=== PATIENT | male | born 1945 | race Caucasian/White ===

== ENCOUNTER 2019-05-28 08:04 | Emergency (ER) | payer MEDICARE, OTHER, SELFPAY ==
[2019-05-28 08:04] VITALS: BP 183/75; PULSE 53; RESP 17; TEMP 36.7; O2SAT 99; BMI 29.9
--- NOTE | 2019-05-28 08:22 | CT_ITS ---
STUDY: CT ABDOMEN AND PELVIS WITHOUT CONTRAST REASON FOR EXAM: Male, 73 years old. Left flank pain. History of lymphoma. RADIATION DOSAGE (If Supplied By Facility): CTDIvol = ( 17.94 ) mGy, DLP = ( 954.91 ) mGycm TECHNIQUE: Transaxial images were obtained from the dome of the diaphragm to the symphysis pubis without oral contrast, and without intravenous contrast. Sagittal and coronal images were reconstructed. Individualized dose optimization techniques were used for this CT. COMPARISON: Comparison is made with prior examination of July 07, 2015. FINDINGS: Calcified granuloma in the posterior medial segment of the right lower lobe. Coronary artery stenting. Normal liver. Normal gallbladder and extrahepatic biliary system. There is a benign calcified granuloma of the spleen. Normal pancreas. Normal bilateral adrenal glands. 3 mm nonobstructive calculus in the upper pole of the right kidney. 2 mm focus in the lower pole of the right kidney. There is a 2.4 cm cyst in the inferior pole of the right kidney. There is a 4.8 cm by 4.9 cm cyst in the anterior upper pole of the left kidney. Left perinephric stranding. Mild degree of left hydronephrosis and proximal hydroureter due to a 2 mm calculus in the midportion of the left ureter. There is a small hiatal hernia. Normal small intestine. There are multiple colonic diverticula consistent with diverticulosis. There is non-visualization of the appendix. There is diffuse atherosclerotic calcification of the abdominal aorta and its major visceral branches, without a demonstrated aneurysm. Normal inferior vena cava. Normal retroperitoneum. Small residual mesenteric lymph nodes. Normal urinary bladder. There are prostatic calcifications. Normal abdominal wall. There are mild degenerative changes of the visualized lumbar spine. CT/Abdomen/Pelvis without Cont IMPRESSION: 2 mm calculus in the midportion of the left ureter causing mild degree of the left hydronephrosis and perinephric stranding. Stable nonobstructive right intrarenal calculi. Stable bilateral renal cysts. Electronically Signed: Spencer Clark, at 10:14 EDT , Service support ,
--- NOTE | 2019-05-28 08:23 | ED.DCSUM_ITS ---
History of Present Illness Chief Complaint: Flank Pain Informant: Patient Onset: Today Current Severity: Mild Narrative: Complains of left flank pain began 5 AM this morning, history of stents diabetes lymphoma stable no current therapy for lymphoma, went to bed feeling fine, no nausea vomiting or fever the pain radiates in the left flank into the left side of the abdomen, no nausea or vomiting history of kidney stones in the past last 10 years ago usually passes on his own no other complaints review of systems otherwise negative Past Medical History - Allergies and Home Meds Allergies/Adverse Reactions: Allergies meperidine HCl [From Demerol] Allergy (Verified 05/28/19 08:04) Chest tightness prednisone Allergy (Verified 05/28/19 08:04) Chest tightness propoxyphene HCl [From Darvon] Allergy (Verified 05/28/19 08:04) Chest tightness morphine Adverse Reaction (Verified 05/28/19 08:04) Vomiting Primary Care Physician: Aguila Gee MD [Primary Care Provider] - Past Medical History: - - See above Smoking Status: Never smoker Review of Systems General: Denies: Chills, Fever, Sweats Eyes: Denies: Visual changes - bilaterally, Diplopia ENT: Denies: Rhinorrhea, Sore throat Cardiovascular: Denies: Chest pain, Palpitations Respiratory: Denies: Dyspnea, Cough, Dyspnea on exertion Gastrointestinal: Denies: Abdominal pain, Nausea, Vomiting, Diarrhea, Melena, Hematochezia Genitourinary: Reports: - - Left flank pain only. Denies: Dysuria, Hematuria, Frequency Musculoskeletal: Denies: Back pain, Extremity Pain Skin: Denies: Rash, Wounds Neurological: Denies: Headache, Weakness, Numbness Physical Exam Vital Signs/Narrative: Vital Signs Temp Pulse Resp BP Pulse Ox 05/28/19 08:04 98.1 F 53 L 17 183/75 H 99 General: Well nourished, Well developed, No Acute Distress Head: Normocephalic, Atraumatic Eyes: Perrl, EOMI ENT: Moist mucous membranes, No rhinorrhea Neck: Supple, Nontender Cardiovascular: Regular rate, Regular rhythm, No murmurs Respiratory: No distress, CTA bilaterally, Chest nontender Abdomen: Soft, Nontender, Nondistended, Normal bowel sounds, - - Very mild pain to the left flank the abdominal exam is otherwise unremarkable Back: Nontender, Normal Inspection Extremities: Nontender, No edema Skin: Normal color, No rash Neurological: Alert, Oriented x3, Cranial nerves II-XII grossly intact, Normal Strength, Normal Sensation Psychological: Normal affect, Normal Mood Diagnostic/Tx/Re-eval - Medical Decision Making Given all of the above screening labs IV fluid pain management CT flank The screening labs show general unremarkable results microscopic hematuria see those values creatinine 1.6 baseline about 1.2, no recent creatinines, CT shows 2 mm left mid position ureteral kidney stone causing obstruction reevaluation patient is resting comfortable discussed all the above with him he is comfortable discharge home he understands to follow-up with urology, he is given the number for [facility] he wants no narcotic pain medicines just Naprosyn and Flomax and he will return for change in symptoms he understands any to follow-up with urology Home stable Final impression Left flank pain related to 2 mm obstructing right ureteral kidney stone creatinine 1.6 ED Disposition - Plan for ED Patient: Diagnosis: Kidney stone on left side Instructions: KIDNEY STONE w/ Colic Prescriptions: Tamsulosin HCl [Flomax] 0.4 mg PO DAILY #7 cap Prescription Printed Naproxen [Naprosyn] 500 mg PO BID PRN #20 tab Prescription Printed Referrals: Aguila Gee MD [Primary Care Provider] - Gordy Pete MD [STAFF PHYSICIAN] -
[2019-05-28 08:51] LABS: Bacteria 0 SEEN /hpf (None Seen); Mucous, Urine 0 SEEN /hpf (<or=2+); Squamous Epithelial Cells - UA 0 SEEN /hpf (0-5); White Blood Cells 0 SEEN /hpf (0-5)
[2019-05-28 09:02] LABS: Color, Urine Yellow (Yellow); Glucose, Dipstick 1000 mg/dl (Normal); Ketone-Dipstick 5 mg/dl (Negative); Leukocyte Esterase-Dipstick Negative /ul (Negative); Nitrite-Dipstick Negative (Negative); Occult Blood-Urine 250 /ul (Negative); Protein-Dipstick 30 mg/dl (Negative); Urine Bilirubin Dipstick Negative (Negative); Urine Clarity Clear (Clear); Urine Urobilinogen Normal (Normal)
[2019-05-28] MEDS: Ondansetron 4 MG/2 ML Vial IV (09:07)
[2019-05-28] MEDS: Ketorolac 30 MG/ML Syringe IV (09:07)
[2019-05-28] MEDS: HYDROmorphone 0.5 MG/0.5 ML SYRINGE IV ×2 (09:07→10:20)
[2019-05-28 09:09] LABS: Absolute Lymphocyte Count 0.75 X10^3/uL (0.83-4.51); Absolute Neutrophil Count 6.3 X10^3/uL (2.0-7.7); Basophil# 0.02 X10^3/uL; Basophil% 0.3 % (0-1); Eosinophil# 0.04 X10^3/uL; Eosinophils% 0.5 % (0-5); Hematocrit 45.9 % (40-54); Hemoglobin 15.8 g/dL (13.0-16.5); Lymphocyte # 0.75 X10^3/ul (4.0); Lymphocyte % 10.1 % (19-41); Mean Corp Hgb Conc 34.4 g/dL (32-36); Mean Corpuscular Hgb 30.4 pg (27.0-32.0); Mean Corpuscular Volume 88.3 fL (80-94); Mean Platelet Vol. 10.3 fl (6.2-12.0); Monocyte# 0.28 X10^3/uL; Monocyte% 3.8 % (0-10); NRBC Flagged by Analyzer 0 % (0-5); Neutrophil # 6.32 X10^3/uL (2.7-7.7); Neutrophil % 84.9 % (47-70); Platelet Count 167 K/mm3 (150-450); RBC Distribution Width CV 12.3 % (11.6-14.6); RBC Distribution Width SD 40.3 fl (35.1-43.9); White Blood Count 7.4 K/mm3 (4.4-11.0)
[2019-05-28 09:09] LABS: Red Blood Cells-Urine 25-50 SEEN /hpf (0-5)
[2019-05-28 09:13] VITALS: BP 169/54; PULSE 53; RESP 14; O2SAT 98
[2019-05-28 09:21] LABS: Anion Gap 10 (5-15); BUN 15 mg/dL (7-18); BUN/Creat Ratio 9.3 RATIO (10-20); Calcium,Total 9.8 mg/dL (8.5-10.1); Chloride 102 mmol/L (98-107); Creatinine, Serum 1.61 mg/dL (0.70-1.30); EST Glomerular Filtration Rate 45 mL/min (>60); Est Glom Filt Rate - Afr Amer 54 mL/min (>60); Estimated Creatinine Clearance 39.64 ml/min; Glucose 248 mg/dL (74-106); Potassium 4.1 mmol/L (3.5-5.1); Sodium Level 140 mmol/L (136-145)
[2019-05-28 11:13] VITALS: BP 165/73; PULSE 59; RESP 14; O2SAT 97
== END 2019-05-28 11:14 | disposition home or self-care (01) ==
PROVIDERS: Emergency Provider Emergency Medicine; Family Provider Family Medicine; PCP Family Medicine
DX: N13.2 Hydronephrosis with renal and ureteral calculous obstruction (principal); Z85.72 Personal history of non-Hodgkin lymphomas
CPT/HCPCS: 74176; 80048; 81001; 85025; 96374; 96375; 96376; 99283; J7030; A4216; J2405

== ENCOUNTER → 2019-06-24 11:36 | Outpatient (CLI) | payer MEDICARE, OTHER, SELFPAY ==
[2019-05-28 08:04] VITALS: BMI 29.9
--- NOTE | 2019-06-24 11:37 | RAD_ITS ---
STUDY: X-RAY - RIGHT KNEE REASON FOR EXAM: Male, 73 years old. Pain TECHNIQUE: 4 view(s) of the knee. COMPARISON: None. FINDINGS: Normal visualized distal femur. Normal visualized proximal tibia and fibula. Normal proximal tibiofibular articulation. Narrowed medial femorotibial compartment with spurring of the medial tibial and femoral condyles and mild valgus deformity.. Normal lateral femorotibial compartment. Normal patellofemoral articulation. Mild chondrocalcinosis RAD/Knee 4 or More Views IMPRESSION: Osteoarthritic changes. No evidence for acute fracture Electronically Signed: Pato Peralta MD at 20:58 EDT , Service support ,
== END ==
PROVIDERS: Family Provider Family Medicine; PCP Family Medicine; Referring Provider Orthopaedic Surgery; Visit Provider Orthopaedic Surgery
DX: M25.561 Pain in right knee (principal)
CPT/HCPCS: 73564

== ENCOUNTER 2019-11-09 10:02 | Emergency (ER) | payer MEDICARE, OTHER, SELFPAY ==
[2019-06-24 11:42] VITALS: BMI 29.9
[2019-11-09 10:03] VITALS: BP 155/100; PULSE 59; RESP 20; TEMP 36.3; O2SAT 99; BMI 29.5
--- NOTE | 2019-11-09 10:32 | CT_ITS ---
STUDY: CT ABDOMEN AND PELVIS WITHOUT CONTRAST REASON FOR EXAM: Male, 74 years old. LL ABD PAIN, HX DIVERTICULITIS RADIATION DOSAGE (If Supplied By Facility): CTDIvol = ( 12.96 ) mGy, DLP = ( 673.65 ) mGycm TECHNIQUE: Transaxial images were obtained from the dome of the diaphragm to the symphysis pubis without oral contrast, and without intravenous contrast. Sagittal and coronal images were reconstructed. Individualized dose optimization techniques were used for this CT. COMPARISON: Comparison is made with prior study dated May 28, 2019. FINDINGS: The visualized lung bases are unremarkable. Coronary artery calcification. Normal liver. Normal gallbladder and extrahepatic biliary system. There is a benign calcified granuloma of the spleen. Normal pancreas. Normal bilateral adrenal glands. Small cyst in the lower pole of the right kidney. Nonobstructive punctate calculus in the lower pole of the right kidney. Left perinephric stranding. Mild degree of left hydronephrosis and hydroureter due to a 3.3 mm calculus in the distal portion of the left ureter. There is evidence of a 4.9 cm x 5.1 cm cyst in the upper pole of the left kidney. A punctate calcification is seen in the lower pole calyx of the left kidney. There is a small hiatal hernia. Normal small intestine. There are multiple colonic diverticula consistent with diverticulosis. The appendix is visualized and appears normal. There is diffuse atherosclerotic calcification of the abdominal aorta and the major visceral branches, without a demonstrated aneurysm. Normal inferior vena cava. There is borderline retroperitoneal lymphadenopathy with enlarged nodes no greater than 10mm in the short axis diameter. Normal urinary bladder. There are prostatic calcifications. Normal abdominal wall. There are degenerative changes of the visualized lumbar spine. CT/Abdomen/Pelvis without Cont IMPRESSION: 3.3 mm obstructive calculus in the distal portion of the left ureter causing left hydronephrosis and left perinephric stranding. Stable bilateral renal cysts. Nonobstructive bilateral intrarenal calculi. Electronically Signed: Spencer Clark, at 11:19 EST , Service support ,
--- NOTE | 2019-11-09 10:36 | ED.DCSUM_ITS ---
- ER Visit Summary Date of Service: 11/09/19 Chief Complaint: Abdominal pain History of Present Illness: The patient is a 74 M who presents with left lower quadrant abdominal pain that began today. Patient describes the pain as sharp. Patient states his pain began suddenly. Patient states he has a history of kidney stones and diverticulitis. Patient states this feels more like his kidney stone pain. Patient states nothing makes it better or worse. Patient admits to 2 episodes of nausea and vomiting. Patient denies any hematemesis or coffee-ground emesis. Patient denies any diarrhea, melena, or hematochezia. Patient denies any dysuria or hematuria. Physical Examination: Vital signs are stable. Patient is afebrile. Patient is in no acute distress. Oral mucosa is pink and moist. Neck is supple. Trachea is midline. There is no JVD noted. Heart was regular rate and rhythm. Lungs are clear and equal bilaterally. Abdomen is soft. Bowel sounds are normal. There is mild left lower quadrant tenderness. There is no rebound or guarding noted. There is also some mild left CVA tenderness. Skin is warm dry. Cranial nerves II through XII are intact. There are no focal motor or sensory deficits noted. Extremities are intact. There is no calf tenderness or edema. Test Results: CBC was within normal limits. Basic metabolic profile showed a creatinine of 1.53. This was improved compared to previous result. Urinalysis shows occult blood of 250 with 10-[address] scan of the abdomen pelvis was obtained. There is a 3.3 mm left distal ureteral calculus with hydronephrosis and perinephric stranding. This was interpreted by the radiologist. Emergency Department Course and Treatment: Patient was given IV fluids. Due to his allergy to opiate medications, the patient was given a dose of Toradol. Patient was given a prescription for a short course of Toradol. Patient was instructed to follow-up with his primary care physician and urologist in 3 to 5 days. Patient understood and was agreeable with the plan. All questions were answered. Disposition: Discharge home Impression: Left ureteral calculus This note was generated with [employer] software. It may contain incorrect words, spelling, and punctuation that were not noted in review of the chart prior to signing ED Disposition - Plan for ED Patient: Disposition: Home or Assisted Living Diagnosis: Left ureteral calculus Instructions: KIDNEY STONE w/ Colic Prescriptions: Ketorolac [Toradol] 10 mg PO Q6H #12 tab Prescription Printed Referrals: Aguila Gee MD [Primary Care Provider] - 3-5 Days
[2019-11-09 10:44] LABS: Absolute Lymphocyte Count 0.98 X10^3/uL (0.83-4.51); Absolute Neutrophil Count 6.4 X10^3/uL (2.0-7.7); Basophil# 0.05 X10^3/uL; Basophil% 0.6 % (0-1); Eosinophil# 0.05 X10^3/uL; Eosinophils% 0.6 % (0-5); Hematocrit 46.5 % (40-54); Hemoglobin 15.7 g/dL (13.0-16.5); Lymphocyte # 0.98 X10^3/ul (4.0); Lymphocyte % 12.2 % (19-41); Mean Corp Hgb Conc 33.8 g/dL (32-36); Mean Corpuscular Hgb 29.8 pg (27.0-32.0); Mean Corpuscular Volume 88.4 fL (80-94); Mean Platelet Vol. 10.8 fl (6.2-12.0); Monocyte# 0.48 X10^3/uL; NRBC Flagged by Analyzer 0 % (0-5); Neutrophil # 6.42 X10^3/uL (2.7-7.7); Neutrophil % 80.2 % (47-70); Platelet Count 165 K/mm3 (150-450); RBC Distribution Width CV 12.3 % (11.6-14.6); RBC Distribution Width SD 40.3 fl (35.1-43.9); Red Blood Count 5.26 M/mm3 (4.6-6.2)
[2019-11-09] MEDS: 0.9% Normal Saline 1,000 ML 1000 ML IV (10:49)
[2019-11-09] MEDS: Ketorolac 30 MG/ML Syringe 15 MG IV (10:50)
[2019-11-09 10:57] LABS: BUN 21 mg/dL (7-18); Creatinine, Serum 1.53 mg/dL (0.70-1.30); Estimated Creatinine Clearance 41.07 ml/min; Glucose 256 mg/dL (74-106)
[2019-11-09 10:57] LABS: Bacteria 0 SEEN /hpf (None Seen); Mucous, Urine 0 SEEN /hpf (<or=2+); White Blood Cells 0 SEEN /hpf (0-5)
[2019-11-09 10:58] LABS: ALB/GLOB Ratio 1.1 RATIO (0.9-2.4); AST(SGOT) 31 U/L (15-37); Alanine Aminotransfer ALT/SGPT 40 U/L (16-61); Albumin, Serum 4.4 g/dL (3.2-5.0); Alkaline Phosphatase 66 U/L (45-117); Anion Gap 8 (5-15); BUN/Creat Ratio 13.7 RATIO (10-20); Calcium,Total 9.6 mg/dL (8.5-10.1); Chloride 103 mmol/L (98-107); EST Glomerular Filtration Rate 47 mL/min (>60); Est Glom Filt Rate - Afr Amer 57 mL/min (>60); Globulin 4.1 g/dL (2.2-4.2); Protein, Total 8.5 g/dL (6.4-8.2); Sodium Level 138 mmol/L (136-145)
[2019-11-09 11:00] LABS: Color, Urine Yellow (Yellow); Glucose, Dipstick 1000 mg/dl (Normal); Ketone-Dipstick 50 mg/dl (Negative); Leukocyte Esterase-Dipstick Negative /ul (Negative); Nitrite-Dipstick Negative (Negative); Occult Blood-Urine 250 /ul (Negative); Protein-Dipstick 30 mg/dl (Negative); Urine Bilirubin Dipstick Negative (Negative); Urine Clarity Clear (Clear); Urine Urobilinogen Normal (Normal)
[2019-11-09 11:10] LABS: Red Blood Cells-Urine 10-25 SEEN /hpf (0-5); Squamous Epithelial Cells - UA 0 SEEN /hpf (0-5)
[2019-11-09 12:44] VITALS: BP 148/66; PULSE 60; RESP 17; O2SAT 97
--- NOTE | 2019-11-09 14:24 | CHAPLAIN ---
Type of Pastoral Visit _x__ Initial Visit ___ Follow-up Visit ___ On-call Visit ___ General Patient Visit ___ Spiritual Assessment ___ Family Conference ___ Bereavement ___ Rapid Response ___ Code Blue ___ Other (describe below) Pastoral Care Referral From _x__ Patient _x__ Family ___ Nurse ___ Physician ___ Fundraising Sale Representative ___ Knocker Out ___ Other (describe below) Sacrament/Intervention _x__ Active listening ___ Anointing ___ Confucianism ___ Bereavement ___ Communion ___ Laura exploration ___ _x__ Life review _x__ Prayer ___ Reconciliation ___ Sacrament of Sick _x__ Supportive presence ___ Wedding ___ Other (describe below) Pastoral Comments
== END 2019-11-09 12:44 | disposition home or self-care (01) ==
PROVIDERS: Emergency Provider Emergency Medicine; PCP Family Medicine
DX: N13.2 Hydronephrosis with renal and ureteral calculous obstruction (principal); I25.10 Atherosclerotic heart disease of native coronary artery without angina pectoris; Z87.442 Personal history of urinary calculi; Z95.5 Presence of coronary angioplasty implant and graft; Z79.82 Long term (current) use of aspirin; Z79.899 Other long term (current) drug therapy
CPT/HCPCS: 74176; 80053; 81001; 85025; 96361; 96374; 99285; J7030; A4216

== ENCOUNTER 2020-03-16 09:48 | Emergency (ER) | payer MEDICARE, OTHER, SELFPAY ==
[2020-03-16 09:50] VITALS: BP 150/75; PULSE 57; RESP 17; TEMP 36.6; O2SAT 98; BMI 29.5
--- NOTE | 2020-03-16 10:03 | VDLE_ITS ---
Reason For Study: Pain RIGHT LEFT GSV is normal. CFV is compressible, spontaneous, phasic, CFV is compressible, spontaneous, phasic, competent, and demonstrates normal competent and demonstrates normal augmentation. augmentation. FV is compressible, spontaneous, phasic, competent and demonstrates normal augmentation. POP V is compressible, spontaneous, phasic, competent and demonstrates normal augmentation. T/P Trunk is compressible. PTV is compressible. RT PerV is compressible. Nonvascularized structure noted in the distal anterior calf measuring approximently 0.49 x 1.63 x 3.20 cm. Procedure Exam performed portable in ED. A preliminary report was called and/or faxed to [facility]. Interpretation Summary There is no evidence of right lower extremity deep vein thrombosis. Right distal anterior calf subcutaneous 0.49 x 1.63 x 3.2 cm stucture with no vascular flow. Clinical correlation would be appropriate Patent, compressible left common femoral vein Ordering Physician: Leonor Damon Referring Physician: MD Marlen Aguila Performed By: Mercedes Walton RVT
--- NOTE | 2020-03-16 10:04 | ED.VIS.GEN ---
History of Present Illness Chief Complaint: Lower Extremity Injury Informant: Patient Onset: Days - 10 days Current Severity: Moderate Maximum Severity: Moderate Narrative: Patient presents with continued pain and swelling to his right lower leg after hitting his leg on a trailer hitch 10 days ago. He had no laceration or bleeding. He continues to have a focal area of swelling over the anterior medial lower murphy. He has had prior right ankle surgery with screws in place. - Past Medical History (1) Benign essential hypertension Status: Chronic (2) CAD (coronary artery disease) Status: Chronic (3) HLD (hyperlipidemia) Status: Chronic (4) Intracranial meningioma Status: Chronic (5) Type II diabetes mellitus Status: Chronic Past Medical History - Allergies and Home Meds Allergies/Adverse Reactions: Allergies cephalexin [From Keflex] Allergy (Verified 03/16/20 09:49) rash meperidine HCl [From Demerol] Allergy (Verified 03/16/20 09:49) Chest tightness prednisone Allergy (Verified 03/16/20 09:49) Chest tightness propoxyphene HCl [From Darvon] Allergy (Verified 03/16/20 09:49) Chest tightness morphine Adverse Reaction (Verified 03/16/20 09:49) Vomiting Primary Care Physician: Aguila Gee MD [Primary Care Provider] - Prior records reviewed: Yes Smoking Status: Never smoker Review of Systems General: Denies: Chills, Fever Eyes: Denies: Visual changes - bilaterally ENT: Denies: Bilateral ear pain Cardiovascular: Denies: Chest pain Respiratory: Denies: Dyspnea, Cough Gastrointestinal: Denies: Abdominal pain, Nausea, Vomiting, Diarrhea Genitourinary: Denies: Dysuria Musculoskeletal: Reports: Swelling, Extremity Pain Neurological: Denies: Headache Hematologic: Denies: Easy bruising, Easy bleeding Allergy: Denies: Uticaria Physical Exam Vital Signs/Narrative: Vital Signs Temp Pulse Resp BP Pulse Ox 03/16/20 09:50 97.8 F 57 L 17 150/75 H 98 Inital Vital Signs reviewed: Yes General: Well nourished, Well developed Head: Normocephalic ENT: Moist mucous membranes Neck: Supple Cardiovascular: Regular rate, Regular rhythm Respiratory: No distress, CTA bilaterally Abdomen: Soft, Nontender Extremities: - - Focal hematoma over the anterior medial right lower murphy. Strong distal pulses. Good range of motion. Neurological: Alert, Oriented x3 Psychological: Normal affect Diagnostic/Tx/Re-eval Impressions Tibia/Fibula X-Ray 03/16/20 10:13 IMPRESSION: Vascular calcification. Prior ORIF of the bimalleolar fracture. No acute abnormality is seen. Electronically Signed: Spencer Clark, at 10:26 EDT , Service support , 03/16/20 10:13 Tibia & Fibula 2 Views [RAD] Stat - Medical Decision Making Venous ultrasound of the right lower extremity reveals no DVT. There is a pocket of fluid collection over the area of interest. Thang wrap is applied. Patient will continue to ice and elevate. ED Disposition - Plan for ED Patient: Disposition: Home or Assisted Living Diagnosis: Contusion of leg, Hematoma Instructions: ED EXTREMITY CONTUSION Lower Referrals: Aguila Gee MD [Primary Care Provider] - 10-14 Days if not better
--- NOTE | 2020-03-16 10:13 | RAD_ITS ---
STUDY: X-RAY - RIGHT TIBIA AND FIBULA REASON FOR EXAM: Male, 74 years old. RIGHT LOWER LEG PAIN AND EDEMA SINCE RUNNING INTO A TRAILER HITCH 10 DAYS AGO TECHNIQUE: 2 view(s) of the tibia and fibula were obtained. COMPARISON: None. FINDINGS: Normal visualized tibia. Normal visualized fibula. Prior screw fixation of a medial malleolar and lateral malleolar fracture. Vascular calcification. RAD/Tibia & Fibula 2 Views IMPRESSION: Vascular calcification. Prior ORIF of the bimalleolar fracture. No acute abnormality is seen. Electronically Signed: Spencer Clark, at 10:26 EDT , Service support ,
--- NOTE | 2020-03-16 11:29 | CHAPLAIN ---
Type of Pastoral Visit ___ Initial Visit ___ Follow-up Visit ___ On-call Visit ___ General Patient Visit ___ Spiritual Assessment ___ Family Conference ___ Bereavement ___ Rapid Response ___ Code Blue _x__ Other (describe below) Pastoral Care Referral From _x__ Patient ___ Family ___ Nurse ___ Physician ___ Office Auditor ___ Juke Box Mechanic ___ Other (describe below) Sacrament/Intervention _x__ Active listening ___ Anointing ___ Jainism ___ Bereavement ___ Communion ___ Laura exploration ___ ___ Life review ___ Prayer ___ Reconciliation ___ Sacrament of Sick _x__ Supportive presence ___ Wedding ___ Other (describe below) Pastoral Comments while this receivable executive was on rounds in ED this patient came from room as he was leaving hospital; this receivable executive is known to patient and pt stops to talk; offer of support given to pt; presence and attention given by receivable executive for support
== END 2020-03-16 10:55 | disposition home or self-care (01) ==
LOC: ED 10:51
PROVIDERS: Emergency Provider Emergency Medicine; PCP Family Medicine
DX: S80.11XA Contusion of right lower leg, initial encounter (principal); W22.09XA Striking against other stationary object, initial encounter; I10 Essential (primary) hypertension; E78.5 Hyperlipidemia, unspecified; I25.10 Atherosclerotic heart disease of native coronary artery without angina pectoris; E11.9 Type 2 diabetes mellitus without complications; Z79.84 Long term (current) use of oral hypoglycemic drugs; Z79.899 Other long term (current) drug therapy; Z79.82 Long term (current) use of aspirin; D32.0 Benign neoplasm of cerebral meninges
CPT/HCPCS: 73590; 93971; 99282

== ENCOUNTER 2020-07-28 04:32 | Emergency (ER) | payer MEDICARE, OTHER, SELFPAY ==
[2020-07-28 04:33] VITALS: BP 178/80; PULSE 66; RESP 18; TEMP 36.4; O2SAT 97; BMI 29.5
--- NOTE | 2020-07-28 04:47 | CT_ITS ---
STUDY: CT ABDOMEN AND PELVIS WITHOUT CONTRAST REASON FOR EXAM: Male, 75 years old. Right flank pain. History of kidney stones. RADIATION DOSAGE (If Supplied By Facility): CTDIvol = ( 12.82 ) mGy, DLP = ( 672.74 ) mGycm TECHNIQUE: Transaxial images were obtained from the dome of the diaphragm to the symphysis pubis without oral contrast, and without intravenous contrast. Sagittal and coronal images were reconstructed. Individualized dose optimization techniques were used for this CT. COMPARISON: November 09, 2019. FINDINGS: The visualized lung bases are unremarkable. The heart is not enlarged. Coronary artery calcifications. Calcified right infrahilar lymph nodes. Normal liver. Normal gallbladder and extrahepatic biliary system. There are multiple benign calcified granulomata of the spleen. Normal pancreas. Normal bilateral adrenal glands. Mild right hydronephrosis secondary to a 4 mm x 3 mm mid ureteral stone located at the L3-4 level. Stable inferior pole right renal cyst. Scattered 1 mm nonobstructing right renal calculi. Stable 5.1 cm simple left renal cyst. Normal visualized stomach. Normal small intestine. Colonic diverticulosis. There is non-visualization of the appendix compatible with history of appendectomy. There is scattered atherosclerotic calcification of the abdominal aorta, without a demonstrated aneurysm. Normal inferior vena cava. Normal retroperitoneum. No intra-abdominal free air. Normal urinary bladder. Prostate gland is mildly enlarged. Normal abdominal wall. Normal osseous structures. CT/Abdomen/Pelvis without Cont IMPRESSION: Mild right hydronephrosis secondary to a 4 mm x 3 mm mid ureteral stone. Very small nonobstructing right renal calculi. Stable bilateral renal cysts. Mild prostate gland enlargement. Old granulomatous disease. Colonic diverticulosis. Additional nonemergent findings as above. Electronically Signed: Silvestre Negrete MD at 5:43 EDT , Service support ,
--- NOTE | 2020-07-28 04:48 | ED.VIS.GEN ---
History of Present Illness Chief Complaint: Flank Pain Informant: Patient Onset: Today Current Severity: Moderate Maximum Severity: Moderate Narrative: Patient presents with abdominal pain that started at 1230 this morning. It somewhat wraps to the right flank area. He states he feels like his abdomen is distended. He did have nausea with 3 episodes of vomiting. He has a history of kidney stones and states this does feel similar, however is also concerned about his bowels. He has had prior abdominal surgeries including appendectomy and partial cholecystectomy. - Past Medical History (1) Benign essential hypertension Status: Chronic (2) CAD (coronary artery disease) Status: Chronic (3) HLD (hyperlipidemia) Status: Chronic (4) History of nephrolithiasis Status: Chronic (5) Sleep apnea Status: Chronic (6) Type II diabetes mellitus Status: Chronic Past Medical History - Allergies and Home Meds Allergies/Adverse Reactions: Allergies cephalexin [From Keflex] Allergy (Verified 07/28/20 04:38) rash meperidine HCl [From Demerol] Allergy (Verified 07/28/20 04:38) Chest tightness prednisone Allergy (Verified 07/28/20 04:38) Chest tightness propoxyphene HCl [From Darvon] Allergy (Verified 07/28/20 04:38) Chest tightness morphine Adverse Reaction (Verified 07/28/20 04:38) Vomiting Primary Care Physician: Aguila Gee MD [Primary Care Provider] - Prior records reviewed: Yes Lives: Spouse/ Significant Other Smoking Status: Never smoker Review of Systems General: Denies: Chills, Fever Eyes: Denies: Visual changes - bilaterally ENT: Denies: Bilateral ear pain Cardiovascular: Denies: Chest pain Respiratory: Denies: Dyspnea, Cough Gastrointestinal: Reports: Abdominal pain, Nausea, Vomiting. Denies: Diarrhea Genitourinary: Denies: Dysuria Musculoskeletal: Denies: Swelling, Extremity Pain Skin: Denies: Rash Hematologic: Denies: Easy bruising, Easy bleeding Allergy: Denies: Uticaria Physical Exam Vital Signs/Narrative: Vital Signs Temp Pulse Resp BP Pulse Ox 07/28/20 04:33 97.6 F L 66 18 178/80 H 97 Inital Vital Signs reviewed: Yes General: Well nourished, Well developed Head: Normocephalic ENT: Moist mucous membranes Neck: Supple Cardiovascular: Regular rate, Regular rhythm Respiratory: No distress, CTA bilaterally Abdomen: Soft, Nontender, Hypoactive bowel sounds Extremities: Nontender Skin: Normal color Neurological: Alert, Oriented x3 Psychological: Normal affect Diagnostic/Tx/Re-eval Impressions Abdomen/Pelvis CT 07/28/20 04:47 IMPRESSION: Mild right hydronephrosis secondary to a 4 mm x 3 mm mid ureteral stone. Very small nonobstructing right renal calculi. Stable bilateral renal cysts. Mild prostate gland enlargement. Old granulomatous disease. Colonic diverticulosis. Additional nonemergent findings as above. Electronically Signed: Silvestre Negrete MD at 5:43 EDT , Service support , 07/28/20 04:47 Abdomen/Pelvis without Cont [CT] Stat Laboratory Results 07/28/20 07/28/20 07/28/20 04:42 04:42 05:45 WBC 8.1 RBC 4.95 Hgb 14.7 Hct 44.2 MCV 89.3 MCH 29.7 MCHC 33.3 RDW Std Deviation 39.8 RDW Coeff of Radha 12.2 Plt Count 167 MPV 10.7 Immature Gran % (Auto) 0.200 Neut % (Auto) 83.6 H Lymph % (Auto) 10.5 L [place] % (Auto) 5.0 Eos % (Auto) 0.5 Baso % (Auto) 0.2 Absolute Neuts (auto) 6.8 Absolute Lymphs (auto) 0.85 Nucleated RBC % 0 Sodium 137 Potassium 4.0 Chloride 103 Carbon Dioxide 26.0 Anion Gap 8 BUN 26 H Creatinine 1.48 H Estim Creat Clear Calc 41.80 Est GFR (MDRD) Af Amer 59 L Est GFR (MDRD) Non-Af 49 L BUN/Creatinine Ratio 17.6 Glucose 203 H Calcium 9.0 Total Bilirubin 0.80 Direct Bilirubin 0.23 AST 24 ALT 36 Alkaline Phosphatase 56 Total Protein 8.0 Albumin 4.1 Globulin 3.9 Urine Color Yellow Urine Clarity Clear Urine pH 5.0 Ur Specific [place] 1.020 Urine Protein 30 H Urine Glucose (UA) 250 H Urine Ketones 50 H Urine Occult Blood 250 H Urine Nitrite Negative Urine Bilirubin Negative Urine Urobilinogen Normal Ur Leukocyte Esterase Negative Urine RBC 25-50 SEEN Urine WBC 0 SEEN Ur Squamous Epith Cells 0 SEEN Amorphous Sediment RARE Urine Bacteria RARE Hyaline Casts 0-5 SEEN Urine Mucus 0 SEEN - Medical Decision Making Patient was given Toradol, Dilaudid, Zofran, and IV fluids. On repeat evaluation his pain is much improved. Prior to leaving the emergency department patient started to have hematuria. Test results are discussed with patient and . He will be referred to Dr. Pete for follow-up as needed. He will be written for pain and nausea medication at home. ED Disposition - Plan for ED Patient: Disposition: Home or Assisted Living Diagnosis: Kidney stone Instructions: ED Renal Stone w Colic Prescriptions: Ketorolac [Toradol] 10 mg PO Q6H PRN #14 tab PRN Reason: Pain Score 4-10/10 Transmission Status: Pending to [id number] traMADol [Ultram] 50 mg PO Q4H PRN PRN 3 Days #20 tablet PRN Reason: Pain Transmission Status: Received by [id number] Ondansetron [Zofran Odt] 4 mg PO Q8H PRN PRN #10 tab PRN Reason: Nausea Transmission Status: Pending to [id number] Referrals: Gordy Pete MD [STAFF PHYSICIAN] - 3-5 Days if not improving
[2020-07-28 04:53] LABS: Absolute Lymphocyte Count 0.85 X10^3/uL (0.83-4.51); Absolute Neutrophil Count 6.8 X10^3/uL (2.0-7.7); Basophil# 0.02 X10^3/uL; Basophil% 0.2 % (0-1); Eosinophil# 0.04 X10^3/uL; Eosinophils% 0.5 % (0-5); Hematocrit 44.2 % (40-54); Hemoglobin 14.7 g/dL (13.0-16.5); Lymphocyte # 0.85 X10^3/ul (4.0); Lymphocyte % 10.5 % (19-41); Mean Corp Hgb Conc 33.3 g/dL (32-36); Mean Corpuscular Hgb 29.7 pg (27.0-32.0); Mean Corpuscular Volume 89.3 fL (80-94); Mean Platelet Vol. 10.7 fl (6.2-12.0); Monocyte# 0.41 X10^3/uL; NRBC Flagged by Analyzer 0 % (0-5); Neutrophil # 6.78 X10^3/uL (2.7-7.7); Neutrophil % 83.6 % (47-70); Platelet Count 167 K/mm3 (150-450); RBC Distribution Width CV 12.2 % (11.6-14.6); RBC Distribution Width SD 39.8 fl (35.1-43.9); Red Blood Count 4.95 M/mm3 (4.6-6.2); White Blood Count 8.1 K/mm3 (4.4-11.0)
[2020-07-28] MEDS: 0.9% Normal Saline 1,000 ML 150 ML IV (05:01)
[2020-07-28] MEDS: Ketorolac 15 MG/ML Vial IV (05:01)
[2020-07-28] MEDS: Ondansetron 4 MG/2 ML Vial IV (05:02)
[2020-07-28] MEDS: HYDROmorphone 1 MG/ML Syringe 0.5 MG IV (05:02)
[2020-07-28 05:11] LABS: AST(SGOT) 24 U/L (15-37); Alanine Aminotransfer ALT/SGPT 36 U/L (16-61); Albumin, Serum 4.1 g/dL (3.2-5.0); Alkaline Phosphatase 56 U/L (45-117); Anion Gap 8 (5-15); BUN 26 mg/dL (7-18); BUN/Creat Ratio 17.6 RATIO (10-20); Bilirubin, Direct 0.23 mg/dL (0.00-0.30); Chloride 103 mmol/L (98-107); Creatinine, Serum 1.48 mg/dL (0.70-1.30); EST Glomerular Filtration Rate 49 mL/min (>60); Est Glom Filt Rate - Afr Amer 59 mL/min (>60); Globulin 3.9 g/dL (2.2-4.2); Glucose 203 mg/dL (74-106); Sodium Level 137 mmol/L (136-145)
[2020-07-28 06:13] LABS: Color, Urine Yellow (Yellow); Glucose, Dipstick 250 mg/dl (Normal); Ketone-Dipstick 50 mg/dl (Negative); Leukocyte Esterase-Dipstick Negative /ul (Negative); Mucous, Urine 0 SEEN /hpf (<or=2+); Nitrite-Dipstick Negative (Negative); Occult Blood-Urine 250 /ul (Negative); Protein-Dipstick 30 mg/dl (Negative); Squamous Epithelial Cells - UA 0 SEEN /hpf (0-5); Urine Bilirubin Dipstick Negative (Negative); Urine Clarity Clear (Clear); Urine Urobilinogen Normal (Normal); White Blood Cells 0 SEEN /hpf (0-5)
[2020-07-28 06:21] LABS: Red Blood Cells-Urine 25-50 SEEN /hpf (0-5)
[2020-07-28 06:22] LABS: Amorphous Sediment RARE; Bacteria RARE /hpf (None Seen)
[2020-07-28 06:25] LABS: Hyaline Cast 0-5 SEEN /lpf (0-5)
[2020-07-28 07:08] VITALS: BP 148/72; PULSE 57; RESP 14; O2SAT 98
== END 2020-07-28 07:10 | disposition home or self-care (01) ==
PROVIDERS: Emergency Provider Emergency Medicine; PCP Family Medicine
DX: N20.0 Calculus of kidney (principal); I25.10 Atherosclerotic heart disease of native coronary artery without angina pectoris; E78.5 Hyperlipidemia, unspecified; I10 Essential (primary) hypertension; E11.9 Type 2 diabetes mellitus without complications; Z87.442 Personal history of urinary calculi; Z79.82 Long term (current) use of aspirin; Z79.84 Long term (current) use of oral hypoglycemic drugs
CPT/HCPCS: 74176; 80048; 80076; 81001; 85025; 96361; 96374; 96375; 99285; J7030; A4216; J2405

== ENCOUNTER 2021-05-26 05:17 | Emergency (ER) | payer OTHER, MEDICARE, SELFPAY ==
[2021-05-26 05:18] VITALS: BP 188/81; PULSE 58; RESP 17; O2SAT 99
[2021-05-26 05:19] VITALS: PULSE 59; RESP 16; TEMP 36.6; O2SAT 99; BMI 32.1
--- NOTE | 2021-05-26 05:25 | CT_ITS ---
STUDY: CT ABDOMEN AND PELVIS WITHOUT CONTRAST REASON FOR EXAM: Male, 75 years old. Pain. Evaluate for kidney stone. RADIATION DOSAGE (If Supplied By Facility): CTDIvol = ( 10.64 ) mGy, DLP = ( 584.97 ) mGycm TECHNIQUE: Transaxial images were obtained from the dome of the diaphragm to the symphysis pubis without oral contrast, and without intravenous contrast. Sagittal and coronal images were reconstructed. Individualized dose optimization techniques were used for this CT. COMPARISON: None. FINDINGS: Evaluation of the abdominal viscera is limited in the absence of intravenous contrast. There is atelectasis at the lung bases. The visualized portions of the heart and pericardium are within normal limits. There are no calcified gallstones present. The liver demonstrates an unremarkable unenhanced appearance. The spleen is normal in size. The pancreas demonstrates an unremarkable unenhanced appearance. The adrenal glands are within normal limits. There is a 5.2 x 4.3 cm exophytic simple cyst arising from the upper pole of the left kidney. There is a 3 mm stone in the left proximal ureter with mild left hydronephrosis. There are no right renal or ureteral stones. There is no right hydronephrosis. Normal visualized stomach. There is no bowel obstruction or inflammation. The appendix is not visualized, but there are no findings to suggest acute appendicitis. The aorta is normal in caliber. There are atherosclerotic calcifications noted in the aorta and its branches. There is no abdominal or pelvic free air, free fluid, fluid collection or lymphadenopathy. There are no destructive osseous lesions. CT/Abdomen/Pelvis without Cont IMPRESSION: 3 mm stone in the left proximal ureter with mild left hydronephrosis. No right-sided stones. No right-sided hydronephrosis. No bowel obstruction or inflammation. Atherosclerosis and coronary artery disease. Electronically Signed: Campos Bui MD at 8:17 EDT Tel , Service support ,
[2021-05-26 05:30] LABS: Absolute Lymphocyte Count 1.33 X10^3/uL (0.83-4.51); Absolute Neutrophil Count 4.4 X10^3/uL (2.0-7.7); Basophil# 0.03 X10^3/uL; Basophil% 0.5 % (0-1); Eosinophil# 0.09 X10^3/uL; Eosinophils% 1.4 % (0-5); Hematocrit 43.5 % (40-54); Hemoglobin 14.6 g/dL (13.0-16.5); Lymphocyte # 1.33 X10^3/ul (0.83-4.51); Lymphocyte % 20.9 % (19-41); Mean Corp Hgb Conc 33.6 g/dL (32-36); Mean Corpuscular Hgb 29.9 pg (27.0-32.0); Mean Corpuscular Volume 89.1 fL (80-94); Mean Platelet Vol. 10.5 fl (6.2-12.0); Monocyte# 0.52 X10^3/uL; Monocyte% 8.2 % (0-10); NRBC Flagged by Analyzer 0 % (0-5); Neutrophil # 4.37 X10^3/uL (2.7-7.7); Neutrophil % 68.8 % (47-70); Platelet Count 170 K/mm3 (150-450); RBC Distribution Width CV 12.2 % (11.6-14.6); RBC Distribution Width SD 39.7 fl (35.1-43.9); Red Blood Count 4.88 M/mm3 (4.6-6.2); White Blood Count 6.4 K/mm3 (4.4-11.0)
--- NOTE | 2021-05-26 05:32 | EDS_ITS ---
HPI History of Present Illness Chief Complaint: Abd Pain Informant: patient and spouse/S.O. Narrative Narrative: 75-year-old male was woken from sleep tonight with pain in the left lower quadrant of his abdomen. He notes associated nausea and vomiting. No testicular pain or pain in the kidneys. He describes it as sharp and similar to prior kidney stones. He is never had to have surgery for kidney stones. He does note a history of diverticulitis years ago. No change in bowel habits. [facility] Medical History (Updated 05/26/21 @ 06:[address] Cristian Jensen, ) Cancer Diabetes Diverticulitis Follicular lymphoma Hypertension Kidney stones Right ankle injury Umbilical hernia Home Medications aspirin 81 mg tablet,delayed release 81 mg PO DAILY 06/24/19 [History Last Taken Unknown] atenolol 50 mg tablet 50 mg PO DAILY 06/24/19 [History Last Taken Unknown] atorvastatin 40 mg tablet 20 mg PO DAILY 06/24/19 [History Last Taken Unknown] metformin 1,000 mg tablet 1,000 mg PO DAILY 06/24/19 [History Last Taken Unknown] nitroglycerin 0.4 mg sublingual tablet 0.4 mg SUBLINGUAL .COMPLEX #25 tab 06/24/19 [History Last Taken Unknown] pantoprazole 20 mg tablet,delayed release 20 mg PO DAILY #3 tab 06/24/19 [History Last Taken Unknown] allopurinol 100 mg PO DAILY 11/09/19 [History Last Taken Unknown] ascorbic acid (vitamin C) 500 mg PO DAILY 11/09/19 [History Last Taken Unknown] cinnamon bark 500 mg PO DAILY 11/09/19 [History Last Taken Unknown] fish oil-dha-epa 1 ea PO DAILY 11/09/19 [History Last Taken Unknown] glimepiride 8 mg PO DAILY 11/09/19 [History Last Taken Unknown] metformin 500 mg PO QHS 11/09/19 [History Last Taken Unknown] ketorolac 10 mg PO Q6H PRN #14 tab 07/28/20 [Rx Last Taken Unknown] ondansetron 4 mg PO Q8H PRN PRN #10 tab 07/28/20 [Rx Last Taken Unknown] ketorolac 10 mg PO Q8H PRN 5 Days #15 tab 05/26/21 [Rx Last Taken Unknown] ondansetron 4 mg PO Q6H PRN PRN #10 tab 05/26/21 [Rx Last Taken Unknown] oxycodone-acetaminophen 1 tab PO Q6H PRN PRN 5 Days #20 tablet 05/26/21 [Rx Last Taken Unknown] Allergy/AdvReac Type Severity Reaction Status Date / Time cephalexin [From Keflex] Allergy rash Verified 07/28/20 04:38 meperidine HCl [From Demerol] Allergy Chest Verified 07/28/20 04:38 tightness prednisone Allergy Chest Verified 07/28/20 04:38 tightness propoxyphene HCl Allergy Chest Verified 07/28/20 04:38 [From Darvon] tightness morphine AdvReac Vomiting Verified 07/28/20 04:38 Surgical History History of cholecystectomy History of coronary artery stent placement History of replacement of both shoulder joints History of total left knee replacement S/p bilateral shoulder joint replacement Social History (Updated 05/26/21 @ 05:[address] Cristian Jensen DO) Smoking Status: Never smoker substance use type: does not use ROS ROS ED Constitutional Constitutional ED: Denies chills or weight loss Eyes Eyes: Denies change in vision or diplopia ENT ENT ED: Denies ear pain, rhinorrhea or sore throat Cardiovascular Cardiovascular: Denies chest pain, orthopnea, palpitations or racing heartbeat Respiratory/Chest Respiratory/Chest: Denies cough, dyspnea or orthopnea Gastrointestinal Gastrointestinal: Reports abdominal pain, nausea and vomiting; Denies diarrhea Genitourinary Genitourinary ED: Denies dysuria, hematuria or urinary frequency Musculoskeletal Musculoskeletal: Denies arthralgias or myalgias Integumentary Denies abscess or rash Neurologic Neurologic: Denies headache(s) or weakness Psychiatric Psychiatric: Denies anxiety, depression, suicidal ideation or suicidal thoughts Endocrine Endocrinology: Denies polydipsia, polyphagia or polyuria Allergic/Immunologic Allergic/Immunologic ED: Denies mouth swelling, tongue swelling or urticaria EXAM Physical Exam Narrative Exam Narrative: Appears in pain Const Vital Signs: 05/26/21 05:18 05/26/21 05:19 Temperature 97.9 F Temperature Source Oral Pulse Rate 58 L 59 L Respiratory Rate 17 16 Blood Pressure 188/81 H Blood Pressure Mean 116 Pulse Ox 99 99 Oxygen Delivery Method Room Air Room Air Positive well nourished and well developed General Appearance ED: well developed HEENT Reports normocephalic, head/scalp atraumatic and moist mucous membranes Eyes PERRL and EOMs intact bilaterally Neck no lymphadenopathy, supple and no JVD Resp normal respiratory effort and clear to auscultation bilaterally Cardio regular rate, regular rhythm and no murmurs GI normal to inspection, nondistended, normoactive bowel sounds and non-tender Palpation: soft Back/Spine no CVA tenderness and normal ROM Extremity normal to inspection General Extremety ED: Negative for edema General Extremity: Negative for edema Neuro oriented x3 and CN's II-XII intact bilaterally Sensorium / Orientation: alert Motor Exam: strength 5/5 throughout Psych mental status grossly normal Mood & Affect: Negative for depressed or tearful Skin no rashes or lesions noted and no wounds MDM MDM MDM Narrative Medical decision making narrative: Patient received Toradol Zofran and Dilaudid. He is feeling significantly better. Patient's white count is normal. The creatinine is 1.49. CT of the abdomen pelvis demonstrates left mid ureteral stone of about 4 to 5 mm. While awaiting the patient's urine specimen he began to complain of some chest discomfort. He points to his epigastrium lower xiphoid area as the area that hurts. He states it feels like a pressure. He states he has been experiencing this intermittently sometimes lasting for minutes sometimes for hours. He made an appointment with cardiology but was gone on vacation so they rescheduled for May but now the epic [place] specialist would be on vacation and so they rescheduled it for June. He denies any dyspnea with it no nausea with it. EKG was obtained that showed sinus rhythm at a rate of 57. No concerning features of ACS or ectopy noted Lab Data Attestation: I reviewed the patient's lab results. Labs: Laboratory Results - last 24 hr 05/26/21 05/26/21 05:20 05:20 WBC 6.4 RBC 4.88 Hgb 14.6 Hct 43.5 MCV 89.1 MCH 29.9 MCHC 33.6 RDW Std Deviation 39.7 RDW Coeff of Radha 12.2 Plt Count 170 MPV 10.5 Immature Gran % (Auto) 0.200 Neut % (Auto) 68.8 Lymph % (Auto) 20.9 [place] % (Auto) 8.2 Eos % (Auto) 1.4 Baso % (Auto) 0.5 Absolute Neuts (auto) 4.4 Absolute Lymphs (auto) 1.33 Nucleated RBC % 0 Sodium 139 Potassium 3.9 Chloride 104 Carbon Dioxide 27.0 Anion Gap 8 BUN 23 H Creatinine 1.49 H Estim Creat Clear Calc 41.52 Est GFR (MDRD) Af Amer 59 L Est GFR (MDRD) Non-Af 49 L BUN/Creatinine Ratio 15.4 Glucose 221 H Calcium 9.4 EKG Initial EKG: Attestation: I personally reviewed and interpreted this EKG as follows: Comments: Sinus rhythm ventricular rate of 57 bpm Discharge Plan Triage Chief Complaint: Abd Pain ED Provider: Cristian Jensen Dx/Rx/DC Orders Clinical Impression: Ureterolithiasis, Abdominal pain, acute Instructions: ED Kidney Stone w/ Colic Prescriptions: New oxycodone-acetaminophen [oxycodone-acetaminophen] 1 TABLET tablet 1 tab PO Q6H PRN PRN (Reason: pain) 5 Days Qty: 20 RF: 0 ondansetron [ondansetron] 4 MG tablet 4 mg PO Q6H PRN PRN (Reason: Nausea) Qty: 10 RF: 0 ketorolac 10 mg tablet 10 mg PO Q8H PRN (Reason: pain) 5 Days Qty: 15 RF: 0 No Action pantoprazole 20 mg tablet,delayed release (DR/EC) 20 mg PO DAILY Qty: 3 RF: 0 nitroglycerin 0.4 mg tablet, sublingual 0.4 mg SUBLINGUAL .COMPLEX Qty: 25 RF: 0 atorvastatin [Lipitor] 40 mg tablet 20 mg PO DAILY RF: 0 atenolol 50 mg tablet 50 mg PO DAILY RF: 0 aspirin 81 mg tablet,delayed release (DR/EC) 81 mg PO DAILY RF: 0 metformin 1,000 mg tablet 1,000 mg PO DAILY RF: 0 metformin 500 MG tablet 500 mg PO QHS RF: 0 allopurinol 100 mg tablet 100 mg PO DAILY RF: 0 glimepiride 4 MG tablet 8 mg PO DAILY RF: 0 cinnamon bark 500 MG capsule 500 mg PO DAILY RF: 0 fish oil-dha-epa 1 EACH capsule 1 ea PO DAILY RF: 0 ascorbic acid (vitamin C) 500 MG capsule 500 mg PO DAILY RF: 0 ketorolac 10 MG tablet 10 mg PO Q6H PRN (Reason: Pain Score 4-10/10) Qty: 14 RF: 0 ondansetron 4 MG tablet 4 mg PO Q8H PRN PRN (Reason: Nausea) Qty: 10 RF: 0 Primary Care Provider: Aguila Gee Referrals: Gordy Pete MD [STAFF PHYSICIAN] - As soon as possible (For urology) Aguila Gee MD [Primary Care Provider] - As Needed Disposition Disposition: Home, Self Care
[2021-05-26 05:39] LABS: Anion Gap 8 (5-15); BUN 23 mg/dL (7-18); BUN/Creat Ratio 15.4 RATIO (10-20); Calcium,Total 9.4 mg/dL (8.5-10.1); Chloride 104 mmol/L (98-107); Creatinine, Serum 1.49 mg/dL (0.70-1.30); EST Glomerular Filtration Rate 49 mL/min (>60); Est Glom Filt Rate - Afr Amer 59 mL/min (>60); Estimated Creatinine Clearance 41.52 ml/min; Glucose 221 mg/dL (74-106); Potassium 3.9 mmol/L (3.5-5.1); Sodium Level 139 mmol/L (136-145)
[2021-05-26] MEDS: HYDROmorphone 1 MG/ML Syringe IV (05:42)
[2021-05-26] MEDS: Ondansetron 4 MG/2 ML Vial IV (05:43)
[2021-05-26] MEDS: Ketorolac 30 MG/ML Syringe IV (05:43)
[2021-05-26] MEDS: 0.9% Normal Saline 1,000 ML 250 ML IV (06:14)
--- NOTE | 2021-05-26 06:45 | EKG12_ITS ---
Test Reason : Blood Pressure : / mmHG Vent. Rate : 057 BPM Atrial Rate : 058 BPM P-R Int : 000 ms QRS Dur : 088 ms QT Int : 430 ms P-R-T Axes : 000 -09 011 degrees QTc Int : 418 ms Sinus bradycardia Abnormal ECG Confirmed by SEBASTIAN MORALES, KRYSTLE ([id number]), customer support professional QUIN HANDY ([id number]) on 05/29/2021 9:09:50 AM Referred By: PINO Confirmed By:KRYSTLE CORTES MD
[2021-05-26 06:51] LABS: Bacteria 0 SEEN /hpf (None Seen); Mucous, Urine 0 SEEN /hpf (<or=2+); Squamous Epithelial Cells - UA 0 SEEN /hpf (0-5); White Blood Cells 0 SEEN /hpf (0-5)
[2021-05-26 06:57] LABS: Color, Urine Yellow (Yellow); Glucose, Dipstick 250 mg/dl (Normal); Ketone-Dipstick 15 mg/dl (Negative); Leukocyte Esterase-Dipstick Negative /ul (Negative); Nitrite-Dipstick Negative (Negative); Occult Blood-Urine 250 /ul (Negative); Protein-Dipstick 30 mg/dl (Negative); Urine Bilirubin Dipstick Negative (Negative); Urine Clarity Clear (Clear); Urine Urobilinogen Normal (Normal)
[2021-05-26 07:15] LABS: Red Blood Cells-Urine 25-50 SEEN /hpf (0-5)
[2021-05-26] MEDS: Mag Hydrox/Al Hydrox/Simeth 30 ML UDC PO (07:54)
[2021-05-26 08:50] VITALS: BP 114/55; PULSE 54; RESP 15; O2SAT 93
[2021-05-26 09:00] VITALS: BP 114/55; PULSE 54; RESP 15; O2SAT 93
== END 2021-05-26 09:02 | disposition home or self-care (01) ==
PROVIDERS: Emergency Medicine; Emergency Provider Emergency Medicine; PCP Family Medicine
DX: N20.1 Calculus of ureter (principal); R10.32 Left lower quadrant pain; I25.10 Atherosclerotic heart disease of native coronary artery without angina pectoris; E11.9 Type 2 diabetes mellitus without complications; I10 Essential (primary) hypertension; Z79.82 Long term (current) use of aspirin; Z79.84 Long term (current) use of oral hypoglycemic drugs; Z87.442 Personal history of urinary calculi; Z79.899 Other long term (current) drug therapy
CPT/HCPCS: 74176; 80048; 81001; 85025; 93005; 96374; 96375; 99284; J7030; A4216; J2405

== ENCOUNTER → 2021-08-17 06:51 | Outpatient (CLI) | payer MEDICARE, OTHER, SELFPAY ==
--- NOTE | 2021-08-17 06:54 | ECHOCS_ITS ---
Reason For Study: CAD Procedure This was a 2D Doppler, Color Flow transthoracic echocardiogram. The study was technically difficult. Contrast injection was performed. Exam performed in department. Left Ventricle Normal LV size. Left ventricular systolic function is normal. The estimated ejection fraction is 65 %. No evidence for diastolic dysfunction. No regional wall motion abnormalities noted. Right Ventricle Normal RV size. Normal systolic function. Atria The left atrium is mildly enlarged. Normal right atrium. No doppler evidence for ASD. Mitral Valve There is mild mitral annular calcification. Anterior leaflet diffuse mitral valve thickening. Trivial mitral valve insufficiency. Tricuspid Valve Normal tricuspid valve. Trivial tricuspid valve insufficiency. Right ventricular systolic pressure estimated to be 30 mmHg. Aortic Valve Trisinus/trileaflet aortic valve. Mild focal aortic valve calcification. Trivial aortic valve insufficiency. Pulmonic Valve The pulmonic valve is not well visualized. Trivial eccentric pulmonic valve insufficiency. Great Vessels Normal sized aortic root. Pericardium/Pleural No pericardial effusion. Medication Diluted definity 2.0ml given slow IV push to enhance endocardial definition. MMode/2D Measurements & Calculations LVIDd: 4.5 cm IVSd: 0.98 cm Ao root diam: 3.8 cm LVIDs: 3.1 cm LVPWd: 0.90 cm RVDd: 2.8 cm FS: 32.0 % LAV(MOD-bp): 53.4 ml EDV(MOD-sp4): 121.2 ml EDV(MOD-sp2): 115.2 ml LAV(MOD-bp) Indexed: 25.6 ml/m2 ESV(MOD-sp4): 45.4 ml ESV(MOD-sp2): 39.0 ml LAV(MOD-sp2): 52.2 ml EF(MOD-sp4): 62.5 % EF(MOD-sp2): 66.1 % LAV(MOD-sp4): 50.7 ml SV(MOD-sp4): 75.7 ml SV(MOD-sp2): 76.2 ml LA A4 area: 19.2 cm2 LA dimension(2D): 4.2 cm RA A4 area: 11.6 cm2 Doppler Measurements & Calculations MV E max kaleb: 66.6 cm/sec Lat Peak E' Kaleb: 7.5 cm/sec Med Peak E' Kaleb: 6.8 cm/sec MV A max kaleb: 56.2 cm/sec E/E' lat: 8.9 E/E' med: 9.8 MV E/A: 1.2 Ao V2 max: 111.7 cm/sec AI max kaleb: 253.5 cm/sec LV V1 max: 99.1 cm/sec Ao max P.0 mmHg AI max P.7 mmHg LV V1 max P.9 mmHg AI dec slope: 189.0 cm/sec2 AI P1/2t: 392.8 msec PA V2 max: 154.9 cm/sec TR max kaleb: 260.8 cm/sec TR max P.2 mmHg ECHO/Echo Complete W/ Contrast Interpretation Summary The study was technically difficult. Contrast injection was performed. Left ventricular systolic function is normal. The estimated ejection fraction is 65 %. The left atrium is mildly enlarged. There is mild mitral annular calcification. Anterior leaflet diffuse mitral valve thickening. Trivial mitral valve insufficiency. Trivial tricuspid valve insufficiency. Mild focal aortic valve calcification. Trivial aortic valve insufficiency. Trivial eccentric pulmonic valve insufficiency. Right ventricular systolic pressure estimated to be 30 mmHg. No evidence for diastolic dysfunction. Ordering Physician: Yves Mosher Referring Physician: ALISHA DAVID Performed By: Francia Gonzalez, RDCS, RVT
--- NOTE | 2021-08-17 08:37 | STRESSREP ---
Stress Test Report Date: 08-17-2021 Procedure: Pharmacologic stress nuclear imaging study Indications: Chest pain; CAD; PCI Consent: Per the patient Procedure: The patient underwent pharmacologic (Regadenoson 0.4mg ) evaluation with a peak heart rate of 88 beats per minute (61%predicted maximal heart rate) and a peak blood pressure of 138/82 mmHg. The baseline ECG demonstrated sinus bradycardia. The peak pharmacologic ECG demonstrated somatic/motion artifact with no obvious ECG changes. There were no cardiac dysrhythmias pretest, during pharmacologic infusion, or recovery. There was no complaint of chest discomfort during pharmacologic infusion or recovery. The examination was discontinued secondary to completion of protocol. Impression: 1. Pharmacologic (Regadenoson) evaluation 2. Peak pharmacologic ECG with somatic/motion artifact with no obvious ECG changes. 3. There were no cardiac dysrhythmias pretest, during pharmacologic infusion, or recovery. 4. Nuclear images pending Myocardial perfusion imaging study: Technique: The patient was injected with 14.3 millicuries of technetium 99m Cardiolite and subsequently rest SPECT Cardiolite nuclear imaging was obtained in the horizontal long, vertical long, and short axis views. The patient underwent pharmacologic (Regadenoson) evaluation with a peak heart rate of 88 beats per minute (61% percent predicted maximal heart rate) and a peak blood pressure of 138/82 mmHg. The patient was injected with 44.8 millicuries of technetium 99m Cardiolite and subsequently stress SPECT Cardiolite nuclear imaging was obtained in the horizontal long, vertical long, and short axis views. A gated Cardiolite study at peak stress was obtained. Interpretation: Rest and stress SPECT Cardiolite nuclear imaging status post realignment, normalization, and attenuation correction demonstrate relative uniform tracer uptake and myocardial perfusion appearing within normal limits. There is end systolic thickening and brightening. The gated Cardiolite study demonstrates myocardial thickening and inward wall motion. The reported LVEF is 70%. Impression: 1. Rest and stress SPECT Cardiolite nuclear imaging demonstrate relative uniform tracer uptake and myocardial perfusion appearing within normal limits. 2. The gated Cardiolite study reports an LVEF of 70%. This note was generated with [employer] software. It may contain incorrect words, spelling, and punctuation that were not noted in checking the note before signing.
== END ==
PROVIDERS: PCP Family Medicine; Referring Provider Internal Medicine Cardiovascular Disease; Visit Provider Internal Medicine Cardiovascular Disease
DX: I25.10 Atherosclerotic heart disease of native coronary artery without angina pectoris (principal); E78.00 Pure hypercholesterolemia, unspecified; I10 Essential (primary) hypertension; Z95.5 Presence of coronary angioplasty implant and graft
CPT/HCPCS: 78452; 93017; 93306; A9500; Q9957; A4216; C8929; J2785; J3490

== ENCOUNTER 2022-01-23 16:44 | Emergency (ER) | payer MEDICARE, OTHER, SELFPAY ==
[2022-01-23 16:45] VITALS: BP 144/71; PULSE 63; RESP 14; TEMP 36.3; O2SAT 97; BMI 29.5
--- NOTE | 2022-01-23 17:01 | EDS_ITS ---
HPI History of Present Illness Chief Complaint: Complaint Informant: patient Pain Onset: Days Context: Gradual Onset Timing: Intermittent Current Severity: Mild Maximum Severity: Mild Appearance Lesion(s): No Genital Edema: No Related History Sexually: Inactive Unprotected Sex: No STD: No Epididymitis: No Bladder/Kidney Infection: No Prostate Infection: No Prostate Cancer: No Narrative Narrative: 76-year-old male denies any bladder or prostate history. He does have a history of kidney stones. Also history of CAD, lymphoma, diabetes and hypertension. Patient states last several days has been harder to urinate. He has noticed blood. He denies any fever or chills. Denies any abdominal pain. Prior similar symptoms: No Recent Illness/Hospitalization: No PFSH PFSH Medical History Atherosclerotic heart disease of [place] coronary artery without angina pectoris Brain tumor CAD (coronary artery disease) Cancer Diabetes Diverticulitis Essential hypertension Follicular lymphoma GERD (gastroesophageal reflux disease) Gout HLD (hyperlipidemia) Hypertension Kidney stones Non-Hodgkin lymphoma Pure hypercholesterolemia Right ankle injury Umbilical hernia Home Medications aspirin 81 mg tablet,delayed release 81 mg PO DAILY 06/24/19 [History Last Taken Unknown] ascorbic acid (vitamin C) 500 mg PO DAILY 11/09/19 [History Last Taken Unknown] cinnamon bark 500 mg PO DAILY 11/09/19 [History Last Taken Unknown] fish oil-dha-epa 1 ea PO DAILY 11/09/19 [History Last Taken Unknown] atorvastatin 10 mg tablet 10 mg PO QHS 07/06/21 [History Last Taken Unknown] glimepiride 2 mg tablet 2 mg PO QAM 07/06/21 [History Last Taken Unknown] nitroglycerin 0.4 mg sublingual tablet 0.4 mg SUBLINGUAL Q5-15M PRN 07/06/21 [History Last Taken Unknown] allopurinol 100 mg tablet 50 mg PO DAILY tab 07/07/21 [History Last Taken Unk nown] atenolol 25 mg tablet 25 mg PO DAILY 07/07/21 [History Last Taken Unknown] pantoprazole 20 mg tablet,delayed release 20 mg PO DAILY PRN #3 tab 07/07/21 [History Last Taken Unknown] metformin 1,000 mg tablet 1,500 mg PO DAILY tab 10/10/21 [History Last Taken Unknown] Allergy/AdvReac Type Severity Reaction Status Date / Time cephalexin [From Keflex] Allergy rash Verified 01/23/22 16:45 meperidine HCl [From Demerol] Allergy Chest Verified 01/23/22 16:45 tightness prednisone Allergy Chest Verified 01/23/22 16:45 tightness propoxyphene HCl Allergy Chest Verified 01/23/22 16:45 [From Darvon] tightness clopidogrel AdvReac Severe Excessive Verified 01/23/22 16:45 Bleeding Iodinated Contrast Media AdvReac Unknown Nausea Verified 01/23/22 16:45 morphine AdvReac Vomiting Verified 01/23/22 16:45 Family History Father Heart disease Mother Diabetes Grandmother Heart disease Grandfather CVA (cerebral vascular accident) Sister Hypertension Diabetes Surgical History History of ankle surgery History of appendectomy History of cholecystectomy History of coronary artery stent placement History of nasal surgery History of replacement of both shoulder joints History of total left knee replacement History of umbilical hernia repair Presence of coronary angioplasty implant and graft (~09/23/06) Presence of stent in coronary artery (~09/23/06) S/p bilateral shoulder joint replacement Social History Smoking Status: Never smoker alcohol intake: never substance use type: does not use caffeine: Yes (Rare) ROS ROS ED ROS Narrative Dysuria and hematuria. Review of Systems ROS Unobtainable: Denies due to encephalopathy Constitutional Constitutional ED: Denies fever(s) Eyes Eyes: Denies change in vision ENT ENT ED: Denies ear pain Cardiovascular Cardiovascular: Denies chest pain Respiratory/Chest Respiratory/Chest: Denies cough or dyspnea Gastrointestinal Gastrointestinal: Denies abdominal pain, nausea or vomiting Genitourinary Genitourinary ED: Reports dysuria, hematuria and urinary frequency Musculoskeletal Musculoskeletal: Denies myalgias Integumentary Denies rash Neurologic Neurologic: Denies headache(s) Psychiatric Psychiatric: Denies depression Endocrine Endocrinology: Denies polyuria Hematologic/Lymphatic Hematologic/Lymphatic: Denies easy bruising Allergic/Immunologic Allergic/Immunologic ED: Denies urticaria EXAM Physical Exam Narrative Exam Narrative: 76-year-old male no acute distress. Vital signs stable afebrile. H EENT exam unremarkable. Lungs are clear. Heart regular rhythm rate about 60 no murmur. Abdomen soft nondistended normal bowel sounds no peritoneal signs. External exam there is some blood in his underwear but he is a circumcised male is unremarkable. No edema. Moving all 4 extremities. No edema. Neurologically is awake and alert. No focal motor deficits. Const Vital Signs: 01/23/22 16:45 Temperature 97.4 F L Temperature Source Temporal Pulse Rate 63 Respiratory Rate 14 Blood Pressure 144/71 H Blood Pressure Mean 95 Pulse Ox 97 Oxygen Delivery Method Room Air Positive well nourished and well developed; Negative for contractures or unkempt General Appearance ED: well developed and NAD; Negative for unkempt, contractures or pallor HEENT Reports moist mucous membranes normocephalic and atraumatic; Negative for trauma or tenderness Eyes PERRL and EOMs intact bilaterally General Eye ED: Negative for pale conjunctiva or scleral icterus Neck no lymphadenopathy, supple and no JVD General: Negative for tenderness Resp normal respiratory effort and clear to auscultation bilaterally Auscultation: Negative for rales, rhonchi or wheezes Cardio regular rate, regular rhythm, S1 normal heart sound, S2 normal heart sound and no murmurs GI non-tender, non-distended and no masses Auscultation: normoactive bowel sounds; Negative for hyperactive bowel sounds or hypoactive bowel sounds Palpation: soft Rectal Exam: Negative for tenderness no CVA tenderness Bladder / Kidney Exam: No CVA tenderness Groin / Perineum Exam: Negative for lesions Penis: normal penis and circumcised; Negative for uncircumcised, condyloma, corporal disruption, ecchymosis, edematous, erythema, mass, nodule, papules, pustules or vesicles Back/Spine no CVA tenderness General Back: Negative for CVA tenderness Cervical Spine: Negative for cervical spine tenderness Extremity normal to inspection General Extremety ED: Negative for edema or tenderness General Extremity: Negative for edema Neuro oriented x3 Sensorium / Orientation: alert, oriented to person, oriented to place and oriented to time Motor Exam: strength 5/5 throughout Psych mental status grossly normal Appearance: Negative for unkempt Mood & Affect: depressed Skin General Skin Exam: Negative for jaundice or pallor Lesions: no lesions Rashes: no rashes MDM MDM MDM Narrative Medical decision making narrative: 68-year-old male with hematuria, difficulty and painful urination and urinary frequency. I suspect this may be from UTI, enlarged prostate or bleeding into his bladder. Bladder scan labs are being obtained. If he is having urinary retention he may need a Wilder catheter. Repeat exam patient is doing well at 6:20 PM. Bladder scan only showed 36 cc of urine post void residual. Patient we discussed that I will place a Wilder catheter and irrigate his bladder and leaving that in the follow-up with urologist. He preferred not having a Wilder catheter said if he is unable to urinate or has heavier bleeding he will return. He will call and follow-up with Dr. Manolo Pete. Lab Data Attestation: I reviewed the patient's lab results. Lab results narrative: CBC normal. White count of 4 H&H of 14 and 41. Platelets 182. Electrolytes show a gap of 5 BUN 21 creatinine 1.31. Glucose 140. UA shows 250 occult blood negative nitrites. Greater than 100 red cells 0-5 white cells 1+ bacteria. Labs: Laboratory Results - last 24 hr 01/23/22 01/23/22 01/23/22 17:10 17:10 17:10 WBC 4.8 RBC 4.81 Hgb 14.6 Hct 41.5 MCV 86.3 MCH 30.4 MCHC 35.2 RDW Std Deviation 38.3 RDW Coeff of Radha 12.2 Plt Count 182 MPV 10.4 Immature Gran % (Auto) 0.200 Neut % (Auto) 66.4 Lymph % (Auto) 21.1 [place] % (Auto) 9.0 Eos % (Auto) 2.7 Baso % (Auto) 0.6 Absolute Neuts (auto) 3.2 Absolute Lymphs (auto) 1.01 Nucleated RBC % 0 Sodium 138 Potassium 4.2 Chloride 106 Carbon Dioxide 27.0 Anion Gap 5 BUN 21 H Creatinine 1.31 H Estim Creat Clear Calc 46.47 Est GFR (MDRD) Af Amer 68 Est GFR (MDRD) Non-Af 56 L BUN/Creatinine Ratio 16.0 Glucose 140 H Calcium 9.4 Urine Color Red Urine Clarity Cloudy Urine pH 5.0 Ur Specific [employer] 1.020 Urine Protein 100 H Urine Glucose (UA) Normal Urine Ketones 15 H Urine Occult Blood 250 H Urine Nitrite Negative Urine Bilirubin Negative Urine Urobilinogen Normal Ur Leukocyte Esterase 100 H Urine RBC > 100 SEEN Urine WBC 0-5 SEEN Ur Squamous Epith Cells 0 SEEN Ur Transition Epith Cell 0-5 SEEN Urine Bacteria 1+ Urine Mucus 0 SEEN Discharge Plan Triage Chief Complaint: Complaint ED Provider: Stephen Cerna Dx/Rx/DC Orders Clinical Impression: Hematuria, Type II diabetes mellitus, Essential hypertension Instructions: ED Hematuria Prescriptions: No Action aspirin 81 mg tablet,delayed release (DR/EC) 81 mg PO DAILY RF: 0 pantoprazole 20 mg tablet,delayed release (DR/EC) 20 mg PO DAILY PRN (Reason: REFLUX) Qty: 3 RF: 0 metformin 1,000 mg tablet 1,500 mg PO DAILY RF: 0 atenolol 25 mg tablet 25 mg PO DAILY RF: 0 atorvastatin 10 mg tablet 10 mg PO QHS RF: 0 glimepiride 2 mg tablet 2 mg PO QAM RF: 0 nitroglycerin 0.4 mg tablet, sublingual 0.4 mg sublingual Q5-15M PRN (Reason: Chest Pain) RF: 0 cinnamon bark 500 MG capsule 500 mg PO DAILY RF: 0 fish oil-dha-epa 1 EACH capsule 1 ea PO DAILY RF: 0 ascorbic acid (vitamin C) 500 MG capsule 500 mg PO DAILY RF: 0 allopurinol 100 mg tablet 50 mg PO DAILY RF: 0 Primary Care Provider: Aguila Gee Referrals: Gordy Pete MD [STAFF PHYSICIAN] - As soon as possible Aguila Gee MD [Primary Care Provider] - Activity Restrictions/Additional Instructions: We do not know what is causing the blood in your urine. Make sure you are drinking plenty of water to flush it out. If the bleeding gets a lot worse or you are unable to urinate you need to return to get a Wilder catheter placed to irrigate that out and make it syncope. Call and follow-up with the urologist Dr. Pete for further evaluation. Call his office tomorrow. Disposition Disposition: Home, Self Care
[2022-01-23 17:17] LABS: Mucous, Urine 0 SEEN /hpf (<or=2+)
[2022-01-23 17:22] LABS: Absolute Lymphocyte Count 1.01 X10^3/uL (0.83-4.51); Absolute Neutrophil Count 3.2 X10^3/uL (2.0-7.7); Basophil# 0.03 X10^3/uL; Basophil% 0.6 % (0-1); Eosinophil# 0.13 X10^3/uL; Eosinophils% 2.7 % (0-5); Hematocrit 41.5 % (40-54); Hemoglobin 14.6 g/dL (13.0-16.5); Lymphocyte # 1.01 X10^3/ul (0.83-4.51); Lymphocyte % 21.1 % (19-41); Mean Corp Hgb Conc 35.2 g/dL (32-36); Mean Corpuscular Hgb 30.4 pg (27.0-32.0); Mean Corpuscular Volume 86.3 fL (80-94); Mean Platelet Vol. 10.4 fl (6.2-12.0); Monocyte# 0.43 X10^3/uL; NRBC Flagged by Analyzer 0 % (0-5); Neutrophil # 3.17 X10^3/uL (2.7-7.7); Neutrophil % 66.4 % (47-70); Platelet Count 182 K/mm3 (150-450); RBC Distribution Width CV 12.2 % (11.6-14.6); RBC Distribution Width SD 38.3 fl (35.1-43.9); Red Blood Count 4.81 M/mm3 (4.6-6.2); White Blood Count 4.8 K/mm3 (4.4-11.0)
[2022-01-23 17:24] LABS: Color, Urine Red (Yellow); Glucose, Dipstick Normal (Normal); Ketone-Dipstick 15 mg/dl (Negative); Leukocyte Esterase-Dipstick 100 /ul (Negative); Nitrite-Dipstick Negative (Negative); Occult Blood-Urine 250 /ul (Negative); Protein-Dipstick 100 mg/dl (Negative); Urine Bilirubin Dipstick Negative (Negative); Urine Clarity Cloudy (Clear); Urine Urobilinogen Normal (Normal)
[2022-01-23 17:32] LABS: Red Blood Cells-Urine > 100 SEEN /hpf (0-5); Transitional Epithelial - Ur 0-5 SEEN /hpf (0-5)
[2022-01-23 17:34] LABS: Squamous Epithelial Cells - UA 0 SEEN /hpf (0-5); White Blood Cells 0-5 SEEN /hpf (0-5)
[2022-01-23 17:35] LABS: Anion Gap 5 (5-15); BUN 21 mg/dL (7-18); Bacteria 1+ /hpf (None Seen); Calcium,Total 9.4 mg/dL (8.5-10.1); Chloride 106 mmol/L (98-107); Creatinine, Serum 1.31 mg/dL (0.70-1.30); EST Glomerular Filtration Rate 56 mL/min (>60); Est Glom Filt Rate - Afr Amer 68 mL/min (>60); Estimated Creatinine Clearance 46.47 ml/min; Glucose 140 mg/dL (74-106); Potassium 4.2 mmol/L (3.5-5.1); Sodium Level 138 mmol/L (136-145)
== END 2022-01-23 18:32 | disposition home or self-care (01) ==
PROVIDERS: Emergency Provider Emergency Medicine; PCP Family Medicine; Visit Provider Emergency Medicine
DX: R31.9 Hematuria, unspecified (principal); E11.9 Type 2 diabetes mellitus without complications; I10 Essential (primary) hypertension; I25.10 Atherosclerotic heart disease of native coronary artery without angina pectoris; E78.00 Pure hypercholesterolemia, unspecified; K21.9 Gastro-esophageal reflux disease without esophagitis; Z79.82 Long term (current) use of aspirin; Z79.899 Other long term (current) drug therapy; Z95.5 Presence of coronary angioplasty implant and graft
CPT/HCPCS: 80048; 81001; 85025; 99283; A4216

== ENCOUNTER 2022-01-25 16:19 | Outpatient (CLI) | payer MEDICARE, OTHER, SELFPAY | END 2022-01-25 23:59 | disposition home or self-care (01) | LOC: LABSPEC 16:20 | PROVIDERS: PCP Family Medicine; Visit Provider Urology | DX: N20.1 Calculus of ureter (principal) | CPT/HCPCS: 82360 ==

== ENCOUNTER → 2022-04-11 | Outpatient (CLI) | payer MEDICARE, OTHER, SELFPAY ==
--- NOTE | 2022-04-11 14:31 | CT_ITS ---
STUDY: CT ABDOMEN AND PELVIS WITH CONTRAST REASON FOR EXAM: Male, 76 years old. Follicular lymphoma. RADIATION DOSAGE (If Supplied By Facility): CTDIvol = ( 21.18 ) mGy, DLP = ( 1183.30 ) mGycm TECHNIQUE: Transaxial images were obtained from the dome of the diaphragm to the symphysis pubis with oral contrast. IV 100mL Isovue-370 was administered. Sagittal and coronal images were reconstructed. Individualized dose optimization techniques were used for this CT. COMPARISON: 05/26/2021. FINDINGS: The visualized lung bases are unremarkable. The visualized portions of the heart are within normal limits. Stable coronary artery calcifications. Normal liver. There is intrahepatic gallbladder versus cyst adjacent to the gallbladder fossa. No intra or extrahepatic biliary ductal dilatation. Normal spleen. Normal pancreas. Normal bilateral adrenal glands. Stable bilateral renal cysts. There is no enhancing mass or renal calculi. No hydronephrosis. All bilateral ureters. Normal visualized stomach. Normal small intestine. Sigmoid diverticulosis without acute inflammatory change. The proximal colon is unremarkable. There is non-visualization of the appendix. There is diffuse atherosclerotic calcification of the abdominal aorta, without a demonstrated aneurysm. Normal inferior vena cava. Normal retroperitoneum. Normal urinary bladder. The prostate is mildly enlarged. No pelvic lymphadenopathy. No free air or free fluid is seen within the peritoneal cavity. Normal abdominal wall. There are diffuse degenerative changes of the visualized lumbar spine. There are degenerative changes of bilateral hips. CT/Abdomen/Pelvis WITH Contrast IMPRESSION: 1. No findings suggestive of lymphoma. 2. Interval resolution of the left ureteral calculus and mild obstructive uropathy seen on the prior study. 3. No acute intra-abdominal process or major interval change. Electronically Signed: Kwesi Monzon DO at 16:03 EDT Reading Location ID and State: [address] [place] [address] Tel [phone], Service support ,
[2022-04-12 07:27] LABS: CREATININE FINGERSTICK < 0.90 mg/dL (0.70-1.30); EGFR FINGERSTICK > 60 mL/min (>60)
== END | disposition home or self-care (01) ==
LOC: CT 14:27
PROVIDERS: PCP Family Medicine
DX: C82.08 Follicular lymphoma grade I, lymph nodes of multiple sites (principal)
CPT/HCPCS: 74177; Q9967

== ENCOUNTER → 2024-09-28 | Outpatient (CLI) | payer MEDICARE, OTHER, SELFPAY | END | disposition home or self-care (01) | LOC: PSN 11:56 | PROVIDERS: PCP Family Medicine; Referring Provider Nurse Practitioner Gerontology; Visit Provider Nurse Practitioner Gerontology | DX: R00.1 Bradycardia, unspecified (principal) | CPT/HCPCS: 93225; 93226 ==

== ENCOUNTER 2025-04-18 17:00 | Emergency (ER) | payer MEDICARE, OTHER, SELFPAY ==
[2025-04-18 17:00] VITALS: BP 181/68; PULSE 66; RESP 16; TEMP 37.1; O2SAT 99; BMI 31.7
--- NOTE | 2025-04-18 17:17 | RAD_ITS ---
PROCEDURE: FINGER(S) MIN 2 VIEWS 04/18/2025 REASON FOR EXAM: INJURY/PAIN TECHNIQUE: FINGER(S) MIN 2 VIEWS COMPARISON: None FINDINGS: See below. RAD/Finger(s) Min 2 Views IMPRESSION: There is dislocation of the 4th finger at the proximal interphalangeal joint, w ith lateral displacement of the distal finger relative to the proximal phalanx. No displaced fracture is identified at this time. Punctate density in the soft tissues adjacent to the distal phalanx of the 4th finger could represent a tiny radiopa que foreign body, correlate with history and exam. Yellow Alert: Finger dislocation The critical information above was relayed directly by me by telephone to Ramu Anand on 04/18/2025 at 7:31 pm with readback verification. Reading Location: [id number]
--- NOTE | 2025-04-18 17:19 | EX.ED.UPPERE ---
HPI History of Present Illness HPI Narrative: Patient presents with an injury to his left ring finger that occurred today. Patient fell and put his hand out to catch himself. Patient noted a deformity to his PIP joint of his left ring finger. Patient also complains of pain in his right shoulder. Patient describes pain as stabbing. Patient states it is worse with movement. Patient denies any paresthesias or weakness. Patient denies any head injury or loss of consciousness. Patient is unsure of his last tetanus but thinks it may be approximately 10 years. Chief Complaint: Dislocation Informant: patient Occured/Mechanism Mechanism/Context: Yes fall Onset/Context/Timing Onset: Today Context: Sudden Onset Timing: Continuous Quality of Pain: Stabbing Location: Left ring finger Worsened by: Movement Relieved by: Nothing Associated Symptoms Associated Symptoms: Negative for Parasthesia, Weakness or Loss of Funtion [facility] Medical History Brain tumor Gout Essential hypertension GERD (gastroesophageal reflux disease) Non-Hodgkin lymphoma Pure hypercholesterolemia Atherosclerotic heart disease of [place] coronary artery without angina pectoris Umbilical hernia Diverticulitis Right ankle injury Follicular lymphoma Cancer Diabetes Kidney stones Hypertension HLD (hyperlipidemia) CAD (coronary artery disease) Home Medications ?Medication ?Instructions ?Recorded ?Last Taken ?Type aspirin 81 mg tablet,delayed 81 mg PO DAILY 06/24/19 Unknown History release ascorbic acid (vitamin C) 500 mg 500 mg PO DAILY 11/09/19 Unknown History capsule fish oil-dha-epa 1,200 mg-144 1 ea PO DAILY 11/09/19 Unknown History mg-216 mg capsule atorvastatin 10 mg tablet 10 mg PO QHS 07/06/21 Unknown History glimepiride 2 mg tablet 2 mg PO QAM 07/06/21 Unknown History allopurinol 100 mg tablet 50 mg PO DAILY 07/07/21 Unknown History pantoprazole 20 mg tablet,delayed 20 mg PO DAILY PRN REFLUX #3 tabs 07/07/21 Unknown History release metformin 500 mg tablet 1,500 mg PO DAILY 11/09/22 Unknown History nitroglycerin 0.4 mg sublingual 0.4 mg sublingual Q5-15M PRN Chest 11/09/22 Unknown Rx tablet Pain #90 tabs atenolol 25 mg tablet 12.5 mg PO DAILY 08/24/24 Unknown History calcium carbonate (Calcium 500) 500 mg PO QDAY PRN 08/24/24 Unknown History cinnamon bark 500 mg capsule 1,000 mg PO DAILY 08/24/24 Unknown History clindamycin HCl 300 mg capsule 300 mg PO Q6H #40 CAPSULES 04/18/25 Unknown Rx (Cleocin HCl) Allergy/AdvReac Type Severity Reaction Status Date / Time cephalexin (From Keflex) Allergy rash Verified 04/18/25 17:00 meperidine HCl (From Demerol) Allergy Chest Verified 04/18/25 17:00 tightness prednisone Allergy Chest Verified 04/18/25 17:00 tightness propoxyphene HCl (From Allergy Chest Verified 04/18/25 17:00 Darvon) tightness clopidogrel AdvReac Severe Excessive Verified 04/18/25 17:00 Bleeding Iodinated Contrast Media AdvReac Unknown Nausea Verified 04/18/25 17:00 morphine AdvReac Vomiting Verified 04/18/25 17:00 Family History (Reviewed 08/24/24 @ 10:18 by Jacqueline Cheema [employer]HALT MIXING MACHINE OPERATOR, [employer]HALT MIXING MACHINE OPERATOR-C) Father Heart disease Mother Diabetes Grandmother Heart disease Grandfather CVA (cerebral vascular accident) Sister Hypertension Diabetes Surgical History History of nasal surgery Presence of coronary angioplasty implant and graft (~09/23/06) Presence of stent in coronary artery (~09/23/06) History of umbilical hernia repair History of ankle surgery History of appendectomy History of total left knee replacement History of replacement of both shoulder joints S/p bilateral shoulder joint replacement History of cholecystectomy History of coronary artery stent placement Social History Smoking Status: Never smoker alcohol intake: never substance use type: does not use caffeine: Yes (Rare) ROS ROS ED Constitutional Constitutional ED: Denies chills or fever(s) Eyes Eyes: Denies blurry vision or change in vision ENT ENT ED: Denies rhinorrhea or sore throat Cardiovascular Cardiovascular: Denies chest pain or palpitations Respiratory/Chest Respiratory/Chest: Denies cough or dyspnea Gastrointestinal Gastrointestinal: Denies nausea or vomiting Genitourinary Genitourinary ED: Denies dysuria or hematuria Musculoskeletal Musculoskeletal: Denies back pain or neck pain Integumentary Denies abscess or rash Neurologic Neurologic: Denies headache(s) or weakness Allergic/Immunologic Allergic/Immunologic ED: Denies mouth swelling or urticaria EXAM Physical Exam Const Vital Signs: 04/18/25 17:00 Temperature 98.7 F Temperature Source Oral Pulse Rate 66 Respiratory Rate 16 Blood Pressure 181/68 H Blood Pressure Mean 105 Pulse Ox 99 Oxygen Delivery Method Room Air Positive well nourished and well developed General Appearance ED: well developed and NAD HEENT Reports moist mucous membranes normocephalic and atraumatic Neck full ROM and supple Extremity Extremity Narrative: There is tenderness palpation over the anterior aspect of the right shoulder. There is no deformity noted. Range of motion is slightly limited in all motions of the right shoulder secondary to pain. There is also a deformity over the PIP joint of the left ring finger. There is ulnar deviation of the middle and distal phalanges. Range of motion is limited in all motions of the PIP joint secondary to pain. There is also a 2 mm laceration over the radial and dorsal aspect of the base of the middle phalanx near the PIP joint. There is no active bleeding noted. There is no gapping of the wound margins. Sensation was intact to light touch in all digits. Capillary refill was less than 2 seconds in all digits. Neuro oriented x3, CN's II-XII intact bilaterally, moves all extremities, no focal motor deficits and no sensory deficits noted Sensorium / Orientation: alert Motor Exam: strength 5/5 throughout MDM MDM MDM Narrative Medical decision making narrative: Differential diagnosis includes dislocation, fracture, and contusion of the left ring finger, fracture, or sprain of the right shoulder. X-rays of the right shoulder will be obtained to assess for fracture. X-rays of the left ring finger will be obtained to assess for fracture or dislocation. Radiography Diagnostic Testing: X-rays of the left ring finger were obtained. There are 3 views. On my independent interpretation, there is a dislocation of the PIP joint. There is no acute fracture noted. Radiologist also interpreted the x-rays and agrees. X-rays of the right shoulder were obtained. There are 4 views. On my independent interpretation, there is no acute fracture or dislocation noted. There are some degenerative changes noted. Radiologist also interpreted the x-rays and agrees. Postreduction x-rays of the left ring finger were obtained. There are 3 views. On my independent interpretation, there is no dislocation noted. There is no acute fracture noted. Radiologist also interpreted the x-rays and agrees. Management Discussion w/another healthcare provider: Radiologist Treatment and Re-Evaluation Narrative: Patient was given a tetanus booster. Patient was given a dose of clindamycin here. The left ring finger was anesthetized 1% plain lidocaine via digital block. The dislocation was reduced using traction countertraction. Patient tolerated the procedure well. Repeat x-rays will be obtained to assess for occult fracture. Patient was given aluminum foam splint. The ring finger and small finger were taty taped together. Patient was instructed to ice and elevate the left hand. Patient was given a referral for follow-up care with Dr. Minor. Patient was also instructed to follow-up with his shoulder surgeon as scheduled. Patient was instructed to return if worse in any way. Patient understood and was agreeable with the plan. All questions were answered. Discharge Plan Triage Chief Complaint: Dislocation ED Provider: Ramu Parish Dx/Rx/DC Orders Clinical Impression: Dislocation of proximal interphalangeal joint of left ring finger, initial encounter, Essential hypertension, Fall Instructions: ED Finger Dislocation Prescriptions: New clindamycin HCl [Cleocin HCl] 300 mg capsule 300 mg PO Q6H Qty: 40 0RF No Action aspirin 81 mg tablet,delayed release (DR/EC) 81 mg PO DAILY pantoprazole 20 mg tablet,delayed release (DR/EC) 20 mg PO DAILY PRN (Reason: REFLUX) Qty: 3 Patient Comments: TAKE 1 TABLET BY MOUTH EVERY DAY atenolol 25 mg tablet 12.5 mg PO DAILY atorvastatin 10 mg tablet 10 mg PO QHS glimepiride 2 mg tablet 2 mg PO QAM Rx Instructions: administer with breakfast metformin 500 mg tablet 1,500 mg PO DAILY nitroglycerin 0.4 mg tablet, sublingual 0.4 mg sublingual Q5-15M PRN (Reason: Chest Pain) Qty: 90 3RF Rx Instructions: do not exceed 3 doses per episode calcium carbonate [Calcium 500] 500 mg calcium (1,250 mg) tablet,chewable 500 mg PO QDAY PRN fish oil-dha-epa 1 EACH capsule 1 ea PO DAILY ascorbic acid (vitamin C) 500 MG capsule 500 mg PO DAILY allopurinol 100 mg tablet 50 mg PO DAILY Patient Comments: once a day cinnamon bark 500 mg capsule 1,000 mg PO DAILY Primary Care Provider: Aguila Gee Referrals: Aguila Gee MD [Primary Care Provider] - 1-2 Weeks Larry Minor MD [Med Staff - Active Staff] - 3-5 Days Print Language: Kinyarwanda Disposition Disposition: Home, Self Care
--- OUTSIDE RECORDS SUMMARY | 2025-04-18 17:20 | XMS RPT_ITS | CCD ---
Author Organization [facility] Care Team Providers Care Insurance Plan Specialist Name Role Phone Cindy Miller Unavailable Unavailable Hinduism, Suzanna A Unavailable Alisha Gee Unavailable Dr. Alisha Gee Primary Care Provider Dr. Alisha Gee Referring Provider [facility] POWERSAW SUPERVISOR, POWERSAW SUPERVISOR-Samuel Domingo Attending Provider Alisha Gee MD Primary Care Provider Cindy Miller RN Unavailable Unavailab landon Broussard MD, Suzanna A Unavailable Alisha Gee MD Primary Care Provider Alisha Gee MD Primary Care Provider Alisha Gee MD Primary Care Provider Cindy Miller RN Unavailable Unavailab landon Broussard MD, Suzanna A Unavailable Alisha Gee MD Primary Care Provider Cindy Miller RN Unavailable Unavailab landon Broussard MD, Suzanna A Unavailable Alisha Gee MD Primary Care Provider Alisha Gee MD Primary Care Provider Mana Avelar RN Unavailable Unavailable Kim Lyman CNP Unavailable Jacqueline Cheema Attending Unavailable Alisha Gee Primary Care Unavailable Alisha Gee Referring Unavailable Jacqueline Cheema Referring Unavailable Sagar Bess Attending Unavailable Alisha Gee Primary Care Unavailable Jacqueline Cheema Referring Unavailable Alisha Gee Primary Care Unavailable Jacqueline Cheema Attending Unavailable Tann[place]ia EVENTS SOLUTIONS CONSULTANT.FAIZAGenie Unavailable Porfirio EVENTS SOLUTIONS CONSULTANT.FAIZACollin Unavailable Alisha Gee MD Primary Care Provider ALISHA GEE Primary Care Unavailable SUZANNA BROUSSARD Attending Unavailable SELF, SELF Referring Unavailable KIM LYMAN Attending Unavailable ALISHA GEE Primary Care Unavailable KIM LYMAN Referring Unavailable KIM LYMAN Attending Unavailable ALISHA GEE Primary Care Unavailable KIM LYMAN Referring Unavailable ALISHA GEE Referring Unavailable ALISHA GEE Primary Care Unavailable SUZANNA BROUSSARD Attending Unavailable Teresa EVENTS SOLUTIONS CONSULTANT.FAIZA Genie Unavailable TESTRAKE, SHWETA Referring Unavailable TESTSHWETA YOUNG Attending Unavailable ALISHA GEE Primary Care Unavailable GENIE MOORE Attending Unavailable ALISHA GEE Primary Care Unavailable GENIE MOORE Referring Unavailable ALISHA GEE Primary Care Unavailable ALISHA GEE Primary Care Unavailable GENIE MOORE Attending Unavailable PHYSICIAN, NO PCP Primary Care Unavailable RUTH PATEL Referring Unavailable PHYSICIAN, NO PCP Primary Care Unavailable RUTH PATEL Attending Unavailable Allergies Allergy Classification Reported Allergen(s) Allergy Type Date of Onset Reaction(s) Facility Cephalosporins (antibiotic) (1 source) Cephalexin Drug Allergy 01-14-20 19 GI Upset [facility] Work Phone: Contrast [employer] (1 source) Contrast media Substance Allergy 07-14-20 15 GI Upset [facility] Corticosteroids (1 source) predniSONE Drug Allergy 09-30-20 06 Other: See Comments [facility] Opioid Agonists (3 sources) Meperidine Drug Allergy 01-25-20 04 GI Upset, Intolerance [facility] Platelet Inhibitors (P2Y12, not including aspirin) (1 source) clopidogrel Drug Allergy 03-30-20 10 [facility] Quinolones (antibiotic) (1 source) Ciprofloxacin Drug Allergy 02-08-20 23 Myalgia [facility] (19 sources) clopidogrel Drug Allergy 09-08-20 15 Bleeding [facility] Work Phone: (18 sources) diatrizoate Drug Allergy 09-08-20 15 Nausea Only [facility] Work Phone: (20 sources) meperidine; Translations: [MEPERIDINE] Drug Allergy 09-08-20 15 Nausea and Vomiting, GI Upset [facility] Work Phone: (20 sources) predniSONE; Translations: [PREDNISONE] Drug Allergy 09-30-20 06 Anxiety, Other: See Comments [facility] Work Phone: (20 sources) propoxyphene; Translations: [PROPOXYPHENE] Drug Allergy 01-25-20 04 Intolerance [facility] Work Phone: (18 sources) CODEINE AND RELATED Propensity to adverse reactions to drug 09-08-20 15 Nausea and Vomiting [facility] Work Phone: (20 sources) Cephalexin; Translations: [CEPHALEXIN] Drug Allergy 01-14-20 19 GI Upset [facility] Work Phone: (2 sources) Meperidine; Translations: [meperidine HCl] Drug Allergy 01-24-20 22 Chest tightness [facility] Rep[facility] (20 sources) Morphine; Translations: [MORPHINE] Drug Allergy 04-07-20 09 GI Upset [facility] (2 sources) Propoxyphene; Translations: [propoxyphene HCl] Drug Allergy 01-24-20 22 Chest tightness [facility] Repository (2 sources) Iodinated [employer]; Translations: [Iodinated [employer]] Propensity to adverse reactions 01-24-20 22 Nausea [facility] (20 sources) clopidogrel; Translations: [CLOPIDOGREL BISULFATE] Drug Allergy 03-30-20 10 [facility] (20 sources) Contrast media; Translations: [CONTRAST DYE] Drug Intolerance 07-14-20 15 GI Upset [facility] (20 sources) Pethidine analog; Translations: [OPIOIDS-MEPERIDI NE AND RELATED] Drug Intolerance 01-25-20 04 Intolerance [facility] Work Phone: (20 sources) Ciprofloxacin; Translations: [CIPROFLOXACIN] Drug Allergy 02-08-20 23 Myalgia [facility] (8 sources) Prednisone Propensity to adverse reactions to drug 09-08-20 15 Anxiety [facility] (1 source) Cephalexin Drug Allergy 08-24-20 24 [facility] (1 source) clopidogrel Drug Allergy 08-24-20 [facility] (1 source) Morphine Drug Allergy 08-24-20 [facility] (1 source) predniSONE Drug Allergy 08-24-20 [facility] Rep[facility] Medications Current Medications Medication Drug Class(es) Dates Sig (Normalized) Sig (Original) acetaminophen (20 sources) take 2 tablets by mo uth every four hours for pain acetaminophen 325 MG tablet take 650 mg by mouth every 4 hours. For arthritis pain Active ACETAMINOPHEN (T YLENOL ARTHRITIS ORAL) Take by mouth once daily. Active ACETAMINOPHEN (T YLENOL ARTHRITIS ORAL) Take by mouth once daily. 0 Active Comment on above: Take by mouth once d aily. allopurinol 100 mg oral tablet (20 sources) Xanthine Oxidase Inhibitor Start: 12-26-2023 take 1 tablet by mouth twice daily allopurinol (ZYLOPRIM) 100 mg tablet Indications: Gout, unspecified cause, unspecified chronicity, unspecified site Take 1 tablet by mouth two times a day. 12/26/2023 Active Start: 07-07-2021 take 50 mg by mouth once daily Allopurinol Active 50 MG PO DAILY July 07, 2021 1:06pm Start: 11-09-2019 End: 12-26-2023 take 1 tablet by mouth once daily allopurinol (ZYLOPRIM) 100 mg tablet Take 1 tablet by mouth once daily. 90 tablet 3 12/18/2019 09/28/2020 Discontinued allopurinol 100 MG Tab take 50 mg by mouth daily. Active Comment on above: Take 1 tablet by girish th once daily. Take 1 tablet by girish th two times a day. ascorbic acid 500 mg oral capsule (20 sources) Vitamin C Start: 11-09-2019 take 500 mg by mouth once daily Ascorbic Acid (Vitamin C) Active 500 MG PO DAILY November 09, 2019 12:10pm take 1 tablet by mouth once kendall y Ascorbic Acid 1,000 mg tablet Take 1,000 mg by mouth once daily. Active take 1 tablet by mouth once kendall y ascorbic acid 500 MG Tab take 500 mg by mouth daily. Active take 1 tablet by mouth once kendall y ascorbic acid 500 MG Tab take 500 mg by mouth daily. 0 Active Comment on above: Take 1,000 mg by girish th once daily. aspirin 81 mg delayed release oral tablet (20 sources) Platelet Aggregation Inhibitor, Nonsteroidal Anti-inflammatory Drug Start: 09-23-2007 aspirin(ECOTRIN LOW STRENGTH 81 MG TAB) Take one(1) tablet daily. 0 09/23/2007 Active take 1 tablet by mouth once kendall y aspirin 81 MG Chew Tab take 81 mg by mouth daily. Active Comment on above: Take one(1) tablet d aily. 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 90 tablet 3 01/31/2022 Active Comment on above: Take 1 tablet by girish th once daily. atorvastatin 20 mg oral tablet (20 sources) HMG-CoA Reductase Inhibitor Start: take 10 mg by mouth at bedtime Atorvastatin Active 10 MG PO AT BEDTIME July 06, 2021 6:14pm Start: 12-18-2019 End: 01-31-2022 take 1 tablet by mouth once daily at bedtime for hyperlipidemia atorvastatin (LIPITOR) 20 mg tablet Indications: Hyperlipidemia, unspecified hyperlipidemia type Take 1 tablet by mouth daily at bedtime. For cholesterol. 90 tablet 3 01/31/2022 Active Start: 06-24-2019 End: 07-06-2021 Atorvastatin (Lipitor) 40 mg tablet Discontinued 20 MG PO DAILY June 24, 2019 11:20am July 06, 2021 6:14pm Comment on above: Take 1 tablet by girish th daily at bedtime. For cholesterol. calcium carbonate 500 mg chewable tablet (20 sources) Start: 09-30-2006 TUMS 500 MG CHEWABLE TAB as necessary 0 09/30/2006 Active Comment on above: as necessary cinnamon bark 500 mg oral capsule (19 sources) Start: 11-09-2019 take 500 mg by mouth once daily Cinnamon Bark Active 500 MG PO DAILY November 09, 2019 12:10pm take 2 capsules by mouth once da jimena Cinnamon 500 MG Cap take 1,000 mg by mouth daily. Active Fish Oil-Dha-Epa (1 source) Start: 11-09-2019 Fish Oil-Dha-E pa Active 1 EACH PO DAILY November 09, 2019 12:10pm glimepiride 4 mg oral tablet (20 sources) Sulfonylurea Start: 07-06-2021 take 2 mg by mouth once daily at breakfast Glimepiride Active 2 MG PO EVERY MORNING July 06, 2021 6:15pm administer with breakfast Start: 06-28-2020 End: 12-26-2023 take 2 tablets by mouth once daily at breakfast glimepiride (AMARYL) 4 mg tablet Indications: Type 2 diabetes mellitus without complication, without long-term current use of insulin (HCC) Take 2 tablets by mouth daily with breakfast. 180 tablet 3 12/26/2023 Active Start: 11-09-2019 End: 07-06-2021 take 8 mg by mouth once daily Glimepiride Discontinued 8 MG PO DAILY November 09, 2019 12:10pm July 06, 2021 6:15pm Comment on above: Take 2 tablets by mo uth daily with breakfast. hydroCHLOROthiazide 25 mg oral tablet (6 sources) Thiazide Diuretic take 12.5 mg by mouth once daily hydrochlorothiazide 25 MG Tab take 12.5 mg by mouth daily. Active isopropyl alcohol 0.7 ml/ml medicated pad (20 sources) Start: 2009 alcohol antiseptic pads(ALCOHOL PADS) Indications: Type II or unspecified type diabetes mellitus without mention of complication, not stated as uncontrolled Use as directed 100 11 04/18/2010 Active Comment on above: Use as directed ketoconazole 20 mg/ml medicated shampoo (20 sources) Azole Antifungal ketoconazole (N IZORAL) 2 % shampoo Apply to affected area once daily as needed. Active Comment on above: Apply to affected ar ea once daily as needed. 24 hr metFORMIN hydrochloride 500 mg extended release oral tablet (20 sources) Biguanide Start: 2023 End: 2024 take 2 tablets by mouth once daily metFORMIN ER (GLUCOPHAGE XR) 500 mg 24 hr tablet Indications: Type 2 diabetes mellitus with diabetic neuropathy, without long-term current use of insulin (HCC) Take 2 tablets by mouth once daily. 180 tablet 3 09/24/2024 09/24/2025 Active Start: 01-31-2022 End: 12-26-2023 take 2 tablets by mouth twice daily at mealtime metFORMIN ER (GLUCOPHAGE XR) 500 mg 24 hr tablet Indications: Type 2 diabetes mellitus with diabetic neuropathy, without long-term current use of insulin (HCC) Take 2 tablets by mouth twice daily with meals. 360 tablet 3 01/31/2022 03/26/2023 Discontinued Start: 10-10-2021 take 1500 mg by mouth once yudelka ly Metformin Active 1500 MG PO DAILY October 10, 2021 2:11pm Start: 12-18-2019 End: 03-02-2022 take 1 tablet by mouth every twenty-four hours metFORMIN-XR 500 MG Tab SR 24 HR Take 1,000 mg by mouth. 0 01/31/2022 03/02/2022 Discontinued Start: 11-09-2019 End: 07-06-2021 take 500 mg by mouth at bedtime Metformin Discontinued 500 MG PO AT BEDTIME November 09, 2019 12:10pm July 06, 2021 6:15pm Start: 06-24-2019 End: 10-10-2021 take 1000 mg by mouth once daily Metformin Discontinue d 1000 MG PO DAILY June 24, 2019 11:41am October 10, 2021 2:12pm Comment on above: Take two pills in AM , one pill in PM Take 2 tablets by mo [facility] twice daily with meals. Take 2 tablets by mo [facility] once daily. molnupiravir 200 mg capsule (1 source) Start: 11-21-19 End: 11-26-19 take 4 capsules by mouth twice daily molnupiravir 200 mg capsule Take 4 capsules by mouth two times a day for 5 days. 40 capsule 0 11/21/2023 11/26/2023 Active Comment on above: Take 4 capsules by m [facility] two times a day for 5 days. nitroglycerin 0.4 mg sublingual tablet (20 sources) Nitrate Vasodilator Start: 06-24-20 End: 07-06-20 nitroGLYCERIN 0.[address] 1 tablet under tongue every 5 minutes as needed for Chest pain. max = 3 doses. If CP persists after 1st dose, call 911 25 tablet 03/10/2021 Active Start: 08-27-2018 nitroglycerin sublingual (NITROQUICK) 0.4 mg SL tablet Indications: Coronary artery disease involving elem coronary artery of elem heart without angina pectoris Take 1 tablet by mouth as needed for Chest Pain. FOR CHEST PAIN. IF NO PAIN RELIEF, CALL 911 1 Bottle of 25 3 08/27/2018 Active Comment on above: Take 1 tablet by girish th as needed for Chest Pain. FOR CHEST PAIN. IF NO PAIN RELIEF, CALL 911 omega-3 acid ethyl esters (prison) 1200 mg oral capsule (6 sources) take 1 capsule by mouth once daily [place]-3 Fatty Acids (FISH OIL) 1200 MG Cap take 1,200 mg by mouth daily. Active [place]-3 Fatty Acids (FISH OIL) 1200 MG Cap (12 sources) take 1 capsule by mouth once daily [place]-3 Fatty Acids (FISH OIL) 1200 MG Cap take 1,200 mg by mouth daily. Active take 1 capsule by mouth once yudelka ly [place]-3 Fatty Acids (FISH OIL) 1200 MG Cap take 1,200 mg by mouth daily. 0 Active [place]-3 Fatty Acids-Vitamin E 1,000 mg cap (20 sources) take 2 capsules by m outh once daily [place]-3 Fatty Acids-Vitamin E 1,000 mg cap Take 2 capsules by mouth once daily. Active take 2 capsules by mouth once da jimena [place]-3 Fatty Acids-Vitamin E 1,000 mg cap Take 2 capsules by mouth once daily. 0 Active Comment on above: Take 2 capsules by m outh once daily. pantoprazole 20 mg delayed release oral tablet (20 sources) Proton Pump Inhibitor Start: 019 End: 022 take 1 tablet by mouth once daily as needed for gastroesophageal reflux disease pantoprazole DR (PROTONIX) 20 mg tablet Indications: Esophageal dysphagia Take 1 tablet by mouth once daily. Take as needed for heartburn/GI upset 90 tablet 3 01/31/2022 Active End: 02-05-2025 Pantoprazole Sodium (PROTONI X PO) Take by mouth. 02/05/2025 Discontinued Pantoprazole Sod ium (PROTONIX PO) Take by mouth. Active Pantoprazole Sod ium (PROTONIX PO) Take by mouth. 0 Active Comment on above: Take 1 tablet by girish th once daily. Take 1 tablet by girish th once daily. Take as needed for heartburn/GI upset Probiotic Product (PROBIOTIC PO) (3 sources) Probiotic Produc t (PROBIOTIC PO) Take by mouth. Active SITagliptin 100 mg oral tablet (3 sources) Dipeptidyl Peptidase 4 Inhibitor SITagliptin 100 MG t ablet Take by mouth. Active triamcinolone acetonide 1 mg/ml topical cream (20 sources) Corticosteroid triamcinolone ac etonide (KENALOG) 0.1 % cream Apply to affected area twice daily. Active Comment on above: Apply to affected ar ea twice daily. white petrolatum - mineral oil (EUCERIN CREAM) cream (20 sources) white petrolatum - mineral oil (EUCERIN CREAM) cream Apply to affected area as needed. Active white petrolatum - mineral oil (EUCERIN CREAM) cream Apply to affected area as needed. 0 Active Comment on above: Apply to affected ar ea as needed. Completed/Discontinued Medications Medication Drug Class(es) Dates Sig (Normalized) Sig (Original) barium sulfate (READI-CAT) 2 % oral susp 900 mL (1 source) Start: 03-02-2022 End: 03-02-2022 barium sulfate (READI-CAT) 2 % oral susp 900 mL benzonatate 100 mg oral capsule (3 sources) Non-narcotic Antitussive Start: 06-01-2021 End: 01-31-2022 benzonatate (TESSALON PERLE) 100 mg capsule Take 1-2 capsules tid prn, no more than 6 in 24 hours. 30 capsule 0 06/01/2021 01/31/2022 Discontinued Comment on above: Take 1-2 capsules ti d prn, no more than 6 in 24 hours. bifidobacterium bifidum [id number] unt / bifidobacterium longum [id number] unt oral capsule (4 sources) Start: 12-25-2019 End: 01-31-2022 take 1 capsule by mouth once daily bifidobacteri bifid.and longum (FLORAJEN BIFIDOBLEND) 460 mg (9-1 bill.cell) cap Indications: Abnormal chest x-ray Take 1 capsule by mouth once daily. 30 capsule 1 12/25/2019 01/31/2022 Discontinued Comment on above: Take 1 capsule by mo [facility] once daily. empagliflozin 10 mg oral tablet (12 sources) Sodium-Glucose Cotransporter 2 Inhibitor Start: 12-26-2023 End: 02-05-2025 take 1 tablet by mouth once daily at breakfast Empagliflozin 10 MG tablet Take 1 tablet by mouth daily with breakfast. 12/26/2023 02/05/2025 Discontinued Comment on above: Take 1 tablet by [facility] daily with breakfast. flash glucose sensor (FREESTYLE KAMALJIT 14 DAY SENSOR) kit (4 sources) Start: 08-06-2019 End: 01-31-2022 flash glucose sensor (FREESTYLE KAMALJIT 14 DAY SENSOR) kit Indications: Diabetes mellitus type 2, uncontrolled, without complications Use as directed for 14 days to check blood sugar levels 3 Kit 3 08/06/2019 01/31/2022 Discontinued Start: 08-06-2019 flash glucose sensor (FREESTYLE KAMALJIT 14 DAY SENSOR) kit Indications: Diabetes mellitus type 2, uncontrolled, without complications Use as directed for 14 days to check blood sugar levels 3 Kit 3 08/06/2019 Active Comment on above: Use as directed for 14 days to check blood sugar levels Iohexol (OMNIPAQUE) 300 MG/ML 50 mL in Water liquid (free water) 950 mL (1 source) Start: 01-08-20 End: 01-08-20 take 1 dose by mouth once 15,000 mg, Oral, ONCE, 1 dose, On Sat01/08/24 at 1415, For administration to inpatients, to be given by RN on inpatient nursing unit., CT Procedure ketorolac tromethamine 10 mg oral tablet (3 sources) Nonsteroidal Anti-inflammatory Drug, Cyclooxygenase Inhibitor Start: 05-26-20 End: 07-07-20 take 10 mg by mouth every eight hours Ketorolac Discontinued 10 MG PO Q8H 15 May 26, 2021 6:17am July 07, 2021 1:07pm Start: 07-28-2020 End: 07-07-2021 take 10 mg by mouth every six hours Ketorolac Discontinued 10 MG PO EVERY 6 HOURS July 28, 2020 6:42am July 07, 2021 1:07pm Start: 11-09-2019 End: 03-16-2020 take 10 mg by mouth every six hours Ketorolac Discontinued 10 MG PO EVERY 6 HOURS November 09, 2019 1:26pm March 16, 2020 10:08am [place]-3 Fatty Acids-Vitamin E (FISH OIL) 1,000 mg cap (8 sources) take 2 capsules by mouth once daily [place]-3 Fatty Acids-Vitamin E (FISH OIL) 1,000 mg cap Take 2 capsules by mouth once daily. 0 Active Comment on above: Take 2 capsules by m outh once daily. ondansetron 4 mg disintegrating oral tablet (1 source) Serotonin-3 Receptor Antagonist Start: 05-26-20 End: 07-07-20 take 4 mg by mouth every six hours as needed Ondansetron Discontinued 4 MG PO EVERY 6 HOURS NEEDED May 26, 2021 6:15am July 07, 2021 1:08pm traMADol hydrochloride 50 mg oral tablet (1 source) Opioid Agonist Start: 07-28-20 End: 07-31-20 take 50 mg by mouth every four hours as needed Tramadol Discontinued 50 MG PO EVERY 4 HOURS NEEDED 07 01July 28, 2020 6:42am July 31, 2020 12:03am white petrolatum - mineral oil (EUCERIN) cream (8 sources) white petrolatum - mineral oil (EUCERIN) cream Apply to affected area as needed. 0 Active Comment on above: Apply to affected ar ea as needed. Problems Active Problems Problem Classification Problem Date Documented Da te Episodic/Chronic Abdominal pain (3 sources) Acute abdominal pain; Translations: [Unspecified abdominal pain] Episodic Acquired foot deformities (2 sources) Hallux valgus; Translations: [Hallux valgus (acquired), left foot] 06-12-2023 Chronic Acquired foot deformities (2 sources) Hallux valgus; Translations: [Hallux valgus (acquired), right foot] 06-12-2023 Chronic Cardiac dysrhythmias (1 source) Bradycardia, unspecified; Translations: [Bradycardia, unspecified] Onset: Episodic Chronic kidney disease (1 source) Chronic kidney disease stage 3; Translations: [Stage 3 chronic kidney disease, unspecified whether stage 3a or 3b CKD] 08-07-2024 Chronic Chronic kidney disease (2 sources) Chronic kidney disease; Translations: [Chronic kidney disease, stage 3 unspecified] Onset: 4 Coronary atherosclerosis and other heart disease (20 sources) Coronary atherosclerosis; Translations: [Atherosclerotic heart disease of elem coronary artery without angina pectoris] Onset: 6 Resolved: 8 Chronic Diabetes mellitus with complications (20 sources) Type 2 diabetes mellitus with peripheral angiopathy; Translations: [Type 2 diabetes mellitus with diabetic peripheral angiopathy without gangrene] Onset: 0 09-26-2020 Chronic Diabetes mellitus without complication (20 sources) Type 2 diabetes mellitus; Translations: [Type 2 diabetes mellitus without complications] Onset: 4 Resolved: 0 Chronic Disorders of lipid metabolism (20 sources) Pure hypercholesterolemia; Translations: [Pure hypercholesterolemia, unspecified] Onset: 6 Chronic Disorders of teeth and jaw (1 source) Jaw pain; Translations: [Jaw pain] 08-18-2020 Episodic E Codes: Fall (1 source) Unspecified fall, initial encounter; Translations: [Unspecified fall, initial encounter] Onset: 5 Episodic Esophageal disorders (20 sources) Gastroesophageal reflux disease; Translations: [Gastro-esophageal reflux disease without esophagitis] Onset: 6 08-14-2006 Chronic Essential hypertension (20 sources) Benign essential hypertension; Translations: [Essential (primary) hypertension] Onset: 6 Resolved: 6 Chronic Genitourinary symptoms and ill-defined conditions (2 sources) Blood in urine; Translations: [Hematuria, unspecified] Episodic Gout and other crystal arthropathies (20 sources) Gout; Translations: [Gout, unspecified] Onset: 6 08-14-2006 Chronic Hyperplasia of prostate (4 sources) Benign prostatic hyperplasia; Translations: [Benign prostatic hyperplasia without lower urinary tract symptoms] Chronic Immunizations and screening for infectious disease (1 source) Suspected disease caused by 2019-nCoV; Translations: [Suspected COVID-19 virus infection] Episodic Malaise and fatigue (2 sources) Fatigue; Translations: [Other fatigue] Episodic Mycoses (1 source) Onychomycosis; Translations: [Tinea unguium] Episodic Non-Hodgkin's lymphoma (20 sources) Follicular non-Hodgkin's lymphoma; Translations: [Follicular lymphoma, unspecified, unspecified site] Onset: 6 12-01-2015 Chronic Nutritional deficiencies (6 sources) Vitamin D deficiency; Translations: [Vitamin D deficiency, unspecified] Onset: 5 Chronic Osteoarthritis (20 sources) Osteoarthritis of knee; Translations: [Unilateral primary osteoarthritis, unspecified knee] Onset: 1 Resolved: 8 01-31-2011 Chronic Other and unspecified benign neoplasm (6 sources) Benign neoplasm of meninges; Translations: [Meningioma] Onset: 6 03-30-2016 Chronic Other and unspecified benign neoplasm (1 source) Intracranial meningioma; Translations: [Benign neoplasm of cerebral meninges] Chronic Other and unspecified benign neoplasm (12 sources) Neoplasm of meninges; Translations: [Benign neoplasm of meninges, unspecified] Onset: 6 03-30-2016 Chronic Other circulatory disease (1 source) Abnormal peripheral pulse; Translations: [Other specified symptoms and signs involving the circulatory and respiratory systems] 06-18-2024 Episodic Other connective tissue disease (1 source) Pain of toe of left foot; Translations: [Pain in left toe(s)] Episodic Other connective tissue disease (1 source) Pain of toe of right foot; Translations: [Pain in right toe(s)] Episodic Other diseases of kidney and ureters (1 source) Abnormal renal function; Translations: [Disorder of kidney and ureter, unspecified] 08-12-2024 Episodic Other gastrointestinal disorders (1 source) Esophageal dysphagia; Translations: [Other dysphagia] Episodic Other gastrointestinal disorders (1 source) Diarrhea; Translations: [Diarrhea, unspecified] 12-26-2023 Episodic Other injuries and conditions due to external causes (1 source) Hematoma; Translations: [Other injury of unspecified body region, initial encounter] Episodic Other injuries and conditions due to external causes (1 source) Contusion; Translations: [Other injury of unspecified body region, initial encounter] 12-26-2023 Episodic Other injuries and conditions due to external causes (1 source) Unspecified injury of right shoulder and upper arm, initial encounter; Translations: [Unspecified injury of right shoulder and upper arm, initial encounter] Onset: 5 Episodic Other lower respiratory disease (2 sources) Cough; Translations: [Acute cough] 11-21-2023 Episodic Other screening for suspected conditions (not mental disorders or infectious disease) (1 source) Patient encounter status; Translations: [Encounter for screening for malignant neoplasm of prostate] 12-26-2023 Episodic Other upper respiratory infections (2 sources) Sore throat symptom; Translations: [Acute pharyngitis, unspecified] Episodic Peripheral and visceral atherosclerosis (20 sources) Peripheral vascular disease, unspecified; Translations: [Peripheral vascular disease, unspecified] Onset: 09-26-2020 Chronic Residual codes; unclassified (1 source) Sleep apnea; Translations: [Sleep apnea, unspecified] Chronic Residual codes; unclassified (1 source) History of chest pain; Translations: [Personal history of other specified conditions] Episodic Superficial injury; contusion (1 source) Contusion of lower limb; Translations: [Contusion of unspecified lower leg, initial encounter] Episodic Past or Other Problems Problem Classification Problem Date Documented Da te Episodic/Chronic Abdominal hernia (20 sources) Diaphragmatic hernia; Translations: [Diaphragmatic hernia without obstruction or gangrene] Onset: 08-14-2006 08-14-2006 Episodic Allergic reactions (20 sources) Radiation-induced dermatosis; Translations: [Other skin changes due to chronic exposure to nonionizing radiation] Onset: 07-18-2006 Resolved: 05-23-2018 03-02-2010 Episodic Calculus of urinary tract (11 sources) Kidney stone; Translations: [Calculus of kidney] Onset: 11-18-2024 Episodic Cancer of brain and nervous system (20 sources) Malignant neoplasm of cerebral meninges; Translations: [Malignant neoplasm of cerebral meninges] Onset: 08-14-2006 Resolved: 12-26-2023 09-26-2020 Chronic Coronary atherosclerosis and other heart disease (20 sources) Stented coronary artery; Translations: [Presence of coronary angioplasty implant and graft] Onset: 09-20-2006 Episodic Lymphadenitis (20 sources) Lymphadenopathy; Translations: [Mesenteric lymphadenopathy] Onset: 10-28-2015 10-28-2015 Episodic Mood disorders (3 sources) Mood disorders Onset: 02-05-2025 02-05-2025 Neoplasms of unspecified nature or uncertain behavior (20 sources) Neoplasm of uncertain behavior of skin; Translations: [Neoplasm of uncertain behavior of skin] Onset: 07-18-2006 Resolved: 03-02-2010 12-24-2021 Episodic Nonspecific chest pain (12 sources) Chest pain; Translations: [Chest pain, unspecified] Onset: 09-09-2006 Resolved: 03-02-2010 03-02-2010 Episodic Other circulatory disease (12 sources) Non-neoplastic nevus; Translations: [Nevus, non-neoplastic] Onset: 04-29-2009 Resolved: 03-02-2010 03-02-2010 Episodic Other connective tissue disease (12 sources) Enthesopathy; Translations: [Enthesopathy, unspecified] Onset: 09-23-2007 Resolved: 01-31-2011 01-31-2011 Episodic Other diseases of kidney and ureters (1 source) Disorder of kidney and ureter, unspecified; Translations: [Function kidney decreased] Onset: 08-12-2024 Episodic Other inflammatory condition of skin (20 sources) Psoriasis; Translations: [Other psoriasis] Onset: 12-17-2006 Resolved: 05-23-2018 01-31-2011 Chronic Other inflammatory condition of skin (20 sources) Seborrheic dermatitis; Translations: [Seborrheic dermatitis, unspecified] Onset: 05-03-2008 Resolved: 04-29-2012 03-02-2010 Episodic Other inflammatory condition of skin (20 sources) Pruritus of skin; Translations: [Pruritus, unspecified] Onset: 05-03-2008 Resolved: 04-29-2012 03-02-2010 Episodic Other inflammatory condition of skin (12 sources) Inflammatory dermatosis; Translations: [Lichen simplex chronicus] Onset: 03-29-2010 Resolved: 01-31-2011 01-31-2011 Episodic Other injuries and conditions due to external causes (12 sources) Open wound; Translations: [Other injury of unspecified body region, initial encounter] Onset: 08-29-2006 Resolved: 03-02-2010 03-02-2010 Episodic Other non-epithelial cancer of skin (12 sources) History of malignant neoplasm of skin; Translations: [Personal history of other malignant neoplasm of skin] Onset: 07-18-2006 Resolved: 03-02-2010 03-02-2010 Episodic Other non-traumatic joint disorders (12 sources) Disorder of ankle; Translations: [Joint disorder, unspecified] Resolved: 05-23-2018 10-16-2021 Episodic Other skin disorders (12 sources) Scar conditions and fibrosis of skin; Translations: [Scar conditions and fibrosis of skin] Onset: 07-18-2006 Resolved: 03-02-2010 03-02-2010 Episodic Other skin disorders (20 sources) Seborrheic keratosis; Translations: [Other seborrheic keratosis] Onset: 07-18-2006 Resolved: 05-23-2018 03-02-2010 Episodic Other skin disorders (20 sources) Disorder of skin pigmentation; Translations: [Disorder of pigmentation, unspecified] Onset: 07-18-2006 Resolved: 05-23-2018 05-16-2011 Episodic Other skin disorders (20 sources) Actinic keratosis; Translations: [Actinic keratosis] Onset: 07-18-2006 Resolved: 05-23-2018 07-17-2012 Episodic Other skin disorders (12 sources) Inflamed seborrheic keratosis; Translations: [Inflamed seborrheic keratosis] Onset: 03-29-2010 Resolved: 01-31-2011 01-31-2011 Episodic Other skin disorders (20 sources) Asteatosis cutis; Translations: [Xerosis cutis] Onset: 03-29-2010 Resolved: 05-23-2018 01-31-2011 Episodic Other skin disorders (12 sources) Scar; Translations: [Scar conditions and fibrosis of skin] Onset: 08-31-2012 Resolved: 05-23-2018 05-23-2018 Episodic Residual codes; unclassified (20 sources) Family history of diabetes mellitus; Translations: [Family history of diabetes mellitus] Onset: 08-14-2006 08-14-2006 Episodic Viral infection (12 sources) Verruca vulgaris; Translations: [Viral wart, unspecified] Onset: 03-29-2010 Resolved: 01-31-2011 01-31-2011 Episodic Results Test Name Value Interpretation Reference Range Facility XR SHOULDER 2+ VIEWS RIGHTon 03-12-2025 XR SHOULDER 2+ VIEWS RIGHT DATE OF EXAM : 03/12/2025 10:55 PM EXAMINATION TYPE: 4 views RIGHT shoulder HISTORY: Right shoulder pain following fall COMPARISON: None FINDINGS: Bones are somewhat demineralized. Surgical anchors are noted within the humeral head. There are no acute fractures or dislocations. There is mild acromioclavicular and glenohumeral osteoarthritis.. No soft tissue gas or radiopaque foreign bodies. If high clinical concern persists, consider follow-up CT or MRI or consider repeat x-rays in 7-10 days. IMPRESSION: No acute bony abnormalities. -------- FINAL REPORT -------- Dictated By: Hugo Birch Dictated Date: 03/12/2025 23:42 Assigned Physician: Hugo Birch Reviewed and Electronically Signed By: Hugo Birch Signed Date: 03/12/2025 23:43 Workstation ID: [id number] Transcribed By: Self Edit Transcribed Date: 03/12/2025 23:42 Normal [facility] 02-23-2025 CNPN Telephone (4CQ) TRISTIN FLYNN ([id number]) 1945 M Date Time Provider Department 02/23/25 ALISHA GEE 4CQ During your visit today, we recorded the following information about you: Vianey James 02/23/2025 1:00 PM Signed Pt requesting lab work prior to April appt. Please advise, Thank you Alisha Gee MD 02/23/2025 2:27 PM Signed Labs ordered MD Gaby Kellogg Amanda, RN 02/23/2025 2:42 PM Signed Pt called and is notified of providers message and instructions. Pt voices understanding. Leila Griffin RN Allergies As of Date: 02/23/2025 Noted Allergy Reaction CIPROFLOXACIN 02/07/2023 17 - Myalgia KEFLEX (CEPHALEXIN) 01/13/2019 8 - GI Upset MEPERIDINE 02/07/2023 8 - GI Upset MORPHINE 04/07/2009 8 - GI Upset Comments: Vomiting and nausea within minutes CONTRAST DYE 07/14/2015 8 - GI Upset OPIOIDS-MEPERIDINE AND RELATED 01/25/2004 5 - Intolerance Comments: arrythmia after surgery with Darvon/Darvocet PLAVIX (CLOPIDOGREL BISULFATE) 03/30/2010 Comments: Hemorrhage PREDNISONE 09/30/2006 14 - Other: See Comments Comments: anxiety PROPOXYPHENE 01/25/2004 5 - Intolerance Comments: arrythmia after surgery Date Reviewed: 11/18/2024 Reviewed by: Charleen Sterling LPN - Fully Assessed Reason for Visit: Lab Orders [1688] Primary Visit Diagnosis: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 [I25.119] Other Visit Diagnoses:Hyperlipidemia, unspecified hyperlipidemia type [E78.5] Hypertension, unspecified type [I10] Mixed hyperlipidemia [E78.2] Type 2 diabetes mellitus with diabetic peripheral angiopathy without gangrene, without long-term current use of insulin (HCC) [E11.51] Gout, unspecified cause, unspecified chronicity, unspecified site [M10.9] Vitamin D deficiency [E55.9] Order(s):LIPID PANEL, FASTING [SQLIPB] Order #: [id number] FUTURE COMPREHENSIVE METABOLIC PANEL [SQCMP] Order #: [id number] FUTURE COMPLETE BLOOD COUNT AND DIFFERENTIAL [SQCBCDIF] Order #: [id number] FUTURE URIC ACID [SQURIC] Order #: [id number] FUTURE HEMOGLOBIN A1C [ZBSJB2Y] Order #: [id number] FUTURE VITAMIN D 25 HYDROXY [SQVITD] Order #: [id number] FUTURE ALBUMIN/CREATININE RATIO, URINE [SQUACR] Order #: [id number] FUTURE Prescriptions as of 02/23/2025 - metFORMIN ER (GLUCOPHAGE XR) 500 mg 24 hr tablet Take 2 tablets by mouth once daily. - blood sugar diagnostic ([employer] ULTRA TEST) test strip Use to test blood sugars twice daily. Dx: 250.00 - glimepiride (AMARYL) 4 mg tablet Take 2 tablets by mouth daily with breakfast. - allopurinol (ZYLOPRIM) 100 mg tablet Take 1 tablet by mouth two times a day. - pantoprazole DR (PROTONIX) 20 mg tablet Take 1 tablet by mouth once daily. Take as needed for heartburn/GI upset - atorvastatin (LIPITOR) 20 mg tablet Take 1 tablet by mouth daily at bedtime. For cholesterol. - atenolol (TENORMIN) 50 mg tablet Take 1 tablet by mouth once daily. - ketoconazole (NIZORAL) 2 % shampoo Apply to affected area once daily as needed. - triamcinolone acetonide (KENALOG) 0.1 % cream Apply to affected area twice daily. - white petrolatum - mineral oil (EUCERIN CREAM) cream Apply to affected area as needed. - Lancets (ONETOUCH ULTRASOFT LANCETS) lancets Use as directed to check blood sugars 1-2 times daily - nitroglycerin sublingual (NITROQUICK) 0.4 mg SL tablet Take 1 tablet by mouth as needed for Chest Pain. FOR CHEST PAIN. IF NO PAIN RELIEF, CALL 911 - [place]-3 Fatty Acids-Vitamin E 1,000 mg cap Take 2 capsules by mouth once daily. - Ascorbic Acid 1,000 mg tablet Take 1,000 mg by mouth once daily. - ACETAMINOPHEN (TYLENOL ARTHRITIS ORAL) Take by mouth once daily. - alcohol antiseptic pads(ALCOHOL PADS) Use as directed - aspirin(ECOTRIN LOW STRENGTH 81 MG TAB) Take one(1) tablet daily. 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 Problem List As Of Date 02/23/2025 Noted Resolved Other Chronic Dermatitis due to Solar Radiation*07/18/2006 03/02/2010 Neoplasm of Uncertain Behavior of Skin [D48.5] 07/18/2006 03/02/2010 Scar Condition and Fibrosis of Skin [L90.5] 07/18/2006 03/02/2010 Personal History of Other Malignant Neoplasm of*07/18/2006 03/02/2010 Other Seborrheic Keratosis [L82.1] 07/18/2006 03/02/2010 SOLAR LENTGINES [L81.9] 07/18/2006 03/02/2010 Actinic Keratoses: Premalignant AK's [L57.0] 07/18/2006 03/02/2010 Essential hypertension, benign [I10] 08/14/2006 11/21/2015 ESOPHAGEAL REFLUX [K21.9] 08/14/2006 DIAPHRAGMATIC HERNIA [K44.9] 08/14/2006 Malignant neoplasm of cerebral meninges (HCC) [*08/14/2006 12/26/2023 GOUT NOS [M10.9] 08/14/2006 FAMILY HX DIABETES MELLITUS [Z83.3] 08/14/2006 Open Wnd Site [T14.8XXA] 08/29/2006 03/02/2010 Unspecified Chest Pain [R07.9] 09/09/2006 03/02/2010 (more content not included)... 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 PROTOCOL: Standard. FINDINGS: The absence of intravenous contrast compromises evaluation of the solid organs and vessels. Lung Bases: Please see dedicated chest CT scan of the same date for full description of the intra-thoracic contents. Liver: Normal. Unchanged cyst along the gallbladder fossa. No suspicious focal parenchymal lesion within the limitation of noncontrast CT. Gallbladder: Cholecystectomy. Bile Ducts: Normal in caliber. Spleen: Normal. Pancreas: Normal. Adrenals: Normal. Right Kidney: Normal aside from benign cysts. No solid mass. No stones. No hydronephrosis. Left Kidney: Normal aside from benign cysts. No solid mass. 2 mm stone in the lower pole, unchanged. No hydronephrosis. Gastrointestinal: Normal bowel caliber and wall thickness. . Extensive sigmoid colonic diverticulosis without evidence of acute diverticulitis. Peritoneum/retroperitoneum: No ascites. Lymph nodes: No enlarged or morphologically abnormal lymph nodes. Vasculature: The abdominal aorta is normal in course and caliber. Moderate calcific atherosclerosis. Bladder: Normal. Pelvic Organs: Normal. Body Wall: Normal. Bones: Normal for patient age. No aggressive lesion. IMPRESSION: 1. No abdominopelvic lymphadenopathy or other evidence of malignancy within the limitations of noncontrast CT. 2. Other findings as detailed in the body of the report. Normal [facility] CT CHEST WITHOUT CONTRASTon 02-07-2025 CT CHEST WITHOUT CONTRAST EXAM: CT CHEST WITHOUT CONTRAST COMPARISON: 01/08/24 CLINICAL INDICATIONS: Hx: follicular lymphoma TECHNIQUE: Non contrast axial CT images of the chest 5 mm with 1 mm contiguous high-resolution, coronal MIP and sagittal MPR series. FINDINGS: Calcific nodule within the right lower lobe is unchanged. There are no new or suspicious pulmonary nodules, groundglass opacities or pleural effusions. Minimal atelectasis within the right lower lobe has improved. Borderline size heart without pericardial effusion. Extensive coronary artery calcification and associated stents. Unenhanced pulmonary arteries and thoracic aorta are unremarkable. There are no pathologically or suspect growing mediastinal, axillary, supraclavicular or definite hilar lymph nodes. Small calcific right infrahilar lymph nodes are unchanged. No suspect osseous lesions. Visualized upper abdomen is unchanged and unremarkable for the patient's age. IMPRESSION: No imaging evidence for intrathoracic metastatic disease/adenopathy. Amilcar Owens M.D. This report has been electronically signed and verified by the Radiologist whose name is printed above. This report contains privileged and confidential information and is intended solely for the use of the individual or entity to which it is addressed. If you are not the intended recipient of this report, you are hereby notified that any copying, distribution, dissemination or action taken in relation to the contents of this report is strictly prohibited and may be unlawful. If you have received this report in error, please notify the sender immediately at [phone] and permanently delete the original report and destroy any copies or printouts. Normal [facility] CNOV[facility]18[facility]20[facility] TRISTIN FLYNN ([id number]) 1945 M Date Time Provider Department 11/18/24 4:00 PM [facility] During your visit today, we recorded the following information about you: Pulse Respiration Blood pressure Weight 66/minute 16/minute 116/64 87.3 kg Genie Moore APRN.CNP 11/18/2024 5:14 PM Signed This is a 79 year old male who presents today with: Patient presents with: Follow Up: 3 month follow up HISTORY OF PRESENT ILLNESS: Tristin Flynn is a 79 year old male. Patient presents with: Follow Up: 3 month follow up 3 month follow up , getting all lab work completed through the OR. DM: Reports overall feeling well. Medication side effects: No. Home sugar checks: 120- Hypoglycemic spells: No. Watching diet: No. Unexpected weight loss: No. Polyuria, polydipsia: Yes. Vision Changes: No. Foot lesions or numbness or pain: No. Stopped Jardiance since last OV. Taking Metformin XR 500 mg BID. Glimerpiride 4 mg 2 tablets daily, Not watching diet. Following with building code inspector at [facility], to follow-up next fall. Since stopping Jardiance GFR is now 61. Reports A1C completed on Saturday and is 9.0. Reports he follows with a clinical pharmacist at OR for his diabetes. Reports she is going to put a continuous glucose monitor on for 2 weeks. Struggles with eating sweets. HTN/CAD: Taking aspirin 81 mg daily, atenolol 50 mg daily. Not currently checking blood pressure at home. Denies chest pain, palpitations, dizziness, or edema. Lipids: Taking Lipitor 20 mg daily. Trying to watch diet. Gout: Taking allopurinol 100 mg twice daily. History of kidney stones. Follicular lymphoma: Grade 1, following with hematology at [facility]. Vitamin D deficiency: Taking vitamin D3 1000 to 2000 IUs daily. History of squamous cell, following with dermatology at the OR. 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 blood sugar diagnostic ([employer] ULTRA TEST) test strip Use to test blood sugars twice daily. Dx: 250.00 glimepiride (AMARYL) 4 mg tablet Take 2 tablets by mouth daily with breakfast. allopurinol (ZYLOPRIM) 100 mg tablet Take 1 tablet by mouth two times a day. empagliflozin (JARDIANCE) 10 mg tablet Take 1 tablet by mouth daily with breakfast. pantoprazole DR (PROTONIX) 20 mg tablet Take 1 tablet by mouth once daily. Take as needed for heartburn/GI upset atorvastatin (LIPITOR) 20 mg tablet Take 1 tablet by mouth daily at bedtime. For cholesterol. atenolol (TENORMIN) 50 mg tablet Take 1 tablet by mouth once daily. ketoconazole (NIZORAL) 2 % shampoo Apply to affected area once daily as needed. triamcinolone acetonide (KENALOG) 0.1 % cream Apply to affected area twice daily. white petrolatum - mineral oil (EUCERIN CREAM) cream Apply to affected area as needed. Lancets ([employer] ULTRASOFT LANCETS) lancets Use as directed to check blood sugars 1-2 times daily nitroglycerin sublingual (NITROQUICK) 0.4 mg SL tablet Take 1 tablet by mouth as neede (more content not included)... Normal [facility] [place] 08-27-2024 CNPN Telephone ([facility]) TRISTIN FLYNN ([id number]) 1945 M Date Time Provider Department 08/27/24 GENIE MOORE During your visit today, we recorded the following information about you: Genie Moore APRN.CNP 08/27/2024 3:38 PM Signed Can you please call the patient and let him know that I reviewed his repeat lab results. A1c is unchanged at 9.0. As discussed during office visit I would recommend adding on a new medication such as a GLP injectable or long acting insulin to help with his glucose. [facility]. Regarding his kidney function, GFR was 62, kidney function was normal. Please let me know if they have any questions. Thank you. WILLIS Dunn Barbara, LPN 08/27/2024 3:48 PM Signed TC to ptAmy LM to call office, ask for triage nurse to get results. DAGOBERTO Greenberg Sherrie, RN 08/27/2024 4:39 PM Signed Patient returned call and given provider's message below. Patient reports [facility] and will discuss diabetic medications. Genie Amador RN, APRN.CNP 08/28/2024 2:25 PM Signed Noted, thank you Genie Moore APRN.CNP Allergies As of Date: 08/27/2024 Noted Allergy Reaction CIPROFLOXACIN 02/07/2023 17 - Myalgia KEFLEX (CEPHALEXIN) 01/13/2019 8 - GI Upset MEPERIDINE 02/07/2023 8 - GI Upset MORPHINE 04/07/2009 8 - GI Upset Comments: Vomiting and nausea within minutes CONTRAST DYE 07/14/2015 8 - GI Upset OPIOIDS-MEPERIDINE AND RELATED 01/25/2004 5 - Intolerance Comments: arrythmia after surgery with Darvon/Darvocet PLAVIX (CLOPIDOGREL BISULFATE) 03/30/2010 Comments: Hemorrhage PREDNISONE 09/30/2006 14 - Other: See Comments Comments: anxiety PROPOXYPHENE 01/25/2004 5 - Intolerance Comments: arrythmia after surgery Date Reviewed: 08/12/2024 Reviewed by: Charleen Sterling LPN - Fully Assessed Reason for Visit: Results [95] Cmt: Labs Prescriptions as of 08/28/2024 - metFORMIN ER (GLUCOPHAGE XR) 500 mg 24 hr tablet Take 2 tablets by mouth once daily. - blood sugar diagnostic ([employer] ULTRA TEST) test strip Use to test blood sugars twice daily. Dx: 250.00 - glimepiride (AMARYL) 4 mg tablet Take 2 tablets by mouth daily with breakfast. - allopurinol (ZYLOPRIM) 100 mg tablet Take 1 tablet by mouth two times a day. - empagliflozin (JARDIANCE) 10 mg tablet Take 1 tablet by mouth daily with breakfast. - pantoprazole DR (PROTONIX) 20 mg tablet Take 1 tablet by mouth once daily. Take as needed for heartburn/GI upset - atorvastatin (LIPITOR) 20 mg tablet Take 1 tablet by mouth daily at bedtime. For cholesterol. - atenolol (TENORMIN) 50 mg tablet Take 1 tablet by mouth once daily. - ketoconazole (NIZORAL) 2 % shampoo Apply to affected area once daily as needed. - triamcinolone acetonide (KENALOG) 0.1 % cream Apply to affected area twice daily. - white petrolatum - mineral oil (EUCERIN CREAM) cream Apply to affected area as needed. - Lancets ([employer] ULTRASOFT LANCETS) lancets Use as directed to check blood sugars 1-2 times daily - nitroglycerin sublingual (NITROQUICK) 0.4 mg SL tablet Take 1 tablet by mouth as needed for Chest Pain. FOR CHEST PAIN. IF NO PAIN RELIEF, CALL 911 - [place]-3 Fatty Acids-Vitamin E 1,000 mg cap Take 2 capsules by mouth once daily. - Ascorbic Acid 1,000 mg tablet Take 1,000 mg by mouth once daily. - ACETAMINOPHEN (TYLENOL ARTHRITIS ORAL) Take by mouth once daily. - alcohol antiseptic pads(ALCOHOL PADS) Use as directed - aspirin(ECOTRIN LOW STRENGTH 81 MG TAB) Take one(1) tablet daily. 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 Problem List As Of Date 08/27/2024 Noted Resolved Other Chronic Dermatitis due to Solar Radiation*07/18/2006 03/02/2010 Neoplasm of Uncertain Behavior of Skin [D48.5] 07/18/2006 03/02/2010 Scar Condition and Fibrosis of Skin [L90.5] 07/18/2006 03/02/2010 Personal History of Other Malignant Neoplasm of*07/18/2006 03/02/2010 Other Seborrheic Keratosis [L82.1] 07/18/2006 03/02/2010 SOLAR LENTGINES [L81.9] 07/18/2006 03/02/2010 Actinic Keratoses: Premalignant AK's [L57.0] 07/18/2006 03/02/2010 Essential hypertension, benign [I10] 08/14/2006 11/21/2015 ESOPHAGEAL REFLUX [K21.9] 08/14/2006 DIAPHRAGMATIC HERNIA [K44.9] 08/14/2006 Malignant neoplasm of cerebral meninges (HCC) [*08/14/2006 12/26/2023 GOUT NOS [M10.9] 08/14/2006 FAMILY HX DIABETES MELLITUS [Z83.3] 08/14/2006 Open Wnd Site [T14.8XXA] 08/29/2006 03/02/2010 Unspecified Chest Pain [R07.9] 09/09/2006 03/02/2010 Unspecified cardiovascular disease [I25.10] 09/30/2006 05/23/2018 MIXED HYPERLIPIDEMIA [E78.2] 10/01/2006 Other psoriasis [L40.8] 12/17/2006 01/31/2011 Contact Dermatitis and Other Eczema, due to Uns*12/17/2006 03/02/2010 Enthesop (more content not included)... Normal [facility] Cardiology Visit Reporton Cardiology Visit Report [facility] [address] [place] [address] OFFICE VISIT Date of Service: 08/24/24 MR#: [id number] Acct: [id number] Name: GITRISTIN Deondre Rep #: [id number] : 1945 Provider: KANA mcdonald Age/Sex: 79/M Location: [facility] Status: Signed HPI HPI History of Present Illness Details: This is a 79-year-old white male who presents today for outpatient cardiovascular consultation based upon concerns of a history of underlying CAD status post previous PCI (2005 at [facility]), hyperlipidemia and hypertension as well as a history of diabetes mellitus and non-Hodgkin's lymphoma. He has previously been cared for through the [facility] system. From a cardiac standpoint, the patient is doing well. He denies any palpitations, chest pain, pressure or heaviness. He denies SOB, Orthopnea, and PND. He does not have bleeding issues; no blood in urine, stool or nosebleeds. He does acknowledge a decrease in energy level. He denies myalgias, or claudication. He does not have edema, or sudden weight gain. He does acknowledge occasional dizziness. He denies lightheadedness, syncopal or near syncopal episodes, and headaches. He states he is going to have lab work after his office visit today with his PCP at [facility]. Intake Vital Signs 07/18/23 15:32 08/24/24 09:52 Height 5 ft 9 in 5 ft 9 in Weight: 190 lb BMI 28.0 BP 160/73 H Blood Pressure Location Lt brachial Position Sitting Respiration 16 Pulse 52 L Pulse Source Monitor Intake Visit Reasons: 1 Y FU/PREV PFM Defensive Line Coach Required: No Accompanied by: Significant Other Is patient in pain?: No Allergies cephalexin (From Keflex) Allergy (Verified 08/24/24 10:24) rash meperidine HCl (From Demerol) Allergy (Verified 08/24/24 10:24) Chest tightness prednisone Allergy (Verified 08/24/24 10:24) Chest tightness propoxyphene HCl (From Darvon) Allergy (Verified 08/24/24 10:24) Chest tightness clopidogrel Adverse Reaction (Severe, Verified 08/24/24 10:24) Excessive Bleeding Iodinated Contrast Media Adverse Reaction (Unknown, Verified 08/24/24 10:24) Nausea morphine Adverse Reaction (Verified 08/24/24 10:24) Vomiting Medications ???Medication ???Instructions ???Recorded ???Confirmed ???Type aspirin 81 mg tablet,delayed 81 mg PO DAILY 06/24/19 08/24/24 History release ascorbic acid (vitamin C) 500 mg 500 mg PO DAILY 11/09/19 08/24/24 History capsule fish oil-dha-epa 1,200 mg-144 1 ea PO DAILY 11/09/19 08/24/24 History mg-216 mg capsule atorvastatin 10 mg tablet 10 mg PO QHS 07/06/21 08/24/24 History glimepiride 2 mg tablet 2 mg PO QAM 07/06/21 08/24/24 History allopurinol 100 mg tablet 50 mg PO DAILY 07/07/21 08/24/24 History pantoprazole 20 mg tablet,delayed 20 mg PO DAILY PRN REFLUX #3 tabs 07/07/21 08/24/24 History release metformin 500 mg tablet 1,500 mg PO DAILY 11/09/22 08/24/24 History nitroglycerin 0.4 mg sublingual 0.4 mg sublingual Q5-15M PRN Chest 11/09/22 08/24/24 Rx tablet Pain #90 tabs atenolol 25 mg tablet 12.5 mg PO DAILY 08/24/24 08/24/24 History calcium carbonate (Calcium 500) 500 mg PO QDAY PRN 08/24/24 08/24/24 History cinnamon bark 500 mg capsule 1,000 mg PO DAILY 08/24/24 08/24/24 History Have you fallen in the past year?: No PFSH Medical History Brain tumor Gout Essential hypertension GERD (gastroesophageal reflux disease) Non-Hodgkin lymphoma Pure hypercholesterolemia Atherosclerotic heart disease of elem coronary artery without angina pectoris Umbilical hernia Diverticulitis Right ankle injury Follicular lymphoma Cancer Diabetes Kidney stones Hypertension HLD (hyperlipidemia) CAD (coronary artery disease) Surgical History History of nasal surgery Presence of coronary angioplasty implant and graft ( 09/23/06) Presence of stent in coronary artery ( 09/23/06) History of umbilical hernia repair History of ankle surgery History of appendectomy History of total left knee replacement History of replacement of both shoulder joints S/p bilateral shoulder joint replacement History of cholecystectomy History of coronary artery stent placement Family History Father Heart disease Mother Diabetes Grandmother Heart disease Grandfather CVA (cerebral vascular accident) Sister Hypertension Diabetes Social History Smoking Status: Never smoker alcohol intake: never substance use type: does not use caffeine: Yes (Rare) ROS Const Const: Positive for fatigue; Negative for weakness, headache(s), daytime sleepiness or difficulty sleeping ENT ENT (more content not included)... Normal [facility] Comprehensive metabolic 2000 panelon 08-24-2024 Albumin [Mass/Vol] 4.3 g/dL Normal 3.9-4.9 [facility] Comment on above: Order Comment: Speci men Type: BLOOD SPECIMENOrdering Facility: [facility] Address: [address] [place] [address] Performed By: #### 2 4323-8 ####[facility] [id number] [place] [address] [place] ALP [Catalytic activity/Vol] 79 U/L Normal 38-113 [facility] Comment on above: Order Comment: Speci men Type: BLOOD SPECIMENOrdering Facility: [facility] Address: [address] [place] [address] Performed By: #### 2 4323-8 ####[facility] [id number] [place] [address] [place] ALT [Catalytic activity/Vol] 21 U/L Normal 10-54 [facility] Comment on above: Order Comment: Speci men Type: BLOOD SPECIMENOrdering Facility: [facility] Address: [address] [place] [address] Performed By: #### 2 4323-8 ####[facility] [id number] [place] [address] [place] Anion gap [Moles/Vol] 14 mmol/L Normal 8-15 [facility] Comment on above: Order Comment: Speci men Type: BLOOD SPECIMENOrdering Facility: [facility] Address: [address] [place] [address] Performed By: #### 2 4323-8 ####[facility] [id number] [place] [address] [place] AST [Catalytic activity/Vol] 26 U/L Normal 14-40 [facility] Comment on above: Order Comment: Speci men Type: BLOOD SPECIMENOrdering Facility: [facility] Address: [address] [place] [address] Performed By: #### 2 4323-8 ####[facility] [id number] [place] [address] [place] Bilirubin [Mass/Vol] 0.9 mg/dL Normal 0.2-1.3 [facility] Comment on above: Order Comment: Speci men Type: BLOOD SPECIMENOrdering Facility: [facility] Address: [address] [place] [address] Performed By: #### 2 4323-8 ####[facility] [id number] [place] [address] [place] Calcium [Mass/Vol] 9.7 mg/dL Normal 8.5-10.2 [facility] Comment on above: Order Comment: Speci men Type: BLOOD SPECIMENOrdering Facility: [facility] Address: [address] [place] [address] Performed By: #### 2 4323-8 ####[facility] [id number] [place] [address] [place] Chloride [Moles/Vol] 100 mmol/L Normal 98-107 [facility] Comment on above: Order Comment: Speci men Type: BLOOD SPECIMENOrdering Facility: [facility] Address: [address] [place] [address] Performed By: #### 2 4323-8 ####[facility] [id number] [place] [address] [place] CO2 [Moles/Vol] 24 mmol/L Normal 22-30 [facility] Comment on above: Order Comment: Speci men Type: BLOOD SPECIMENOrdering Facility: [facility] Address: [address] [place] [address] Performed By: #### 2 4323-8 ####[facility] [id number] [place] [address] [place] Creatinine [Mass/Vol] 1.18 mg/dL Normal 0.73-1.22 [facility] Comment on above: Order Comment: Speci men Type: BLOOD SPECIMENOrdering Facility: [facility] Address: [address] [place] [address] Performed By: #### 2 4323-8 ####[facility] [id number] [facility] [place] [address] [place] Creatinine and Glomerular filtration rate.predicted panel (S/P/Bld) 62 mL/min/1.73m??? Normal >=60 [facility] Comment on above: Order Comment: Speci men Type: BLOOD SPECIMENOrdering Facility: [facility] Address: [address] [place] [address] Result Comment: Aminta mated Glomerular Filtration Rate (eGFR) is calculated using the 2020 CKD-EPI creatinine equation. This equation utilizes serum creatinine, sex, and age as parameters. The creatinine assay has traceable calibration to isotope dilution-mass spectrometry. Refer to KDIGO guidelines for clinical interpretation. In patients with unstable renal function, e.g. those with acute kidney injury, the eGFR may not accurately reflect actual GFR. Performed By: #### 2 4323-8 ####[facility] [id number] [place] [address] [place] Glucose [Mass/Vol] 201 mg/dL High 74-99 [facility] Comment on above: Order Comment: Speci men Type: BLOOD SPECIMENOrdering Facility: [facility] Address: [address] [place] [address] Result Comment: The [place] Diabetes Association (ADA) provides guidance for cutoff values for fasting glucose and random glucose. The ADA defines fasting as no caloric intake for at least 8 hours. Fasting plasma glucose results between 100 to 125 mg/dL indicate increased risk for diabetes (prediabetes). Fasting plasma glucose results greater than or equal to 126 mg/dL meet the criteria for diagnosis of diabetes. In the absence of unequivocal hyperglycemia, results should be confirmed by repeat testing. In a patient with classic symptoms of hyperglycemia or hyperglycemic crisis, random plasma glucose results greater than or equal to 200 mg/dL meet the criteria for diagnosis of diabetes. Reference: Standards of Medical Care in Diabetes 2016, [place] Diabetes Association. Diabetes Care. 2016.39(Suppl 1). Performed By: #### 2 4323-8 ####[facility] [id number] [place] [address] [place] Potassium [Moles/Vol] 4.5 mmol/L Normal 3.7-5.1 [facility] Comment on above: Order Comment: Speci men Type: BLOOD SPECIMENOrdering Facility: [facility] Address: [address] [place] [address] Performed By: #### 2 4323-8 ####[facility] [id number] [place] [address] [place] Protein [Mass/Vol] 7.5 g/dL Normal 6.3-8.0 [facility] Comment on above: Order Comment: Speci men Type: BLOOD SPECIMENOrdering Facility: [facility] Address: [address] [place] [address] Performed By: #### 2 4323-8 ####[facility] [id number] [place] [address] [place] Sodium [Moles/Vol] 138 mmol/L Normal 136-144 [facility] Comment on above: Order Comment: Speci men Type: BLOOD SPECIMENOrdering Facility: [facility] Address: [address] [place] [address] Performed By: #### 2 4323-8 ####[facility] [id number] [place] [address] [place] Urea nitrogen [Mass/Vol] 19 mg/dL Normal 9-24 [facility] Comment on above: Order Comment: Fly goodwin Type: BLOOD SPECIMENOrdering Facility: [facility] Address: [address] [place] [address] Performed By: #### 2 4323-8 ####[facility] [id number] [place] [address] [place] HbA1c (Bld)on 08-24-2024 Average glucose Estimated from glycated hemoglobin (Bld) [Mass/Vol] 212 mg/dL Normal [facility] Comment on above: Order Comment: Fly goodwin Type: BLOOD SPECIMEN Ordering Facility: [facility] Address: [address] [place] [address] Result Comment: eAG: (Estimated average glucose) is a calculated value from HgbA1c and is cordage sales representative of the average blood glucose level in the last 2-3 month period. Performed By: #### 5 5454-3 #### [facility] [id number] [address] [place] [address] [place] HbA1c (Bld) [Mass fraction] 9.0 % High 4.3-5.6 [facility] Comment on above: Order Comment: Fly goodwin Type: BLOOD SPECIMEN Ordering Facility: [facility] Address: [address] [place] [address] Result Comment: [place] Diabetes Association guidelines indicate that patients with HgbA1c in the range 5.7-6.4% are at increased risk for development of diabetes, and intervention by lifestyle modification may be beneficial. HgbA1c greater or equal to 6.5% is considered diagnostic of diabetes. Performed By: #### 5 5454-3 #### [facility] [id number] [address] [place] [address] [place] CNOVon 08-12-2024 CNOV Office Visit (FAMPWS ) TRISTIN FLYNN ([id number]) 1945 M Date Time Provider Department 08/12/24 8:20 AM GENIE MOORE During your visit today, we recorded the following information about you: Pulse Respiration Blood pressure Weight 72/minute 16/minute 130/70 86.2 kg Genie Moore APRN.FIRE SPRINKLER INSTALLER 08/12/2024 10:28 AM Signed This is a 79 year old male who presents today with: Patient presents with: Acute Visit: kidney issues HISTORY OF PRESENT ILLNESS: Tristin Flynn is a 79 year old male. Patient presents with: Acute Visit: kidney issues Here in the office to discuss his kidney concerns. Following with the OR. Recent labs at [facility] showed a GFR of 42. Currently has uncontrolled diabetes. DM: Reports overall feeling well. Medication side effects: No. Home sugar checks: 120-2101 Hypoglycemic spells: No. Watching diet: No. Unexpected weight loss: No. Polyuria, polydipsia: Yes. Vision Changes: No. Foot lesions or numbness or pain: No. Concerns that his Jardiance could be affecting his kidney function. Stopped Jardiance. Taking Metformin XR 500 mg BID. Glimerpiride 4 mg one tablet daily, [facility] Not watching diet. Increased urination, no dysuris. [facility]. Here today with his . GI/Uro - Has seen a Urologist and [facility]usher [facility]. Hx of kidney stones. Using Allopurinol 100 mg BID to help prevent kidney stones. 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 blood sugar diagnostic ([employer] ULTRA TEST) test strip Use to test blood sugars twice daily. Dx: 250.00 glimepiride (AMARYL) 4 mg tablet Take 2 tablets by mouth daily with breakfast. allopurinol (ZYLOPRIM) 100 mg tablet Take 1 tablet by mouth two times a day. empagliflozin (JARDIANCE) 10 mg tablet Take 1 tablet by mouth daily with breakfast. pantoprazole DR (PROTONIX) 20 mg tablet Take 1 tablet by mouth once daily. Take as needed for heartburn/GI upset atorvastatin (LIPITOR) 20 mg tablet Take 1 tablet by mouth daily at bedtime. For cholesterol. atenolol (TENORMIN) 50 mg tablet Take 1 tablet by mouth once daily. ketoconazole (NIZORAL) 2 % shampoo Apply to affected area once daily as needed. triamcinolone acetonide (KENALOG) 0.1 % cream Apply to affected area twice daily. white petrolatum - mineral oil (EUCERIN CREAM) cream Apply to affected area as needed. Lancets (ONETOUCH ULTRASOFT LANCETS) lancets Use as directed to check blood sugars 1-2 times daily nitroglycerin sublingual (NITROQUICK) 0.4 mg SL tablet Take 1 tablet by mouth as needed for Chest Pain. FOR CHEST PAIN. IF NO PAIN RELIEF, CALL 911 [place]-3 Fatty Acids-Vitamin E 1,000 mg cap Take 2 capsules by mouth once daily. Ascorbic Acid 1,000 mg tablet Take 1,000 mg by mouth once daily. ACETAMINOPHEN (TYLENOL ARTHRITIS ORAL) Take by mouth once daily. alcohol antiseptic pads(ALCOHOL PADS) Use as directed aspirin(ECOTRIN LOW STRENGTH 81 MG TAB) Take one(1) (more content not included)... Normal [facility] UA DIP, URINE (POC)on 2023 BILIRUBIN UA (POCT) Negative Negative [facility] CLARITY UA (POCT) Clear [facility] COLOR UA (POCT) Yellow [facility] GLUCOSE UA (POCT) 500 mg/dL Abnormal Negative [facility] Hemoglobin Ql (U) Negative Negative [facility] Interpretation and review of laboratory results Abnormal [facility] KETONE UA (POCT) Negative Negative mg/dL [facility] LEUKOCYTES UA (POCT) Negative Negative [facility] NITRITE UA (POCT) Negative Negative [facility] PH UA (POCT) 5.0 4.5 - 8.0 [facility] Protein Ql (U) Negative Negative mg/dL [facility] SPECIFIC GRAVITY UA (POCT) 1.020 1.005 - 1.030 [facility] UROBILINOGEN UA (POCT) 0.2 Normal E.U./dL [facility] Location:[address], [place], [place], [id number] [place] [address] POINT OF CARE [facility] CBC AND ELECTRONIC DIFFon Basophils (Bld) [#/Vol] K/uL 0.00 - 0.09 K/uL [facility] Basophils/100 WBC (Bld) 0.6 % [facility] Differential cell count method Nom (Bld) Electronic [facility] Eosinophils (Bld) [#/Vol] 0.15 10*3/uL 0.00 - 0.48 K/uL [facility] Eosinophils/100 WBC (Bld) 3.1 % [facility] Erythrocyte distribution width (RBC) [Ratio] 13.1 % 10.9 - 14.3 % [facility] Hematocrit (Bld) [Volume fraction] 47.5 % 39.6 - 48.8 % [facility] Hemoglobin (Bld) [Mass/Vol] 16.0 g/dL 13.4 - 16.8 g/dL [facility] Immature granulocytes (Bld) [#/Vol] K/uL NINF - 0.07 K/uL [facility] Immature granulocytes/100 WBC (Bld) 0.2 % [facility] Lymphocytes (Bld) [#/Vol] 1.31 10*3/uL 0.83 - 3.57 K/uL [facility] Lymphocytes/100 WBC (Bld) 26.8 % [facility] MCH (RBC) [Entitic mass] 30.0 pg 26.1 - 33.3 pg [facility] MCHC (RBC) [Mass/Vol] 33.7 g/dL 31.9 - 36.5 g/dL [facility] MCV (RBC) [Entitic vol] 89.1 fL 79.0 - 94.5 fL [facility] Monocytes (Bld) [#/Vol] 0.41 10*3/uL 0.24 - 0.93 K/uL [facility] Monocytes/100 WBC (Bld) 8.4 % [facility] Neutrophils (Bld) [#/Vol] 2.97 10*3/uL 1.57 - 6.19 K/uL [facility] Nucleated RBC/100 WBC (Bld) [Ratio] 0.0 % [facility] Platelet mean volume (Bld) [Entitic vol] 10.6 fL 8.7 - 12.3 fL [facility] Platelets (Bld) [#/Vol] 182 10*3/uL 146 - 337 K/uL [facility] RBC (Bld) [#/Vol] 5.33 10*6/uL [facility] Segmented neutrophils/100 WBC (Bld) 60.9 % [facility] WBC (Bld) [#/Vol] 4.88 10*3/uL 3.73 - 10.10 K/uL [facility] Abs Baso Auto < Normal 0.00-0.09 [facility] Comment on above: Order Comment: Sergio mcconnell/[employer]PER[employer] Clinic Performed By: #### L [id number] #### [facility] (DEFAULT) [address] [place] [id number] Basophils/100 WBC (Bld) 0.6 % Normal [facility] Comment on above: Order Comment: Sergio mcconnell/[employer] SUPERVISOR Clinic Performed By: #### L [id number] #### [facility] (DEFAULT) [address] [place] [id number] DIFF STATUS Electronic Differential Normal [facility] Comment on above: Order Comment: Sergio mcconnell/[employer] SUPERVIS[employer] Clinic Performed By: #### L [id number] #### [facility] (DEFAULT) [address] [place] [id number] Eosinophils (Bld) [#/Vol] 0.15 10*3/uL Normal 0.00-0.48 [facility] Comment on above: Order Comment: Sergio jayesh/[employer]PER[facility] Clinic Performed By: #### L [id number] #### [facility] (DEFAULT) [address] [place] [id number] Eosinophils/100 WBC (Bld) 3.1 % Normal [facility] Comment on above: Order Comment: Sergio jayesh/[employer]OWER[employer] SUPERVISOR Clinic Performed By: #### L [id number] #### [facility] (DEFAULT) [address] [place] [address] Hematocrit (Bld) [Volume fraction] 47.5 % Normal 39.6-48.8 [facility] Comment on above: Order Comment: Sergio mcconnell/[employer]OWER[employer]W SUPERVISOR Clinic Performed By: #### L [id number] #### [facility] (DEFAULT) [address] [place] [address] Hemoglobin (Bld) [Mass/Vol] 16.0 g/dL Normal 13.4-16.8 [facility] Comment on above: Order Comment: Sergio jayesh/[employer]OWER[employer]W SUPERVISOR Clinic Performed By: #### L [id number] #### [facility] (DEFAULT) [address] [address] Immature Grans % 0.2 % Normal [facility] Comment on above: Order Comment: Sergio jayesh/[employer]OWER[employer] SUPERVISOR Clinic Performed By: #### L [id number] #### [facility] (DEFAULT) [address] [address] Immature Grans Absolute < Normal <=0.07 [facility] Comment on above: Order Comment: Sergio jayesh/[employer] SUPERVISOR Clinic Performed By: #### L [id number] #### [facility] (DEFAULT) [address] [address] Lymphocytes (Bld) [#/Vol] 1.31 10*3/uL Normal 0.83-3.57 [facility] Comment on above: Order Comment: Sergio jayesh/[employer] SUPERVISOR Clinic Performed By: #### L [id number] #### [facility] (DEFAULT) [address] [address] Lymphocytes/100 WBC (Bld) 26.8 % Normal [facility] Comment on above: Order Comment: Sergio jayesh/[employer] SUPERVISOR Clinic Performed By: #### L [id number] #### [facility] (DEFAULT) [address] [address] MCV (RBC) [Entitic vol] 89.1 fL Normal 79.0-94.5 [facility] Comment on above: Order Comment: Sergio jayesh/[employer] SUPERVISOR Clinic Performed By: #### L [id number] #### [facility] (DEFAULT) [address] [address] Mean Cell Hgb 30.0 pg Normal 26.1-33.3 [facility] Comment on above: Order Comment: Sergio jayesh/P[employer] SUPERVISOR Clinic Performed By: #### L [id number] #### [facility] (DEFAULT) [address] [address] Mean Cell Hgb Conc 33.7 g/dL Normal 31.9-36.5 [facility] Comment on above: Order Comment: Sergio jayesh/POWER[employer]W SUPERVISOR Clinic Performed By: #### L [id number] #### [facility] (DEFAULT) [address] [place] [address] Monocytes (Bld) [#/Vol] 0.41 10*3/uL Normal 0.24-0.93 [facility] Comment on above: Order Comment: Sergio jayesh/[employer] SUPERVISOR Clinic Performed By: #### L [id number] #### [facility] (DEFAULT) [address] [place] [address] Monocytes/100 WBC (Bld) 8.4 % Normal [facility] Comment on above: Order Comment: Sergio jayesh/[employer] SUPERVISOR Clinic Performed By: #### L [id number] #### [facility] (DEFAULT) [address] [place] [address] Nucleated RBC 0.0 /100 WBC Normal <=0.2 [facility] Comment on above: Order Comment: Sergio jayesh/[employer] SUPERVISOR Clinic Performed By: #### L [id number] #### [facility] (DEFAULT) [address] [place] [address] Platelet mean volume (Bld) [Entitic vol] 10.6 fL Normal 8.7-12.3 [facility] Comment on above: Order Comment: Sergio jayesh/[employer] SUPERVISOR Clinic Performed By: #### L [id number] #### [facility] (DEFAULT) [address] [place] [address] Platelets (Bld) [#/Vol] 182 10*3/uL Normal 146-337 [facility] Comment on above: Order Comment: Sergio jayesh/[employer]W SUPERVISOR Clinic Performed By: #### L [id number] #### [facility] (DEFAULT) [address] [address] RBC (Bld) [#/Vol] 5.33 10*6/uL Normal 4.38-5.83 [facility] Comment on above: Order Comment: Sergio jayesh/[employer] SUPERVISOR Clinic Performed By: #### L [id number] #### [facility] (DEFAULT) [address] [place] [address] RBC Distribution 13.1 % Normal 10.9-14.3 [facility] Comment on above: Order Comment: Sergio mcconnell/POWER[employer]W SUPERVISOR Clinic Performed By: #### L [id number] #### [facility] (DEFAULT) [address] [place] [address] Segs + Bands Auto 60.9 % Normal [facility] Comment on above: Order Comment: Sergio mcconnell/POWERSAW SUPERVISOR Clinic Performed By: #### L [id number] #### [facility] (DEFAULT) [address] [place] [address] Segs + Bands,Absolute Auto 2.97 K/uL Normal 1.57-6.19 [facility] Comment on above: Order Comment: Sergio mcconnell/POWER[employer]W SUPERVISOR Clinic Performed By: #### L [id number] #### [facility] (DEFAULT) [address] [place] [address] WBC (Bld) [#/Vol] 4.88 10*3/uL Normal 3.73-10.10 [facility] Comment on above: Order Comment: Sergio mcconnell/[employer]OWER[employer]W SUPERVISOR Clinic Performed By: #### L [id number] #### [facility] (DEFAULT) [address] [place] [address] COMPREHENSIVE METABOLIC PANE Jerry 08-07-2024 Albumin [Mass/Vol] 4.4 g/dL 3.5 - 5.0 g/dL [facility] ALP [Catalytic activity/Vol] 69 U/L 32 - 126 U/L [facility] ALT [Catalytic activity/Vol] 18 U/L 10 - 52 U/L [facility] Anion gap [Moles/Vol] 13 mmol/L 7 - 17 mmol/L [facility] AST [Catalytic activity/Vol] 21 U/L 10 - 39 U/L [facility] Bilirubin [Mass/Vol] 1.0 mg/dL NINF - 1.5 mg/dL [facility] Calcium [Mass/Vol] 9.7 mg/dL 8.6 - 10. 5 mg/dL [facility] Chloride [Moles/Vol] 100 mmol/L 98 - 108 mmol/L [facility] CO2 [Moles/Vol] 27 mmol/L 21 - 31 mmol/L [facility] Creatinine [Mass/Vol] 1.64 mg/dL High 0.70 - 1.30 mg/dL [facility] eGFR, CKD-EPI, Male 42 Low - [facility] Comment on above: Reported eGFR is bas ed on the CKD-EPI 2020 equation using creatinine, age, and sex. Glucose [Mass/Vol] 244 mg/dL High 70 - 99 mg/dL [facility] Interpretation and review of laboratory results Abnormal [facility] Osmolality Calc [Osmolality] 297 [facility] Potassium [Moles/Vol] 4.5 mmol/L 3.5 - 5.0 mmol/L [facility] Protein [Mass/Vol] 7.5 g/dL 6.4 - 8.3 g/dL [facility] Sodium [Moles/Vol] 135 mmol/L 135 - 145 mmol/L [facility] Urea nitrogen [Mass/Vol] 22 mg/dL 7 - 25 mg/dL [facility] Urea nitrogen/Creatinine [Mass ratio] 13 mg/mg [facility] Albumin [Mass/Vol] 4.4 g/dL Normal 3.5-5.0 [facility] Comment on above: Order Comment: Sergio mcconnell/POWERSAW SUPERVISOR Clinic Performed By: #### C MPN, LDO #### [facility] (DEFAULT) [address] [address] ALP [Catalytic activity/Vol] 69 U/L Normal 32-126 [facility] Comment on above: Order Comment: Sergio mcconnell/POWERSAW SUPERVISOR Clinic Performed By: #### C MPN, LDO #### [facility] (DEFAULT) [address] [address] ALT [Catalytic activity/Vol] 18 U/L Normal 10-52 [facility] Comment on above: Order Comment: Sergio mcconnell/POWER[employer]W SUPERVISOR Clinic Performed By: #### C MPN, LDO #### [facility] (DEFAULT) [address] [place] [address] Anion gap [Moles/Vol] 13 mmol/L Normal 7-17 [facility] Comment on above: Order Comment: Sergio jayesh/POWER[employer]W SUPERVISOR Clinic Performed By: #### C MPN, LDO #### [facility] (DEFAULT) [address] [place] [address] AST [Catalytic activity/Vol] 21 U/L Normal 10-39 [facility] Comment on above: Order Comment: Sergio jayesh/POWER[employer]W SUPERVISOR Clinic Performed By: #### C MPN, LDO #### [facility] (DEFAULT) [address] [place] [address] Bilirubin [Mass/Vol] 1.0 mg/dL Normal <1.5 [facility] Comment on above: Order Comment: Sergio mcconnell/[employer] SUPERVISOR Clinic Performed By: #### C MPN, LDO #### [facility] (DEFAULT) [address] [place] [address] Calcium [Mass/Vol] 9.7 mg/dL Normal 8.6-10.5 [facility] Comment on above: Order Comment: Sergio mcconnell/[employer] SUPERVISOR Clinic Performed By: #### C MPN, LDO #### [facility] (DEFAULT) [address] [place] [address] Chloride [Moles/Vol] 100 mmol/L Normal 98-108 [facility] Comment on above: Order Comment: Sergio mcconnell/P[employer]W SUPERVISOR Clinic Performed By: #### C MPN, LDO #### [facility] (DEFAULT) [address] [place] [address] CO2 [Moles/Vol] 27 mmol/L Normal 21-31 [facility] Comment on above: Order Comment: Sergio jayesh/POWER[employer]W SUPERVISOR Clinic Performed By: #### C MPN, LDO #### [facility] (DEFAULT) [address] [place] [address] Creatinine [Mass/Vol] 1.64 mg/dL High 0.70-1.30 [facility] Comment on above: Order Comment: Sergio jayesh/POWERSAW SUPERVISOR Clinic Performed By: #### C MPN, LDO #### [facility] (DEFAULT) [address] [place] [address] GFR/1.73 sq M.predicted among non-blacks MDRD (S/P/Bld) [Vol rate/Area] 42 mL/min/{1.73_m2} Low >=60 [facility] Comment on above: Order Comment: Sergio jayesh/POWER[employer]W SUPERVISOR Clinic Result Comment: Repo rted eGFR is based on the CKD-EPI 2020 equation using creatinine, age, and sex. Performed By: #### C MPN, LDO #### [facility] (DEFAULT) [address] [place] [address] Glucose [Mass/Vol] 244 mg/dL High 70-99 [facility] Comment on above: Order Comment: Sergio jayesh/POWERSAW SUPERVISOR Clinic Performed By: #### C MPN, LDO #### [facility] (DEFAULT) [address] [place] [address] Osmolality [Osmolality] 297 mosm/kg Normal 278-305 [facility] Comment on above: Order Comment: Sergio jayesh/POWERSAW SUPERVISOR Clinic Performed By: #### C MPN, LDO #### [facility] (DEFAULT) [address] [place] [address] Potassium [Moles/Vol] 4.5 mmol/L Normal 3.5-5.0 [facility] Comment on above: Order Comment: Sergio jayesh/POWERSAW SUPERVISOR Clinic Performed By: #### C MPN, LDO #### [facility] (DEFAULT) [address] [place] [address] Protein [Mass/Vol] 7.5 g/dL Normal 6.4-8.3 [facility] Comment on above: Order Comment: Sergio jayesh/POWER[employer]W SUPERVISOR Clinic Performed By: #### C MPN, LDO #### [facility] (DEFAULT) [address] [place] [address] Sodium [Moles/Vol] 135 mmol/L Normal 135-145 [facility] Comment on above: Order Comment: Sergio mcconnell/POWERSAW SUPERVISOR Clinic Performed By: #### C MPN, LDO #### [facility] (DEFAULT) [address] [place] [address] Urea nitrogen [Mass/Vol] 22 mg/dL Normal 7-25 [facility] Comment on above: Order Comment: Sergio mcconnell/POWERSAW SUPERVISOR Clinic Performed By: #### C MPN, LDO #### [facility] (DEFAULT) [address] [place] [address] Urea nitrogen/Creatinine [Mass ratio] 13 mg/mg Normal [facility] Comment on above: Order Comment: Sergio mcconnell/POWERSAW SUPERVISOR Clinic Performed By: #### C MPN, LDO #### [facility] (DEFAULT) [address] [place] [address] LACTATE DEHYDROGENASEon 10- Interpretation and review of laboratory results Normal [facility] LDH Lactate to pyruvate reaction [Catalytic activity/Vol] 148 U/L 100 - 190 U/L [facility] LD Total 148 U/L Normal 100-190 [facility] Comment on above: Order Comment: Sergio mcconnell/POWERSAW SUPERVISOR Clinic Performed By: #### C MPN, LDO #### [facility] (DEFAULT) [address] [place] [address] No Panel Informationon 08-07 [facility] CNOVon 06-18-2024 CNOV Office Visit (PODIWS ) TRISTIN FLYNN ([id number]) 1945 M Date Time Provider Department 06/18/24 1:00 PM SHWETA MOREL During your visit today, we recorded the following information about you: Leila Zee, RN 06/18/2024 1:16 PM Signed Patient presents with: Left Foot - Established Patient, Follow Up, Diabetic Foot Check Right Foot - Established Patient, Follow Up, Diabetic Foot Check Patient presents for follow up diabetic foot/nail care and exam. GEORGI 06/12/23 Shweta Morel 06/18/2024 1:16 PM Signed Subjective: This 78 year old mal presents to clinic for diabetic foot check. Patient has the following complaints: none other than burning in foot. Patient admits to being diabetic for multilple years now.. Patient +B/T/N in feet at this time. Patient -pain in legs when walking. No other pedal complaints at this time. No change in medications or medical history since last visit. PAIN EVALUATION No data found in the last 1 encounters. Hemoglobin A1C (%) Date Value 12/23/2023 9.0 06/18/2023 7.8 02/04/2023 8.2 09/24/2022 7.3 06/12/2022 7.9 06/20/2020 8.0 08/04/2019 7.2 12/02/2018 8.3 08/25/2018 8.2 05/16/2018 7.6 HGB A1C (no units) Date Value 09/09/2020 7.0 PCP: Alisha Gee MD PAST MEDICAL HISTORY 1995: Ankle disorder Comment: right fracture, dislocation(screws implanted) No date: Arrhythmia 2003: Brain tumor (benign) ([facility]) No date: CAD (coronary artery disease) No date: Calculus of kidney No date: Cataract Comment: ou 05/01/2010: Cholelithiasis No date: Diaphragmatic hernia without mention of obstruction or gangrene No date: DM w/o Complication Type II No date: Esophageal reflux 10/2015: Follicular lymphoma (HCC) Comment: [facility] No date: Generalized osteoarthrosis, unspecified site Comment: knees No date: htn No date: Hyperlipidemia No date: Meningioma (HCC) No date: PMH - PAST MEDICAL HISTORY OF Comment: bells palsy-resolved No date: Pure hypercholesterolemia 11/24/2012: S/P angioplasty with stent 2001: Shoulder arthritis Comment: right and left shoulder rotator cuff(shoulder screws in place) No date: Snoring Current Outpatient Medications Medication Sig metFORMIN ER (GLUCOPHAGE XR) 500 mg 24 hr tablet Take 2 tablets by mouth once daily. blood sugar diagnostic ([employer] ULTRA TEST) test strip Use to test blood sugars twice daily. Dx: 250.00 glimepiride (AMARYL) 4 mg tablet Take 2 tablets by mouth daily with breakfast. allopurinol (ZYLOPRIM) 100 mg tablet Take 1 tablet by mouth two times a day. empagliflozin (JARDIANCE) 10 mg tablet Take 1 tablet by mouth daily with breakfast. pantoprazole DR (PROTONIX) 20 mg tablet Take 1 tablet by mouth once daily. Take as needed for heartburn/GI upset atorvastatin (LIPITOR) 20 mg tablet Take 1 tablet by mouth daily at bedtime. For cholesterol. atenolol (TENORMIN) 50 mg tablet Take 1 tablet by mouth once daily. ketoconazole (NIZORAL) 2 % shampoo Apply to affected area once daily as needed. triamcinolone acetonide (KENALOG) 0.1 % cream Apply to affected area twice daily. white petrolatum - mineral oil (EUCERIN CREAM) cream Apply to affected area as needed. Lancets ([employer] ULTRASOFT LANCETS) lancets Use as directed to check blood sugars 1-2 times daily nitroglycerin sublingual (NITROQUICK) 0.4 mg SL tablet Take 1 tablet by mouth as needed for Chest Pain. FOR CHEST PAIN. IF NO PAIN RELIEF, CALL 911 [place]-3 Fatty Acids-Vitamin E 1,000 mg cap Take 2 capsules by mouth once daily. Ascorbic Acid 1,000 mg tablet Take 1,000 mg by mouth once daily. ACETAMINOPHEN (TYLENOL ARTHRITIS ORAL) Take by mouth once daily. alcohol antiseptic pads(ALCOHOL PADS) Use as directed aspirin(ECOTRIN LOW STRENGTH 81 MG TAB) Take one(1) tablet daily. TUMS 500 MG CHEWABLE TAB as necessary No current facility-administered medications for this visit. ALLERGIES Allergen Reactions Ciprofloxacin Myalgia Keflex [Cephalexin] GI Upset Meperidine GI Upset Morphine GI Upset Vomiting and nausea within minutes Contrast Dye GI Upset Opioids-Meperidine * Intolerance arrythmia after surgery with Darvon/Darvocet Plavix [Clopidogrel* Hemorrhage Prednisone Other: See Comments anxiety Propoxyphene Intolerance arrythmia after surgery PAST SURGICAL HISTORY No date: APPENDECTOMY Comment: and exploratory surgery 02/2013.: ARTHRP KNE CONDYLEANDPLATU MEDIALANDLAT COMPARTMENTS Comment: left knee 10/03/15: COLONOSCOPY FLX DX W/COLLJ SPEC WHEN PFRMD Comment: Colonoscopy 10/03/15: ESOPHAGOGASTRODUODENOSCOPY TRANSORAL DIAGNOSTIC Comment: EGD 02/02/2019: ESOPHAGOGASTRODUODENOSCOPY TRANSORAL DIAGNOSTIC Comment: EGD 05/02/2010: LAPAROSCOPY SURG CHOLECYSTECTOMY No date: OPEN REPAIR OF ROTATOR CUFF ACUTE Comment: bilateral open procedure No date: PAST SURGICAL HISTORY OF Com (more content not included)... Normal [facility] CNPNon 06-18-2024 CNPN Telephone ([facility]) TRISTIN FLYNN ([id number]) 1945 M Date Time Provider Department 06/18/24 ALISHA GEE [facility] During your visit today, we recorded the following information about you: Paula Baeza MA 06/18/2024 1:39 PM Signed Pt was given order from [employer] for diabetic shoes but company is requesting letter from PCP stating he needs these shoes. DX: E11.49, M20.12, M20.11 Fax to [employer] at [phone] GRAZYNA Cheung Mark D, MD 06/19/2024 5:09 PM Signed Letter done MD Murali Kellogg Rilee, MA 06/23/2024 10:15 AM Signed Letter with requested documentation has been faxed to information below. Isabel Carrion MA Allergies As of Date: 06/18/2024 Noted Allergy Reaction CIPROFLOXACIN 02/07/2023 17 - Myalgia KEFLEX (CEPHALEXIN) 01/13/2019 8 - GI Upset MEPERIDINE 02/07/2023 8 - GI Upset MORPHINE 04/07/2009 8 - GI Upset Comments: Vomiting and nausea within minutes CONTRAST DYE 07/14/2015 8 - GI Upset OPIOIDS-MEPERIDINE AND RELATED 01/25/2004 5 - Intolerance Comments: arrythmia after surgery with Darvon/Darvocet PLAVIX (CLOPIDOGREL BISULFATE) 03/30/2010 Comments: Hemorrhage PREDNISONE 09/30/2006 14 - Other: See Comments Comments: anxiety PROPOXYPHENE 01/25/2004 5 - Intolerance Comments: arrythmia after surgery Date Reviewed: 06/18/2024 Reviewed by: Leila Zee RN - Fully Assessed Reason for Visit: Letter [264] Cmt: For diabetic shoes Prescriptions as of 06/23/2024 - metFORMIN ER (GLUCOPHAGE XR) 500 mg 24 hr tablet Take 2 tablets by mouth once daily. - blood sugar diagnostic ([employer] ULTRA TEST) test strip Use to test blood sugars twice daily. Dx: 250.00 - glimepiride (AMARYL) 4 mg tablet Take 2 tablets by mouth daily with breakfast. - allopurinol (ZYLOPRIM) 100 mg tablet Take 1 tablet by mouth two times a day. - empagliflozin (JARDIANCE) 10 mg tablet Take 1 tablet by mouth daily with breakfast. - pantoprazole DR (PROTONIX) 20 mg tablet Take 1 tablet by mouth once daily. Take as needed for heartburn/GI upset - atorvastatin (LIPITOR) 20 mg tablet Take 1 tablet by mouth daily at bedtime. For cholesterol. - atenolol (TENORMIN) 50 mg tablet Take 1 tablet by mouth once daily. - ketoconazole (NIZORAL) 2 % shampoo Apply to affected area once daily as needed. - triamcinolone acetonide (KENALOG) 0.1 % cream Apply to affected area twice daily. - white petrolatum - mineral oil (EUCERIN CREAM) cream Apply to affected area as needed. - Lancets ([employer] ULTRASOFT LANCETS) lancets Use as directed to check blood sugars 1-2 times daily - nitroglycerin sublingual (NITROQUICK) 0.4 mg SL tablet Take 1 tablet by mouth as needed for Chest Pain. FOR CHEST PAIN. IF NO PAIN RELIEF, CALL 911 - [place]-3 Fatty Acids-Vitamin E 1,000 mg cap Take 2 capsules by mouth once daily. - Ascorbic Acid 1,000 mg tablet Take 1,000 mg by mouth once daily. - ACETAMINOPHEN (TYLENOL ARTHRITIS ORAL) Take by mouth once daily. - alcohol antiseptic pads(ALCOHOL PADS) Use as directed - aspirin(ECOTRIN LOW STRENGTH 81 MG TAB) Take one(1) tablet daily. 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 Problem List As Of Date 06/18/2024 Noted Resolved Other Chronic Dermatitis due to Solar Radiation*07/18/2006 03/02/2010 Neoplasm of Uncertain Behavior of Skin [D48.5] 07/18/2006 03/02/2010 Scar Condition and Fibrosis of Skin [L90.5] 07/18/2006 03/02/2010 Personal History of Other Malignant Neoplasm of*07/18/2006 03/02/2010 Other Seborrheic Keratosis [L82.1] 07/18/2006 03/02/2010 SOLAR LENTGINES [L81.9] 07/18/2006 03/02/2010 Actinic Keratoses: Premalignant AK's [L57.0] 07/18/2006 03/02/2010 Essential hypertension, benign [I10] 08/14/2006 11/21/2015 ESOPHAGEAL REFLUX [K21.9] 08/14/2006 DIAPHRAGMATIC HERNIA [K44.9] 08/14/2006 Malignant neoplasm of cerebral meninges (HCC) [*08/14/2006 12/26/2023 GOUT NOS [M10.9] 08/14/2006 FAMILY HX DIABETES MELLITUS [Z83.3] 08/14/2006 Open Wnd Site [T14.8XXA] 08/29/2006 03/02/2010 Unspecified Chest Pain [R07.9] 09/09/2006 03/02/2010 Unspecified cardiovascular disease [I25.10] 09/30/2006 05/23/2018 MIXED HYPERLIPIDEMIA [E78.2] 10/01/2006 Other psoriasis [L40.8] 12/17/2006 01/31/2011 Contact Dermatitis and Other Eczema, due to Uns*12/17/2006 03/02/2010 Enthesopathy of unspecified site [M77.9] 09/23/2007 01/31/2011 Unspecified Seborrheic Dermatitis [L21.9] 05/03/2008 03/02/2010 Unspecified Pruritic Disorder [L29.9] 05/03/2008 03/02/2010 [place] ANGIOMAS//NEVUS, NON-NEOPLASTIC [I78.1] 04/29/2009 03/02/2010 Actinic Keratoses (Premalignant AK's) [L57.0] 03/29/2010 01/31/2011 Viral warts, unspecified [B07.9] 03/29/2010 01/31/2011 Irritated//Inflamed Seborrheic Keratosis [L82.0]03/29/2010 01/31/2011 Neurodermatitis [L2 (more content not included)... Normal [facility] TRI[facility] ([id number]) 1945 M Date Time Provider Department 05/14/24 ALISHA GEE [facility] During your visit today, we recorded the following information about you: Isabel Carrion MA 05/14/2024 2:35 PM Signed Type of form: [employer] for DM shoes and inserts. Requests most recent OV note. This has been attached. Form received via fax When form is completed, Fax form to [phone] Form has been forwarded to Physician Desk: GRAZYNA Burciaga Rilee, MA 05/21/2024 4:56 PM Signed Form completed and OV notes attached. Faxed to number below. Isabel Carrion MA Allergies As of Date: 05/14/2024 Noted Allergy Reaction CIPROFLOXACIN 02/07/2023 17 - Myalgia KEFLEX (CEPHALEXIN) 01/13/2019 8 - GI Upset MEPERIDINE 02/07/2023 8 - GI Upset MORPHINE 04/07/2009 8 - GI Upset Comments: Vomiting and nausea within minutes CONTRAST DYE 07/14/2015 8 - GI Upset OPIOIDS-MEPERIDINE AND RELATED 01/25/2004 5 - Intolerance Comments: arrythmia after surgery with Darvon/Darvocet PLAVIX (CLOPIDOGREL BISULFATE) 03/30/2010 Comments: Hemorrhage PREDNISONE 09/30/2006 14 - Other: See Comments Comments: anxiety PROPOXYPHENE 01/25/2004 5 - Intolerance Comments: arrythmia after surgery Date Reviewed: 12/26/2023 Reviewed by: Isabel Carrion MA - Fully Assessed Reason for Visit: Forms [913] Prescriptions as of 05/21/2024 - metFORMIN ER (GLUCOPHAGE XR) 500 mg 24 hr tablet Take 2 tablets by mouth once daily. - blood sugar diagnostic ([employer] ULTRA TEST) test strip Use to test blood sugars twice daily. Dx: 250.00 - glimepiride (AMARYL) 4 mg tablet Take 2 tablets by mouth daily with breakfast. - allopurinol (ZYLOPRIM) 100 mg tablet Take 1 tablet by mouth two times a day. - empagliflozin (JARDIANCE) 10 mg tablet Take 1 tablet by mouth daily with breakfast. - pantoprazole DR (PROTONIX) 20 mg tablet Take 1 tablet by mouth once daily. Take as needed for heartburn/GI upset - atorvastatin (LIPITOR) 20 mg tablet Take 1 tablet by mouth daily at bedtime. For cholesterol. - atenolol (TENORMIN) 50 mg tablet Take 1 tablet by mouth once daily. - ketoconazole (NIZORAL) 2 % shampoo Apply to affected area once daily as needed. - triamcinolone acetonide (KENALOG) 0.1 % cream Apply to affected area twice daily. - white petrolatum - mineral oil (EUCERIN CREAM) cream Apply to affected area as needed. - Lancets ([employer] ULTRASOFT LANCETS) lancets Use as directed to check blood sugars 1-2 times daily - nitroglycerin sublingual (NITROQUICK) 0.4 mg SL tablet Take 1 tablet by mouth as needed for Chest Pain. FOR CHEST PAIN. IF NO PAIN RELIEF, CALL 911 - [place]-3 Fatty Acids-Vitamin E 1,000 mg cap Take 2 capsules by mouth once daily. - Ascorbic Acid 1,000 mg tablet Take 1,000 mg by mouth once daily. - ACETAMINOPHEN (TYLENOL ARTHRITIS ORAL) Take by mouth once daily. - alcohol antiseptic pads(ALCOHOL PADS) Use as directed - aspirin(ECOTRIN LOW STRENGTH 81 MG TAB) Take one(1) tablet daily. 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 Problem List As Of Date 05/14/2024 Noted Resolved Other Chronic Dermatitis due to Solar Radiation*07/18/2006 03/02/2010 Neoplasm of Uncertain Behavior of Skin [D48.5] 07/18/2006 03/02/2010 Scar Condition and Fibrosis of Skin [L90.5] 07/18/2006 03/02/2010 Personal History of Other Malignant Neoplasm of*07/18/2006 03/02/2010 Other Seborrheic Keratosis [L82.1] 07/18/2006 03/02/2010 SOLAR LENTGINES [L81.9] 07/18/2006 03/02/2010 Actinic Keratoses: Premalignant AK's [L57.0] 07/18/2006 03/02/2010 Essential hypertension, benign [I10] 08/14/2006 11/21/2015 ESOPHAGEAL REFLUX [K21.9] 08/14/2006 DIAPHRAGMATIC HERNIA [K44.9] 08/14/2006 Malignant neoplasm of cerebral meninges (HCC) [*08/14/2006 12/26/2023 GOUT NOS [M10.9] 08/14/2006 FAMILY HX DIABETES MELLITUS [Z83.3] 08/14/2006 Open Wnd Site [T14.8XXA] 08/29/2006 03/02/2010 Unspecified Chest Pain [R07.9] 09/09/2006 03/02/2010 Unspecified cardiovascular disease [I25.10] 09/30/2006 05/23/2018 MIXED HYPERLIPIDEMIA [E78.2] 10/01/2006 Other psoriasis [L40.8] 12/17/2006 01/31/2011 Contact Dermatitis and Other Eczema, due to Uns*12/17/2006 03/02/2010 Enthesopathy of unspecified site [M77.9] 09/23/2007 01/31/2011 Unspecified Seborrheic Dermatitis [L21.9] 05/03/2008 03/02/2010 Unspecified Pruritic Disorder [L29.9] 05/03/2008 03/02/2010 [place] ANGIOMAS//NEVUS, NON-NEOPLASTIC [I78.1] 04/29/2009 03/02/2010 Actinic Keratoses (Premalignant AK's) [L57.0] 03/29/2010 01/31/2011 Viral warts, unspecified [B07.9] 03/29/2010 01/31/2011 Irritated//Inflamed Seborrheic Keratosis [L82.0]03/29/2010 01/31/2011 Neurodermatitis [L28.0] 03/29/2010 01/31/2011 Eczematous dermatitis [L30.9] 03/29/2010 01/31/2011 Xe (more content not included)... Normal [facility] CBC AND ELECTRONIC DIFFon Basophils (Bld) [#/Vol] 0.05 10*3/uL 0.00 - 0.09 K/uL [facility] Basophils/100 WBC (Bld) 0.9 % [facility] Differential cell count method Nom (Bld) Electronic Differential [facility] Eosinophils (Bld) [#/Vol] 0.15 10*3/uL 0.00 - 0.48 K/uL [facility] Eosinophils/100 WBC (Bld) 2.7 % [facility] Erythrocyte distribution width (RBC) [Ratio] 12.5 % 10.9 - 14.3 % [facility] Hematocrit (Bld) [Volume fraction] 41.1 % 39.6 - 48.8 % [facility] Hemoglobin (Bld) [Mass/Vol] 13.9 g/dL 13.4 - 16.8 g/dL [facility] Immature granulocytes (Bld) [#/Vol] K/uL NINF - 0.07 K/uL [facility] Immature granulocytes/100 WBC (Bld) 0.4 % [facility] Interpretation and review of laboratory results Abnormal [facility] Lymphocytes (Bld) [#/Vol] 1.73 10*3/uL 0.83 - 3.57 K/uL [facility] Lymphocytes/100 WBC (Bld) 31.1 % [facility] MCH (RBC) [Entitic mass] 29.6 pg 26.1 - 33.3 pg [facility] MCHC (RBC) [Mass/Vol] 33.8 g/dL 31.9 - 36.5 g/dL [facility] MCV (RBC) [Entitic vol] 87.4 fL 79.0 - 94.5 fL [facility] Monocytes (Bld) [#/Vol] 0.46 10*3/uL 0.24 - 0.93 K/uL [facility] Monocytes/100 WBC (Bld) 8.3 % [facility] Neutrophils (Bld) [#/Vol] 3.16 10*3/uL 1.57 - 6.19 K/uL [facility] Nucleated RBC/100 WBC (Bld) [Ratio] 0.4 % High [facility] Platelet mean volume (Bld) [Entitic vol] 10.9 fL 8.7 - 12.3 fL [facility] Platelets (Bld) [#/Vol] 173 10*3/uL 146 - 337 K/uL [facility] RBC (Bld) [#/Vol] 4.70 10*6/uL [facility] Segmented neutrophils/100 WBC (Bld) 56.6 % [facility] WBC (Bld) [#/Vol] 5.57 10*3/uL 3.73 - 10.10 K/uL [facility] COMPREHENSIVE METABOLIC PANE Jerry 01-08-2024 Albumin [Mass/Vol] 4.5 g/dL 3.5 - 5.0 g/dL [facility] ALP [Catalytic activity/Vol] 50 U/L 32 - 126 U/L [facility] ALT [Catalytic activity/Vol] 20 U/L 10 - 52 U/L [facility] Anion gap [Moles/Vol] 10 mmol/L 7 - 17 mmol/L [facility] AST [Catalytic activity/Vol] 18 U/L 10 - 39 U/L [facility] Bilirubin [Mass/Vol] 0.7 mg/dL NINF - 1.5 mg/dL [facility] Calcium [Mass/Vol] 9.8 mg/dL 8.6 - 10. 5 mg/dL [facility] Chloride [Moles/Vol] 101 mmol/L 98 - 108 mmol/L [facility] CO2 [Moles/Vol] 26 mmol/L 21 - 31 mmol/L [facility] Creatinine [Mass/Vol] 1.14 mg/dL 0.70 - 1.30 mg/dL [facility] eGFR, CKD-EPI, Male 63 - PINF [facility] Comment on above: Reported eGFR is bas ed on the CKD-EPI 2020 equation using creatinine, age, and sex. Glucose [Mass/Vol] 161 mg/dL High 70 - 99 mg/dL [facility] Interpretation and review of laboratory results Abnormal [facility] Osmolality Calc [Osmolality] 285 [facility] Potassium [Moles/Vol] 4.1 mmol/L 3.5 - 5.0 mmol/L [facility] Protein [Mass/Vol] 7.8 g/dL 6.4 - 8.3 g/dL [facility] Sodium [Moles/Vol] 133 mmol/L Low 135 - 145 mmol/L [facility] Urea nitrogen [Mass/Vol] 16 mg/dL 7 - 25 mg/dL [facility] Urea nitrogen/Creatinine [Mass ratio] 14 mg/mg [facility] LACTATE DEHYDROGENASEon 12-20 Interpretation and review of laboratory results Normal [facility] LDH Lactate to pyruvate reaction [Catalytic activity/Vol] 136 U/L 100 - 190 U/L [facility] No Panel Informationon 01-07 [facility] COVID & INFLUENZA A/B & RSV NAAT, ROUTINEon 11-21-2023 FLUAV RNA JOCELYN+probe Ql (Unsp spec) Not detected Not Detected [facility] FLUBV RNA JOCELYN+probe Ql (Unsp spec) Not detected Not Detected [facility] RSV A RNA JOCELYN+probe Ql (Unsp spec) Not detected Not Detected [facility] SARS-CoV-2 (COVID-19) RNA JOECLYN+probe Ql (Resp) Detected Abnormal See comment [facility] XR CHEST 2V FRONTAL/LATon [facility] XR Chest PA and Lateralon IMPRESSION: No acute radiographic abnormality. [employer] Head: SARA Transcribe Date/Time: Nov 21 2023 10:44A Dictated by : VIANEY SABILLON MD This examination was interpreted and the report reviewed and electronically signed by: VIANEY SABILLON MD on Nov 21 2023 10:46AM [facility] DIVISION OF RADIOLOGY * * *Final Report* * * DATE OF EXAM: Nov 21 2023 10:27AM WOX 5291 - XR CHEST 2V FRONTAL/LAT / PROCEDURE REASON: Acute cough * * * * Physician Interpretation * * * * EXAMINATION: CHEST RADIOGRAPH (2 VIEW FRONTAL & LATERAL) CLINICAL HISTORY: Acute cough MQ: XC2_6 EXAM DATE/TIME: 11/21/2023 10:27 AM COMPARISON: Chest x-ray 05/11/2022 RESULT: Lines, tubes, and devices: None. Lungs and pleura: No consolidation. No lung mass. No pleural effusion. No pneumothorax. Cardiomediastinal silhouette: Normal cardiomediastinal silhouette. Bones and soft tissues: Unremarkable. DIVISION OF RADIOLOGY Provider, [facility] - 11/21/2023 * * *Final Report* * * DATE OF EXAM: Nov 21 2023 10:27AM WOX 5291 - XR CHEST 2V FRONTAL/LAT / PROCEDURE REASON: Acute cough * * * * Physician Interpretation * * * * EXAMINATION: CHEST RADIOGRAPH (2 VIEW FRONTAL & LATERAL) CLINICAL HISTORY: Acute cough MQ: XC2_6 EXAM DATE/TIME: 11/21/2023 10:27 AM COMPARISON: Chest x-ray 05/11/2022 RESULT: Lines, tubes, and devices: None. Lungs and pleura: No consolidation. No lung mass. No pleural effusion. No pneumothorax. Cardiomediastinal silhouette: Normal cardiomediastinal silhouette. Bones and soft tissues: Unremarkable. IMPRESSION IMPRESSION: No acute radiographic abnormality. [employer]: SARA Transcribe Date/Time: Nov 21 2023 10:44A Dictated by : VIANEY SABILLON MD This examination was interpreted and the report reviewed and electronically signed by: VIANEY SABILLON MD on Nov 21 2023 10:46AM [facility] Radiology Study observation (narrative) [facility] XR Chest PA and LateralOrder ed By: [facility] Provider on 11-21-2023 [facility] PSA/PROSTSPECAG DIAGon 02-04 Prostate specific Ag [Mass/Vol] 1.27 ng/mL <2.60 ng/mL [facility] CBC AND ELECTRONIC DIFFon Basophils (Bld) [#/Vol] K/uL 0.00 - 0.09 K/uL [facility] Basophils/100 WBC (Bld) 0.7 % [facility] Differential cell count method Nom (Bld) Electronic Differential [facility] Eosinophils (Bld) [#/Vol] 0.11 10*3/uL 0.00 - 0.48 K/uL [facility] Eosinophils/100 WBC (Bld) 2.7 % [facility] Erythrocyte distribution width (RBC) [Ratio] 12.7 % 10.9 - 14.3 % [facility] Hematocrit (Bld) [Volume fraction] 40.2 % 39.6 - 48.8 % [facility] Hemoglobin (Bld) [Mass/Vol] 13.7 g/dL 13.4 - 16.8 g/dL [facility] Immature granulocytes (Bld) [#/Vol] K/uL NINF - 0.07 K/uL [facility] Immature granulocytes/100 WBC (Bld) 0.2 % [facility] Lymphocytes (Bld) [#/Vol] 1.32 10*3/uL 0.83 - 3.57 K/uL [facility] Lymphocytes/100 WBC (Bld) 32.1 % [facility] MCH (RBC) [Entitic mass] 29.7 pg 26.1 - 33.3 pg [facility] MCHC (RBC) [Mass/Vol] 34.1 g/dL 31.9 - 36.5 g/dL [facility] MCV (RBC) [Entitic vol] 87.2 fL 79.0 - 94.5 fL [facility] Monocytes (Bld) [#/Vol] 0.38 10*3/uL 0.24 - 0.93 K/uL [facility] Monocytes/100 WBC (Bld) 9.2 % [facility] Neutrophils (Bld) [#/Vol] 2.26 10*3/uL 1.57 - 6.19 K/uL [facility] Nucleated RBC/100 WBC (Bld) [Ratio] 0.0 % [facility] Platelet mean volume (Bld) [Entitic vol] 10.8 fL 8.7 - 12.3 fL [facility] Platelets (Bld) [#/Vol] 174 10*3/uL 146 - 337 K/uL [facility] RBC (Bld) [#/Vol] 4.61 10*6/uL [facility] Segmented neutrophils/100 WBC (Bld) 55.1 % [facility] WBC (Bld) [#/Vol] 4.11 10*3/uL 3.73 - 10.10 K/uL [facility] COMPREHENSIVE METABOLIC PANE Jerry 01-25-2023 Albumin [Mass/Vol] 4.3 g/dL 3.5 - 5.0 g/dL [facility] ALP [Catalytic activity/Vol] 59 U/L 32 - 126 U/L [facility] ALT [Catalytic activity/Vol] 17 U/L 10 - 52 U/L [facility] Anion gap [Moles/Vol] 11 mmol/L 7 - 17 mmol/L [facility] AST [Catalytic activity/Vol] 17 U/L 10 - 39 U/L [facility] Bilirubin [Mass/Vol] 0.7 mg/dL NINF - 1.5 mg/dL [facility] Calcium [Mass/Vol] 9.2 mg/dL 8.6 - 10. 5 mg/dL [facility] Chloride [Moles/Vol] 104 mmol/L 98 - 108 mmol/L [facility] CO2 [Moles/Vol] 26 mmol/L 21 - 31 mmol/L [facility] Creatinine [Mass/Vol] 1.26 mg/dL 0.70 - 1.30 mg/dL [facility] GFR/1.73 sq M.predicted CKD-EPI (S/P/Bld) [Vol rate/Area] 58 Low - PINF [facility] Comment on above: Reported eGFR is bas ed on the CKD-EPI 2020 equation using creatinine, age, and sex. Glucose [Mass/Vol] 216 mg/dL High 70 - 99 mg/dL [facility] Interpretation and review of laboratory results Abnormal [facility] Osmolality Calc [Osmolality] 298 [facility] Potassium [Moles/Vol] 4.4 mmol/L 3.5 - 5.0 mmol/L [facility] Protein [Mass/Vol] 7.2 g/dL 6.4 - 8.3 g/dL [facility] Sodium [Moles/Vol] 137 mmol/L 135 - 145 mmol/L [facility] Urea nitrogen [Mass/Vol] 19 mg/dL 7 - 25 mg/dL [facility] Urea nitrogen/Creatinine [Mass ratio] 15 mg/mg [facility] LACTATE DEHYDROGENASEon Interpretation and review of laboratory results Normal [facility] LDH Lactate to pyruvate reaction [Catalytic activity/Vol] 135 U/L 100 - 190 U/L [facility] No Panel Informationon 01-25 [facility] Comprehensive metabolic 2000 panelon 10-25-2022 Albumin [Mass/Vol] 4.5 g/dL 3.9 - 4.9 g/dL [facility] ALP [Catalytic activity/Vol] 73 U/L 38 - 113 U/L [facility] ALT [Catalytic activity/Vol] 22 U/L 10 - 54 U/L [facility] Anion gap [Moles/Vol] 14 mmol/L 9 - 18 mmol/L [facility] AST [Catalytic activity/Vol] 23 U/L 14 - 40 U/L [facility] Bilirubin [Mass/Vol] 0.8 mg/dL 0.2 - 1.3 mg/dL [facility] Calcium [Mass/Vol] 9.5 mg/dL 8.5 - 10. 2 mg/dL [facility] Chloride [Moles/Vol] 98 mmol/L 97 - 105 mmol/L [facility] CO2 [Moles/Vol] 23 mmol/L 22 - 30 mmol/L [facility] Creatinine [Mass/Vol] 1.34 mg/dL High 0.73 - 1.22 mg/dL [facility] Estimated Glomerular Filtration Rate 54 mL/min/1.73m Low >=60 mL/min/1.73 m [facility] Glucose [Mass/Vol] 320 mg/dL High 74 - 99 mg/dL [facility] Potassium [Moles/Vol] 4.6 mmol/L 3.7 - 5.1 mmol/L [facility] Protein [Mass/Vol] 7.3 g/dL 6.3 - 8.0 g/dL [facility] Sodium [Moles/Vol] 135 mmol/L Low 136 - 144 mmol/L [facility] Urea nitrogen [Mass/Vol] 25 mg/dL High 9 - 24 mg/dL [facility] URINE CULTUREon 10-25-2022 Bacteria identified Cx Nom (U) No growth (<1,000 CFU/ml) [facility] CBC W Auto Differential pane l (Bld)on 10-24-2022 Basophils (Bld) [#/Vol] 0.03 10*3/uL <0.11 k/uL [facility] Basophils/100 WBC (Bld) 0.6 % [facility] Differential cell count method Nom (Bld) Auto [facility] Eosinophils (Bld) [#/Vol] 0.15 10*3/uL <0.46 k/uL [facility] Eosinophils/100 WBC (Bld) 3.1 % [facility] Erythrocyte distribution width (RBC) [Ratio] 12.3 % 11.5 - 15.0 % [facility] Hematocrit (Bld) [Volume fraction] 44.8 % 39.0 - 51.0 % [facility] Hemoglobin (Bld) [Mass/Vol] 15.0 g/dL 13.0 - 17.0 g/dL [facility] Immature granulocytes (Bld) [#/Vol] <0.10 k/uL [facility] Immature granulocytes/100 WBC (Bld) 0.2 % [facility] Lymphocytes (Bld) [#/Vol] 1.24 10*3/uL 1.00 - 4.00 k/uL [facility] Lymphocytes/100 WBC (Bld) 25.8 % [facility] MCH (RBC) [Entitic mass] 30.2 pg 26.0 - 34.0 pg [facility] MCHC (RBC) [Mass/Vol] 33.5 g/dL 30.5 - 36.0 g/dL [facility] MCV (RBC) [Entitic vol] 90.1 fL 80.0 - 100.0 fL [facility] Monocytes (Bld) [#/Vol] 0.37 10*3/uL <0.87 k/uL [facility] Monocytes/100 WBC (Bld) 7.7 % [facility] Neutrophils (Bld) [#/Vol] 3.00 10*3/uL 1.45 - 7.50 k/uL [facility] Neutrophils/100 WBC (Bld) 62.6 % [facility] Nucleated RBC (Bld) [#/Vol] <0.01 k/uL [facility] Nucleated RBC/100 WBC (Bld) [Ratio] 0.0 /100 WBC [facility] Platelet mean volume (Bld) [Entitic vol] 11.4 fL 9.0 - 12.7 fL [facility] Platelets (Bld) [#/Vol] 185 10*3/uL 150 - 400 k/uL [facility] RBC (Bld) [#/Vol] 4.97 10*6/uL 4.20 - 6.0 0 m/uL [facility] WBC (Bld) [#/Vol] 4.80 10*3/uL 3.70 - 11.00 k/uL [facility] No Panel Informationon 10-24 [facility] Urinalysis complete panel (U )on 10-24-2022 Bilirubin Ql (U) Negative Negative [facility] Clarity (Unsp spec) Clear Clear [facility] [place] Color (U) Light Yellow Yellow [facility] Glucose Test strip (U) [Mass/Vol] 4+ Abnormal Trace, Negative [facility] Hemoglobin Ql (U) Negative Negative, Trace [facility] Ketones Ql (U) Negative Trace, Negative [facility] Leukocyte esterase Test strip Ql (U) Negative Negative, 25 Jayjay/mL [facility] Nitrite Ql (U) Negative Negative [facility] pH (U) 5.5 [pH] 5.0 - 8.0 [facility] Protein (U) [Mass/Vol] Trace Trace, Negative [facility] RBC LM.HPF (Urine sed) [#/Area] 0-3 /HPF 0-3 /HPF [facility] Specific gravity (U) [Rel density] 1.023 1.005 - 1.030 [facility] Urobilinogen Ql (U) Negative Negative [facility] [place] WBC LM.HPF (Urine sed) [#/Area] 0-5 /HPF 0-5 /HPF [facility] STREP A MOLECULAR (POC)on Procedural Control Valid [facility] Strep A (POCT) Negative Negative [facility] XR CHEST 2V FRONTAL/LATon [facility] XR Chest PA and Lateralon IMPRESSION: No acute radiographic abnormality. [employer]: PSCB Transcribe Date/Time: May 11 2022 10:44A Dictated by : ROBERT ALONZO MD This examination was interpreted and the report reviewed and electronically signed by: ROBERT ALONZO MD on May 11 2022 10:45AM EST [email or web address] SE_DIVISION OF RADIOLOGY * * *Final Report* * * DATE OF EXAM: May 11 2022 10:34AM WOX 5291 - XR CHEST 2V FRONTAL/LAT / PROCEDURE REASON: Fatigue, unspecified type * * * * Physician Interpretation * * * * EXAMINATION: CHEST RADIOGRAPH (2 VIEW FRONTAL & LATERAL) CLINICAL HISTORY: Fatigue, unspecified type MQ: XC2_6 EXAM DATE/TIME: 05/11/2022 10:34 AM COMPARISON: Chest x-ray on 12/25/2019 RESULT: Lines, tubes, and devices: None. Lungs and pleura: No consolidation. No lung mass. No pleural effusion. No pneumothorax. Cardiomediastinal silhouette: Normal cardiac silhouette. There appear to be coronary stents and/or coronary artery calcifications. Bones and soft tissues: There are suture anchors in the right humeral head. The spine shows degenerative changes. [id number] _DIVISION OF RADIOLOGY Provider, [facility] - 05/11/2022 * * *Final Report* * * DATE OF EXAM: May 11 2022 10:34AM WOX 5291 - XR CHEST 2V FRONTAL/LAT / PROCEDURE REASON: Fatigue, unspecified type * * * * Physician Interpretation * * * * EXAMINATION: CHEST RADIOGRAPH (2 VIEW FRONTAL & LATERAL) CLINICAL HISTORY: Fatigue, unspecified type MQ: XC2_6 EXAM DATE/TIME: 05/11/2022 10:34 AM COMPARISON: Chest x-ray on 12/25/2019 RESULT: Lines, tubes, and devices: None. Lungs and pleura: No consolidation. No lung mass. No pleural effusion. No pneumothorax. Cardiomediastinal silhouette: Normal cardiac silhouette. There appear to be coronary stents and/or coronary artery calcifications. Bones and soft tissues: There are suture anchors in the right humeral head. The spine shows degenerative changes. IMPRESSION IMPRESSION: No acute radiographic abnormality. [employer]: PSCB Transcribe Date/Time: May 11 2022 10:44A Dictated by : ROBERT ALONZO MD This examination was interpreted and the report reviewed and electronically signed by: ROBERT ALONZO MD on May 11 2022 10:45AM EST [facility] Radiology Study observation (narrative) [facility] XR Chest PA and LateralOrder ed By: [facility] Provider on 05-11-2022 [facility] CBC AND ELECTRONIC DIFFon Basophils (Bld) [#/Vol] 10*3/uL 0.00 - 0.09 K/uL [facility] Basophils/100 WBC (Bld) 0.7 % [facility] Differential cell count method Nom (Bld) Electronic Differential [facility] Eosinophils (Bld) [#/Vol] 0.18 10*3/uL 0.00 - 0.48 K/uL [facility] Eosinophils/100 WBC (Bld) 4.0 % [facility] Erythrocyte distribution width (RBC) [Ratio] 12.7 % 10.9 - 14.3 % [facility] Hematocrit (Bld) [Volume fraction] 41.8 % 39.6 - 48.8 % [facility] Hemoglobin (Bld) [Mass/Vol] 14.2 g/dL 13.4 - 16.8 g/dL [facility] Immature granulocytes (Bld) [#/Vol] 10*3/uL <=0.08 K/uL [facility] Immature granulocytes/100 WBC (Bld) 0.2 % [facility] Lymphocytes (Bld) [#/Vol] 1.22 10*3/uL 0.83 - 3.57 K/uL [facility] Lymphocytes/100 WBC (Bld) 27.4 % [facility] MCH (RBC) [Entitic mass] 29.8 pg 26.1 - 33.3 pg [facility] MCHC (RBC) [Mass/Vol] 34.0 g/dL 31.9 - 36.5 g/dL [facility] MCV (RBC) [Entitic vol] 87.8 fL 79.0 - 94.5 fL [facility] Monocytes (Bld) [#/Vol] 0.45 10*3/uL 0.24 - 0.93 K/uL [facility] Monocytes/100 WBC (Bld) 10.1 % [facility] Neutrophils (Bld) [#/Vol] 2.56 10*3/uL 1.57 - 6.19 K/uL [facility] Nucleated RBC/100 WBC (Bld) [Ratio] 0.0 % <=0.2 /100 WBC [facility] Platelet mean volume (Bld) [Entitic vol] 10.5 fL 8.7 - 12.3 fL [facility] Platelets (Bld) [#/Vol] 183 10*3/uL 146 - 337 K/uL [facility] RBC (Bld) [#/Vol] 4.76 10*6/uL [facility] Segmented neutrophils/100 WBC (Bld) 57.6 % [facility] WBC (Bld) [#/Vol] 4.45 10*3/uL 3.73 - 10.10 K/uL [facility] COMPREHENSIVE METABOLIC PANE Jerry 03-02-2022 Albumin [Mass/Vol] 4.6 g/dL 3.5 - 5.0 g/dL [facility] ALP [Catalytic activity/Vol] 55 U/L 32 - 126 U/L [facility] ALT [Catalytic activity/Vol] 21 U/L 10 - 52 U/L [facility] Anion gap [Moles/Vol] 13 mmol/L 7 - 17 mmol/L [facility] AST [Catalytic activity/Vol] 23 U/L 10 - 39 U/L [facility] Bilirubin [Mass/Vol] 0.9 mg/dL <1.5 [facility] Calcium [Mass/Vol] 9.3 mg/dL 8.6 - 10. 5 mg/dL [facility] Chloride [Moles/Vol] 105 mmol/L 98 - 108 mmol/L [facility] CO2 [Moles/Vol] 24 mmol/L 21 - 31 mmol/L [facility] Creatinine [Mass/Vol] 1.29 mg/dL 0.70 - 1.30 mg/dL [facility] GFR/1.73 sq M.predicted CKD-EPI (S/P/Bld) [Vol rate/Area] 57 Low >=60 mL/min/1.73 m2 [facility] Comment on above: Reported eGFR is bas ed on the CKD-EPI 2020 equation using creatinine, age, and sex. Glucose [Mass/Vol] 135 mg/dL High 70 - 99 mg/dL [facility] Interpretation and review of laboratory results Abnormal [facility] Osmolality Calc [Osmolality] 295 [facility] Potassium [Moles/Vol] 4.3 mmol/L 3.5 - 5.0 mmol/L [facility] Protein [Mass/Vol] 7.5 g/dL 6.4 - 8.3 g/dL [facility] Sodium [Moles/Vol] 138 mmol/L 135 - 145 mmol/L [facility] Urea nitrogen [Mass/Vol] 21 mg/dL 7 - 25 mg/dL [facility] Urea nitrogen/Creatinine [Mass ratio] 16 mg/mg [facility] CT Chest WO contraston 03-02 IMPRESSION: 1. No evidence for active lymphoma in the chest. 2. Multivessel coronary artery disease. I personally viewed and interpreted these images and I have reviewed and approved this report. OLOGY EXAM: CT CHEST WITHO UT CONTRAST, 03/02/2022 14:06 PM COMPARISON: CT chest 03/10/2021 and 09/11/2019. 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 FINDINGS: Lungs and Pleura: The lungs are clear. No consolidation. Scattered calcified granulomas bilaterally. No suspicious pulmonary nodule. No pleural fluid. Tracheobronchial tree: No abnormality. Mediastinum/Angela: A few small mediastinal lymph nodes are stable in size and do not meet size criteria for pathologic lymphadenopathy.. Right hilar granulomatous calcifications are noted. Axilla and Supraclavicular Regions: No axillary or supraclavicular adenopathy. Cardiovascular: The cardiac chambers appear normal in size. The pericardium is normal. Atherosclerosis involving the aorta and its arch branch vessels including dense coronary artery calcifications. Pulmonary arteries without gross abnormality. Upper Abdomen: Please refer to same-day dedicated CT abdomen/pelvis for complete details of the upper abdominal findings. Bones and Soft Tissue: No suspicious osseous lesion. Metallic density in the right humeral head. RADIOLOGY Terrence Maher MD - 03/02/2022 EXAM: CT CHEST WITHOUT CONTRAST, 03/02/2022 14:06 PM COMPARISON: CT chest 03/10/2021 and 09/11/2019. 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 FINDINGS: Lungs and Pleura: The lungs are clear. No consolidation. Scattered calcified granulomas bilaterally. No suspicious pulmonary nodule. No pleural fluid. Tracheobronchial tree: No abnormality. Mediastinum/Angela: A few small mediastinal lymph nodes are stable in size and do not meet size criteria for pathologic lymphadenopathy.. Right hilar granulomatous calcifications are noted. Axilla and Supraclavicular Regions: No axillary or supraclavicular adenopathy. Cardiovascular: The cardiac chambers appear normal in size. The pericardium is normal. Atherosclerosis involving the aorta and its arch branch vessels including dense coronary artery calcifications. Pulmonary arteries without gross abnormality. Upper Abdomen: Please refer to same-day dedicated CT abdomen/pelvis for complete details of the upper abdominal findings. Bones and Soft Tissue: No suspicious osseous lesion. Metallic density in the right humeral head. IMPRESSION IMPRESSION: 1. No evidence for active lymphoma in the chest. 2. Multivessel coronary artery disease. I personally viewed and interpreted these images and I have reviewed and approved this report. [facility] Radiology Study observation (narrative) [facility] CT Chest WO contrastOrdered By: Terrence Maher on 03-02-2022 [facility] Work Phone: LACTATE DEHYDROGENASEon 02-18 Interpretation and review of laboratory results Normal [facility] LDH Lactate to pyruvate reaction [Catalytic activity/Vol] 135 U/L 100 - 190 U/L [facility] No Panel Informationon 03-02 [facility] Absolute lymphocyte counton 01-23-2022 Lymphocytes Auto (Unsp spec) [#/Vol] 1.01 10*3/uL 0.83-4.51 [facility] Work Phone: Basophil percentageon 2021 Basophil percentage 0-5 SEEN /hpf [facility] Work Phone: Basophils/100 WBC (Bld) 0.6 % 0-1 [facility] Work Phone: Chloride [Moles/Vol] 106 mmol/L 98-107 [facility] Work Phone: Eosinophils/100 WBC (Bld) 2.7 % 0-5 [facility] Work Phone: Glucose [Mass/Vol] 140 mg/dL 74-[address] [facility] Work Phone: Comment on above: Fasting Glucose resu lt greater than or equal to 126 mg/dL suggests DIABETES MELLITUS per A.D.A. criteria. Neutrophils (Bld) [#/Vol] 3.2 10*3/uL 2.0-7.7 [facility] Work Phone: Neutrophils/100 WBC (Bld) 66.4 % 47-70 [facility] Work Phone: Potassium [Moles/Vol] 4.2 mmol/L 3.5-5.1 [facility] Work Phone: Sodium [Moles/Vol] 138 mmol/L 136-[address] [facility] Work Phone: WBC (Bld) [#/Vol] 4.8 10*3/uL 4.4-11.[address] [facility] Work Phone: Bilirubin Test strip Ql (U)o n 01-23-2022 Bilirubin Ql (U) Negative Negative [facility] Work Phone: Blood erythrocytes count (nu mber/volume)on 01-23-2022 RBC (Bld) [#/Vol] 4.81 10*6/uL 4.6-6.2 [facility] Work Phone: Blood hemoglobin measurement (mass/volume)on 01-23-2022 Hemoglobin (Bld) [Mass/Vol] 14.6 g/dL 13.0-16.5 [facility] Work Phone: Blood lymphocytes/100 leukoc yteson 01-23-2022 Lymphocytes/100 WBC (Bld) 21.1 % 19-41 [facility] Work Phone: Blood monocytes/100 leukocyt eson 01-23-2022 Monocytes/100 WBC (Bld) 9.0 % 0-10 [facility] Work Phone: [phone] Blood platelet mean volumeon 01-23-2022 Platelet mean volume (Bld) [Entitic vol] 10.4 fL 6.2-12.0 [facility] Work Phone: Determination of erythrocyte mean corpuscular volume (MCV)on 01-23-2022 MCV (RBC) [Entitic vol] 86.3 fL 80-94 [facility] Work Phone: Hematocrit Auto (Bld) [Volum e fraction]on 01-23-2022 Hematocrit (Bld) [Volume fraction] 41.5 % 40-54 [facility] Work Phone: [phone] Ketones Test strip Ql (U)on 01-23-2022 Ketones Ql (U) 15 mg/dl Negative [facility] Work Phone: [phone] Laboratory - Chemistry and C hemistry - challengeon 01-23-2022 CO2 [Moles/Vol] 27.0 mmol/L 21.0-32.0 [facility] Work Phone: [phone] Urea nitrogen/Creatinine [Mass ratio] 16.0 mg/mg 10-20 [facility] Work Phone: [phone] Laboratory - Hematology and Cell countson 01-23-2022 Erythrocyte distribution width (RBC) [Entitic vol] 38.3 fL 35.1-43.9 [facility] Work Phone: [phone] Erythrocyte distribution width (RBC) [Ratio] 12.2 % 11.6-14.6 [facility] Work Phone: [phone] Immature granulocytes/100 WBC (Bld) 0.200 % 0.0-0.9 [facility] Work Phone: [phone] Comment on above: IG% - Immature Granu locytes (promyelocytes, myelocytes and metamyelocytes) > 1% indicates that a LEFT SHIFT is Present. MCH (RBC) [Entitic mass] 30.4 pg 27.0-32.0 [facility] Work Phone: Nucleated RBC/100 WBC (Bld) [Ratio] 0 % 0-5 [facility] Work Phone: [phone] MCHC Auto (RBC) [Mass/Vol]on 01-23-2022 MCHC (RBC) [Mass/Vol] 35.2 g/dL 32-36 [facility] Work Phone: [phone] Mucus LM Ql (Urine sed)on Mucus Ql (Urine sed) 0 SEEN /hpf [facility] Work Phone: [phone] Nitrite Test strip Ql (U)on 01-23-2022 Nitrite Ql (U) Negative Negative [facility] Work Phone: [phone] Panel Informationon 01-23 Estimated Creatinine Clearance Calc 46.47 ml/min [facility] Work Phone: Estimated GFR (MDRD) Amer 68 mL/min >60 [facility] Work Phone: Comment on above: GFR Calc Estimated GFR (MDRD) Non-Af Amer 56 mL/min >60 [facility] Work Phone: Comment on above: Non- GFR Calc Urine Transitional Epithelial Cells 0-5 SEEN /hpf [facility] Work Phone: [phone] Platelets bldon 01-23-2022 Platelets (Bld) [#/Vol] 182 10*3/uL 150-450 [facility] Work Phone: Protein Test strip Ql (U)on 01-23-2022 Protein Ql (U) 100 mg/dl Negative [facility] Work Phone: [phone] Serum or plasma calcium shaun urement (mass/volume)on 01-23-2022 Calcium [Mass/Vol] 9.4 mg/dL 8.5-10.[address] [facility] Work Phone: Serum or plasma creatinine m easurement (mass/volume)on 01-23-2022 Creatinine [Mass/Vol] 1.31 mg/dL 0.70-1.30 [facility] Work Phone: Comment on above: The validity of the calculated GFR & GFRAA in patients over 70 years has not been determined. Clinical correlation is essential. Serum or plasma urea nitroge n measurement (mass/volume)on 01-23-2022 Urea nitrogen [Mass/Vol] 21 mg/dL 7-18 [facility] Work Phone: [phone] Squamous epithelial cells de tection in urine sediment by light microscopyon 01-23-2022 Epithelial cells.squamous LM Ql (Urine sed) 0 SEEN /hpf [facility] Work Phone: [phone] Thin prep Papanicolaou smear with manual screeningon 01-23-2022 Thin prep Papanicolaou smear with manual screening 5 5-15 [facility] Work Phone: [phone] Urine blood detectionon RBC Ql (U) 250 /ul Negative [facility] Work Phone: RBC Ql (U) > 100 SEEN /hpf [facility] Work Phone: Urine clarityon 01-23-2022 Clarity (U) Cloudy Clear [facility] Work Phone: Urine color determinationon 01-23-2022 Color (U) Red Yellow [facility] Work Phone: Urine glucose detectionon Glucose Ql (U) Normal mg/dl Normal [facility] Work Phone: Urine leukocyte esterase det ection by dipstickon 01-23-2022 Leukocyte esterase Test strip Ql (U) 100 /ul Negative [facility] Work Phone: Urine pHon 01-23-2022 pH (U) 5.0 [pH] [facility] Work Phone: Urine sediment bacteria coun t by microscopy (number/high power field)on 01-23-2022 Bacteria LM.HPF (Urine sed) [#/Area] 1 /[HPF] None Seen [facility] Work Phone: Urine specific gravity measu rementon 01-23-2022 Specific gravity (U) [Rel density] 1.020 [facility] Work Phone: [phone] Urobilinogen Auto test strip Ql (U)on 01-23-2022 Urobilinogen Ql (U) Normal mg/dl Normal [facility] Work Phone: [phone] XR Temporomandibular joint - bilateral Open and Closed mouthon 08-18-2020 IMPRESSION: Unremarkable radiograph IMPRESSION: No acute bony finding. [employer]: PSCB Transcribe Date/Time: Aug 18 2020 2:28P Dictated by : ALISHA ZEPEDA MD This examination was interpreted and the report reviewed and electronically signed by: ALISHA ZEPEDA MD on Aug 18 2020 2:35PM [facility] DIVISION OF RADIOLOGY * * *Final Report* * * DATE OF EXAM: Aug 18 2020 2:21PM WOX 5267 - XR TMJ 4V OPEN/CLOSE DARIO / PROCEDURE REASON: Jaw pain * * * * Physician Interpretation * * * * Bilateral temporal mandibular joints HISTORY: 75 years old Clinical information: Jaw pain opened his mouth to eat food 10 days ago. Jaw locked with popping and headaches TECHNIQUE: Images: XR TMJ 4V OPEN/CLOSE DARIO Comparison: None. RESULT: Findings: No joint space narrowing is evident. There is normal anterior translocation of the condyles with mouth opening. No bony deformity or fracture is noted. DIVISION OF RADIOLOGY Provider, [facility] - 08/18/2020 * * *Final Report* * * DATE OF EXAM: Aug 18 2020 2:21PM WOX 5267 - XR TMJ 4V OPEN/CLOSE DARIO / PROCEDURE REASON: Jaw pain * * * * Physician Interpretation * * * * Bilateral temporal mandibular joints HISTORY: 75 years old Clinical information: Jaw pain opened his mouth to eat food 10 days ago. Jaw locked with popping and headaches TECHNIQUE: Images: XR TMJ 4V OPEN/CLOSE DARIO Comparison: None. RESULT: Findings: No joint space narrowing is evident. There is normal anterior translocation of the condyles with mouth opening. No bony deformity or fracture is noted. IMPRESSION IMPRESSION: Unremarkable radiograph IMPRESSION: No acute bony finding. [employer]: PSCB Transcribe Date/Time: Aug 18 2020 2:28P Dictated by : ALISHA ZEPEDA MD This examination was interpreted and the report reviewed and electronically signed by: ALISHA ZEPEDA MD on Aug 18 2020 2:35PM EST [facility] Radiology Study observation (narrative) [facility] XR Temporomandibular joint - bilateral Open and Closed mouthOrdered By: [facility]cf Provider on 08-18-2020 [facility] .Auto Diffon 10-09-2019 Ammonia (P) [Mass/Vol] 0.50 10 3/mcL Normal 0.09-1.40 [facility] ([place]) Comment on above: Performed By: #### C BC, ADIFF, ANEU, LIP, CMP, GFR #### [address] [address] Basophils (Bld) [#/Vol] 0.00 10 3/mcL Normal 0.00-0.27 [facility] ([place]) Comment on above: Performed By: #### C BC, ADIFF, ANEU, LIP, CMP, GFR #### [address] [address] Basophils/100 WBC (Bld) 0.4 % Normal 0.0-2.5 [facility] ([place]) Comment on above: Performed By: #### C BC, ADIFF, ANEU, LIP, CMP, GFR #### [address] [address] Eosinophils (Bld) [#/Vol] 0.10 10 3/mcL Normal 0.00-0.65 [facility] ([place]) Comment on above: Performed By: #### C BC, ADIFF, ANEU, LIP, CMP, GFR #### [address] [address] Eosinophils/100 WBC (Bld) 1.5 % Normal 0.0-6.0 [facility] ([place]) Comment on above: Performed By: #### C BC, ADIFF, ANEU, LIP, CMP, GFR #### [address] [address] Lymphocytes (Bld) [#/Vol] 1.00 10 3/mcL Normal 0.90-4.32 [facility] ([place]) Comment on above: Performed By: #### C BC, ADIFF, ANEU, LIP, CMP, GFR #### [address] [address] Lymphocytes/100 WBC (Bld) 18.0 % Low 20.0-40.0 [facility] ([place]) Comment on above: Performed By: #### C BC, ADIFF, ANEU, LIP, CMP, GFR #### [address] [address] Monocytes/100 WBC (Bld) 9.1 % Normal 2.0-13.0 [facility] ([place]) Comment on above: Performed By: #### C BC, ADIFF, ANEU, LIP, CMP, GFR #### [address] [address] Neutrophils/100 WBC (Bld) 71.0 % Normal 50.0-75.0 [facility] ([place]) Comment on above: Performed By: #### C BC, ADIFF, ANEU, LIP, CMP, GFR #### [address] [address] .GFRon 10-09-2019 GFR >60 Normal [facility] ([place]) Comment on above: Result Comment: GFR Population mean for , Non- Americans Ages 20-29 = 116 mL/min/1.73 sq.m. Ages 30-39 = 107 mL/min/1.73 sq.m. Ages 40-49 = 99 mL/min/1.73 sq.m. Ages 50-59 = 93 mL/min/1.73 sq.m. Ages 60-69 = 85 mL/min/1.73 sq.m. Ages 70+ = 75 mL/min/1.73 sq.m. Chronic Kidney Disease: Less than 60 mL/min/1.73 square meters End Stage Renal Disease: Less than 15 mL/min/1.73 square meters Performed By: #### C BC, ADIFF, ANEU, LIP, CMP, GFR #### [place] [address] GFR Non- >60 Normal [facility] ([place]) Comment on above: Result Comment: GFR Population mean for , Non- Americans Ages 20-29 = 116 mL/min/1.73 sq.m. Ages 30-39 = 107 mL/min/1.73 sq.m. Ages 40-49 = 99 mL/min/1.73 sq.m. Ages 50-59 = 93 mL/min/1.73 sq.m. Ages 60-69 = 85 mL/min/1.73 sq.m. Ages 70+ = 75 mL/min/1.73 sq.m. Chronic Kidney Disease: Less than 60 mL/min/1.73 square meters End Stage Renal Disease: Less than 15 mL/min/1.73 square meters Performed By: #### C BC, ADIFF, ANEU, LIP, CMP, GFR #### [place] [address] .NEUABSon 10-09-2019 Neutrophils (Bld) [#/Vol] 4.10 10 3/mcL Normal 2.25-8.10 [facility] ([place]) Comment on above: Performed By: #### C BC, ADIFF, ANEU, LIP, CMP, GFR #### [address] [address] CBCon 10-09-2019 Erythrocyte distribution width (RBC) [Ratio] 13.0 % Normal 11.5-15.5 [facility] ([place]) Comment on above: Performed By: #### C BC, ADIFF, ANEU, LIP, CMP, GFR #### [place] [id number] Hematocrit (Bld) [Volume fraction] 43.2 % Normal 40.0-52.0 [facility] ([place]) Comment on above: Performed By: #### C BC, ADIFF, ANEU, LIP, CMP, GFR #### [place] [address] Hemoglobin (Bld) [Mass/Vol] 14.6 G/dL Normal 13.0-17.5 [facility] ([place]) Comment on above: Performed By: #### C BC, ADIFF, ANEU, LIP, CMP, GFR #### [place] [address] MCH (RBC) [Entitic mass] 30.0 pg Normal 27.0-33.0 [facility] ([place]) Comment on above: Performed By: #### C BC, ADIFF, ANEU, LIP, CMP, GFR #### [place] [id number] MCHC (RBC) [Mass/Vol] 33.9 G/dL Normal 32.0-36.0 [facility] ([place]) Comment on above: Performed By: #### C BC, ADIFF, ANEU, LIP, CMP, GFR #### [place] [id number] MCV (RBC) [Entitic vol] 88.7 fL Normal 81.0-100.0 [facility] ([place]) Comment on above: Performed By: #### C BC, ADIFF, ANEU, LIP, CMP, GFR #### [place] [address] Platelet mean volume (Bld) [Entitic vol] 8.5 fL Normal 6.4-10.5 [facility] ([place]) Comment on above: Performed By: #### C BC, ADIFF, ANEU, LIP, CMP, GFR #### [place] [id number] Platelets (Bld) [#/Vol] 156 10 3/mcL Normal 150-450 [facility] ([place]) Comment on above: Performed By: #### C BC, ADIFF, ANEU, LIP, CMP, GFR #### [place] [address] RBC (Bld) [#/Vol] 4.87 10 6/mcL Normal 4.50-6.00 [facility] ([place]) Comment on above: Performed By: #### C BC, ADIFF, ANEU, LIP, CMP, GFR #### [place] [address] WBC (Bld) [#/Vol] 5.70 10 3/mcL Normal 4.50-10.80 [facility] ([place]) Comment on above: Performed By: #### C BC, ADIFF, ANEU, LIP, CMP, GFR #### [place] [address] CMPon 10-09-2019 Albumin/Globulin [Mass ratio] 0.9 {ratio} Normal 0.9-1.6 [facility] ([place]) Comment on above: Performed By: #### C BC, ADIFF, ANEU, LIP, CMP, GFR #### [place] [address] ALP [Catalytic activity/Vol] 75 U/L Normal 38-126 [facility] ([place]) Comment on above: Performed By: #### C BC, ADIFF, ANEU, LIP, CMP, GFR #### [place] [address] Bili Total 1.1 mg/dL Normal 0.2-1.2 [facility] ([place]) Comment on above: Performed By: #### C BC, ADIFF, ANEU, LIP, CMP, GFR #### [place] [address] Creatinine [Mass/Vol] 0.98 mg/dL Normal 0.60-1.40 [facility] ([place]) Comment on above: Performed By: #### C BC, ADIFF, ANEU, LIP, CMP, GFR #### [address] [address] Globulin (S) [Mass/Vol] 4.2 G/dL High 1.5-3.8 [facility] ([place]) Comment on above: Performed By: #### C BC, ADIFF, ANEU, LIP, CMP, GFR #### [address] [address] Protein [Mass/Vol] 7.9 G/dL Normal 6.0-8.5 [facility] ([place]) Comment on above: Performed By: #### C BC, ADIFF, ANEU, LIP, CMP, GFR #### [address] [address] Urea nitrogen/Creatinine [Mass ratio] 15.3 ratio Normal 10.0-22.0 [facility] ([place]) Comment on above: Performed By: #### C BC, ADIFF, ANEU, LIP, CMP, GFR #### [address] [address] Albumin [Mass/Vol] 3.7 G/dL Normal 3.2-4.8 [facility] ([place]) Comment on above: Performed By: #### C BC, ADIFF, ANEU, LIP, CMP, GFR #### [address] [address] ALT [Catalytic activity/Vol] 29 U/L Normal 12-55 [facility] ([place]) Comment on above: Performed By: #### C BC, ADIFF, ANEU, LIP, CMP, GFR #### [address] [address] AST [Catalytic activity/Vol] 15 U/L Normal 8-34 [facility] ([place]) Comment on above: Performed By: #### C BC, ADIFF, ANEU, LIP, CMP, GFR #### [address] [address] Calcium [Mass/Vol] 9.3 mg/dL Normal 8.4-10.1 [facility] ([place]) Comment on above: Performed By: #### C BC, ADIFF, ANEU, LIP, CMP, GFR #### [address] [address] Chloride [Moles/Vol] 103 mmol/L Normal 98-110 [facility] ([place]) Comment on above: Performed By: #### C BC, ADIFF, ANEU, LIP, CMP, GFR #### [address] [address] CO2 [Moles/Vol] 26 mmol/L Normal 22-32 [facility] ([place]) Comment on above: Performed By: #### C BC, ADIFF, ANEU, LIP, CMP, GFR #### [address] [address] Electrolyte Balance 7.0 mEq/L Normal 4.0-15.0 [facility] ([place]) Comment on above: Performed By: #### C BC, ADIFF, ANEU, LIP, CMP, GFR #### [address] [address] Glucose [Mass/Vol] 347 mg/dL High 82-115 [facility] ([place]) Comment on above: Performed By: #### C BC, ADIFF, ANEU, LIP, CMP, GFR #### [address] [address] Potassium [Moles/Vol] 4.0 mmol/L Normal 3.5-5.0 [facility] ([place]) Comment on above: Performed By: #### C BC, ADIFF, ANEU, LIP, CMP, GFR #### [address] [address] Sodium [Moles/Vol] 136 mmol/L Normal 136-145 [facility] ([place]) Comment on above: Performed By: #### C BC, ADIFF, ANEU, LIP, CMP, GFR #### [address] [address] Urea nitrogen [Mass/Vol] 15.0 mg/dL Normal 8.0-22.0 [facility] ([place]) Comment on above: Performed By: #### C BC, ADIFF, ANEU, LIP, CMP, GFR #### [place] [id number] [address] [place] [address] CT ABD/PELVIS W/ IV CONTRAST ONLYon 10-09-2019 CT ABD/PELVIS W/ IV CONTRAST ONLY ORIGINAL CT ABDOMEN/PELVIS with intravenous and without oral contrast Clinical Statement: abdominal pain, Comparison: CT 01/12/2004 TECHNIQUE:This exam was performed according to our departmental dose optimization program, and includes the following measures where applicable: automated exposure control, adjustment of the mAs and/or kVp according to patient size and/or exam, and an iterative reconstruction algorithm. FINDINGS: The gallbladder is surgically absent by history. There is a 3.8 cm benign-appearing cyst in the liver at the gallbladder fossa. No other liver lesions. Portal veins and bile ducts are unremarkable. The spleen, pancreas, adrenal glands are also normal. Kidneys show mild diffuse cortical thinning but no obstruction or solid mass. There is a punctate 2 to 3 mm calculus in the lower right kidney. Bilateral simple appearing renal cysts largest on the right is 2 cm and on the left is 5.8 cm. No ureteral dilatation or stone. Calcified nonaneurysmal aorta. There are no pathologically enlarged retroperitoneal lymph nodes, ascites or retroperitoneal hemorrhage. Haziness of the jejunal mesentery with subcentimeter soft tissue nodules and hypodense halo around the nodules and vessels is similar to the earlier study and consistent with mesenteric lipodystrophy. There is a small hiatal hernia. Stomach is otherwise grossly normal. No sign of bowel obstruction or perforation. No pericecal inflammation in the appendix is surgically absent by history. There is moderate diverticulosis of the sigmoid colon with some pericolonic stranding suggesting uncomplicated acute diverticulitis. No extraluminal fluid collection or other complication. The prostate is mildly enlarged. The bladder is unremarkable. No inguinal hernia or mass. No acute skeletal abnormality. Degenerative changes in the hips and lumbar spine. Included lung bases show no acute process. Right infrahilar calcifications and right lower lobe calcified lung nodule suggest previous healed granulomatous disease. IMPRESSION: There is mild uncomplicated sigmoid diverticulitis. No other acute findings. Other incidental findings including bilateral renal and liver cysts. Mesenteric lipodystrophy. Interpreted By: Tripp Ramirez MD Preliminary Report By: Tripp Ramirez MD Electronically Signed By: Tripp Ramirez MD Dictated Date: 10/09/2019 1:41:28 PM Prelim Date: 10/09/2019 1:41:28 PM Sign Date: 10/09/2019 1:45:40 PM Ordering Provider:Vandana Martinez [facility] [place] Jenny 10-09-2019 Lipase Level 191 U/L Normal [id number] [facility] ([place] Comment on above: Performed By: #### C BC, ADIFF, ANEU, LIP, CMP, GFR #### [place] [address] Vital Signs Date Time Vital Sign Value Performing Clinician Facility 02-05-2025 13:34-0400 Body height 175.3 cm Suzanna Broussard MD Work Phone: [facility] 02-05-2025 13:34-0400 Body mass index (BMI) [Ratio] 28.77 kg/m2 Suzanna Broussard MD Work Phone: [facility] 02-05-2025 13:34-0400 Body temperature 97.81 [degF] Suzanna Broussard MD Work Phone: [facility] 02-05-2025 13:34-0400 Body weight 88.36 kg Suzanna Broussard MD Work Phone: [facility] 02-05-2025 13:34-0400 Diastolic blood pressure 62 mm[Hg] Suzanna Broussard MD Work Phone: [facility] 02-05-2025 13:34-0400 Heart rate 55 /min Suzanna Broussard MD Work Phone: [facility] 02-05-2025 13:34-0400 Respiratory rate 20 /min Suzanna Broussard MD Work Phone: [facility] 02-05-2025 13:34-0400 SaO2% (BldA) [Mass fraction] 100 % Suzanna Broussard MD Work Phone: [facility] 02-05-2025 13:34-0400 Systolic blood pressure 136 mm[Hg] Suzanna Brousasrd MD Work Phone: [facility] 11-18-2024 15:57-0500 Body mass index (BMI) [Ratio] 28.42 kg/m2 Genie Tannhof EVENTS SOLUTIONS CONSULTANT.FI[employer] SPRINKLER INSTALLER Work Phone: [facility] 11-18-2024 15:57-0500 Body weight 87.3 kg Genie Tannhof EVENTS SOLUTIONS CONSULTANT.FIRE SPRINKLER INSTALLER Work Phone: [facility] 11-18-2024 15:57-0500 Diastolic blood pressure 64 mm[Hg] Genie Tannhof EVENTS SOLUTIONS CONSULTANT.FI[employer] SPRINKLER INSTALLER Work Phone: [facility] 11-18-2024 15:57-0500 Heart rate 66 /min Genie Tannhof EVENTS SOLUTIONS CONSULTANT.FIRE SPRINKLER INSTALLER Work Phone: [facility] 11-18-2024 15:57-0500 Respiratory rate 16 /min Genie Tannhof EVENTS SOLUTIONS CONSULTANT.FI[employer] SPRINKLER INSTALLER Work Phone: [facility] 11-18-2024 15:57-0500 SaO2% (BldA) [Mass fraction] 95 % Genie Tannhof EVENTS SOLUTIONS CONSULTANT.FIRE SPRINKLER INSTALLER Work Phone: [facility] 11-18-2024 15:57-0500 Systolic blood pressure 116 mm[Hg] Genie Tannhof EVENTS SOLUTIONS CONSULTANT.FI[employer] SPRINKLER INSTALLER Work Phone: [facility] 08-12-2024 08:27-0400 Body mass index (BMI) [Ratio] 28.06 kg/m2 Genie Tannhof EVENTS SOLUTIONS CONSULTANT.FI[employer] SPRINKLER INSTALLER Work Phone: [facility] 08-12-2024 08:27-0400 Body weight 86.18 kg Genie Tannhof EVENTS SOLUTIONS CONSULTANT.FI[employer] SPRINKLER INSTALLER Work Phone: [facility] 08-12-2024 08:27-0400 Diastolic blood pressure 70 mm[Hg] Genie Tannhof EVENTS SOLUTIONS CONSULTANT.FI[employer] SPRINKLER INSTALLER Work Phone: [facility] 08-12-2024 08:27-0400 Heart rate 72 /min Genie Tannhof EVENTS SOLUTIONS CONSULTANT.FIRE SPRINKLER INSTALLER Work Phone: [facility] 08-12-2024 08:27-0400 Respiratory rate 16 /min Genie Guevarapaul EVENTS SOLUTIONS CONSULTANT.FI[employer] SPRINKLER INSTALLER Work Phone: [facility] 08-12-2024 08:27-0400 SaO2% (BldA) [Mass fraction] 99 % Genie Moore EVENTS SOLUTIONS CONSULTANT.FIRE SPRINKLER INSTALLER Work Phone: [facility] 08-12-2024 08:27-0400 Systolic blood pressure 130 mm[Hg] Genie Teresa EVENTS SOLUTIONS CONSULTANT.FI[employer] SPRINKLER INSTALLER Work Phone: [facility] 08-07-2024 14:03-0400 Body height 175.3 cm Suzanna Broussard MD Work Phone: [facility] 08-07-2024 14:03-0400 Body mass index (BMI) [Ratio] 28.06 kg/m2 Suzanna Broussard MD Work Phone: [facility] 08-07-2024 14:03-0400 Body temperature 97.59 [degF] Suzanna Broussard MD Work Phone: [facility] 08-07-2024 14:03-0400 Body weight 86.18 kg Suzanna Broussard MD Work Phone: [facility] 08-07-2024 14:03-0400 Diastolic blood pressure 70 mm[Hg] Suzanna Broussard MD Work Phone: [facility] 08-07-2024 14:03-0400 Heart rate 57 /min Suzanna Broussard MD Work Phone: [facility] 08-07-2024 14:03-0400 Respiratory rate 16 /min Suzanna Broussard MD Work Phone: [facility] 08-07-2024 14:03-0400 SaO2% (BldA) [Mass fraction] 98 % Suzanna Broussard MD Work Phone: [facility] 08-07-2024 14:03-0400 Systolic blood pressure 150 mm[Hg] Suzanna Broussard MD Work Phone: [facility] 01-08-2024 15:27-0400 Body mass index (BMI) [Ratio] 28.94 kg/m2 Suzanna Broussard MD Work Phone: [facility] 01-08-2024 15:27-0400 Body temperature 97.2 [degF] Suzanna Broussard MD Work Phone: [facility] 01-08-2024 15:27-0400 Body weight 88.91 kg Suzanna Broussard MD Work Phone: [facility] 01-08-2024 15:27-0400 Diastolic blood pressure 70 mm[Hg] Suzanna Broussard MD Work Phone: [facility] 01-08-2024 15:27-0400 Heart rate 55 /min Suzanna Broussard MD Work Phone: [facility] 01-08-2024 15:27-0400 Respiratory rate 18 /min Suzanna Broussard MD Work Phone: [facility] 01-08-2024 15:27-0400 SaO2% (BldA) [Mass fraction] 98 % Suzanna Broussard MD Work Phone: [facility] 01-08-2024 15:27-0400 Systolic blood pressure 164 mm[Hg] Suzanna Broussard MD Work Phone: [facility] 12-26-2023 15:50-0500 Body weight 87.27 kg Alisha Gee MD Work Phone: [facility] 12-26-2023 15:50-0500 Diastolic blood pressure 80 mm[Hg] Alisha Gee MD Work Phone: [facility] 12-26-2023 15:50-0500 Heart rate 72 /min Alisha Gee MD Work Phone: [facility] 12-26-2023 15:50-0500 Respiratory rate 18 /min Alisha Gee MD Work Phone: [facility] 12-26-2023 15:50-0500 Systolic blood pressure 132 mm[Hg] Alisha Gee MD Work Phone: [facility] 11-21-2023 10:02-0500 Body temperature 99.81 [degF] Lucia Pierce APRN.FIRE SPRINKLER INSTALLER Work Phone: [facility] 11-21-2023 10:02-0500 Body weight 88 kg Lucia Pierce APRN.FIRE SPRINKLER INSTALLER Work Phone: [facility] 11-21-2023 10:02-0500 Diastolic blood pressure 80 mm[Hg] Lucia Pierce APRN.FIRE SPRINKLER INSTALLER Work Phone: [facility] 11-21-2023 10:02-0500 Heart rate 96 /min Lucia Pierce APRN.FIRE SPRINKLER INSTALLER Work Phone: [facility] 11-21-2023 10:02-0500 Respiratory rate 20 /min Lucia Pierce APRN.FIRE SPRINKLER INSTALLER Work Phone: [facility] 11-21-2023 10:02-0500 SaO2% (BldA) [Mass fraction] 97 % Lucia Pierce APRN.FI[employer] SPRINKLER INSTALLER Work Phone: [facility] 11-21-2023 10:02-0500 Systolic blood pressure 133 mm[Hg] Lucia Pierce APRN.FI[employer] SPRINKLER INSTALLER Work Phone: [facility] 06-20-2023 16:16-0400 Body weight 88.27 kg Alisha Gee MD Work Phone: [facility] 06-20-2023 16:16-0400 Diastolic blood pressure 64 mm[Hg] Alisha Gee MD Work Phone: [facility] 06-20-2023 16:16-0400 Heart rate 60 /min Alisha Gee MD Work Phone: [facility] 06-20-2023 16:16-0400 Respiratory rate 16 /min Alisha Gee MD Work Phone: [facility] 06-20-2023 16:16-0400 Systolic blood pressure 118 mm[Hg] Alisha Gee MD Work Phone: [facility] 02-07-2023 15:28-0400 Body weight 89.54 kg Alisha Gee MD Work Phone: [facility] 02-07-2023 15:28-0400 Diastolic blood pressure 64 mm[Hg] Alisha Gee MD Work Phone: [facility] 02-07-2023 15:28-0400 Heart rate 72 /min Alisha Gee MD Work Phone: [facility] 02-07-2023 15:28-0400 Respiratory rate 16 /min Alisha Gee MD Work Phone: [facility] 02-07-2023 15:28-0400 Systolic blood pressure 122 mm[Hg] Alisha Gee MD Work Phone: [facility] 01-25-2023 12:44-0400 Diastolic blood pressure 68 mm[Hg] Kim Lyman EVENTS SOLUTIONS CONSULTANT-FI[employer] SPRINKLER INSTALLER Work Phone: [facility] 01-25-2023 12:44-0400 Heart rate 53 /min Kim Lyman EVENTS SOLUTIONS CONSULTANT-FIRE SPRINKLER INSTALLER Work Phone: [facility] 01-25-2023 12:44-0400 Systolic blood pressure 149 mm[Hg] Kim Lyman EVENTS SOLUTIONS CONSULTANT-FI[employer] SPRINKLER INSTALLER Work Phone: [facility] 01-25-2023 12:31-0400 Body height 175.3 cm Kim Foster EVENTS SOLUTIONS CONSULTANT-FI[employer] SPRINKLER INSTALLER Work Phone: [facility] 01-25-2023 12:31-0400 Body mass index (BMI) [Ratio] 29.53 kg/m2 Kim Judd EVENTS SOLUTIONS CONSULTANT-FI[employer] SPRINKLER INSTALLER Work Phone: [facility] 01-25-2023 12:31-0400 Body temperature 98.2 [degF] Kim Judd EVENTS SOLUTIONS CONSULTANT-FIRE SPRINKLER INSTALLER Work Phone: [facility] 01-25-2023 12:31-0400 Body weight 90.72 kg Kim Lyman EVENTS SOLUTIONS CONSULTANT-FIRE SPRINKLER INSTALLER Work Phone: [facility] 01-25-2023 12:31-0400 SaO2% (BldA) [Mass fraction] 98 % Kim Lyman EVENTS SOLUTIONS CONSULTANT-FIRE SPRINKLER INSTALLER Work Phone: [facility] 10-24-2022 11:39-0500 Body weight 88 kg Geniecheryl Guevarahof EVENTS SOLUTIONS CONSULTANT.FIRE SPRINKLER INSTALLER Work Phone: [facility] 10-24-2022 11:39-0500 Diastolic blood pressure 66 mm[Hg] Genie Tannhof EVENTS SOLUTIONS CONSULTANT.FIRE SPRINKLER INSTALLER Work Phone: [facility] 10-24-2022 11:39-0500 Heart rate 62 /min Genie Tannhof EVENTS SOLUTIONS CONSULTANT.FIRE SPRINKLER INSTALLER Work Phone: [facility] 10-24-2022 11:39-0500 Respiratory rate 16 /min Genie Tannhof EVENTS SOLUTIONS CONSULTANT.FIRE SPRINKLER INSTALLER Work Phone: [facility] 10-24-2022 11:39-0500 SaO2% (BldA) [Mass fraction] 99 % Genie Paolahof EVENTS SOLUTIONS CONSULTANT.FIRE SPRINKLER INSTALLER Work Phone: [facility] 10-24-2022 11:39-0500 Systolic blood pressure 116 mm[Hg] Genie Tannhof EVENTS SOLUTIONS CONSULTANT.FIRE SPRINKLER INSTALLER Work Phone: [facility] 09-27-2022 15:47-0500 Body weight 87.82 kg Alisha Gee MD Work Phone: [facility] 09-27-2022 15:47-0500 Diastolic blood pressure 68 mm[Hg] Alisha Gee MD Work Phone: [facility] 09-27-2022 15:47-0500 Heart rate 62 /min Alisha Gee MD Work Phone: [facility] 09-27-2022 15:47-0500 Respiratory rate 16 /min Alisha Gee MD Work Phone: [facility] 09-27-2022 15:47-0500 Systolic blood pressure 120 mm[Hg] Alisha Gee MD Work Phone: [facility] 05-11-2022 10:04-0400 Body temperature 97.3 [degF] Gloria Praisler-Wood EVENTS SOLUTIONS CONSULTANT.FIRE SPRINKLER INSTALLER Work Phone: [facility] 05-11-2022 10:04-0400 Body weight 85.82 kg Gloria Praisler-Wood EVENTS SOLUTIONS CONSULTANT.FIRE SPRINKLER INSTALLER Work Phone: [facility] 05-11-2022 10:04-0400 Diastolic blood pressure 70 mm[Hg] Gloria Praisler-Wood EVENTS SOLUTIONS CONSULTANT.FI[employer] SPRINKLER INSTALLER Work Phone: [facility] 05-11-2022 10:04-0400 Heart rate 69 /min Gloria Praisler-Wood EVENTS SOLUTIONS CONSULTANT.FIRE SPRINKLER INSTALLER Work Phone: [facility] 05-11-2022 10:04-0400 Respiratory rate 20 /min Gloria Praisler-Wood EVENTS SOLUTIONS CONSULTANT.FI[employer] SPRINKLER INSTALLER Work Phone: [facility] 05-11-2022 10:04-0400 SaO2% (BldA) [Mass fraction] 96 % Gloria Praisler-Wood EVENTS SOLUTIONS CONSULTANT.FIRE SPRINKLER INSTALLER Work Phone: [facility] 05-11-2022 10:04-0400 Systolic blood pressure 138 mm[Hg] Gloria Praisler-Wood EVENTS SOLUTIONS CONSULTANT.FIRE SPRINKLER INSTALLER Work Phone: [facility] 03-02-2022 14:00-0400 Body height 177.8 cm Suzanna Broussard MD Work Phone: [facility] 03-02-2022 14:00-0400 Body mass index (BMI) [Ratio] 28.74 kg/m2 Suzanna Broussard MD Work Phone: [facility] 03-02-2022 14:00-0400 Body temperature 98.6 [degF] Suzanna Broussard MD Work Phone: [facility] 03-02-2022 14:00-0400 Body weight 90.86 kg Suzanna Broussard MD Work Phone: [facility] 03-02-2022 14:00-0400 Diastolic blood pressure 64 mm[Hg] Suzanna Broussard MD Work Phone: [facility] 03-02-2022 14:00-0400 Heart rate 54 /min Suzanna Broussard MD Work Phone: [facility] 03-02-2022 14:00-0400 Respiratory rate 16 /min Suzanna Broussard MD Work Phone: [facility] 03-02-2022 14:00-0400 SaO2% (BldA) [Mass fraction] 96 % Suzanna Broussard MD Work Phone: [facility] 03-02-2022 14:00-0400 Systolic blood pressure 121 mm[Hg] Suzanna Broussard MD Work Phone: [facility] 01-31-2022 14:06-0400 Body weight 91.67 kg Alisha Gee MD Work Phone: [facility] 01-31-2022 14:06-0400 Diastolic blood pressure 64 mm[Hg] Alisha Gee MD Work Phone: [facility] 01-31-2022 14:06-0400 Heart rate 60 /min Alisha Gee MD Work Phone: [facility] 01-31-2022 14:06-0400 Respiratory rate 16 /min Alisha Gee MD Work Phone: [facility] 01-31-2022 14:06-0400 Systolic blood pressure 110 mm[Hg] Alisha Gee MD Work Phone: [facility] 01-23-2022 16:45-0400 Body height 175.[address] Alisha Gee Work Phone: [facility] Work Phone: 01-23-2022 16:45-0400 Body mass index (BMI) [Ratio] 29.5 kg/m2 Dr. Alisha Gee Work Phone: [facility] Work Phone: 01-23-2022 16:45-0400 Body temperature 97.4 [degF] Dr. Alisha Gee Work Phone: [facility] Work Phone: 01-23-2022 16:45-0400 Body weight 90.[address] Alisha Gee Work Phone: [facility] Work Phone: 01-23-2022 16:45-0400 Diastolic blood pressure 71 mm[Hg] Dr. Alisha Gee Work Phone: [facility] Work Phone: 01-23-2022 16:45-0400 Heart rate 63 /min Dr. Alisha Gee Work Phone: [facility] Work Phone: 01-23-2022 16:45-0400 Respiratory rate 14 /min Dr. Alisha Gee Work Phone: [facility] Work Phone: 01-23-2022 16:45-0400 SaO2% (BldA) [Mass fraction] 97 % Dr. Alisha Gee Work Phone: [facility] Work Phone: 01-23-2022 16:45-0400 Systolic blood pressure 144 mm[Hg] Dr. Alisha Gee Work Phone: [facility] Work Phone: 10-10-2021 12:08-0500 Body mass index (BMI) [Ratio] 28.5 kg/m2 Dr. Alisha Gee Work Phone: [facility] Work Phone: 10-10-2021 12:08-0500 Body weight 90.[address] Alisha Gee Work Phone: [facility] Work Phone: 10-10-2021 12:08-0500 Diastolic blood pressure 68 mm[Hg] Dr. Alisha Gee Work Phone: [facility] Work Phone: 10-10-2021 12:08-0500 Heart rate 64 /min Dr. Alisha Gee Work Phone: [facility] Work Phone: 10-10-2021 12:08-0500 Respiratory rate 16 /min Dr. Alisha Gee Work Phone: [facility] Work Phone: 10-10-2021 12:08-0500 Systolic blood pressure 136 mm[Hg] Dr. 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) Start: 02-05-2025 ambulatory ALISHA Addison ity:SEBAS Start: 02-05-2025 End: 02-05-2025 Subsequent hospital visit by physician Kim Lyman APRN-FIRE SPRINKLER INSTALLER Work Phone: Imaging at [facility] Comment on above: Arrived Start: 11-18-2024 End: 11-18-2024 Office outpatient visit 25 minutes Genie Moore APRN.FIRE SPRINKLER INSTALLER Work Phone: [facility] [place] Comment on above: Type 2 diabetes renuka itus with diabetic neuropathy, without long-term current use of insulin (HCC) (Primary Dx); Hypertension, unspecified type; Hyperlipidemia, unspecified hyperlipidemia type; Coronary artery disease involving elem coronary artery of elem heart without angina pectoris; Gastroesophageal reflux disease, unspecified whether esophagitis present; Gout, unspecified cause, unspecified chronicity, unspecified site; Vitamin D deficiency; Kidney stones; Follicular lymphoma, unspecified follicular lymphoma type, unspecified body region (HCC) Start: 11-18-2024 End: 11-18-2024 ambulatory ALISHA GEE Facility:[facility] Start: 09-28-2024 ambulatory Jacqueline Cheema [facility] [facility] Start: 09-28-2024 End: 09-28-2024 ambulatory [facility] Facility:[facility] Start: 09-24-2024 End: 09-24-2024 Refill Alisha Gee MD Work Phone: [facility] [place] Comment on above: Refill Request Start: 08-27-2024 End: 08-28-2024 Telephone encounter Genie Moore APRN.CNP Work Phone: [facility] [place] Comment on above: Results (Labs ) Start: 08-24-2024 End: 08-24-2024 ambulatory [facility] Facility[facility] Start: 08-12-2024 End: 08-12-2024 Patient encounter procedure Genie Moore APRN.CNP Work Phone: [facility] Comment on above: Type 2 diabetes renuka itus without complication, without long- term current use of insulin (HCC) (Primary Dx); Function kidney decreased Start: 08-12-2024 End: 08-12-2024 ambulatory GENIE MOORE Facility:[facility] Start: 08-07-2024 End: 08-07-2024 Office outpatient visit 25 minutes Suzanna Broussard MD Work Phone: Division of Hematology & Oncology at [facility] Comment on above: Stage 3 chronic kidn ey disease, unspecified whether stage 3a or 3b CKD (Primary Dx); 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 Start: 08-07-2024 ambulatory ALISHA Addison ity:SEBAS Start: 06-18-2024 End: 06-23-2024 Telephone encounter Alisha Gee MD Work Phone: [facility] Comment on above: Letter (For diabetic shoes) Start: 06-18-2024 End: 06-18-2024 ambulatory SHWETA MOREL Facility:[facility] Start: 06-18-2024 End: 06-18-2024 Patient encounter procedure Shweta Morel Work Phone: Podiatry Comment on above: Well controlled type 2 diabetes mellitus with neurological manifestations (HCC) (Primary Dx); Diminished pulses in lower extremity; Hallux valgus of left foot; Hallux valgus of right foot Start: 05-14-2024 Telephone encounter Alisha simon MD Work Phone: [facility] [place] Comment on above: Forms Start: 03-24-2024 Refill Alisha fuentes MD Work Phone: [facility] Comment on above: Refill Request Start: 01-08-2024 End: 01-08-2024 Office outpatient visit 25 minutes Suzanna Broussard MD Work Phone: Division of Hematology & Oncology at [facility] Comment on above: Grade 1 follicular l ymphoma of lymph nodes of multiple regions (Primary Dx) Start: 01-08-2024 Telephone encounter Alisha simon MD Work Phone: [facility] Comment on above: Fax copy lab results to OR Start: 01-08-2024 End: 01-08-2024 Subsequent hospital visit by physician Kim LEMUS Work Phone: [facility] Comment on above: Arrived Start: 12-26-2023 End: 12-26-2023 Patient encounter procedure lAisha Gee MD Work Phone: [facility] [place] Comment on above: Type 2 diabetes renuka itus without complication, without long- term current use of insulin (HCC) (Primary Dx); Hypertension, unspecified type; Hyperlipidemia, unspecified hyperlipidemia type; Coronary artery disease involving elem coronary artery of elem heart without angina pectoris; Gastroesophageal reflux disease, unspecified whether esophagitis present; Gout, unspecified cause, unspecified chronicity, unspecified site; Kidney stones; Follicular lymphoma, unspecified follicular lymphoma type, unspecified body region ([facility]); Vitamin D deficiency; Diarrhea, unspecified type; Bruising; Screening for prostate cancer; Benign prostatic hyperplasia, unspecified whether lower urinary tract symptoms present; Type 2 diabetes mellitus with diabetic neuropathy, without long-term current use of insulin ([facility]); PAD (peripheral artery disease) ([facility]); 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 ([facility]) Start: 12-19-2023 Telephone encounter Alisha simon MD Work Phone: [facility] [place] Comment on above: Lab Orders Start: 11-29-2023 Telephone encounter Alisha simon MD Work Phone: [facility] [place] Comment on above: Forms ([facility] Pharmacy r e: DM supplies) Start: 11-21-2023 Telephone encounter Lucia Pierce APRN.FI[employer] SPRINKLER INSTALLER Work Phone: [facility] Comment on above: Orders; Results Start: 11-21-2023 End: 11-21-2023 Subsequent hospital visit by physician Francis [facility] [place] Work Phone: Radiology Comment on above: Acute cough [R05.1] Start: 11-21-2023 End: 11-21-2023 Patient encounter procedure Lucia Pierce APRN.FI[employer] SPRINKLER INSTALLER Work Phone: [facility] Comment on above: Acute cough (Primary Dx); URI, acute Start: 08-02-2023 End: 08-02-2023 Subsequent hospital visit by physician Kim Lyman APRN-FI[employer] SPRINKLER INSTALLER Work Phone: Department of Radiology Comment on above: Canceled (Personal A ppointment Conflict) Start: 08-01-2023 Telephone encounter Alisha simon MD Work Phone: [facility] [place] Comment on above: Forms Start: 06-20-2023 End: 06-20-2023 Patient encounter procedure Alisha Gee MD Work Phone: [facility] [place] Comment on above: Type 2 diabetes renuka itus with diabetic neuropathy, without long-term current use of insulin (HCC) (Primary Dx); Hypertension, unspecified type; Hyperlipidemia, unspecified hyperlipidemia type; Coronary artery disease involving elem coronary artery of elem heart without angina pectoris; Gastroesophageal reflux disease, unspecified whether esophagitis present; Gout, unspecified cause, unspecified chronicity, unspecified site; Follicular lymphoma, unspecified follicular lymphoma type, unspecified body region (HCC); Kidney stones; Benign prostatic hyperplasia, unspecified whether lower urinary tract symptoms present; Vitamin D deficiency; PAD (peripheral artery disease) (HCC); 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) Start: 06-12-2023 End: 06-12-2023 Patient encounter procedure Shweta Wolfealexsandra Work Phone: Podiatry Comment on above: Well controlled type 2 diabetes mellitus with neurological manifestations (HCC) (Primary Dx); Hallux valgus of left foot; Hallux valgus of right foot Start: 03-26-2023 Refill Alisha fuentes MD Work Phone: [facility] [place] Comment on above: Refill Request Start: 02-07-2023 End: 02-07-2023 Patient encounter procedure Alisha Gee MD Work Phone: [facility] Comment on above: Type 2 diabetes renuka itus with hyperglycemia, without long-term current use of insulin (HCC) (Primary Dx); Hypertension, unspecified type; Hyperlipidemia, unspecified hyperlipidemia type; Coronary artery disease involving elem coronary artery of elem heart without angina pectoris; Gastroesophageal reflux disease, unspecified whether esophagitis present; Kidney stones; Vitamin D deficiency; Follicular lymphoma, unspecified follicular lymphoma type, unspecified body region (HCC) Start: 02-04-2023 Telephone encounter Alisha simon MD Work Phone: [facility] [place] Comment on above: Orders Start: 01-25-2023 End: 01-25-2023 Office outpatient visit 15 minutes Suzanna Broussard MD Work Phone: Division of Hematology & Oncology Comment on above: Grade 1 follicular l ymphoma of lymph nodes of multiple regions Start: 10-24-2022 End: 10-24-2022 Subsequent hospital visit by physician [facility] Work Phone: Radiology Comment on above: Right flank pain [R1 0.9] Start: 10-24-2022 End: 10-24-2022 Patient encounter procedure Genie Moore APRN.FIRE SPRINKLER INSTALLER Work Phone: [facility] [place] Comment on above: Right flank pain (Pr imary Dx) Start: 09-27-2022 End: 09-27-2022 Patient encounter procedure Alisha Gee MD Work Phone: [facility] [place] Comment on above: Type 2 diabetes renuka itus with hyperglycemia, without long-term current use of insulin (HCC) (Primary Dx); Coronary artery disease involving elem coronary artery of elem heart without angina pectoris; Hyperlipidemia, unspecified hyperlipidemia type; Hypertension, unspecified type; Gastroesophageal reflux disease, unspecified whether esophagitis present; Gout, unspecified cause, unspecified chronicity, unspecified site; Osteoarthritis of both knees, unspecified osteoarthritis type Start: 05-29-2022 Telephone encounter Alisha simon MD Work Phone: [facility] [place] Comment on above: Forms ([facility] Supp[facility]) Start: 05-14-2022 Telephone encounter Alisha simon MD Work Phone: [facility] [place] Comment on above: Forms Start: 05-11-2022 End: 05-11-2022 Subsequent hospital visit by physician [facility] [place] Work Phone: Radiology Comment on above: Fatigue, unspecified type [R53.83] Start: 05-11-2022 End: 05-11-2022 Patient encounter procedure Gloria Dennis APRN.FIRE SPRINKLER INSTALLER Work Phone: [place] [facility] Comment on above: Sore throat (Primary Dx); Fatigue, unspecified type; Suspected COVID-19 virus infection Start: 05-04-2022 End: 05-04-2022 Patient encounter procedure Shweta Morel Work Phone: Podiatry Comment on above: Well controlled type 2 diabetes mellitus with neurological manifestations (HCC) (Primary Dx); Onychomycosis; Pain in toe of left foot; Pain in toe of right foot; PAD (peripheral artery disease) (HCC) Start: 03-02-2022 End: 03-02-2022 Office outpatient visit 25 minutes Suzanna Broussard MD Work Phone: Division of Hematology & Oncology Comment on above: Grade 1 follicular l ymphoma of lymph nodes of multiple regions Start: 03-02-2022 End: 03-02-2022 Subsequent hospital visit by physician Kim Lyman EVENTS SOLUTIONS CONSULTANT-FIRE SPRINKLER INSTALLER Work Phone: [facility] Comment on above: Arrived Start: 01-31-2022 End: 01-31-2022 Patient encounter procedure Alisha Gee MD Work Phone: 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 Comment on above: Results Start: 01-25-2022 Orders Only Alisha fuentes MD Work Phone: [facility] Comment on above: Hypertension, unspec ified type (Primary Dx) Start: 01-23-2022 End: 01-23-2022 Emergency department patient visit Dr. Alisha Gee Work Phone: [facility] Start: 10-10-2021 End: 10-10-[address] Alisha Gee Work Phone: [facility] [facility] Start: 08-18-2020 End: 08-18-2020 Subsequent hospital visit by physician [facility] [place] Work Phone: Radiology Comment on above: Jaw pain [R68.84] Start: 09-23-2018 End: 09-23-2018 Patient encounter procedure Other Other NOTES/RESULTS Start: 09-05-2018 End: 09-05-2018 Patient encounter Other Other NOTES/RESULTS Procedures Date Procedure Procedure Detail Performing Clinician Start: 08-12-2024 Urnls dip stick/tabl et rgnt auto w/o microscopy Genie Moore EVENTS SOLUTIONS CONSULTANT.FIRE SPRINKLER INSTALLER Work Phone: Start: 08-07-2024 CBC AND ELECTRONIC DIFF Sophia R Campolo EVENTS SOLUTIONS CONSULTANT-FIRE SPRINKLER INSTALLER Work Phone: Start: 08-07-2024 Complete blood count with white cell differential, automated Sophia R Campolo EVENTS SOLUTIONS CONSULTANT-FIRE SPRINKLER INSTALLER Work Phone: Start: 08-07-2024 Comprehensive metabo lic panel Sophia R Campolo EVENTS SOLUTIONS CONSULTANT-FIRE SPRINKLER INSTALLER Work Phone: Start: 01-08-2024 CBC AND ELECTRONIC DIFF Sophia R Campolo EVENTS SOLUTIONS CONSULTANT-FIRE SPRINKLER INSTALLER Work Phone: Start: 01-08-2024 Complete blood count with white cell differential, automated Sophia R Campolo EVENTS SOLUTIONS CONSULTANT-FIRE SPRINKLER INSTALLER Work Phone: Start: 01-08-2024 Comprehensive metabo lic panel Sophia R Campolo EVENTS SOLUTIONS CONSULTANT-FIRE SPRINKLER INSTALLER Work Phone: Start: 11-21-2023 Radiologic exam ches t 2 views Lucia Pierce APRN.FIRE SPRINKLER INSTALLER Work Phone: Start: 11-21-2023 COVID & INFLUENZA A/ B & RSV NAAT, ROUTINE Lucia Pierce APRN.FIRE SPRINKLER INSTALLER Work Phone: Start: 01-25-2023 CBC AND ELECTRONIC DIFF Sophia R Campolo EVENTS SOLUTIONS CONSULTANT-FIRE SPRINKLER INSTALLER Work Phone: Start: 01-25-2023 Complete blood count with white cell differential, automated Sophia R Campolo EVENTS SOLUTIONS CONSULTANT-FIRE SPRINKLER INSTALLER Work Phone: Start: 01-25-2023 Comprehensive metabo lic panel Sophia R Campolo EVENTS SOLUTIONS CONSULTANT-FIRE SPRINKLER INSTALLER Work Phone: Start: 10-24-2022 Us retroperitoneal r eal time w/image complete Genie Moore EVENTS SOLUTIONS CONSULTANT.FIRE SPRINKLER INSTALLER Work Phone: Start: 05-11-2022 Radiologic exam ches t 2 views Gloria Jeannie EVENTS SOLUTIONS CONSULTANT.FIRE SPRINKLER INSTALLER Work Phone: Start: 05-11-2022 STREP A MOLECULAR (POC) Gloria EcheverriaHelen EVENTS SOLUTIONS CONSULTANT.FIRE SPRINKLER INSTALLER Work Phone: Start: 03-02-2022 CBC AND ELECTRONIC DIFF Sophia Fontanez Reagan EVENTS SOLUTIONS CONSULTANT-FIRE SPRINKLER INSTALLER Work Phone: Start: 03-02-2022 Complete blood count with white cell differential, automated Sophia Huseyin Kirk EVENTS SOLUTIONS CONSULTANT-FIRE SPRINKLER INSTALLER Work Phone: Start: 03-02-2022 Comprehensive metabo lic panel Sophia Huseyin Kirk EVENTS SOLUTIONS CONSULTANT-FIRE SPRINKLER INSTALLER Work Phone: Start: 03-02-2022 Ct thorax w/o contra st material Kim Lyman EVENTS SOLUTIONS CONSULTANT-FIRE SPRINKLER INSTALLER Work Phone: Start: 01-31-2022 Adult depression scr eening assessment Alisha Gee MD Work Phone: Start: 08-18-2020 Radex temporomandble jt opn & clsd mouth bilat Nancy Cheney PA-C Work Phone: Start: 12-03-2018 Adult depression scr eening assessment Alisha Gee MD Work Phone: Start: 09-23-2018 End: 09-23-2018 CT (OUTSIDE) Other Other Plan of Treatment Date Care Activity Detail Author Start: 08-13-2025 End: 08-13-2025 Patient encounter procedure 08/13/2025 2:00 PM EDT Office Visit Division of Hematology & Oncology at [facility] [address] [place] [address] Suzanna Broussard MD [address] [place] [address] Division of Hematology & Oncology at [facility] Start: 06-24-2025 End: 06-24-2025 Patient encounter procedure Podiatry Comment on above: 1 year follow up Start: 06-21-2025 Influenza vaccination INFLUENZ A VACCINE (Season Ended) [facility] Start: 06-18-2025 Diabetic foot examination Diabetic Foot Exam [facility] Start: 05-20-2025 End: 05-20-2025 Patient encounter procedure 05/20/2025 2:40 PM EDT Office Visit [facility] [place] [address] [place] [address] Genie Moore APRN.FIRE SPRINKLER INSTALLER [address] [place] [address] Medicare wellness [facility] [place] Comment on above: Medicare wellness Start: 05-20-2025 End: 05-20-2025 Patient encounter procedure 05/20/2025 1:20 PM EDT Office Visit [facility] [place] [address] [place] [address] Alisha Gee MD [address] [place] [address] Medicare wellness [facility] [place] Comment on above: Medicare wellness Start: 02-23-2025 End: 05-25-2025 25-hydroxyvitamin D3 [Mass/volume] in Serum or Plasma VITAMIN D 25 HYDROXY Lab Routine Vitamin D deficiency Expected: 02/23/2025 (Approximate), Expires: 05/25/2025 [facility] Comment on above: Expected: 02/23/2025 (Approximate), Expires: 05/25/2025 Start: 02-23-2025 End: 05-25-2025 CBC W Auto Differential panel - Blood COMPLETE BLOOD COUNT AND DIFFERENTIAL Lab Routine Hypertension, unspecified type Expected: 02/23/2025 (Approximate), Expires: 05/25/2025 [facility] Comment on above: Expected: 02/23/2025 (Approximate), Expires: 05/25/2025 Start: 02-23-2025 End: 05-25-2025 Comprehensive metabolic 2000 panel - Serum or Plasma COMPREHENSIVE METABOLIC PANEL Lab Routine Hypertension, unspecified type Mixed hyperlipidemia Type 2 diabetes mellitus with diabetic peripheral angiopathy without gangrene, without long-term current use of insulin (HCC) Expected: 02/23/2025 (Approximate), Expires: 05/25/2025 [facility] Comment on above: Expected: 02/23/2025 (Approximate), Expires: 05/25/2025 Start: 02-23-2025 End: 05-25-2025 Hemoglobin A1c in Blood HEMOGLOBIN A1C Lab Routine Type 2 diabetes mellitus with diabetic peripheral angiopathy without gangrene, without long-term current use of insulin (HCC) Expected: 02/23/2025 (Approximate), Expires: 05/25/2025 [facility] Comment on above: Expected: 02/23/2025 (Approximate), Expires: 05/25/2025 Start: 02-23-2025 End: 05-25-2025 Lipid 1996 panel - Serum or Plasma LIPID PANEL, FASTING Lab Routine Hypertension, unspecified type Mixed hyperlipidemia Type 2 diabetes mellitus with diabetic peripheral angiopathy without gangrene, without long-term current use of insulin (HCC) Expected: 02/23/2025 (Approximate), Expires: 05/25/2025 [facility] Work Phone: Comment on above: Expected: 02/23/2025 (Approximate), Expires: 05/25/2025 Start: 02-23-2025 End: 05-25-2025 Microalbumin/Creatinine [Mass Ratio] in Urine ALBUMIN/CREATININE RATIO, URINE Lab Routine Type 2 diabetes mellitus with diabetic peripheral angiopathy without gangrene, without long-term current use of insulin (HCC) Expected: 02/23/2025 (Approximate), Expires: 05/25/2025 [facility] Comment on above: Expected: 02/23/2025 (Approximate), Expires: 05/25/2025 Start: 02-23-2025 End: 05-25-2025 Urate [Mass/volume] in Serum or Plasma URIC ACID Lab Routine Gout, unspecified cause, unspecified chronicity, unspecified site Expected: 02/23/2025 (Approximate), Expires: 05/25/2025 [facility] Comment on above: Expected: 02/23/2025 (Approximate), Expires: 05/25/2025 Start: 02-05-2025 End: 02-05-2025 Patient encounter procedure 02/05/2025 2:40 PM EDT Office Visit Division of Hematology & Oncology at [facility] [address] [place] [address] Suzanna Broussard MD [address] [place] [address] Division of Hematology & Oncology at [facility] Start: 02-05-2025 End: 08-07-2025 CT Abdomen and Pelvis W contrast IV CT ABDOMEN/PELVIS WITH CONTRAST Imaging Routine 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 Expected: 02/05/2025, Expires: 08/07/2025 [facility] Comment on above: Expected: 02/05/2025 , Expires: 08/07/2025 Start: 02-05-2025 End: 08-07-2025 CT Chest W contrast IV CT CHEST WITH CONTRAST Imaging Routine 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 Expected: 02/05/2025, Expires: 08/07/2025 [facility] Comment on above: Expected: 02/05/2025 , Expires: 08/07/2025 Start: 02-05-2025 End: 02-05-2025 Patient encounter procedure Department of Radiology Start: 12-25-2024 Annual PCP Team Edge Cutting Machine Operator radha Disease Visit Annual PCP Team Chronic Disease Visit [facility] Start: 12-22-2024 Hepatitis B surface antibody level LDL Cholesterol [facility] Start: 11-24-2024 Hemoglobin A1c measurement HbA1C [facility] Start: 11-12-2024 End: 11-12-2024 Patient encounter procedure 11/12/2024 2:00 PM EST Office Visit [facility] [place] [address] [place] [address] Genie Moore APRN.FIRE SPRINKLER INSTALLER [address] [place] [address] Extensice issurs/ 3 month follow up [facility] [place] Comment on above: Extensice issurs/ 3 month follow up Start: 10-22-2024 End: 10-22-2024 Patient encounter procedure 10/22/2024 3:40 PM EST Office Visit Kidney Medicine [address] [facility] [place] [address] Rivka Pace I, MD [address] [place] [address] Function kidney decreased [N28.9] Kidney Medicine Comment on above: Function kidney decr eased [N28.9] Start: 10-21-2024 Advance Directive Discussion Advance Directive Discussion [facility] Start: 08-12-2024 End: 11-11-2024 Comprehensive metabolic 2000 panel - Serum or Plasma COMPREHENSIVE METABOLIC PANEL Lab Routine Function kidney decreased Expected: 08/12/2024, Expires: 11/11/2024 [facility] Work Phone: Comment on above: Expected: 08/12/2024 , Expires: 11/11/2024 Start: 08-12-2024 End: 11-11-2024 Hemoglobin A1c in Blood HEMOGLOBIN A1C Lab Routine Type 2 diabetes mellitus without complication, without long-term current use of insulin (HCC) Expected: 08/12/2024, Expires: 11/11/2024 [facility] Comment on above: Expected: 08/12/2024 , Expires: 11/11/2024 Start: 07-22-2024 End: 07-22-2024 Patient encounter procedure 07/22/2024 2:00 PM EDT Office Visit Division of Hematology & Oncology at [facility] [address] [place] [address] Suzanna Broussard MD [address] [place] [address] Division of Hematology & Oncology at [facility] Start: 07-16-2024 End: 07-16-2024 Patient encounter procedure 07/16/2024 1:30 PM EDT Office Visit Vasculary Surgery [address] [place], [place] [address] Well controlled type 2 diabetes mellitus with neurological manifestations (HCC) [E11.49]; Diminished pulses in lower extremity [R09.89]; Hallux valgus of left foot [M20.12]; Hallux valgus of right foot [M20.11] Vasculary [facility] Comment on above: Well controlled type 2 diabetes mellitus with neurological manifestations (HCC) [E11.49]; Diminished pulses in lower extremity [R09.89]; Hallux valgus of left foot [M20.12]; Hallux valgus of right foot [M20.11] Start: 06-21-2024 COVID-19 VACCINE () COVID-19 VACCINE () [facility] Start: 06-21-2024 COVID-19 VACCINE () COVID-19 VACCINE () [facility] Start: 06-21-2024 Covid-19 Vaccine () Covid-19 Vaccine () [facility] Start: 06-21-2024 Covid-19 Vaccine () Covid-19 Vaccine () [facility] Start: 06-21-2024 Influenza vaccination C [facility] Start: 06-20-2024 ANNUAL PCP TEAM COMMERCIAL FINANCE MANAGER RADHA DISEASE VISIT ANNUAL PCP TEAM CHRONIC DISEASE VISIT [facility] Start: 06-20-2024 BP CONTROLLED (<130/80) BP CONTROLLE D (<130/80) [facility] Start: 06-20-2024 Pneumococcal Vaccine : 65+ (2 - PCV) Pneumococcal Vaccine: 65+ (2 - PCV) [facility] Comment on above: Postponed from 08/02 (Declined at this time) Start: 06-20-2024 Pneumococcal Vaccine : 65+ (2 of 2 - PCV) Pneumococcal Vaccine: 65+ (2 of 2 - PCV) [facility] Comment on above: Postponed from 08/02 (Declined at this time) Start: 06-20-2024 PNEUMOCOCCAL: 65+ (2 - PCV) PNEUMOCOCCAL: 65+ (2 - PCV) [facility] Comment on above: Postponed from 08/02 (Declined at this time) Start: 06-18-2024 Hepatitis B surface antibody level LDL CHOLESTEROL [facility] Start: 06-18-2024 End: 06-18-2024 Patient encounter procedure 06/18/2024 1:00 PM EDT Office Visit Podiatry [address] [place], [place] [id number] Shweta Morel [address] [place] [address] diabetic foot care Podiatry Comment on above: diabetic foot care Start: 06-12-2024 3 comp foot exam completed DIABETIC FOOT EXAM [facility] Start: 06-12-2024 Diabetic foot examination Diabetic Foot Exam [facility] Start: 06-02-2024 Tetanus vaccination TETANUS [facility] Start: 06-02-2024 Urine microalbumin profile [facility] Start: 04-19-2024 Influenza vaccination Influenza Vacc ine (#1) [facility] Comment on above: Postponed from 06/21 (Declined at this time) Start: 04-02-2024 End: 04-02-2024 Patient encounter procedure 04/02/2024 3:40 PM EDT Office Visit [facility] [place] [address] [place] [address] Alisha Gee MD [address] [place] [address] 3 mo f/u [facility] [place] Comment on above: 3 mo f/u Start: 03-27-2024 End: 06-26-2024 Comprehensive metabolic 2000 panel - Serum or Plasma COMP METABOLIC PANEL Lab Routine Type 2 diabetes mellitus without complication, without long-term current use of insulin (HCC) Expected: 03/27/2024 (Approximate), Expires: 06/26/2024 [facility] Work Phone: Comment on above: Expected: 03/27/2024 (Approximate), Expires: 06/26/2024 Start: 03-27-2024 End: 06-26-2024 Hemoglobin A1c in Blood HGB A1C Lab Routine Type 2 diabetes mellitus without complication, without long-term current use of insulin (HCC) Expected: 03/27/2024 (Approximate), Expires: 06/26/2024 [facility] Work Phone: Comment on above: Expected: 03/27/2024 (Approximate), Expires: 06/26/2024 Start: 03-27-2024 End: 06-26-2024 Prostate specific Ag [Mass/volume] in Serum or Plasma PSA/PROSTSPECAG DIAG Lab Routine Benign prostatic hyperplasia, unspecified whether lower urinary tract symptoms present Expected: 03/27/2024 (Approximate), Expires: 06/26/2024 [facility] Work Phone: Comment on above: Expected: 03/27/2024 (Approximate), Expires: 06/26/2024 Start: 03-24-2024 Hemoglobin A1c measurement HbA1C [facility] Start: 02-08-2024 ANNUAL PCP TEAM COMMERCIAL FINANCE MANAGER RADHA DISEASE VISIT ANNUAL PCP TEAM CHRONIC DISEASE VISIT [facility] Start: 02-08-2024 BP CONTROLLED (<130/80) BP CONTROLLE D (<130/80) [facility] Start: 02-08-2024 COVID-19 VACCINE (5 - Booster for Pfizer series) COVID-19 VACCINE (5 - Booster for Pfizer series) [facility] Comment on above: Postponed from 11/30 (Declined at this time) Start: 02-08-2024 COVID-19 VACCINE (5 - Pfizer risk series) COVID-19 VACCINE (5 - Pfizer risk series) [facility] Comment on above: Postponed from 11/30 (Declined at this time) Start: 02-08-2024 COVID-19 VACCINE (5 - Pfizer series) COVID-19 VACCINE (5 - Pfizer series) [facility] Comment on above: Postponed from 11/30 (Declined at this time) Start: 02-05-2024 Hepatitis B screening URINE AL BUMIN:CREATININE RATIO [facility] Start: 02-05-2024 Hepatitis B surface antibody level LDL CHOLESTEROL [facility] Start: 01-08-2024 End: 01-08-2024 Patient encounter procedure 01/08/2024 2:40 PM EDT Office Visit Division of Hematology & Oncology at [facility] [address] [place] [address] Suzanna Broussard MD [address] [place] [address] Division of Hematology & Oncology at [facility] Start: 01-08-2024 End: 01-08-2024 Patient encounter procedure [facility] Start: 12-19-2023 End: 02-18-2024 25-hydroxyvitamin D3 [Mass/volume] in Serum or Plasma VITAMIN D 25 HYDROXY Lab Routine Vitamin D deficiency Expected: 12/19/2023 (Approximate), Expires: 02/18/2024 [facility] Work Phone: Comment on above: Expected: 12/19/2023 (Approximate), Expires: 02/18/2024 Start: 12-19-2023 End: 02-18-2024 Comprehensive metabolic 2000 panel - Serum or Plasma COMP METABOLIC PANEL Lab Routine Type 2 diabetes mellitus with diabetic neuropathy, without long-term current use of insulin (HCC) Hypertension, unspecified type Hyperlipidemia, unspecified hyperlipidemia type Expected: 12/19/2023 (Approximate), Expires: 02/18/2024 [facility] Work Phone: Comment on above: Expected: 12/19/2023 (Approximate), Expires: 02/18/2024 Start: 12-19-2023 End: 02-18-2024 Hemoglobin A1c in Blood HGB A1C Lab Routine Type 2 diabetes mellitus with diabetic neuropathy, without long-term current use of insulin (HCC) Expected: 12/19/2023 (Approximate), Expires: 02/18/2024 [facility] Work Phone: Comment on above: Expected: 12/19/2023 (Approximate), Expires: 02/18/2024 Start: 12-19-2023 Hemoglobin A1c measurement HbA1C [facility] Start: 12-19-2023 Hemoglobin A1c/Hemoglobin.total in Blood HBA1C [facility] Start: 12-19-2023 End: 02-18-2024 Lipid 1996 panel - Serum or Plasma LIPID PANEL BASIC Lab Routine Type 2 diabetes mellitus with diabetic neuropathy, without long-term current use of insulin (HCC) Hypertension, unspecified type Hyperlipidemia, unspecified hyperlipidemia type Coronary artery disease involving elem coronary artery of elem heart without angina pectoris Expected: 12/19/2023 (Approximate), Expires: 02/18/2024 [facility] Work Phone: Comment on above: Expected: 12/19/2023 (Approximate), Expires: 02/18/2024 Start: 12-19-2023 End: 03-19-2024 Prostate specific Ag [Mass/volume] in Serum or Plasma PSA/PROSTSPECAG DIAG Lab Routine Benign prostatic hyperplasia, unspecified whether lower urinary tract symptoms present Expected: 12/19/2023, Expires: 03/19/2024 [facility] Work Phone: Comment on above: Expected: 12/19/2023 , Expires: 03/19/2024 Start: 12-19-2023 End: 02-18-2024 Urate [Mass/volume] in Serum or Plasma URIC ACID BLOOD Lab Routine Gout, unspecified cause, unspecified chronicity, unspecified site Kidney stones Expected: 12/19/2023 (Approximate), Expires: 02/18/2024 [facility] Work Phone: Comment on above: Expected: 12/19/2023 (Approximate), Expires: 02/18/2024 Start: 10-24-2023 ANNUAL PCP TEAM COMMERCIAL FINANCE MANAGER RADHA DISEASE VISIT ANNUAL PCP TEAM CHRONIC DISEASE VISIT [facility] Start: 10-24-2023 BP CONTROLLED (<130/80) BP CONTROLLE D (<130/80) [facility] Start: 10-21-2023 Advance Directive Discussion Advance Directive Discussion [facility] Start: 10-21-2023 Behavioral Health Screening Behavioral Health Screening [facility] Start: 10-21-2023 Depression Assessment Depression Ass essment [facility] Start: 09-27-2023 ANNUAL PCP TEAM COMMERCIAL FINANCE MANAGER RADHA DISEASE VISIT ANNUAL PCP TEAM CHRONIC DISEASE VISIT [facility] Start: 09-27-2023 BP CONTROLLED (<130/80) BP CONTROLLE D (<130/80) [facility] Start: 09-24-2023 Hepatitis B surface antibody level LDL CHOLESTEROL [facility] Start: 09-18-2023 Glaucoma screening Dilated Retinal E xam [facility] Start: 09-18-2023 Hepatitis C antibody , confirmatory test DILATED RETINAL EXAM [facility] Start: 08-02-2023 End: 08-02-2023 Patient encounter procedure Department of Radiology Start: 07-27-2023 End: 01-26-2024 CT Abdomen and Pelvis W contrast IV CT ABDOMEN/PELVIS WITH CONTRAST Imaging Routine 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 Expected: 07/27/2023, Expires: 01/26/2024 [facility] Comment on above: Expected: 07/27/2023 , Expires: 01/26/2024 Start: 07-27-2023 End: 01-26-2024 CT Chest W contrast IV CT CHEST WITH CONTRAST Imaging Routine 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 Start: 05-09-2023 End: 07-09-2023 25-hydroxyvitamin D3 [Mass/volume] in Serum or Plasma VITAMIN D 25 HYDROXY Lab Routine Vitamin D deficiency Expected: 05/09/2023 (Approximate), Expires: 07/09/2023 [facility] Work Phone: Comment on above: Expected: 05/09/2023 (Approximate), Expires: 07/09/2023 Start: 05-09-2023 End: 07-09-2023 Comprehensive metabolic 2000 panel - Serum or Plasma COMP METABOLIC PANEL Lab Routine Hypertension, unspecified type Hyperlipidemia, unspecified hyperlipidemia type Type 2 diabetes mellitus with hyperglycemia, without long-term current use of insulin (HCC) Expected: 05/09/2023 (Approximate), Expires: 07/09/2023 [facility] Work Phone: Comment on above: Expected: 05/09/2023 (Approximate), Expires: 07/09/2023 Start: 05-09-2023 End: 07-09-2023 Hemoglobin A1c in Blood HGB A1C Lab Routine Type 2 diabetes mellitus with hyperglycemia, without long-term current use of insulin (HCC) Expected: 05/09/2023 (Approximate), Expires: 07/09/2023 [facility] Work Phone: Comment on above: Expected: 05/09/2023 (Approximate), Expires: 07/09/2023 Start: 05-09-2023 End: 07-09-2023 Lipid 1996 panel - Serum or Plasma LIPID PANEL BASIC Lab Routine Hypertension, unspecified type Hyperlipidemia, unspecified hyperlipidemia type Type 2 diabetes mellitus with hyperglycemia, without long-term current use of insulin (HCC) Expected: 05/09/2023 (Approximate), Expires: 07/09/2023 [facility] Work Phone: Comment on above: Expected: 05/09/2023 (Approximate), Expires: 07/09/2023 Start: 05-09-2023 End: 07-09-2023 Urate [Mass/volume] in Serum or Plasma URIC ACID BLOOD Lab Routine Kidney stones Expected: 05/09/2023 (Approximate), Expires: 07/09/2023 [facility] Work Phone: Comment on above: Expected: 05/09/2023 (Approximate), Expires: 07/09/2023 Start: 05-06-2023 Hemoglobin A1c/Hemoglobin.total in Blood HBA1C [facility] Start: 05-04-2023 3 comp foot exam completed DIABETIC FOOT EXAM [facility] Start: 03-25-2023 Hemoglobin A1c/Hemoglobin.total in Blood HBA1C [facility] Start: 01-31-2023 Adult depression screening assessment DEPRESSION SCREENING [facility] Start: 01-31-2023 ANNUAL PCP TEAM COMMERCIAL FINANCE MANAGER RADHA DISEASE VISIT ANNUAL PCP TEAM CHRONIC DISEASE VISIT [facility] Start: 01-31-2023 BP CONTROLLED (<130/80) BP CONTROLLE D (<130/80) [facility] Start: 01-31-2023 HEPATITIS C SCREENING HEPATITIS C IL NELI [facility] Comment on above: Postponed from 07/11 (Declined at this time) Start: 01-24-2023 Hepatitis B screening URINE AL BUMIN:CREATININE RATIO [facility] Start: 04-06-2023 Hepatitis B surface antibody level LDL CHOLESTEROL [facility] Start: 12-26-2022 End: 02-25-2023 ALBUMIN/CREAT RATIO RND UR ALBUMIN/CREAT RATIO RND UR Lab Routine Type 2 diabetes mellitus with hyperglycemia, without long-term current use of insulin (HCC) Expected: 12/26/2022 (Approximate), Expires: 02/25/2023 [facility] Work Phone: Comment on above: Expected: 12/26/2022 (Approximate), Expires: 02/25/2023 Start: 12-26-2022 End: 02-25-2023 Comprehensive metabolic 2000 panel - Serum or Plasma COMP METABOLIC PANEL Lab Routine Hyperlipidemia, unspecified hyperlipidemia type Type 2 diabetes mellitus with hyperglycemia, without long-term current use of insulin (HCC) Expected: 12/26/2022 (Approximate), Expires: 02/25/2023 [facility] Work Phone: Comment on above: Expected: 12/26/2022 (Approximate), Expires: 02/25/2023 Start: 12-26-2022 End: 02-25-2023 Hemoglobin A1c in Blood HGB A1C Lab Routine Type 2 diabetes mellitus with hyperglycemia, without long-term current use of insulin (HCC) Expected: 12/26/2022 (Approximate), Expires: 02/25/2023 [facility] Work Phone: Comment on above: Expected: 12/26/2022 (Approximate), Expires: 02/25/2023 Start: 12-26-2022 End: 02-25-2023 Lipid 1996 panel - Serum or Plasma LIPID PANEL BASIC Lab Routine Hyperlipidemia, unspecified hyperlipidemia type Type 2 diabetes mellitus with hyperglycemia, without long-term current use of insulin (HCC) Expected: 12/26/2022 (Approximate), Expires: 02/25/2023 [facility] Work Phone: Comment on above: Expected: 12/26/2022 (Approximate), Expires: 02/25/2023 Start: 12-26-2022 End: 02-25-2023 Urate [Mass/volume] in Serum or Plasma URIC ACID BLOOD Lab Routine Gout, unspecified cause, unspecified chronicity, unspecified site Expected: 12/26/2022 (Approximate), Expires: 02/25/2023 [facility] Work Phone: Comment on above: Expected: 12/26/2022 (Approximate), Expires: 02/25/2023 Start: 10-21-2022 ADVANCE DIRECTIVE DISCUSSION ADVANCE DIRECTIVE DISCUSSION [facility] Start: 10-21-2022 DEPRESSION ASSESSMENT DEPRESSION ASS ESSMENT [facility] Start: 09-07-2022 End: 09-07-2022 Patient encounter procedure 09/07/2022 Office Visit Hematology Suzanna Broussard MD [address] [place] [address] Division of Hematology & Oncology Start: 06-21-2022 Influenza vaccination C [facility] Start: 05-11-2022 End: 2022 CBC W Auto Differential panel - Blood CBC + DIFF Lab Routine Fatigue, unspecified type Expected: 05/11/2022, Expires: 2022 [facility] Work Phone: Comment on above: Expected: 05/11/2022 , Expires: 2022 Start: 05-11-2022 End: 2022 Comprehensive metabolic 2000 panel - Serum or Plasma COMP METABOLIC PANEL Lab Routine Fatigue, unspecified type Expected: 05/11/2022, Expires: 2022 [facility] Work Phone: Comment on above: Expected: 05/11/2022 , Expires: 2022 Start: 05-11-2022 End: 05-25-2022 Influenza virus A and B RNA and SARS-CoV-2 (COVID-19) N gene panel - Respiratory specimen by JOCELYN with probe detection COVID WITH FLUA+B, ROUTINE Microbiology Routine Suspected COVID-19 virus infection Expected: 05/11/2022, Expires: 05/25/2022 [facility] Work Phone: Comment on above: Expected: 05/11/2022 , Expires: 05/25/2022 Start: 05-03-2022 End: 07-03-2022 Basic metabolic 2000 panel - Serum or Plasma BASIC METABOLIC PNL Lab Routine Type 2 diabetes mellitus without complication, without long-term current use of insulin (HCC) Type 2 diabetes mellitus with diabetic neuropathy, without long-term current use of insulin (HCC) Expected: 05/03/2022 (Approximate), Expires: 07/03/2022 [facility] Work Phone: Comment on above: Expected: 05/03/2022 (Approximate), Expires: 07/03/2022 Start: 05-03-2022 End: 07-03-2022 Hemoglobin A1c/Hemoglobin.total in Blood HGB A1C Lab Routine Type 2 diabetes mellitus without complication, without long-term current use of insulin (HCC) Type 2 diabetes mellitus with diabetic neuropathy, without long-term current use of insulin (HCC) Expected: 05/03/2022 (Approximate), Expires: 07/03/2022 [facility] Work Phone: Comment on above: Expected: 05/03/2022 (Approximate), Expires: 07/03/2022 Start: 05-03-2022 End: 07-03-2022 Urate [Mass/volume] in Serum or Plasma URIC ACID BLOOD Lab Routine Gout, unspecified cause, unspecified chronicity, unspecified site Expected: 05/03/2022 (Approximate), Expires: 07/03/2022 [facility] Work Phone: Comment on above: Expected: 05/03/2022 (Approximate), Expires: 07/03/2022 Start: 04-25-2022 Hemoglobin A1c/Hemoglobin.total in Blood HBA1C [facility] Start: 03-08-2022 Hemoglobin A1c measurement HBA1C TEST [facility] Start: 01-25-2022 End: 03-27-2022 Comprehensive metabolic 2000 panel - Serum or Plasma COMP METABOLIC PANEL Lab Routine Hypertension, unspecified type Expected: 01/25/2022, Expires: 03/27/2022 [facility] Work Phone: Comment on above: Expected: 01/25/2022 , Expires: 03/27/2022 Start: 01-03-2022 COVID-19 VACCINE (4 - Booster for Pfizer series) COVID-19 VACCINE (4 - Booster for Pfizer series) [facility] Start: 12-19-2021 ANNUAL PCP TEAM COMMERCIAL FINANCE MANAGER RADHA DISEASE VISIT ANNUAL PCP TEAM CHRONIC DISEASE VISIT [facility] Start: 11-30-2021 COVID-19 VACCINE (4 - Booster for Pfizer series) COVID-19 VACCINE (4 - Booster for Pfizer series) [facility] Start: 11-30-2021 COVID-19 VACCINE (4 - Pfizer risk series) COVID-19 VACCINE (4 - Pfizer risk series) [facility] Start: 11-30-2021 COVID-19 VACCINE (5 - Booster for Pfizer series) COVID-19 VACCINE (5 - Booster for Pfizer series) [facility] Start: 10-21-2021 ADVANCE DIRECTIVE DISCUSSION ADVANCE DIRECTIVE DISCUSSION [facility] Start: 09-09-2021 Lipid panel LIPIDS [facility] Start: 09-09-2021 LIPIDS LIPIDS [facility] Start: 09-06-2021 Hepatitis C antibody , confirmatory test DILATED RETINAL EXAM [facility] Start: 06-16-2021 3 comp foot exam completed DIABETIC FOOT EXAM [facility] Start: 12-03-2019 Adult depression screening assessment DEPRESSION SCREENING [facility] Start: 09-05-2019 Finding of potassium level (finding) POTASSIUM [facility] Work Phone: Start: 03-06-2019 End: 03-06-2019 Ambulatory 03/06/2019 Office Visit Hematology Suzanna Broussard MD [address] [place] [address] Division of Hematology & Oncology Start: 2018 RSV Vaccine (1 - 1-d ose 75+ series) RSV Vaccine (1 - 1-dose 75+ series) [facility] Start: 06-21-2018 Influenza vaccination INFLUENZA VACC INE (#1) [facility] Work Phone: Start: 03-30-2017 Finding of potassium level (finding) POTASSIUM [facility] Work Phone: Start: 10-03-2016 Screening for malign ant neoplasm of colon COLORECTAL CANCER SCREENING DISCUSSION [facility] Start: 08-02-2012 Pneumococcal vaccination [facility] Start: 08-02-2012 Pneumococcal Vaccine : 50+ (2 of 2 - PCV) Pneumococcal Vaccine: 50+ (2 of 2 - PCV) [facility] Start: 08-02-2012 Pneumococcal Vaccine : 65+ (2 of 2 - PCV) Pneumococcal Vaccine: 65+ (2 of 2 - PCV) [facility] Start: 08-02-2012 PNEUMOCOCCAL: 65+ (2 - PCV) PNEUMOCOCCAL: 65+ (2 - PCV) [facility] Start: 2008 Pneumococcal vaccination PNEUM OCOCCAL VACCINE SERIES (1 of 2 - PCV13) [facility] Work Phone: Start: 2003 Hepatitis B Vaccine (1 of 3 - Risk 3-dose series) Hepatitis B Vaccine (1 of 3 - Risk 3-dose series) [facility] Start: 2003 RSV Vaccine (1 - 1-d ose 60+ series) RSV Vaccine (1 - 1-dose 60+ series) [facility] Start: 1993 Colonoscopy COLON CANCER S CREENING DISCUSSION [facility] Work Phone: Start: 1993 Prostate specific antigen measurement PROSTATE CANCER SCREENING DISCUSSION [facility] Work Phone: Start: 1993 Protein mass conc COLON CANCER SCREENING DISCUSSION [facility] Work Phone: Start: 1993 SHINGRIX VACCINE (1 of 2) SHINGRIX VACCINE (1 of 2) [facility] Start: 1993 Zoster vaccine hzv l guicho for subcutaneous use ZOSTER (SHINGLES) VACCINE (1 of 2) [facility] Start: 1988 Colonoscopy COLORECTAL CAN CER SCREENING DISCUSSION [facility] Start: 1988 Screening for malign ant neoplasm of colon COLORECTAL CANCER SCREENING DISCUSSION [facility] Start: 1983 Fasting lipid profile LIPID SCREENIN G [facility] Work Phone: Start: 1962 SHINGRIX VACCINE (1 of 2) SHINGRIX VACCINE (1 of 2) [facility] Start: 1962 Zoster vaccine hzv l guicho for subcutaneous use ZOSTER (SHINGLES) VACCINE (1 of 2) [facility] Start: 1962 End: 1962 Third diphtheria, tetanus and acellular pertussis (DTaP) vaccination TDAP (ADULT) [facility] Start: 1961 Anxiety Screening Anxiety Screening [facility] Start: 1961 BP CONTROLLED (<130/80) BP CONTROLLE D (<130/80) [facility] Start: 1961 Depression Screening Depression Scre enajay [facility] Start: 1961 HEPATITIS C SCREENING HEPATITIS C SC NELI [facility] Start: 1961 End: 1961 Tetanus vaccination TETANUS [facility] Start: 1949 Pneumococcal vaccination PNEUM OCOCCAL VACCINE SERIES (1 - PCV) [facility] Start: 1943 Diabetic foot examination DIABETIC FOOT EXAM [facility] Start: 1943 Diabetic retinal eye exam EYE EXAM [facility] Start: 1943 Glaucoma screening EYE EXAM [facility] Start: 1943 Hepatitis C antibody , confirmatory test HEPATITIS C VIRUS SCREENING [facility] Start: 1943 Hepatitis C screening HEPATITI S C VIRUS SCREENING [facility] Start: 1943 Microalbumin measurement, urine, quantitative URINE MICROALBUMIN TEST [facility] Start: 1943 Urine screening for protein URINE MICROALBUMIN TEST [facility] End: 12-26-2024 Complete blood count with white cell differential, automated CBC, EDIF, PLATELET Lab Routine 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 25 Occurrences starting 12/27/2023 until 12/26/2024, 1 completed [facility] Work Phone: Comment on above: 25 Occurrences start ing 12/27/2023 until 12/26/2024, 1 completed End: 12-26-2024 Comprehensive metabolic 2000 panel - Serum or Plasma COMPREHENSIVE METABOLIC PANEL Lab Routine 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 25 Occurrences starting 12/27/2023 until 12/26/2024, 1 completed [facility] Comment on above: 25 Occurrences start ing 12/27/2023 until 12/26/2024, 1 completed End: 03-02-2022 CT Abdomen and Pelvis WO contrast [facility] Comment on above: 1 Occurrences starti ng 03/02/2022 until 03/02/2022 End: 01-08-2024 CT Abdomen and Pelvis WO contrast CT ABDOMEN/PELVIS WITHOUT CONTRAST Imaging Routine 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 1 Occurrences starting 01/08/2024 until 01/08/2024 [facility] Comment on above: 1 Occurrences starti ng 01/08/2024 until 01/08/2024 CT Abdomen and Pelvi s WO contrast CT ABDOMEN/PELVIS WITHOUT CONTRAST Imaging Routine 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 01/08/2024 2:47 PM EDT [facility] End: 02-05-2025 CT Abdomen and Pelvis WO contrast [facility] Comment on above: 1 Occurrences starti ng 02/05/2025 until 02/05/2025 End: 01-08-2024 CT Chest WO contrast CT CHEST WITHOUT CONTRAST Imaging Routine 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 1 Occurrences starting 01/08/2024 until 01/08/2024 [facility] Comment on above: 1 Occurrences starti ng 01/08/2024 until 01/08/2024 CT Chest WO contrast CT CHEST WI THOUT CONTRAST Imaging Routine 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 01/08/2024 2:48 PM EDT [facility] End: 02-05-2025 CT Chest WO contrast [facility] Comment on above: 1 Occurrences starti ng 02/05/2025 until 02/05/2025 End: 12-26-2024 Lactate dehydrogenase [Enzymatic activity/volume] in Serum or Plasma LACTATE DEHYDROGENASE Lab Routine 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 25 Occurrences starting 12/27/2023 until 12/26/2024, 1 completed [facility] Comment on above: 25 Occurrences start ing 12/27/2023 until 12/26/2024, 1 completed Patient Education ED Hematuria [facility] Work Phone: Patient referral [facility] Work Phone: End: 06-18-2025 US.doppler Extremity arteries - bilateral for physiologic artery study PVR ANK PRESS [facility] Vascular Lab Routine Well controlled type 2 diabetes mellitus with neurological manifestations (HCC) Diminished pulses in lower extremity Hallux valgus of left foot Hallux valgus of right foot 1 Occurrences starting 06/18/2024 until 06/18/2025 [facility] Work Phone: Comment on above: 1 Occurrences starti ng 06/18/2024 until 06/18/2025 [facility] Immunizations Immunization Date Immunization Notes Care Provider Fa cili 12-29-2020 COVID-19 vaccine, ag e 12+ yr (PFIZER-BIONTECH - PURPLE TOP) Alisha Gee MD Work Phone: [facility] 12-08-2020 COVID-19 vaccine, ag e 12+ yr (PFIZER-BIONTECH - PURPLE TOP) Alisha Gee MD Work Phone: [facility] 08-27-2018 influenza virus vacc ine, unspecified formulation Alisha Gee MD Work Phone: [facility] 06-02-2014 tetanus toxoid, redu alirio diphtheria toxoid, and acellular pertussis vaccine, adsorbed Alisha Gee MD Work Phone: [facility] Work Phone: 08-02-2011 pneumococcal polysaccharide vaccine, 23 valent Alisha Gee MD Work Phone: [facility] Work Phone: 03-10-2004 tetanus toxoid, redu alirio diphtheria toxoid, and acellular pertussis vaccine, adsorbed Alisha Gee MD Work Phone: [facility] Payers Date Payer Category Payer Unknown [id number] 2024 Self-pay [id number] 2020 Private Health Insurance MMO MED ICARE SUPPLEMENT [id number] 2020 Unknown O MMO MEDICARE SUPPLEMENT [id number] 2020-Present [phone] [address] [place] [address] Indemnity [id number] 2019 Managed Care (unspecified) MEDICARE SUPPLEMENT [id number] 2019 Unknown [id number] 2010 Unknown VA AUTH REQUIR ED SEE NOTE [id number] 2008 Medicare MEDICARE MEDICAR E A AND B [id number] 2008-Present [phone] [address] [address] [place] [address] Medicare [id number] 2008 Medicare [id number] 2008 Unknown [id number] 2008 Medicare [id number] 1943 Unknown [id number] 1943 Unknown [id number] 1943 Unknown [id number] 1943 Unknown [id number] 1943 Unknown [id number] 1943 Unknown [id number] Unknown VA AUTH REQUIR ED SEE NOTE [id number] Unknown [id number] Unknown [id number] Unknown [id number] Social History Date Type Detail Facility Start: 03-30-2016 End: 09-27-2022 Tobacco smoking status NHIS Never smoker [facility] Work Phone: Start: 1945 Sex Assigned At Not on file O [facility] Work Phone: Start: 01-23-2022 Tobacco smoking stat us NCIS Unknown if ever smoked [facility] Work Phone: Start: 03-16-2021 None [facility] Work Phone: Start: 07-28-2020 Spouse/ Signif icant Other [facility] Work Phone: Start: 07-28-2020 Non-smoker [facility] Work Phone: Start: 1945 Sex Assigned At Male W [facility] Work Phone: Start: 06-01-2021 End: 11-18-2024 Alcohol intake Current non-drinker of alcohol (finding) [facility] Start: 11-24-2012 End: 09-27-2022 History SDOH Alcohol Comment never [facility] Start: 07-19-2020 End: 05-11-2022 Exposure to SARS-CoV-2 (event) Not sure [facility] Start: 01-01-2017 End: 09-27-2022 Tobacco use and exposure Smokeless tobacco non-user [facility] Start: 02-07-2023 End: 06-12-2023 History of Social function [facility] Work Phone: Start: 02-07-2023 End: 06-12-2023 Tobacco use panel [facility] Work Phone: Adult Depression Screening Assessment 0 [facility] Work Phone: Gender identity Identifies as ma le gender (finding) [facility] Start: 09-02-2015 Sex Male (finding) [facility] Medical Equipment Procedure Code Equipment Code Equipment Origin al Text Equipment Identifier Dates [id number], [id number], [id number], [id number] Start: 09-03-2018 End: 12-26-2023 Comment on above: Use to test blood woodward gars twice daily. Dx: 250.00 Use as directed to c thongk blood sugars 1-2 times daily Functional Status Date Assessment Result Facility 11-14-2015 Are you deaf, or do you have serious difficulty hearing No 11/14/2015 12:20 PM Cindy Concepcion, CHATO No [facility] 11-14-2015 Are you blind, or do you have serious difficulty seeing, even when wearing glasses No 11/14/2015 12:20 PM Cindy Concepcion, CHATO No [facility] 11-14-2015 Do you have serious difficulty walking or climbing stairs No 11/14/2015 12:20 PM Cindy Concepcion, CHATO No [facility] 11-14-2015 Do you have difficul ty dressing or bathing No 11/14/2015 12:20 PM Cindy Concepcion, CHATO No [facility] 11-14-2015 Because of a physica l, mental, or emotional condition, do you have difficulty doing errands alone such as visiting a physician's office or shopping No 11/14/2015 12:20 PM Cindy Concepcion, CHATO No [facility] 02-10-2015 Are you deaf, or do you have serious difficulty hearing No 02/10/2015 2:49 PM Paula Conklin MA No [facility] 02-10-2015 Are you blind, or do you have serious difficulty seeing, even when wearing glasses No 02/10/2015 2:49 PM Paula Conklin MA No [facility] 02-10-2015 Do you have serious difficulty walking or climbing stairs No 02/10/2015 2:49 PM Paula Conklin MA No [facility] 02-10-2015 Do you have difficul ty dressing or bathing No 02/10/2015 2:49 PM Paula Conklin MA No [facility] 02-10-2015 Because of a physica l, mental, or emotional condition, do you have difficulty doing errands alone such as visiting a physician's office or shopping No 02/10/2015 2:49 PM EDT Paula Baeza MA No [facility] Mental Status Date Assessment Result Facility 11-14-2015 Because of a physica l, mental, or emotional condition, do you have serious difficulty concentrating, remembering, or making decisions No 11/14/2015 12:20 PM EST Cindy Miller, CHATO No [facility] 02-10-2015 Because of a physica l, mental, or emotional condition, do you have serious difficulty concentrating, remembering, or making decisions No 02/10/2015 2:49 PM EDT Paula Baeza MA No [facility] Clinical Notes 09-20-2006 to 02-23-2025 Telephone Encounter - Leila Griffin RN - 02/23/2025 2:42 PM EDTTelephone Encounter - Leila Griffin RN - 02/23/2025 2:42 PM EDTTelephone Encounter - Vianey James - 02/23/2025 12:59 PM EDT Note Date & Type Note Facility 02-23-2025 Telephone encounter Note Pt called and is notified of providers message and instructions. Pt voices understanding. Leila Griffin RN [facility] 02-23-2025 Miscellaneous Notes Pt called and is notified of providers message and instructions. Pt voices understanding. Leila Griffin RN Labs ordered Alisha Gee MD Pt requesting lab work prior to April appt. Please advise, Thank you documented in this encounter [facility] 02-23-2025 Telephone encounter Note Labs ordered Alisha Gee MD [facility] 02-23-2025 Telephone encounter Note Pt requesting lab work prior to April appt. Please advise, Thank you [facility] 02-05-2025 History of Present illness Narrative After visit summary was printed and given to patient. Discharge instructions and follow up appointments reviewed with patient. IHIS Fall prevention education handout included in AVS at time of discharge. All questions answered. Patient verbalized understanding. 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 He initially presented for evaluation of lymphadenopathy. He reports that since June, he has been experiencing intermittent bilateral lower quadrant pain. He had a CT scan in June 2015 which demonstrated lymphadenopathy. Repeat CT in July showed persistent LAD. He had a work up including a urologic evaluation and PSA, a colonoscopy and EGD which did not identify a cause for his pain or lymphadenopathy. He had a PET scan which showed that the lymph nodes were FDG avid and there was also a lesion at the vertex of the skull. He had a surgical biopsy and the pathology demonstrated follicular lymphoma, low grade. He has been followed by watchful observation since that time. Mr. Flynn returns for routine follow up and evaluation. He is accompanied by his . He states that overall he has been feeling well. He did have a GI virus last month which has resolved. He continues with fatigue which is stable and unchanged. His appetite is good. He denies fevers/chills, night sweats, weight loss or new lymphadenopathy. Review of Systems The remainder of his review of systems is negative or as noted above. Current Outpatient Medications Medication Sig Dispense Refill acetaminophen 325 MG tablet take 650 mg by mouth every 4 hours. For arthritis pain allopurinol 100 MG Tab take 50 mg by mouth daily. ascorbic acid 500 MG Tab take 500 mg by mouth daily. aspirin 81 MG Chew Tab take 81 mg by mouth daily. atenolol 25 MG Tab take 25 mg by mouth daily. atorvastatin 10 MG Tab take 10 mg by mouth daily. calcium carbonate 500 MG Chew Tab take 500 mg by mouth as needed. Cinnamon 500 MG Cap take 1,000 mg by mouth daily. gliMEPIride 2 MG Tab take 2 mg by mouth daily every morning. Glucose Blood (BLOOD GLUCOSE TEST STRIPS) Strip by Other route. metformin-XR 500 MG Tab SR 24 HR take 1,000 mg by mouth daily. Currently taking 3 tabs a day (12/01/15); working with team to adjust dose nitroGLYCERIN 0.[address] 1 tablet under tongue every 5 minutes as needed for Chest pain. max = 3 doses. If CP persists after 1st dose, call 911 25 tablet 0 [place]-3 Fatty Acids (FISH OIL) 1200 MG Cap take 1,200 mg by mouth daily. ONE TOUCH LANCETS Misc by Unknown route. Use to check blood sugars Probiotic Product (PROBIOTIC PO) Take by mouth. SITagliptin 100 MG tablet Take by mouth. No current facility-administered medications for this visit. Allergies Allergen Reactions Contrast Dye [Ivp Dye, Iodine Containing] Nausea Only Darvon [Propoxyphene] Meperidine Nausea and Vomiting Demerol, Darvon Morphine And Related [Codeine And Related] Nausea and Vomiting Plavix [Clopidogrel] Bleeding Excessive bleeding Prednisone Anxiety Physical Examination Physical Examination: VITAL SIGNS: Blood pressure 136/62, pulse 55, temperature 97.8 F (36.6 C), temperature source Infrared, resp. rate 20, height 1.753 m (5' 9), weight 88.4 kg (194 lb 12.8 oz), SpO2 100%. Performance status is 1. GENERAL: Ambulatory, well appearing, and in no apparent distress. HEENT: PERRL, EOMI. No scleral icterus. No oral lesions or tonsillar enlargement. JM EXAM: I do not appreciate any anterior cervical, posterior cervical, supraclavicular, infraclavicular, axillary, or inguinal adenopathy. RESPIRATORY: Clear to auscultation bilaterally posteriorly without wheezes, rhonchi or rales. CARDIOVASCULAR: Regular rate and rhythm, without murmur, rub, or gallops. GASTROINTESTINAL: Abdomen soft, nontender, nondistended, without rebound or guarding. Normoactive bowel sounds. No masses or hepatosplenomegaly. EXTREMITIES: No cyanosis, clubbing, or edema. SKIN: Skin color, texture, turgor normal. No rashes or lesions. NEUROLOGICAL: Alert and oriented x3. Cranial nerves intact. Normal gait. Normal strength in upper and lower extremities. Laboratory / Diagnostic Studies WBC Count Date Value Ref Range Status 08/07/2024 4.88 3.73 - 10.10 K/uL Final Hemoglobin Date Value Ref Range Status 08/07/2024 16.0 13.4 - 16.8 g/dL Final Platelet Count Date Value Ref Range Status 08/07/2024 182 146 - 337 K/uL Final GRANS, ABSOLUTE Date Value Ref Range Status 03/30/2016 2.9 1.8 - 7.7 K/uL Final Segs + Bands Auto Date Value Ref Range Status 08/07/2024 60.9 % Final Sodium Date Value Ref Range Status 08/07/2024 135 135 - 145 mmol/L Final Potassium Date Value Ref Range Status 08/07/2024 4.5 3.5 - 5.0 mmol/L Final Chloride Date Value Ref Range Status 08/07/2024 100 98 - 108 mmol/L Final BUN Date Value Ref Range Status 08/07/2024 22 7 - 25 mg/dL Final Creatinine Date Value Ref Range Status 08/07/2024 1.64 (H) 0.70 - 1.30 mg/dL Final Calcium Date Value Ref Range Status 08/07/2024 9.7 8.6 - 10.5 mg/dL Final MAGNESIUM Date Value Ref Range Status 11/15/2015 1.9 1.6 - 2.6 mg/dL Final Bilirubin Total Date Value Ref Range Status 08/07/2024 1.0 <1.5 mg/dL Final ALP Date Value Ref Range Status 08/07/2024 69 32 - 126 U/L Final ALT Date Value Ref Range Status 08/07/2024 18 10 - 52 U/L Final AST Date Value Ref Range Status 08/07/2024 21 10 - 39 U/L Final LD Total Date Value Ref Range Status 08/07/2024 148 100 - 190 U/L Final Assessment and Plan In summary, Mr Flynn is a 79 y.o. gentleman with follicular grade 1-2/3 non-Hodgkin's lymphoma involving lymph nodes in the neck, chest and abdomen. He presented when the lymphadenopathy was found incidentally during a work up for abdominal pain. The lymph nodes had been present on prior imaging, but had progressed. He had not had a bone marrow biopsy to complete his staging. If his bone marrow is negative, then he had stage III disease; if involved, he has stage IV disease. The results of the bone marrow biopsy would not impact our treatment decision at that time and was deferred. On his initial PET, he was noted to have a lesion in the vertex of the skull. He reports a history of a benign process identified by biopsy at the [facility]. A MRI was completed on 03/22/2016 consistent with a meningoma. Upon history, labs and clinical evaluation, he does not show evidence of progression of lymphoma. CT scans completed today and pending. We will contact him with these results. We will continue to monitor him with watchful observation. He will RTC in 6 months. Instructed patient if there are any changes in their condition they should contact the office for follow up. If after hours or on weekend they should contact the doctor curbstone setter. The patient was seen and discussed with Dr. Suzanna Broussard MD. The plan was developed mutually at the time of the visit with the patient. I saw and evaluated the patient with Sophia Kirk CNP. I provided a substantive portion of the care for this patient. I personally performed all aspects of the medical decision making for this encounter. I have reviewed and verified this documentation and it accurately reflects our care Mr Flynn is an 79 y.o. gentleman with follicular grade 1-2/3 lymphoma involving lymph nodes in the neck, chest and abdomen. He presented when the lymphadenopathy was found incidentally during a work up for abdominal pain. The lymph nodes had been present on prior imaging, but had progressed. He had not had a bone marrow biopsy to complete his staging. If his bone marrow is negative, then he had stage III disease; if involved, he has stage IV disease. The results of the bone marrow biopsy would not impact our treatment decision at that time and was deferred. On his initial PET, he was noted to have a lesion in the vertex of the skull. He reports a history of a benign process identified by biopsy at the [facility]. A MRI was completed on 03/22/2016 consistent with a meningoma. On clinical examination and labs today he has no evidence of progression CT scans are pending and we will contact him with the results. We will continue to monitor with watchful observation. He will RTC in 6 months documented in this encounter [facility] 02-05-2025 Instructions Kathy Vora RN - 02/05/2025 2:40 PM EDT Your Lymphoma Care Team MD Diya Heath, FAIZA Lyman, FAIZA Reno, RN Kathy Vora, RN Contact Numbers: Clinic Phone & Appointment Changes: [phone] Clinic INFECTION PREVENTION The best way to prevent the spread of any type of infection is to practice routine hygiene etiquette: Cover your mouth/ nose with your elbow or a tissue when you sneeze or cough. Wash your hands or use alcohol hand rub after coughing or sneezing. Avoid close contact with people who are sick. If you are ill, keep a safe distance from others to reduce the risk of spread If you are seriously ill, seek medical advice from your health care provider Please contact our office if you develop a temperature of 100.4 or greater Call the clinic prior to your appointment if you are not feeling well For Medication Refills: Please plan ahead for all medication refills and request them at your appointment with your physician. Please allow one week for prescription refills over the telephone, as they will be refilled when Dr. Broussard is in clinic on Wednesdays and Fridays. We will call them in to the pharmacy of your request or to the pharmacy listed in your chart if not specified differently. You will not be contacted about the refill except for any questions or concerns. Please call your pharmacy to verify when to mushroom picker. MEDICAL RECORDS The Release of Information ([facility]) area is staffed from 8:00 a.m. to 7:00 p.m. and is available for walk in requests from 8:00 a.m. to 4:30 p.m. [facility] is responsible for answering requests for copies of medical records from various requestors such as insurance companies, attorneys, hospitals and patients. Please note it can take up to 2 weeks to complete your request. [phone]; [phone] (fax). FINANCIAL CONCERNS Any questions regarding billing for services or insurance coverage concerns should be directed to our billing department at [phone]. RESEARCH You may be contacted to participate in research looking at your blood cells.This research will hopefully help doctors find new ways to treat and even prevent some diseases. Please let the nurse know before you leave if you do not want to be called. All Disability/FMLA Paperwork: Please allow up to 2 weeks for all disability, FMLA, etc. to be filled out. Please specify what your request is as to what and where we should send completed paperwork. (This is to inform us if we should send the completed papers to you or directly to your employer). The primary nurse is the one who will normally fill this paperwork out for you, and will only call to inform you the paperwork is completed and sent if requested. [facility] MY Chart: The medical information you will have access to within the My Chart program is only selected portions of your entire chart, such as basic laboratory results, summary medical history, visit history, and selected billing information. Please understand we do not place all results from labs, tests and procedures. To provide you with the best quality care available we need to be able to discuss these results with you personally. If you are unable to obtain the results of a test that you can't find within the My Chart please feel free to call us and we will get back to you with that information. When sending a message to the provider, please know that these messages will be received and answered by the primary nurse practitioner. The nurse practitioner will consult your physician when needed. Please call us with any questions or concerns that you may have. RESOURCES: National Cancer [employer]- www.cancer.gov [facility]- https://cancer.[facility].edu Cancer[employer] Inc- www.cancercare.org Leukemia and Lymphoma Society- LLS.org Peer support groups- www.cancer.[facility].edu/HOPE or email [email or web address] Fall Prevention at Home Here are some tips to use in your home to help prevent falls. Throughout the home Remove throw rugs so you do not trip on them. Replace or remove carpet that is torn or has turned-up edges. Avoid thick carpet. Shoes may catch on these and cause you to stumble or fall. Move furniture or other things that may block pathways. Be sure you have good lighting throughout your home. Use night lights or leave some lights on in the house to help you see at night or when you come home in the evening. Use switches that glow in the dark, so they can be seen more easily. Keep electrical cords and small things out of your path. Use your cane or walker rather than using furniture to give you support when walking. Stairs Mount sturdy handrails to help with going up and down stairs. They should extend beyond the top and bottom stair. Improve the visibility on your stairs. Have good lighting on the stairs. Non-skid surfaces can be applied to wood stairs to prevent sliding. [place] a bright colored line on the edge of each step so they are more easily seen, especially if you have poor vision. In the bathroom Place non-skid decals or a mat in the tub or shower. Install grab bars around the toilet and in the shower or bathtub. Towel bars are to hold towels, and they will break if you use them as grab bars. Use a tub seat and an elevated toilet seat. Leave the bathroom door unlocked so it can be opened if you do fall. In the bedroom Avoid wearing long nightgowns or robes. These can cause you to trip. Avoid wearing loose shoes that cause you to scuff or shuffle your feet as you walk. Wear shoes or slippers that fit well and stay securely on your feet. In the kitchen Have commonly used items at counter level or within easy reach. Do not climb or reach to high shelves. If you use a step stool, use a stable step stool with a handrail. Other tips Be careful that you do not trip over your pet. Be aware of where you pet is when you are moving around. Use caution when sitting down. Before sitting down on a chair, make sure the backs of your legs are touching the seat of the chair behind you. Keep a telephone close by or consider carrying a portable phone. Take your time. Get in the habit of moving at speeds that are safe for your energy level and ability. Do not gregory to answer the phone or door. Ask for help when getting up from bed, a chair or the toilet if you feel at all shaky, weak, dizzy or lightheaded. Talk to your doctor or others on your health care team if you have questions. You may request more written information from the [employer] Information at or email: [email or web address]. 2002 - November 16, 2015. The [facility]. This handout is for informational purposes only. Talk with your doctor or health care team if you have any questions about your care. documented in this encounter [facility] 11-18-2024 Instructions Genie Moore APRN.CNP - 11/18/2024 4:46 PM EST Continue to keep appointments with specialist Increased protein and vegetables in diet Try G. Chaudhary condiments May drink protein shakes to help with diabetes. Follow up in 6 months Protein powders: Progenex or 1st phorm documented in this encounter [facility] 11-18-2024 History of Present illness Narrative This is a 79 year old male who presents today with: Patient presents with: Follow Up: 3 month follow up HISTORY OF PRESENT ILLNESS: Tristin Flynn is a 79 year old male. Patient presents with: Follow Up: 3 month follow up 3 month follow up , [facility] DM: Reports overall feeling well. Medication side effects: No. Home sugar checks: 120- Hypoglycemic spells: No. Watching diet: No. Unexpected weight loss: No. Polyuria, polydipsia: Yes. Vision Changes: No. Foot lesions or numbness or pain: No. Stopped Jardiance since last OV. Taking Metformin XR 500 mg BID. Glimerpiride 4 mg 2 tablets daily, Not watching diet. Following with building code inspector at [facility], to follow-up next fall. Since stopping Jardiance GFR is now 61. Reports A1C completed on Saturday and is 9.0. Reports he follows with a clinical pharmacist at OR for his diabetes. Reports she is going to put a continuous glucose monitor on for 2 weeks. Struggles with eating sweets. HTN/CAD: Taking aspirin 81 mg daily, atenolol 50 mg daily. Not currently checking blood pressure at home. Denies chest pain, palpitations, dizziness, or edema. Lipids: Taking Lipitor 20 mg daily. Trying to watch diet. Gout: Taking allopurinol 100 mg twice daily. History of kidney stones. Follicular lymphoma: Grade 1, following with hematology at [facility]. Vitamin D deficiency: Taking vitamin D3 1000 to 2000 IUs daily. History of squamous cell, following with dermatology at the OR. PAST MEDICAL HISTORY: PAST MEDICAL HISTORY Diagnosis Date Ankle disorder 1995 right fracture, dislocation(screws implanted) Arrhythmia Brain tumor (benign) (HCC) 2003 CAD (coronary artery disease) Calculus of kidney Cataract ou Cholelithiasis 05/01/2010 Diaphragmatic hernia without mention of obstruction or gangrene DM w/o Complication Type II Esophageal reflux Follicular lymphoma (HCC) 10/2015 [facility] Generalized osteoarthrosis, unspecified site knees htn Hyperlipidemia Meningioma (HCC) PMH - PAST MEDICAL HISTORY OF bells palsy-resolved Pure hypercholesterolemia S/P angioplasty with stent 11/24/2012 Shoulder arthritis 2001 right and left shoulder rotator cuff(shoulder screws in place) Snoring PAST SURGICAL HISTORY Procedure Laterality Date APPENDECTOMY and exploratory surgery ARTHRP KNE CONDYLE&PLATU MEDIAL&LAT COMPARTMENTS 02/2013. 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 blood sugar diagnostic ([employer] ULTRA TEST) test strip Use to test blood sugars twice daily. Dx: 250.00 glimepiride (AMARYL) 4 mg tablet Take 2 tablets by mouth daily with breakfast. allopurinol (ZYLOPRIM) 100 mg tablet Take 1 tablet by mouth two times a day. empagliflozin (JARDIANCE) 10 mg tablet Take 1 tablet by mouth daily with breakfast. pantoprazole DR (PROTONIX) 20 mg tablet Take 1 tablet by mouth once daily. Take as needed for heartburn/GI upset atorvastatin (LIPITOR) 20 mg tablet Take 1 tablet by mouth daily at bedtime. For cholesterol. atenolol (TENORMIN) 50 mg tablet Take 1 tablet by mouth once daily. ketoconazole (NIZORAL) 2 % shampoo Apply to affected area once daily as needed. triamcinolone acetonide (KENALOG) 0.1 % cream Apply to affected area twice daily. white petrolatum - mineral oil (EUCERIN CREAM) cream Apply to affected area as needed. Lancets (YummlyUCH ULTRASOFT LANCETS) lancets Use as directed to check blood sugars 1-2 times daily nitroglycerin sublingual (NITROQUICK) 0.4 mg SL tablet Take 1 tablet by mouth as needed for Chest Pain. FOR CHEST PAIN. IF NO PAIN RELIEF, CALL 911 [place]-3 Fatty Acids-Vitamin E 1,000 mg cap Take 2 capsules by mouth once daily. Ascorbic Acid 1,000 mg tablet Take 1,000 mg by mouth once daily. ACETAMINOPHEN (TYLENOL ARTHRITIS ORAL) Take by mouth once daily. alcohol antiseptic pads(ALCOHOL PADS) Use as directed aspirin(ECOTRIN LOW STRENGTH 81 MG TAB) Take one(1) tablet daily. TUMS 500 MG CHEWABLE TAB as necessary No current facility-administered medications for this visit. FAMILY HISTORY Problem Relation Age of Onset Heart Father Diabetes Mother Heart Paternal Grandmother cardiomegaly Stroke Paternal Grandfather Hypertension Sister Diabetes Sister Social History Tobacco Use Smoking status: Never Smokeless tobacco: Never Tobacco comments: never Vaping Use Vaping status: Never Used Substance Use Topics Alcohol use: No Comment: never Drug use: No REVIEW OF SYSTEMS GENERAL: No weight loss, malaise or fevers/chills HEENT: Negative for frequent or significant headaches, No changes in hearing or vision. NECK: Negative for lumps, goiter, pain and significant neck swelling RESPIRATORY: Negative for cough, hemoptysis, wheezing, dyspnea or shortness of breath CARDIOVASCULAR: Negative for chest pain, leg swelling, orthopnea, or palpitations GI: No nausea, vomiting, or diarrhea/constipation. No hematochezia/melena. No heartburn or reflux symptoms. : No history of dysuria, frequency or incontinence MUSCULOSKELETAL: Negative for joint pain or swelling. SKIN: Negative for lesions, rash, and itching ENDOCRINE: Negative for cold or heat intolerance, polyuria, polydipsia and goiter. NEURO: No history of headaches, syncope, paralysis, seizures or tremors MOOD: Negative for depression, anxiety, or suicidal ideation. EXAM: BP 116/64 Pulse 66 Resp 16 Wt 87.3 kg (192 lb 7.4 oz) SpO2 95% BMI 28.42 kg/m PHYSICAL EXAM: General Appearance: Well appearing, alert, in no acute distress, well-hydrated, well nourished. Skin: Skin color, texture, turgor normal, no suspicious rashes or lesions. Head: Normocephalic, no masses, lesions, tenderness or abnormalities. Eyes: Anicteric sclera. Extraocular movements are intact. Lungs: Lungs clear to auscultation. No wheezing, rhonchi, rales. Heart: RRR without murmur, gallop, or rubs. No ectopy. Extremities: No deformities, edema, skin discoloration, clubbing or cyanosis. Good capillary refill. Peripheral Pulses: Normal, Capillary refill <2secs, strong peripheral pulses, Pulses palpable. Neurologic: Gait normal. Sensation grossly intact. ASSESSMENT/PLAN: 1. Type 2 diabetes mellitus with diabetic neuropathy, without long-term current use of insulin (HCC) - ICD9: 250.60, 357.2, ICD10: E11.40 (primary diagnosis) - Uncontrolled - Continue current medications - Counseled on healthy diet and regular exercise - Discussed need for and benefit of weight loss. BMI 28.42 kg/(m^2) -Stressed importance of making lifestyle changes at home, work on eating a low-carb diet. Increase lean protein, vegetables, get some form of exercise. - Keep scheduled appointments with clinical pharmacist 2. Hypertension, unspecified type - ICD9: 401.9, ICD10: I10 - Controlled - Continue current medications - Recommend home blood pressure monitoring, to bring results to next visit - Encouraged sodium restriction, DASH or Mediterranean diet - Recommend regular aerobic exercise 3. Hyperlipidemia, unspecified hyperlipidemia type - ICD9: 272.4, ICD10: E78.5 - Controlled - Continue current medications - Counseled on healthy diet and regular exercise 4. Coronary artery disease involving elem coronary artery of elem heart without angina pectoris - ICD9: 414.01, ICD10: I25.10 - Stable, continue to take current medication. 5. Gastroesophageal reflux disease, unspecified whether esophagitis present - ICD9: 530.81, ICD10: K21.9 - Stable, continue take current medication. 6. Gout, unspecified cause, unspecified chronicity, unspecified site - ICD9: 274.9, ICD10: M10.9 - Stable, continue take current medication. 7. Vitamin D deficiency - ICD9: 268.9, ICD10: E55.9 - Stable, continue take current medication. 8. Kidney stones - ICD9: 592.0, ICD10: N20.0 - Stable 9. Follicular lymphoma, unspecified follicular lymphoma type, unspecified body region (HCC) - ICD9: 202.00, ICD10: C82.90 - Keep scheduled appointments with specialist. Follow up in 6 months or sooner as needed. Genie Moore APRN.CNP This note was partially generated using [employer] voice recognition system. Note was reviewed for accuracy. There may be minor misspellings or grammar miscues with [employer] voice recognition. documented in this encounter [facility] 11-18-2024 Note HNO ID: [id number] Author: GENIE MOORE APRN.CNP Service: ? Author Type: Nurse Practitioner Type: Progress Notes Filed: 11/18/2024 17:14 Note Text: This is a 79 year old male who presents today with: Patient presents with: Follow Up: 3 month follow up HISTORY OF PRESENT ILLNESS: Tristin Flynn is a 79 year old male. Patient presents with: Follow Up: 3 month follow up 3 month follow up , [facility] DM: Reports overall feeling well. Medication side effects: No. Home sugar checks: 120- Hypoglycemic spells: No. Watching diet: No. Unexpected weight loss: No. Polyuria, polydipsia: Yes. Vision Changes: No. Foot lesions or numbness or pain: No. Stopped Jardiance since last OV. Taking Metformin XR 500 mg BID. Glimerpiride 4 mg 2 tablets daily, Not watching diet. Following with building code inspector at [facility], to follow-up next fall. Since stopping Jardiance GFR is now 61. Reports A1C completed on Saturday and is 9.0. Reports he follows with a clinical pharmacist at OR for his diabetes. Reports she is going to put a continuous glucose monitor on for 2 weeks. Struggles with eating sweets. HTN/CAD: Taking aspirin 81 mg daily, atenolol 50 mg daily. Not currently checking blood pressure at home. Denies chest pain, palpitations, dizziness, or edema. Lipids: Taking Lipitor 20 mg daily. Trying to watch diet. Gout: Taking allopurinol 100 mg twice daily. History of kidney stones. Follicular lymphoma: Grade 1, following with hematology at [facility]. Vitamin D deficiency: Taking vitamin D3 1000 to 2000 IUs daily. History of squamous cell, following with dermatology at the OR. 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 blood sugar diagnostic ([employer] ULTRA TEST) test strip Use to test blood sugars twice daily. Dx: 250.00 glimepiride (AMARYL) 4 mg tablet Take 2 tablets by mouth daily with breakfast. allopurinol (ZYLOPRIM) 100 mg tablet Take 1 tablet by mouth two times a day. empagliflozin (JARDIANCE) 10 mg tablet Take 1 tablet by mouth daily with breakfast. pantoprazole DR (PROTONIX) 20 mg tablet Take 1 tablet by mouth once daily. Take as needed for heartburn/GI upset atorvastatin (LIPITOR) 20 mg tablet Take 1 tablet by mouth daily at bedtime. For cholesterol. atenolol (TENORMIN) 50 mg tablet Take 1 tablet by mouth once daily. ketoconazole (NIZORAL) 2 % shampoo Apply to affected area once daily as needed. triamcinolone acetonide (KENALOG) 0.1 % cream Apply to affected area twice daily. white petrolatum - mineral oil (EUCERIN CREAM) cream Apply to affected area as needed. Lancets ([employer] ULTRASOFT LANCETS) lancets Use as directed to check blood sugars 1-2 times daily nitroglycerin sublingual (NITROQUICK) 0.4 mg SL tablet Take 1 tablet by mouth as needed for Chest Pain. FOR CHEST PAIN. IF NO PAIN RELIEF, CALL 911 [place]-3 Fatty Acids-Vitamin E 1,000 mg cap Take 2 capsules by mouth once daily. Ascorbic Acid 1,000 mg tablet Take 1,000 mg by mouth once daily. ACETAMINOPHEN (TYLENOL ARTHRITIS ORAL) Take by mout (more content not included)... [facility] 09-24-2024 Telephone encounter Note Mellisa with [employer] calling. The patient has been identified by name and date of : Yes Caregiver verified no other encounters exist for this prescription request: Yes Caregiver confirmed with patient/requestor that no other refills are due, in the near future, with this provider at this time: Yes The last office visit in the department: 08/12/2024 Does the patient have a future office visit with this provider/department: Yes 11/12/2024 Requested Prescriptions Pending Prescriptions Disp Refills metFORMIN ER (GLUCOPHAGE XR) 500 mg 24 hr tablet 180 tablet 1 Sig: Take 2 tablets by mouth once daily. Odalis Ring LPN September 24, 2024 11:35 AM [facility] 09-24-2024 Miscellaneous Notes Mellisa with [employer] calling. The patient has been identified by name and date of : Yes Caregiver verified no other encounters exist for this prescription request: Yes Caregiver confirmed with patient/requestor that no other refills are due, in the near future, with this provider at this time: Yes The last office visit in the department: 08/12/2024 Does the patient have a future office visit with this provider/department: Yes 11/12/2024 Requested Prescriptions Pending Prescriptions Disp Refills metFORMIN ER (GLUCOPHAGE XR) 500 mg 24 hr tablet 180 tablet 1 Sig: Take 2 tablets by mouth once daily. Odalis Ring LPN September 24, 2024 11:35 AM documented in this encounter [facility] 08-28-2024 Telephone encounter Note Noted, thank you Genie Moore APRN.[employer] [facility] Work Phone: 08-28-2024 Miscellaneous Notes Noted, thank you Genie Moore APRN.FAIZA Patient returned call and given provider's message below. Patient reports he [facility]24 and will discuss diabetic medications. Kiana Kuhn RN TC to pt. LM to call office, ask for triage nurse to get results. Charleen Sterling LPN Can you please call the patient and let him know that I reviewed his repeat lab results. A1c is unchanged at 9.0. As discussed during office visit I would recommend adding on a new medication such as a GLP injectable or long acting insulin to help with his glucose. We discussed getting this through the [facility] due to [facility]. Regarding his kidney function, GFR was 62, kidney function was normal. Please let me know if they have any questions. Thank you. Genie Moore APRN.FAIZA documented in this encounter [facility] 08-27-2024 Telephone encounter Note Patient returned call and given provider's message below. Patient reports he has an OV with the OR on 09/11/24 and will discuss diabetic medications. Kiana Kuhn RN [facility] 08-27-2024 Telephone encounter Note TC to pt. LM to call office, ask for triage nurse to get results. Charleen Sterling LPN [facility] 08-27-2024 Telephone encounter Note Can you please call the patient and let him know that I reviewed his repeat lab results. A1c is unchanged at 9.0. As discussed during office visit I would recommend adding on a new medication such as a GLP injectable or long acting insulin to help with his glucose. We discussed [facility] this [facility] due [facility]. Regarding his kidney function, GFR was 62, kidney function was normal. Please let me know if they have any questions. Thank you. Genie Moore APRN.FAIZA [facility] 08-12-2024 Instructions Genie Moore APRN.FAIZA - 08/12/2024 8:51 AM EDT Recommend starting a GLP-1 or Januvia, check with [facility] for [facility]. Get repeat lab in 1 month to check kidney function Work on eating a low carb diet. Decreased processed foods in the diet. Increase lean protein, veggies, and get some form of exercise. Consult placed for Nephrology (kidney) Watch salt in the diet, stay hydrated. Follow up in 3 months. Condiment: Alejo Chaudhary, low sugar and low carb documented in this encounter [facility] 08-12-2024 History of Present illness Narrative This is a 79 year old male who presents today with: Patient presents with: Acute Visit: kidney issues HISTORY OF PRESENT ILLNESS: Tristin Flynn is a 79 year old male. Patient presents with: Acute Visit: kidney issues Here in the office to discuss his kidney concerns. [facility] Recent labs at [facility] showed a GFR of 42. Currently has uncontrolled diabetes. DM: Reports overall feeling well. Medication side effects: No. Home sugar checks: 120-2101 Hypoglycemic spells: No. Watching diet: No. Unexpected weight loss: No. Polyuria, polydipsia: Yes. Vision Changes: No. Foot lesions or numbness or pain: No. Concerns that his Jardiance could be affecting his kidney function. Stopped Jardiance. Taking Metformin XR 500 mg BID. Glimerpiride 4 mg one tablet daily, reduced by the [facility]. Not watching diet. Increased urination, no dysuris. Follow[facility] with [facility] every 6 months. Here today with his . GI/Uro - Has seen a Urologist and Wire Brusher in past [facility]. Hx of kidney stones. Using Allopurinol 100 mg BID to help prevent kidney stones. PAST MEDICAL HISTORY: PAST MEDICAL HISTORY Diagnosis Date Ankle disorder 1995 right fracture, dislocation(screws implanted) Arrhythmia Brain tumor (benign) (HCC) 2003 CAD (coronary artery disease) Calculus of kidney Cataract ou Cholelithiasis 05/01/2010 Diaphragmatic hernia without mention of obstruction or gangrene DM w/o Complication Type II Esophageal reflux Follicular lymphoma (HCC) 10/2015 [facility] Generalized osteoarthrosis, unspecified site knees htn Hyperlipidemia Meningioma (HCC) PMH - PAST MEDICAL HISTORY OF bells palsy-resolved Pure hypercholesterolemia S/P angioplasty with stent 11/24/2012 Shoulder arthritis 2001 right and left shoulder rotator cuff(shoulder screws in place) Snoring PAST SURGICAL HISTORY Procedure Laterality Date APPENDECTOMY and exploratory surgery ARTHRP KNE CONDYLE&PLATU MEDIAL&LAT COMPARTMENTS 02/2013. 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 blood sugar diagnostic ([employer] ULTRA TEST) test strip Use to test blood sugars twice daily. Dx: 250.00 glimepiride (AMARYL) 4 mg tablet Take 2 tablets by mouth daily with breakfast. allopurinol (ZYLOPRIM) 100 mg tablet Take 1 tablet by mouth two times a day. empagliflozin (JARDIANCE) 10 mg tablet Take 1 tablet by mouth daily with breakfast. pantoprazole DR (PROTONIX) 20 mg tablet Take 1 tablet by mouth once daily. Take as needed for heartburn/GI upset atorvastatin (LIPITOR) 20 mg tablet Take 1 tablet by mouth daily at bedtime. For cholesterol. atenolol (TENORMIN) 50 mg tablet Take 1 tablet by mouth once daily. ketoconazole (NIZORAL) 2 % shampoo Apply to affected area once daily as needed. triamcinolone acetonide (KENALOG) 0.1 % cream Apply to affected area twice daily. white petrolatum - mineral oil (EUCERIN CREAM) cream Apply to affected area as needed. Lancets ([employer] ULTRASOFT LANCETS) lancets Use as directed to check blood sugars 1-2 times daily nitroglycerin sublingual (NITROQUICK) 0.4 mg SL tablet Take 1 tablet by mouth as needed for Chest Pain. FOR CHEST PAIN. IF NO PAIN RELIEF, CALL 911 [place]-3 Fatty Acids-Vitamin E 1,000 mg cap Take 2 capsules by mouth once daily. Ascorbic Acid 1,000 mg tablet Take 1,000 mg by mouth once daily. ACETAMINOPHEN (TYLENOL ARTHRITIS ORAL) Take by mouth once daily. alcohol antiseptic pads(ALCOHOL PADS) Use as directed aspirin(ECOTRIN LOW STRENGTH 81 MG TAB) Take one(1) tablet daily. TUMS 500 MG CHEWABLE TAB as necessary No current facility-administered medications for this visit. FAMILY HISTORY Problem Relation Age of Onset Heart Father Diabetes Mother Heart Paternal Grandmother cardiomegaly Stroke Paternal Grandfather Hypertension Sister Diabetes Sister Social History Tobacco Use Smoking status: Never Smokeless tobacco: Never Tobacco comments: never Vaping Use Vaping status: Never Used Substance Use Topics Alcohol use: No Comment: never Drug use: No REVIEW OF SYSTEMS GENERAL: No weight loss, malaise or fevers/chills HEENT: Negative for frequent or significant headaches, No changes in hearing or vision. NECK: Negative for lumps, goiter, pain and significant neck swelling RESPIRATORY: Negative for cough, hemoptysis, wheezing, dyspnea or shortness of breath CARDIOVASCULAR: Negative for chest pain, leg swelling, orthopnea, or palpitations GI: No nausea, vomiting, or diarrhea/constipation. No hematochezia/melena. No heartburn or reflux symptoms. : No history of dysuria, frequency or incontinence MUSCULOSKELETAL: Negative for joint pain or swelling. SKIN: Negative for lesions, rash, and itching ENDOCRINE: Negative for cold or heat intolerance, polyuria, polydipsia and goiter NEURO: No history of headaches, syncope, paralysis, seizures or tremors MOOD: Negative for depression, anxiety, or suicidal ideation. EXAM: BP 130/70 Pulse 72 Resp 16 Wt 86.2 kg (190 lb) SpO2 99% BMI 28.06 kg/m PHYSICAL EXAM: General Appearance: Well appearing, alert, in no acute distress, well-hydrated, well nourished. Skin: Skin color, texture, turgor normal, no suspicious rashes or lesions. Head: Normocephalic, no masses, lesions, tenderness or abnormalities. Eyes: Anicteric sclera. Extraocular movements are intact. Lungs: Lungs clear to auscultation. No wheezing, rhonchi, rales. Heart: RRR without murmur, gallop, or rubs. No ectopy. Extremities: No deformities, edema, skin discoloration, clubbing or cyanosis. Good capillary refill. Peripheral Pulses: Normal, Capillary refill <2secs, strong peripheral pulses, Pulses palpable. Neurologic: Gait normal. Sensation grossly intact. ASSESSMENT/PLAN: 1. Type 2 diabetes mellitus without complication, without long-term current use of insulin ([facility]) - ICD9: 250.00, ICD10: E11.9 (primary diagnosis) - Control undetermined, due for labs - Continue current medications - Counseled on healthy diet and regular exercise - Discussed need for and benefit of weight loss. BMI 28.06 kg/(m^2) - Recommend starting a GLP 1 injectable or consider starting long-acting insulin. [facility] for [facility] due to costs. - Stressed importance of making lifestyle changes at home. Work on eating a low-carb diet. - HEMOGLOBIN A1C 2. Function kidney decreased - ICD9: 593.9, ICD10: N28.9 - Instructed to watch processed foods and salt in the diet - Consult placed for nephrology. - CONSULT TO NEPHROLOGY - COMPREHENSIVE METABOLIC PANEL Follow-up in 3 months or sooner as needed. Discussed treatment plan and patient voices understanding. Patient's questions answered appropriately. Medications and potential side effects were discussed and patient voices understanding. Genie Moore APRN.CNP This note was partially generated using [employer] voice recognition system. Note was reviewed for accuracy. There may be minor misspellings or grammar miscues with [employer] voice recognition. documented in this encounter [facility] 08-12-2024 Note HNO ID: [id number] Author: GENIE MOORE APRN.CNP Service: ? Author Type: Nurse Practitioner Type: Progress Notes Filed: 08/12/2024 10:28 Note Text: This is a 79 year old male who presents today with: Patient presents with: Acute Visit: kidney issues HISTORY OF PRESENT ILLNESS: Tristin Flynn is a 79 year old male. Patient presents with: Acute Visit: kidney issues Here in the office to discuss his kidney concerns. [facility] Recent labs at [facility] showed a GFR of 42. Currently has uncontrolled diabetes. DM: Reports overall feeling well. Medication side effects: No. Home sugar checks: 120-2101 Hypoglycemic spells: No. Watching diet: No. Unexpected weight loss: No. Polyuria, polydipsia: Yes. Vision Changes: No. Foot lesions or numbness or pain: No. Concerns that his Jardiance could be affecting his kidney function. Stopped Jardiance. Taking Metformin XR 500 mg BID. Glimerpiride 4 mg one tablet daily, reduced by the [facility]. Not watching diet. Increased urination, no dysuris. [facility] with [facility] 6 months. Here today with his . GI/Uro - Has seen a Urologist and Wire Brusher [facility]. Hx of kidney stones. Using Allopurinol 100 mg BID to help prevent kidney stones. PAST MEDICAL HISTORY: PAST MEDICAL HISTORY Diagnosis Date Ankle disorder 1995 right fracture, dislocation(screws implanted) Arrhythmia Brain tumor (benign) (HCC) 2003 CAD (coronary artery disease) Calculus of kidney Cataract ou Cholelithiasis 05/01/2010 Diaphragmatic hernia without mention of obstruction or gangrene DM w/o Complication Type II Esophageal reflux Follicular lymphoma (HCC) 10/2015 [facility] Generalized osteoarthrosis, unspecified site knees htn Hyperlipidemia Meningioma (HCC) PMH - PAST MEDICAL HISTORY OF bells palsy-resolved Pure hypercholesterolemia S/P angioplasty with stent 11/24/2012 Shoulder arthritis 2002 right and left shoulder rotator cuff(shoulder screws in place) Snoring PAST SURGICAL HISTORY Procedure Laterality Date APPENDECTOMY and exploratory surgery ARTHRP KNE CONDYLEANDPLATU MEDIALANDLAT COMPARTMENTS 02/2013. 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 blood sugar diagnostic ([employer] ULTRA TEST) test strip Use to test blood sugars twice daily. Dx: 250.00 glimepiride (AMARYL) 4 mg tablet Take 2 tablets by mouth daily with breakfast. allopurinol (ZYLOPRIM) 100 mg tablet Take 1 tablet by mouth two times a day. empagliflozin (JARDIANCE) 10 mg tablet Take 1 tablet by mouth daily with breakfast. pantoprazole DR (PROTONIX) 20 mg tablet Take 1 tablet by mouth once daily. Take as needed for heartburn/GI upset atorvastatin (LIPITOR) 20 mg tablet Take 1 tablet by mouth daily at bedtime. For cholesterol. atenolol (TENORMIN) 50 mg tablet Take 1 tablet by mouth once daily. ketoconazole (NIZORAL) 2 % shampoo Apply to affected area once daily as needed. triamcinolone acetonide (KENALOG) 0.1 % cream Apply to affected area twice daily. white petrolatum - mineral oil (EUCERIN CREAM) cream Apply to affected area as needed. Lancets ([employer]TR[employer] LANCETS) lancets Use as directed to check blood sugars 1-2 times daily nitroglycerin sublingual (NITROQUICK) 0.4 mg SL tablet Take 1 tablet by mouth as needed for Chest Pain. FOR CHEST PAIN. IF NO PAIN RELIEF, CALL 911 [place]-3 Fatty Acids-Vitamin E 1,000 mg cap Take 2 capsules by mouth once daily. Ascorbic Acid 1,000 mg tablet Take 1,000 mg by mouth once daily. ACETAMINOPHEN (TYLENOL ARTHRITIS ORAL) Take by mouth once daily. alcohol antiseptic pads(ALCOHOL PADS) Use as directed aspirin(ECOTRIN LOW STRENGTH 81 MG TAB) Take one(1) tablet daily. TUMS 500 MG CHEWABLE TAB as necessary No current facility-administered medications for this visit. FAMILY HISTORY Problem Relation Age of Onset Heart Father Diabetes Mother Heart Paternal Grandmother cardiomegaly Stroke Paternal Grandfat (more content not included)... [facility] 08-07-2024 History of Present illness Narrative After visit summary was printed and given to patient. Discharge instructions and follow up appointments reviewed with patient. Patient verbalized understanding. All questions answered. Patient and family encouraged to call with any additional questions. No chief complaint on file. 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 He initially presented for evaluation of lymphadenopathy. He reports that since June, he has been experiencing intermittent bilateral lower quadrant pain. He had a CT scan in June 2015 which demonstrated lymphadenopathy. Repeat CT in July showed persistent LAD. He had a work up including a urologic evaluation and PSA, a colonoscopy and EGD which did not identify a cause for his pain or lymphadenopathy. He had a PET scan which showed that the lymph nodes were FDG avid and there was also a lesion at the vertex of the skull. He had a surgical biopsy and the pathology demonstrated follicular lymphoma, low grade. He has been followed by watchful observation since that time. Mr. Flynn returns for routine follow up and evaluation. He is accompanied by his . He reports he was started on Jardiance 6 months ago and his hgb A1C has increased and kidney function has worsened. He states he is voiding twice as much and he is drinking up to 64 oz of fluids. He also reports he has a long history of kidney stones. He has received the influenza vaccine but declines the COVID vaccine. He continues to have intermittent diarrhea and constipation d/t metformin. He denies LAD, drenching night sweats, unintentional weight loss, fevers or chills. Review of Systems The remainder of his review of systems is negative or as noted above. Current Outpatient Medications Medication Sig Dispense Refill acetaminophen 325 MG tablet take 650 mg by mouth every 4 hours. For arthritis pain allopurinol 100 MG Tab take 50 mg by mouth daily. ascorbic acid 500 MG Tab take 500 mg by mouth daily. aspirin 81 MG Chew Tab take 81 mg by mouth daily. atenolol 25 MG Tab take 25 mg by mouth daily. atorvastatin 10 MG Tab take 10 mg by mouth daily. calcium carbonate 500 MG Chew Tab take 500 mg by mouth as needed. Cinnamon 500 MG Cap take 1,000 mg by mouth daily. Empagliflozin 10 MG tablet Take 1 tablet by mouth daily with breakfast. gliMEPIride 2 MG Tab take 2 mg by mouth daily every morning. Glucose Blood (BLOOD GLUCOSE TEST STRIPS) Strip by Other route. metformin-XR 500 MG Tab SR 24 HR take 1,000 mg by mouth daily. Currently taking 3 tabs a day (12/01/15); working with team to adjust dose nitroGLYCERIN 0.[address] 1 tablet under tongue every 5 minutes as needed for Chest pain. max = 3 doses. If CP persists after 1st dose, call 911 25 tablet 0 [place]-3 Fatty Acids (FISH OIL) 1200 MG Cap take 1,200 mg by mouth daily. ONE TOUCH LANCETS Misc by Unknown route. Use to check blood sugars Pantoprazole Sodium (PROTONIX PO) Take by mouth. No current facility-administered medications for this visit. Allergies Allergen Reactions Contrast Dye [Ivp Dye, Iodine Containing] Nausea Only Darvon [Propoxyphene] Meperidine Nausea and Vomiting Demerol, Darvon Morphine And Related [Codeine And Related] Nausea and Vomiting Plavix [Clopidogrel] Bleeding Excessive bleeding Prednisone Anxiety Physical Examination Physical Examination: VITAL SIGNS: Blood pressure 150/70, pulse 57, temperature 97.6 F (36.4 C), temperature source Oral, resp. rate 16, height 1.753 m (5' 9), weight 86.2 kg (190 lb), SpO2 98%.. Performance status is 1. GENERAL: Ambulatory, well appearing, and in no apparent distress. HEENT: PERRL, EOMI. No scleral icterus. No oral lesions or tonsillar enlargement. JM EXAM: I do not appreciate any anterior cervical, posterior cervical, supraclavicular, infraclavicular, axillary, or inguinal adenopathy. RESPIRATORY: Clear to auscultation bilaterally posteriorly without wheezes, rhonchi or rales. CARDIOVASCULAR: Regular rate and rhythm, without murmur, rub, or gallops. GASTROINTESTINAL: Abdomen soft, nontender, nondistended, without rebound or guarding. Normoactive bowel sounds. No masses or hepatosplenomegaly. EXTREMITIES: No cyanosis, clubbing, or edema. SKIN: Skin color, texture, turgor normal. No rashes or lesions. NEUROLOGICAL: Alert and oriented x3. Cranial nerves intact. Normal gait. Normal strength in upper and lower extremities. Laboratory / Diagnostic Studies WBC Count Date Value Ref Range Status 08/07/2024 4.88 3.73 - 10.10 K/uL Final Hemoglobin Date Value Ref Range Status 08/07/2024 16.0 13.4 - 16.8 g/dL Final Platelet Count Date Value Ref Range Status 08/07/2024 182 146 - 337 K/uL Final GRANS, ABSOLUTE Date Value Ref Range Status 03/30/2016 2.9 1.8 - 7.7 K/uL Final Segs + Bands Auto Date Value Ref Range Status 08/07/2024 60.9 % Final Sodium Date Value Ref Range Status 08/07/2024 135 135 - 145 mmol/L Final Potassium Date Value Ref Range Status 08/07/2024 4.5 3.5 - 5.0 mmol/L Final Chloride Date Value Ref Range Status 08/07/2024 100 98 - 108 mmol/L Final BUN Date Value Ref Range Status 08/07/2024 22 7 - 25 mg/dL Final Creatinine Date Value Ref Range Status 08/07/2024 1.64 (H) 0.70 - 1.30 mg/dL Final Calcium Date Value Ref Range Status 08/07/2024 9.7 8.6 - 10.5 mg/dL Final MAGNESIUM Date Value Ref Range Status 11/15/2015 1.9 1.6 - 2.6 mg/dL Final Bilirubin Total Date Value Ref Range Status 08/07/2024 1.0 <1.5 mg/dL Final ALP Date Value Ref Range Status 08/07/2024 69 32 - 126 U/L Final ALT Date Value Ref Range Status 08/07/2024 18 10 - 52 U/L Final AST Date Value Ref Range Status 08/07/2024 21 10 - 39 U/L Final LD Total Date Value Ref Range Status 08/07/2024 148 100 - 190 U/L Final Assessment and Plan In summary, Mr Flynn is a 79 y.o. gentleman with follicular grade 1-2/3 non-Hodgkin's lymphoma involving lymph nodes in the neck, chest and abdomen. He presented when the lymphadenopathy was found incidentally during a work up for abdominal pain. The lymph nodes had been present on prior imaging, but had progressed. He had not had a bone marrow biopsy to complete his staging. If his bone marrow is negative, then he had stage III disease; if involved, he has stage IV disease. The results of the bone marrow biopsy would not impact our treatment decision at that time and was deferred. On his initial PET, he was noted to have a lesion in the vertex of the skull. He reports a history of a benign process identified by biopsy at the [facility]. A MRI was completed on 03/22/2016 consistent with a meningoma. Upon history, labs and clinical evaluation, he does not show evidence of progression of lymphoma. In regards to elevated creat and decreased GFR, I recommended referral to nephrology. Referral placed. We will continue to monitor him with watchful observation. We will have him return in 6 months with annual scans. The patient was seen and discussed with Dr. Suzanna Broussard MD. The plan was developed mutually at the time of the visit with the patient. MARIAH Maya Lymphoma Nurse Practitioner Hematology Oncology Department I saw and evaluated the patient with Kim Lyman CNP. I provided a substantive portion of the care for this patient. I personally performed all aspects of the medical decision making for this encounter. I have reviewed and verified this documentation and it accurately reflects our care In summary, Mr Flynn is an 79 y.o. gentleman with follicular grade 1-2/3 lymphoma involving lymph nodes in the neck, chest and abdomen. He presented when the lymphadenopathy was found incidentally during a work up for abdominal pain. The lymph nodes had been present on prior imaging, but had progressed. He had not had a bone marrow biopsy to complete his staging. If his bone marrow is negative, then he had stage III disease; if involved, he has stage IV disease. The results of the bone marrow biopsy would not impact our treatment decision at that time and was deferred. On his initial PET, he was noted to have a lesion in the vertex of the skull. He reports a history of a benign process identified by biopsy at the [facility]. A MRI was completed on 03/22/2016 consistent with a meningoma. On clinical examination and labs today he has no evidence of progression. We will continue to monitor with watchful observation. He will RTC in [address] scans He has an elevated [facility] Urine microalbumin was elevated. We will place a referral to Nephrology locally documented in this encounter [facility] 08-07-2024 Instructions Shauna Reno RN - 08/07/2024 2:00 PM EDT Your Lymphoma Care Team MD Diya Heath, FAIZA Lyman, FAIZA Reno, CHATO Vora RN Our watch caser is TERA Garcia. She can be reached at [phone]. Contact Numbers: Clinic Phone & Appointment Changes: [phone] Clinic INFECTION PREVENTION The best way to prevent the spread of any type of infection is to practice routine hygiene etiquette: Cover your mouth/ nose with your elbow or a tissue when you sneeze or cough. Wash your hands or use alcohol hand rub after coughing or sneezing. Avoid close contact with people who are sick. If you are ill, keep a safe distance from others to reduce the risk of spread If you are seriously ill, seek medical advice from your health care provider Please contact our office if you develop a temperature of 100.4 or greater Call the clinic prior to your appointment if you are not feeling well For Medication Refills: Please plan ahead for all medication refills and request them at your appointment with your physician. Please allow one week for prescription refills over the telephone, as they will be refilled when Dr. Bruossard is in clinic on Wednesdays and Fridays. We will call them in to the pharmacy of your request or to the pharmacy listed in your chart if not specified differently. You will not be contacted about the refill except for any questions or concerns. Please call your pharmacy to verify when to mushroom picker. MEDICAL RECORDS The Release of Information ([facility]) area is staffed from 8:00 a.m. to 7:00 p.m. and is available for walk in requests from 8:00 a.m. to 4:30 p.m. [facility] is responsible for answering requests for copies of medical records from various requestors such as insurance companies, attorneys, hospitals and patients. Please note it can take up to 2 weeks to complete your request. [phone]; [phone] (fax). FINANCIAL CONCERNS Any questions regarding billing for services or insurance coverage concerns should be directed to our billing department at [phone]. RESEARCH You may be contacted to participate in research looking at your blood cells.This research will hopefully help doctors find new ways to treat and even prevent some diseases. Please let the nurse know before you leave if you do not want to be called. All Disability/FMLA Paperwork: Please allow up to 2 weeks for all disability, FMLA, etc. to be filled out. Please specify what your request is as to what and where we should send completed paperwork. (This is to inform us if we should send the completed papers to you or directly to your employer). The primary nurse is the one who will normally fill this paperwork out for you, and will only call to inform you the paperwork is completed and sent if requested. [facility] MY Chart: The medical information you will have access to within the My Chart program is only selected portions of your entire chart, such as basic laboratory results, summary medical history, visit history, and selected billing information. Please understand we do not place all results from labs, tests and procedures. To provide you with the best quality care available we need to be able to discuss these results with you personally. If you are unable to obtain the results of a test that you can't find within the My Chart please feel free to call us and we will get back to you with that information. When sending a message to the provider, please know that these messages will be received and answered by the primary nurse practitioner. The nurse practitioner will consult your physician when needed. Please call us with any questions or concerns that you may have. RESOURCES: National Cancer [employer]- www.cancer.gov [facility] for [facility]- https://cancer.[facility].edu [employer]- www.cancercare.org Leukemia and Lymphoma Society- LLS.org Peer support groups- www.cancer.os.edu/ERI or email [email or web address] Fall Prevention at Home Here are some tips to use in your home to help prevent falls. Throughout the home Remove throw rugs so you do not trip on them. Replace or remove carpet that is torn or has turned-up edges. Avoid thick carpet. Shoes may catch on these and cause you to stumble or fall. Move furniture or other things that may block pathways. Be sure you have good lighting throughout your home. Use night lights or leave some lights on in the house to help you see at night or when you come home in the evening. Use switches that glow in the dark, so they can be seen more easily. Keep electrical cords and small things out of your path. Use your cane or walker rather than using furniture to give you support when walking. Stairs Mount sturdy handrails to help with going up and down stairs. They should extend beyond the top and bottom stair. Improve the visibility on your stairs. Have good lighting on the stairs. Non-skid surfaces can be applied to wood stairs to prevent sliding. [place] a bright colored line on the edge of each step so they are more easily seen, especially if you have poor vision. In the bathroom Place non-skid decals or a mat in the tub or shower. Install grab bars around the toilet and in the shower or bathtub. Towel bars are to hold towels, and they will break if you use them as grab bars. Use a tub seat and an elevated toilet seat. Leave the bathroom door unlocked so it can be opened if you do fall. In the bedroom Avoid wearing long nightgowns or robes. These can cause you to trip. Avoid wearing loose shoes that cause you to scuff or shuffle your feet as you walk. Wear shoes or slippers that fit well and stay securely on your feet. In the kitchen Have commonly used items at counter level or within easy reach. Do not climb or reach to high shelves. If you use a step stool, use a stable step stool with a handrail. Other tips Be careful that you do not trip over your pet. Be aware of where you pet is when you are moving around. Use caution when sitting down. Before sitting down on a chair, make sure the backs of your legs are touching the seat of the chair behind you. Keep a telephone close by or consider carrying a portable phone. Take your time. Get in the habit of moving at speeds that are safe for your energy level and ability. Do not gregory to answer the phone or door. Ask for help when getting up from bed, a chair or the toilet if you feel at all shaky, weak, dizzy or lightheaded. Talk to your doctor or others on your health care team if you have questions. You may request more written information from the [employer] for [employer] Information at or email: [email or web address]. 2002 - November 16, 2015. The [facility]. This handout is for informational purposes only. Talk with your doctor or health care team if you have any questions about your care. Results for orders placed or performed in visit on 08/07/24 LACTATE DEHYDROGENASE Result Value Ref Range LD Total 148 100 - 190 U/L COMPREHENSIVE METABOLIC PANEL Result Value Ref Range Sodium 135 135 - 145 mmol/L Potassium 4.5 3.5 - 5.0 mmol/L Chloride 100 98 - 108 mmol/L BUN 22 7 - 25 mg/dL Creatinine 1.64 (H) 0.70 - 1.30 mg/dL Glucose 244 (H) 70 - 99 mg/dL Bilirubin Total 1.0 <1.5 mg/dL Albumin 4.4 3.5 - 5.0 g/dL Total Protein 7.5 6.4 - 8.3 g/dL AST 21 10 - 39 U/L ALP 69 32 - 126 U/L Calcium 9.7 8.6 - 10.5 mg/dL CO2 27 21 - 31 mmol/L ALT 18 10 - 52 U/L Bun/Crea Ratio 13 Osmolality (Calculated) 297 278 - 305 mOsm/kg Anion Gap 13 7 - 17 mmol/L eGFR, CKD-EPI, Male 42 (L) >=60 mL/min/1.73m2 CBC AND ELECTRONIC DIFF Result Value Ref Range WBC Count 4.88 3.73 - 10.10 K/uL RBC Count 5.33 4.38 - 5.83 M/uL Hemoglobin 16.0 13.4 - 16.8 g/dL Hematocrit 47.5 39.6 - 48.8 % Mean Cell Volume 89.1 79.0 - 94.5 fL Mean Cell Hgb 30.0 26.1 - 33.3 pg Mean Cell Hgb Conc 33.7 31.9 - 36.5 g/dL RBC Distribution 13.1 10.9 - 14.3 % Platelet Count 182 146 - 337 K/uL Mean Platelet Volume 10.6 8.7 - 12.3 fL DIFF STATUS Electronic Differential Segs + Bands Auto 60.9 % Immature Grans % 0.2 % Lymphocyte % Auto 26.8 % Monocyte % Auto 8.4 % Eosinophil % Auto 3.1 % Basophil % Auto 0.6 % Nucleated RBC 0.0 <=0.2 /100 WBC Segs + Bands,Absolute Auto 2.97 1.57 - 6.19 K/uL Immature Grans Absolute <0.04 <=0.07 K/uL Abs Lymph Auto 1.31 0.83 - 3.57 K/uL Abs [place] Auto 0.41 0.24 - 0.93 K/uL Abs Eos Auto 0.15 0.00 - 0.48 K/uL Abs Baso Auto <0.04 0.00 - 0.09 K/uL documented in this encounter [facility] 06-23-2024 Telephone encounter Note Letter with requested documentation has been faxed to information below. Isabel Carrion MA [facility] 06-23-2024 Miscellaneous Notes Letter with requested documentation has been faxed to information below. Isabel Carrion MA Letter done Alisha Gee MD Pt was given order from [employer] for diabetic shoes but company is requesting letter from PCP stating he needs these shoes. DX: E11.49, M20.12, M20.11 Fax to [employer] at [phone] Paula Baeza MA documented in this encounter [facility] 06-19-2024 Telephone encounter Note Letter done Alisha Gee MD [facility] 06-18-2024 Telephone encounter Note Pt was given order from [employer] for diabetic shoes but company is requesting letter from PCP stating he needs these shoes. DX: E11.49, M20.12, M20.11 Fax to [employer] at [phone] Paula Baeza MA [facility] 06-18-2024 Shweta Welch - 06/18/2024 1:11 PM EDT Diabetes Foot Care Instructions When you have diabetes, proper foot care is very important. Poor foot care may lead to amputation of a foot or leg. As a person with diabetes, you are more vulnerable to foot problems, because diabetes can damage your nerves and reduce blood flow to your feet. Here are some diabetes foot care tips to follow: Wash and Dry Your Feet Daily Use mild soaps Use warm water Pat your skin dry; do not rub. Thoroughly dry your feet. After washing, use lotion on your feet to prevent cracking. Do not put lotion between your toes. Examine Your Feet Each Day Check the tops and bottoms of your feet. Have someone else look at your feet if you cannot see them. Check for dry, cracked skin. Look for blisters, cuts, scratches, or other sores. Check for redness, increased warmth, or tenderness when touching any area of your feet. Check for ingrown toenails, corns, and calluses. If you get a blister or sore from your shoes, do not pop it. Apply a bandage and wear a different pair of shoes. Take Care of Your Toenails Cut toenails after bathing, when they are soft. Cut toenails straight across and smooth with a nail file. Avoid cutting into the corners of toes. Do not cut cuticles. If you have neuropathy (or decreased sensation in your feet) a substation operator helper should always cut your toenails. Be Careful When Exercising Walk and exercise in comfortable shoes. Do not exercise when you have open sores on your feet. Protect Your Feet With Shoes and Socks Never go barefoot. Always protect your feet by wearing shoes or hard-soled slippers or footwear. Avoid shoes with high heels and pointed toes. Avoid shoes that expose your toes or heels (such as open-toed shoes or sandals). These types of shoes increase your risk for injury and potential infections. Try on new footwear with the type of socks you usually wear. Do not wear new shoes for more than an hour at a time. Change your socks daily. Look and feel inside your shoes before putting them on to make sure there are no foreign objects or rough areas. Avoid tight socks. Wear natural-fiber socks (cotton, wool, or a cotton-wool blend). Wear special shoes if your health care provider recommends them. Wear shoes/boots that will protect your feet from various weather conditions (cold, moisture, etc.). Make sure your shoes fit properly. If you have neuropathy (nerve damage), you may not notice that your shoes are too tight. Perform the footwear test described below. Footwear Test Use this simple test to see if your shoes fit correctly: Stand on a piece of paper. (Make sure you are standing and not sitting, because your foot changes shape when you stand.) Trace the outline of your foot. Trace the outline of your shoe. Compare the tracings: Is the shoe too narrow? Is your foot crammed into the shoe? The shoe should be at least 1/2 inch longer than your longest toe and as wide as your foot. Proper Shoe Choices The following types of shoes are best for people with diabetes Closed toes and heels Leather uppers without a seam inside At least 1/2 inch extra space at the end of your longest toe Inside of shoe should be soft with no rough areas Outer sole should be made of stiff material Shoes should be at least as wide as your feet Tips for Foot Care in Diabetes Don't wait to treat a minor foot problem if you have diabetes. Follow your health care provider's guidelines and first aid guidelines. Report foot injuries and infections to your health care provider immediately. Check water temperature with your elbow, not your foot. Do not use a heating pad on your feet. Do not cross your legs. Do not self-treat your corns, calluses, or other foot problems. Go to your health care provider or substation operator helper to treat these conditions. documented in this encounter [facility] 06-18-2024 Note HNO ID: [id number] Author: SHWETA MOREL, ? Service: ? Author Type: Physician Type: Progress Notes Filed: 06/18/2024 13:16 Note Text: Subjective: This 78 year old mal presents to clinic for diabetic foot check. Patient has the following complaints: none other than burning in foot. Patient admits to being diabetic for multilple years now.. Patient +B/T/N in feet at this time. Patient -pain in legs when walking. No other pedal complaints at this time. No change in medications or medical history since last visit. PAIN EVALUATION No data found in the last 1 encounters. Hemoglobin A1C (%) Date Value 12/23/2023 9.0 06/18/2023 7.8 02/04/2023 8.2 09/24/2022 7.3 06/12/2022 7.9 06/20/2020 8.0 08/04/2019 7.2 12/02/2018 8.3 08/25/2018 8.2 05/16/2018 7.6 HGB A1C (no units) Date Value 09/09/2020 7.0 PCP: Alisha Gee MD PAST MEDICAL HISTORY 1995: Ankle disorder Comment: right fracture, dislocation(screws implanted) No date: Arrhythmia 2003: Brain tumor (benign) (HCC) No date: CAD (coronary artery disease) No date: Calculus of kidney No date: Cataract Comment: ou 05/01/2010: Cholelithiasis No date: Diaphragmatic hernia without mention of obstruction or gangrene No date: DM w/o Complication Type II No date: Esophageal reflux 10/2015: Follicular lymphoma (HCC) Comment: [facility] No date: Generalized osteoarthrosis, unspecified site Comment: knees No date: htn No date: Hyperlipidemia No date: Meningioma (HCC) No date: PMH - PAST MEDICAL HISTORY OF Comment: bells palsy-resolved No date: Pure hypercholesterolemia 11/24/2012: S/P angioplasty with stent 2001: Shoulder arthritis Comment: right and left shoulder rotator cuff(shoulder screws in place) No date: Snoring Current Outpatient Medications Medication Sig metFORMIN ER (GLUCOPHAGE XR) 500 mg 24 hr tablet Take 2 tablets by mouth once daily. blood sugar diagnostic (YummlyUCH ULTRA TEST) test strip Use to test blood sugars twice daily. Dx: 250.00 glimepiride (AMARYL) 4 mg tablet Take 2 tablets by mouth daily with breakfast. allopurinol (ZYLOPRIM) 100 mg tablet Take 1 tablet by mouth two times a day. empagliflozin (JARDIANCE) 10 mg tablet Take 1 tablet by mouth daily with breakfast. pantoprazole DR (PROTONIX) 20 mg tablet Take 1 tablet by mouth once daily. Take as needed for heartburn/GI upset atorvastatin (LIPITOR) 20 mg tablet Take 1 tablet by mouth daily at bedtime. For cholesterol. atenolol (TENORMIN) 50 mg tablet Take 1 tablet by mouth once daily. ketoconazole (NIZORAL) 2 % shampoo Apply to affected area once daily as needed. triamcinolone acetonide (KENALOG) 0.1 % cream Apply to affected area twice daily. white petrolatum - mineral oil (EUCERIN CREAM) cream Apply to affected area as needed. Lancets (New KCBXTOUCH ULTRASOFT LANCETS) lancets Use as directed to check blood sugars 1-2 times daily nitroglycerin sublingual (NITROQUICK) 0.4 mg SL tablet Take 1 tablet by mouth as needed for Chest Pain. FOR CHEST PAIN. IF NO PAIN RELIEF, CALL 911 [place]-3 Fatty Acids-Vitamin E 1,000 mg cap Take 2 capsules by mouth once daily. Ascorbic Acid 1,000 mg tablet Take 1,000 mg by mouth once daily. ACETAMINOPHEN (TYLENOL ARTHRITIS ORAL) Take by mouth once daily. alcohol antiseptic pads(ALCOHOL PADS) Use as directed aspirin(ECOTRIN LOW STRENGTH 81 MG TAB) Take one(1) tablet daily. TUMS 500 MG CHEWABLE TAB as necessary No current facility-administered medications for this visit. ALLERGIES Allergen Reactions Ciprofloxacin Myalgia Keflex [Cephalexin] GI Upset Meperidine GI Upset Morphine GI Upset Vomiting and nausea within minutes Contrast Dye GI Upset Opioids-Meperidine * Intolerance arrythmia after surgery with Darvon/Darvocet Plavix [Clopidogrel* Hemorrhage Prednisone Other: See Comments anxiety Propoxyphene Intolerance arrythmia after surgery PAST SURGICAL HISTORY No date: APPENDECTOMY Comment: and exploratory surgery 02/2013.: ARTHRP KNE CONDYLEANDPLATU MEDIALANDLAT COMPARTMENTS Comment: left knee 10/03/15: COLONOSCOPY FLX DX W/COLLJ SPEC WHEN PFRMD Comment: Colonoscopy 10/03/15: ESOPHAGOGASTRODUODENOSCOPY TRANSORAL DIAGNOSTIC Comment: EGD 02/02/2019: ESOPHAGOGASTRODUODENOSCOPY TRANSORAL DIAGNOSTIC Comment: EGD 05/02/2010: LAPAROSCOPY SURG CHOLECYSTECTOMY No date: OPEN REPAIR OF ROTATOR CUFF ACUTE Comment: bilateral open procedure No date: PAST SURGICAL HISTORY OF Comment: ORIF Right ankle fracture No date: PAST SURGICAL HISTORY OF Comment: Heart cath with 3 stents 2003: PAST SURGICAL HISTORY OF Comment: brain tumor biopsy-benign 2008: PAST SURGICAL HISTORY OF Comment: nasal surgery for bleeding 11/27/2018: PAST SURGICAL HISTORY OF; Left Comment: MOHS - Squamous cell removed on left hand No date: RPR UMBILICAL HERNIA < 5 YRS REDUCIBLE Comment: Hernia repair, umbilical FAMILY HISTORY Problem Relation Age of Onset H (more content not included)... [facility] 06-18-2024 History of Present illness Narrative Subjective: This 78 year old mal presents to clinic for diabetic foot check. Patient has the following complaints: none other than burning in foot. Patient admits to being diabetic for multilple years now.. Patient +B/T/N in feet at this time. Patient -pain in legs when walking. No other pedal complaints at this time. No change in medications or medical history since last visit. PAIN EVALUATION No data found in the last 1 encounters. Hemoglobin A1C (%) Date Value 12/23/2023 9.0 06/18/2023 7.8 02/04/2023 8.2 09/24/2022 7.3 06/12/2022 7.9 06/20/2020 8.0 08/04/2019 7.2 12/02/2018 8.3 08/25/2018 8.2 05/16/2018 7.6 HGB A1C (no units) Date Value 09/09/2020 7.0 PCP: Alisha Gee MD PAST MEDICAL HISTORY 1996: Ankle disorder Comment: right fracture, dislocation(screws implanted) No date: Arrhythmia 2003: Brain tumor (benign) (HCC) No date: CAD (coronary artery disease) No date: Calculus of kidney No date: Cataract Comment: ou 05/01/2010: Cholelithiasis No date: Diaphragmatic hernia without mention of obstruction or gangrene No date: DM w/o Complication Type II No date: Esophageal reflux 10/2015: Follicular lymphoma (HCC) Comment: [facility] No date: Generalized osteoarthrosis, unspecified site Comment: knees No date: htn No date: Hyperlipidemia No date: Meningioma (HCC) No date: PMH - PAST MEDICAL HISTORY OF Comment: bells palsy-resolved No date: Pure hypercholesterolemia 11/24/2012: S/P angioplasty with stent 2001: Shoulder arthritis Comment: right and left shoulder rotator cuff(shoulder screws in place) No date: Snoring Current Outpatient Medications Medication Sig metFORMIN ER (GLUCOPHAGE XR) 500 mg 24 hr tablet Take 2 tablets by mouth once daily. blood sugar diagnostic (YummlyUCH ULTRA TEST) test strip Use to test blood sugars twice daily. Dx: 250.00 glimepiride (AMARYL) 4 mg tablet Take 2 tablets by mouth daily with breakfast. allopurinol (ZYLOPRIM) 100 mg tablet Take 1 tablet by mouth two times a day. empagliflozin (JARDIANCE) 10 mg tablet Take 1 tablet by mouth daily with breakfast. pantoprazole DR (PROTONIX) 20 mg tablet Take 1 tablet by mouth once daily. Take as needed for heartburn/GI upset atorvastatin (LIPITOR) 20 mg tablet Take 1 tablet by mouth daily at bedtime. For cholesterol. atenolol (TENORMIN) 50 mg tablet Take 1 tablet by mouth once daily. ketoconazole (NIZORAL) 2 % shampoo Apply to affected area once daily as needed. triamcinolone acetonide (KENALOG) 0.1 % cream Apply to affected area twice daily. white petrolatum - mineral oil (EUCERIN CREAM) cream Apply to affected area as needed. Lancets (YummlyUCH ULTRASOFT LANCETS) lancets Use as directed to check blood sugars 1-2 times daily nitroglycerin sublingual (NITROQUICK) 0.4 mg SL tablet Take 1 tablet by mouth as needed for Chest Pain. FOR CHEST PAIN. IF NO PAIN RELIEF, CALL 911 [place]-3 Fatty Acids-Vitamin E 1,000 mg cap Take 2 capsules by mouth once daily. Ascorbic Acid 1,000 mg tablet Take 1,000 mg by mouth once daily. ACETAMINOPHEN (TYLENOL ARTHRITIS ORAL) Take by mouth once daily. alcohol antiseptic pads(ALCOHOL PADS) Use as directed aspirin(ECOTRIN LOW STRENGTH 81 MG TAB) Take one(1) tablet daily. TUMS 500 MG CHEWABLE TAB as necessary No current facility-administered medications for this visit. ALLERGIES Allergen Reactions Ciprofloxacin Myalgia Keflex [Cephalexin] GI Upset Meperidine GI Upset Morphine GI Upset Vomiting and nausea within minutes Contrast Dye GI Upset Opioids-Meperidine * Intolerance arrythmia after surgery with Darvon/Darvocet Plavix [Clopidogrel* Hemorrhage Prednisone Other: See Comments anxiety Propoxyphene Intolerance arrythmia after surgery PAST SURGICAL HISTORY No date: APPENDECTOMY Comment: and exploratory surgery 02/2013.: ARTHRP KNE CONDYLE&PLATU MEDIAL&LAT COMPARTMENTS Comment: left knee 10/03/15: COLONOSCOPY FLX DX W/COLLJ SPEC WHEN PFRMD Comment: Colonoscopy 10/03/15: ESOPHAGOGASTRODUODENOSCOPY TRANSORAL DIAGNOSTIC Comment: EGD 02/02/2019: ESOPHAGOGASTRODUODENOSCOPY TRANSORAL DIAGNOSTIC Comment: EGD 05/02/2010: LAPAROSCOPY SURG CHOLECYSTECTOMY No date: OPEN REPAIR OF ROTATOR CUFF ACUTE Comment: bilateral open procedure No date: PAST SURGICAL HISTORY OF Comment: ORIF Right ankle fracture No date: PAST SURGICAL HISTORY OF Comment: Heart cath with 3 stents 2003: PAST SURGICAL HISTORY OF Comment: brain tumor biopsy-benign 2007: PAST SURGICAL HISTORY OF Comment: nasal surgery for bleeding 11/27/2018: PAST SURGICAL HISTORY OF; Left Comment: MOHS - Squamous cell removed on left hand No date: RPR UMBILICAL HERNIA < 5 YRS REDUCIBLE Comment: Hernia repair, umbilical FAMILY HISTORY Problem Relation Age of Onset Heart Father Diabetes Mother Heart Paternal Grandmother cardiomegaly Stroke Paternal Grandfather Hypertension Sister Diabetes Sister Social History Tobacco Use Smoking status: Never Smokeless tobacco: Never Tobacco comments: never Vaping Use Vaping status: Never Used Substance Use Topics Alcohol use: No Comment: never Drug use: No REVIEW OF SYSTEMS GENERAL: Negative for Malaise, significant weight loss, fever RESPIRATORY: Negative for cough, wheezing and shortness of breath CARDIOVASCULAR: Negative for chest pain, leg swelling and palpitations GI: Negative for abdominal discomfort, blood in stools or black stools and change in bowel habits : Negative for dysuria, frequency and incontinence MUSCULOSKELETAL: Negative for joint pain or swelling, back pain, and muscle pain. SKIN: Negative for lesions, rash, and itching. HEMATOLOGY/LYMPHOLOGY Negative for prolonged bleeding, bruising easily, and swollen nodes. ENDOCRINE: Negative for cold or heat intolerance, polyuria, polydipsia and goiter. NEURO: negative The remainder of the review of systems is noncontributory. Objective: Patient presents to clinic ambulating in diabetic shoe Constitutional: Pt is a well developed 78 year old male who is alert, oriented, cooperative and in no apparent distress. Eyes: Following during examination. No redness or drainage. Respiratory: RR normal and nonlabored. Even breathing. No evidence of distress. Psychology: Patient is engaged during conversation. Normal affect and mood. Does not appear depressed or anxious. Vasc: DP and PT pulses are nonpalpable bilateral. CFT is less than 5 seconds bilateral. Skin temperature is warm to cool proximal to distal bilateral. There is no edema or varicosities noted. Hair growth absent. Non-Invasive Vascular Laboratory [facility] Lower Extremity Arterial Physiology Study Bilateral/Complete Date of service/time: 03/25/2018 9:10:00 AM Name: MR. TRISTIN FLYNN Date of : 1945 Age: 72 years Gender: M Medical History Tobacco: No Diabetes: Yes Clinical Indication Abnormal pulses and Known peripheral arterial disease. TECHNIQUE -------- An arterial physiological examination was performed, including measurement of blood pressures using continuous wave Doppler and recording of plethysmographic with or without Doppler waveforms at the below-mentioned limb segments. FINDINGS -------- RIGHT SIDE AT REST Right Doppler Waveforms Dorsalis pedis: Biphasic. Post tibial: Biphasic. Right Pressures Brachial: 135 mmHg High thigh: greater than 254 mmHg Non-compressible arteries. Low thigh: 202 mmHg Partially non-compressible arteries. Calf: 225 mmHg Partially non-compressible arteries. Ankle dorsalis pedis: 122 mmHg VINI: 0.88 Ankle posterior tibial: 202 mmHg VINI: 1.46 Partially non-compressible arteries. Digit: 79 mmHg Right PVR Waveforms High thigh: Normal. Low thigh: Normal. Calf: Normal. Ankle: Mildly dampened. Transmetatarsal: Moderately dampened. Digit: Moderately dampened. LEFT SIDE AT REST Left Doppler Waveforms Dorsalis pedis: Biphasic. Post tibial: Monophasic. Left Pressures Brachial: 138 mmHg High thigh: greater than 254 mmHg Non-compressible arteries. Low thigh: 189 mmHg Partially non-compressible arteries. Calf: greater than 254 mmHg Non-compressible arteries. Ankle dorsalis pedis: 248 mmHg VINI: 1.80 Partially non-compressible arteries. Ankle posterior tibial: greater than 254 mmHg VINI: 1.84 Non-compressible arteries. Digit: 79 mmHg Left PVR Waveforms High thigh: Normal. Low thigh: Normal. Calf: Normal. Ankle: Mildly dampened. Transmetatarsal: Moderately dampened. Digit: Moderately dampened. IMPRESSION Compared to prior study of 03/23/2016, no significant change in waveforms at the ankle and toe brachial indices. Remains non compressible in the legs. RIGHT SIDE Resting right ankle brachial index: 1.46 Partially non-compressible arteries, VINI not accurate. Right toe brachial index: 0.57 Non-compressible vessels, results called by PVR tracings. Abnormal toe brachial index at rest is evidence of peripheral artery disease. Right ankle: Mild disease at rest. Right infrapopliteal disease. Right small vessel disease. LEFT SIDE Resting left ankle brachial index: 1.84 Non-compressible arteries, VINI not accurate. Left toe brachial index: 0.57 Non-compressible vessels, results called by PVR tracings. Abnormal toe brachial index at rest is evidence of peripheral artery disease. Left ankle: Mild disease at rest. Left distal superficial femoral and/or popliteal disease. Left infrapopliteal disease. Left small vessel disease. Technologist: Susana CANCHOLAT, [facility] Ordering physician: SHWETA MOREL Interpreting physician: Fuad Mitchell MD, RVT Neuro: Protective sensation is intact to the foot and toes when tested with the 5.07 SWM bilateral. Vibratory sensation is decreased at the hallux bilateral. +Significant neurological defecits. Derm: Inspection and palpation performed. Nails 1-5 b/l are normal in length and thickness. Slight yellow discoloration. Skin is of normal turgor and texture. Hyperkeratosis noted to not present. NO ulcerations, scars, verruca or other lesions noted. Ortho: Ankle joint DF is decreased with the knee extended and decreased with knee flexed. No pain or crepitus noted. STJ, MTJ ROM are full and free of pain or crepitus. Muscle strength is 5/5 for dorsiflexors, plantarflexors, inverters, everters. Digital deformities include hallux valgus b/l. Assessment: (E11.49) Well controlled type 2 diabetes mellitus with neurological manifestations (HCC) (primary encounter diagnosis) (R09.89) Diminished pulses in lower extremity (M20.12) Hallux valgus of left foot (M20.11) Hallux valgus of right foot Plan: 1. Patient was seen and evaluated. 2. Patient was instructed on the continued importance of diabetic foot care along with proper diet and keeping their blood sugar under control to prevent complications. Stressed the importance of avoiding barefoot walking, wearing good shoes and inspection of feet daily. Instructions given both oral and written. 3. Patient has decreased perfusion on exam. Has pvr in 2018 that shows small vessel disease. Will repeat pvr 4. Discussed bunions. Recommend diabetic shoes given history of neuropathy, pad. Shweta Morel DPM Patient presents with: Left Foot - Established Patient, Follow Up, Diabetic Foot Check Right Foot - Established Patient, Follow Up, Diabetic Foot Check Patient presents for follow up diabetic foot/nail care and exam. [facility]ORGI 06/12/23 documented in this encounter [facility] 06-18-2024 Note HNO ID: [id number] Author: LEILA ZEE RN Service: ? Author Type: Registered Nurse Type: Progress Notes Filed: 06/18/2024 13:16 Note Text: Patient presents with: Left Foot - Established Patient, Follow Up, Diabetic Foot Check Right Foot - Established Patient, Follow Up, Diabetic Foot Check Patient presents for follow up diabetic foot/nail care and exam. [facility] 06/12/23 [facility] 05-21-2024 Telephone encounter Note Form completed and OV notes attached. Faxed to number below. Isabel Carrion MA [facility] 05-21-2024 Miscellaneous Notes Form completed and OV notes attached. Faxed to number below. Isabel Carrion MA Type of form: [employer] for DM shoes and inserts. Requests most recent OV note. This has been attached. Form received via fax When form is completed, Fax form to [phone] Form has been forwarded to Physician Desk: Dr. Marlen Carrion MA documented in this encounter [facility] 05-14-2024 Telephone encounter Note Type of form: [employer] for DM shoes and inserts. Requests most recent OV note. This has been attached. Form received via fax When form is completed, Fax form to [phone] Form has been forwarded to Physician Desk: Dr. Marlen Carrion MA [facility] 03-24-2024 Telephone encounter Note The following approved medication requests have been transmitted electronically. Requested Prescriptions Pending Prescriptions Disp Refills metFORMIN ER (GLUCOPHAGE XR) 500 mg 24 hr tablet 180 tablet 1 Sig: Take 2 tablets by mouth once daily. Collin Monroy APRN.CNP [facility] 03-24-2024 Miscellaneous Notes The following approved medication requests have been transmitted electronically. Requested Prescriptions Pending Prescriptions Disp Refills metFORMIN ER (GLUCOPHAGE XR) 500 mg 24 hr tablet 180 tablet 1 Sig: Take 2 tablets by mouth once daily. Collin Monroy APRN.CNP Patient has been identified by name and date of : Yes, Provider Marlen Ralph 05-24-24 Time 10:44 am Pharmacy phones for refill(s): Requested Prescriptions Pending Prescriptions Disp Refills metFORMIN ER (GLUCOPHAGE XR) 500 mg 24 hr tablet 180 tablet 1 Sig: Take 2 tablets by mouth once daily. Date of last office visit in primary care: 12/26/2023 Date of next office visit in primary care: 04/02/2024 Please advise. Thank you. Curt Craven RN. documented in this encounter [facility] 03-24-2024 Telephone encounter Note Patient has been identified by name and date of : Yes, Provider [facility] Date 05-24-24 Time 10:44 am Pharmacy phones for refill(s): Requested Prescriptions Pending Prescriptions Disp Refills metFORMIN ER (GLUCOPHAGE XR) 500 mg 24 hr tablet 180 tablet 1 Sig: Take 2 tablets by mouth once daily. Date of last office visit in primary care: 12/26/2023 Date of next office visit in primary care: 04/02/2024 Please advise. Thank you. Curt Craven RN. [facility] 01-08-2024 History of Present illness Narrative After visit summary was printed and given to patient. Discharge instructions and follow up appointments reviewed with patient. IHIS Fall prevention education handout included in AVS at time of discharge. All questions answered. Patient verbalized understanding. 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 He initially presented for evaluation of lymphadenopathy. He reports that since June, he has been experiencing intermittent bilateral lower quadrant pain. He had a CT scan in June 2015 which demonstrated lymphadenopathy. Repeat CT in July showed persistent LAD. He had a work up including a urologic evaluation and PSA, a colonoscopy and EGD which did not identify a cause for his pain or lymphadenopathy. He had a PET scan which showed that the lymph nodes were FDG avid and there was also a lesion at the vertex of the skull. He had a surgical biopsy and the pathology demonstrated follicular lymphoma, low grade. He has been followed by watchful observation since that time. He presents today for follow up. Since his last visit, he had COVID19 in October and reports he had lingering symptoms for about 2 months. He is now recovering. He continues to have fatigue and states that this is stable, varies by the day. He denies any recent hospitalizations. He denies fevers/chills, night sweats, or new lymphadenopathy. He has had several kidney stones pass. He recently was treated with topical 5FU by Dermatology and has follow up in January. He has diarrhea related to metformin which was increased. He states his glucose levels were worse during his infection. Knee surgery has been recommended for him but is being deferred until his HgA1C improves Review of Systems The remainder of his review of systems is negative or as noted above. Current Outpatient Medications Medication Sig Dispense Refill acetaminophen 325 MG tablet take 650 mg by mouth every 4 hours. For arthritis pain allopurinol 100 MG Tab take 50 mg by mouth daily. ascorbic acid 500 MG Tab take 500 mg by mouth daily. aspirin 81 MG Chew Tab take 81 mg by mouth daily. atenolol 25 MG Tab take 25 mg by mouth daily. atorvastatin 10 MG Tab take 10 mg by mouth daily. calcium carbonate 500 MG Chew Tab take 500 mg by mouth as needed. Cinnamon 500 MG Cap take 1,000 mg by mouth daily. gliMEPIride 2 MG Tab take 2 mg by mouth daily every morning. Glucose Blood (BLOOD GLUCOSE TEST STRIPS) Strip by Other route. metformin-XR 500 MG Tab SR 24 HR take 1,000 mg by mouth daily. Currently taking 3 tabs a day (12/01/15); working with team to adjust dose nitroGLYCERIN 0.[address] 1 tablet under tongue every 5 minutes as needed for Chest pain. max = 3 doses. If CP persists after 1st dose, call 911 25 tablet 0 [place]-3 Fatty Acids (FISH OIL) 1200 MG Cap take 1,200 mg by mouth daily. ONE TOUCH LANCETS Misc by Unknown route. Use to check blood sugars Pantoprazole Sodium (PROTONIX PO) Take by mouth. No current facility-administered medications for this visit. Allergies Allergen Reactions Contrast Dye [Ivp Dye, Iodine Containing] Nausea Only Darvon [Propoxyphene] Meperidine Nausea and Vomiting Demerol, Darvon Morphine And Related [Codeine And Related] Nausea and Vomiting Plavix [Clopidogrel] Bleeding Excessive bleeding Prednisone Anxiety Physical Examination Physical Examination: VITAL SIGNS: Blood pressure 164/70, pulse 55, temperature 97.2 F (36.2 C), temperature source Oral, resp. rate 18, weight 88.9 kg (196 lb), SpO2 98%.. Performance status is 1. GENERAL: Ambulatory, well appearing, and in no apparent distress. HEENT: PERRL, EOMI. No scleral icterus. No oral lesions or tonsillar enlargement. JM EXAM: I do not appreciate any anterior cervical, posterior cervical, supraclavicular, infraclavicular, axillary, or inguinal adenopathy. RESPIRATORY: Clear to auscultation bilaterally posteriorly without wheezes, rhonchi or rales. CARDIOVASCULAR: Regular rate and rhythm, without murmur, rub, or gallops. GASTROINTESTINAL: Abdomen soft, nontender, nondistended, without rebound or guarding. Normoactive bowel sounds. No masses or hepatosplenomegaly. EXTREMITIES: No cyanosis, clubbing, or edema. SKIN: Skin color, texture, turgor normal. No rashes or lesions. NEUROLOGICAL: Alert and oriented x3. Cranial nerves intact. Normal gait. Normal strength in upper and lower extremities. Laboratory / Diagnostic Studies WBC Count Date Value Ref Range Status 01/08/2024 5.57 3.73 - 10.10 K/uL Final Hemoglobin Date Value Ref Range Status 01/08/2024 13.9 13.4 - 16.8 g/dL Final Platelet Count Date Value Ref Range Status 01/08/2024 173 146 - 337 K/uL Final GRANS, ABSOLUTE Date Value Ref Range Status 03/30/2016 2.9 1.8 - 7.7 K/uL Final Segs + Bands Auto Date Value Ref Range Status 01/08/2024 56.6 % Final Sodium Date Value Ref Range Status 01/08/2024 133 (L) 135 - 145 mmol/L Final Potassium Date Value Ref Range Status 01/08/2024 4.1 3.5 - 5.0 mmol/L Final Chloride Date Value Ref Range Status 01/08/2024 101 98 - 108 mmol/L Final BUN Date Value Ref Range Status 01/08/2024 16 7 - 25 mg/dL Final Creatinine Date Value Ref Range Status 01/08/2024 1.14 0.70 - 1.30 mg/dL Final Calcium Date Value Ref Range Status 01/08/2024 9.8 8.6 - 10.5 mg/dL Final MAGNESIUM Date Value Ref Range Status 11/15/2015 1.9 1.6 - 2.6 mg/dL Final Bilirubin Total Date Value Ref Range Status 01/08/2024 0.7 <1.5 mg/dL Final ALP Date Value Ref Range Status 01/08/2024 50 32 - 126 U/L Final ALT Date Value Ref Range Status 01/08/2024 20 10 - 52 U/L Final AST Date Value Ref Range Status 01/08/2024 18 10 - 39 U/L Final LD Total Date Value Ref Range Status 01/08/2024 136 100 - 190 U/L Final Assessment and Plan In summary, Mr Flynn is a 78 y.o. gentleman with follicular grade 1-2/3 non-Hodgkin's lymphoma involving lymph nodes in the neck, chest and abdomen. He presented when the lymphadenopathy was found incidentally during a work up for abdominal pain. The lymph nodes had been present on prior imaging, but had progressed. He had not had a bone marrow biopsy to complete his staging. If his bone marrow is negative, then he had stage III disease; if involved, he has stage IV disease. The results of the bone marrow biopsy would not impact our treatment decision at that time and was deferred. On his initial PET, he was noted to have a lesion in the vertex of the skull. He reports a history of a benign process identified by biopsy at the [facility]. A MRI was completed on 03/22/2016 consistent with a meningoma. On clinical examination and labs today he has no evidence of progression. His CT scans are pending and we will contact him with the results. . We will continue to monitor with watchful observation. He will RTC in 6 months documented in this encounter [facility] 01-08-2024 Instructions Kathy Vora RN - 01/08/2024 2:40 PM EDT Your Lymphoma Care Team MD Diya Heath, FAIZA Lyman, [employer]ST[employer]ER ShaunaCHATO Winslow RN Contact Numbers: Clinic Phone & Appointment Changes: [phone] Clinic For Medication Refills: Please plan ahead for all medication refills and request them at your appointment with your physician. Please allow one week for prescription refills over the telephone, as they will be refilled when Dr. Broussard is in clinic on Wednesdays and Fridays. We will call them in to the pharmacy of your request or to the pharmacy listed in your chart if not specified differently. You will not be contacted about the refill except for any questions or concerns. Please call your pharmacy to verify when to mushroom picker. All Disability/FMLA Paperwork: Please allow up to 2 weeks for all disability, FMLA, etc. to be filled out. Please specify what your request is as to what and where we should send completed paperwork. (This is to inform us if we should send the completed papers to you or directly to your employer). The primary nurse is the one who will normally fill this paperwork out for you, and will only call to inform you the paperwork is completed and sent if requested. [facility] MY Chart: The medical information you will have access to within the My Chart program is only selected portions of your entire chart, such as basic laboratory results, summary medical history, visit history, and selected billing information. Please understand we do not place all results from labs, tests and procedures. To provide you with the best quality care available we need to be able to discuss these results with you personally. If you are unable to obtain the results of a test that you can't find within the My Chart please feel free to call us and we will get back to you with that information. When sending a message to the provider, please know that these messages will be received and answered by the primary nurse practitioner. The nurse practitioner will consult your physician when needed. Please call us with any questions or concerns that you may have. RESOURCES: National Cancer [employer]- www.cancer.gov [employer] [facility] for [employer]- https://cancer.osu.edu CancerCare, Inc- www.cancercare.org Leukemia and Lymphoma Society- LLS.org Peer support groups- www.cancer.os.edu/HOPE or email [email or web address] Fall Prevention at Home Here are some tips to use in your home to help prevent falls. Throughout the home Remove throw rugs so you do not trip on them. Replace or remove carpet that is torn or has turned-up edges. Avoid thick carpet. Shoes may catch on these and cause you to stumble or fall. Move furniture or other things that may block pathways. Be sure you have good lighting throughout your home. Use night lights or leave some lights on in the house to help you see at night or when you come home in the evening. Use switches that glow in the dark, so they can be seen more easily. Keep electrical cords and small things out of your path. Use your cane or walker rather than using furniture to give you support when walking. Stairs Mount sturdy handrails to help with going up and down stairs. They should extend beyond the top and bottom stair. Improve the visibility on your stairs. Have good lighting on the stairs. Non-skid surfaces can be applied to wood stairs to prevent sliding. [place] a bright colored line on the edge of each step so they are more easily seen, especially if you have poor vision. In the bathroom Place non-skid decals or a mat in the tub or shower. Install grab bars around the toilet and in the shower or bathtub. Towel bars are to hold towels, and they will break if you use them as grab bars. Use a tub seat and an elevated toilet seat. Leave the bathroom door unlocked so it can be opened if you do fall. In the bedroom Avoid wearing long nightgowns or robes. These can cause you to trip. Avoid wearing loose shoes that cause you to scuff or shuffle your feet as you walk. Wear shoes or slippers that fit well and stay securely on your feet. In the kitchen Have commonly used items at counter level or within easy reach. Do not climb or reach to high shelves. If you use a step stool, use a stable step stool with a handrail. Other tips Be careful that you do not trip over your pet. Be aware of where you pet is when you are moving around. Use caution when sitting down. Before sitting down on a chair, make sure the backs of your legs are touching the seat of the chair behind you. Keep a telephone close by or consider carrying a portable phone. Take your time. Get in the habit of moving at speeds that are safe for your energy level and ability. Do not gregory to answer the phone or door. Ask for help when getting up from bed, a chair or the toilet if you feel at all shaky, weak, dizzy or lightheaded. Talk to your doctor or others on your health care team if you have questions. You may request more written information from the [employer] Information at or email: [email or web address]. 2002 - November 16, 2015. The [facility]. This handout is for informational purposes only. Talk with your doctor or health care team if you have any questions about your care. documented in this encounter [facility] 01-08-2024 Miscellaneous Notes Patient calling asking for copy oif lab results to be faxed to [facility] fax number [phone] Dr Giraldo. Printed labs from Nov and December and faxed as requested. documented in this encounter [facility] 12-26-2023 History of Present illness Narrative Chief Complaint Patient presents with: F/U 6 Month HPI Tristin Flynn is a 78 year old male who presents here today for 6 month follow up. [facility] today with his . GI/Uro - Did not have PSA done due to his insurance not covering before the 1 year alisha. Reports having a lot of loose, diarrhea like stools that is constant. Unsure if this is related to the Metformin medication or he has other GI issues, which is concerning to him. When he reduces the Metformin to TID, it improves slightly, but never goes away. A nurse spoke with him about doing stool testing, to check for infection. Has seen a Urologist and [facility]. Hx of kidney stones. Using Allopurinol 100 mg BID to help prevent kidney stones. GERD: Sx controlled on Protonix 20 mg prn and TUMS prn, depending on what he eats. Gout: Uric acid labs monitored. Taking Allopurinol 100 mg BID. Lipid/CAD: Tries to watch diet, but admits to not doing the best. Admits to loving sweets. No exercise. States his knee is too bad and it needs fixed. Taking Lipitor 20 mg daily. HTN: Taking Atenolol 50 mg daily. No chest pains, dizziness, or SOB. Does not check BP at home DM: Checking BS 2 x a day with FBS 100-202. Reports sugars have not been doing well, they've been all over especially over the last month while he's been sick. Received message from his DM supply company [employer] stating that he has to have an Rx stating that he can test twice a day. Pt's currently only receives enough test strips to test once daily, but he wants to do this twice a day due to his sugars being all over. Denies any hypoglycemic episodes. He does have neuropathy in feet. Eye exams through OR and Dr. Jacome. Follows with Dr. Smith, Podiatry. Taking Metformin xr 500 mg 2 pill BID (when he remembers) and Amaryl 4 mg, 2 pills once daily. Follicular lymphoma: Grade 1, follows with Hematology, [facility]. Vitamin D Deficiency: Started on Vitamin D3 1,000 to 2,000 international unit(s) daily OTC. Monitoring with labs. Derm - Follows with the OR, [employer]. Hx of squamous cell. Currently using a cancer cream on his face. Notes hx of sun exposure. Asking about bruising on his skin and wonders if he needs to have blood work done to check if his blood is too thick or thin. Does take ASA 81 mg daily. Needs a letter written and faxed to [employer] to change supplemental insurance, that is cheaper. They have questions that need answered before they will provide insurance. P#: [phone]. F#: [phone] the followin.) What pt takes Metformin and Glimepiride for. 2.) Why is he prescribed Nitroglycerin and has not used it, even though has been prescribed this since 2005 after heart stents were placed. HM - Declines Flu vaccine. Past medical history, appointments, medications, allergies reviewed. 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 RPR UMBILICAL HERNIA < 5 YRS REDUCIBLE Hernia repair, umbilical Family History FAMILY HISTORY Problem Relation Age of Onset Heart Father Diabetes Mother Heart Paternal Grandmother cardiomegaly Stroke Paternal Grandfather Hypertension Sister Diabetes Sister Patient Allergies ALLERGIES Allergen Reactions Ciprofloxacin Myalgia Keflex [Cephalexin] GI Upset Meperidine GI Upset Morphine GI Upset Vomiting and nausea within minutes Contrast Dye GI Upset Opioids-Meperidine * Intolerance arrythmia after surgery with Darvon/Darvocet Plavix [Clopidogrel* Hemorrhage Prednisone Other: See Comments anxiety Propoxyphene Intolerance arrythmia after surgery Current Medications Current Outpatient Medications on File Prior to Visit Medication Sig metFORMIN ER (GLUCOPHAGE XR) 500 mg 24 hr tablet Take 2 tablets by mouth twice daily with meals. pantoprazole DR (PROTONIX) 20 mg tablet Take 1 tablet by mouth once daily. Take as needed for heartburn/GI upset glimepiride (AMARYL) 4 mg tablet Take 2 tablets by mouth daily with breakfast. atorvastatin (LIPITOR) 20 mg tablet Take 1 tablet by mouth daily at bedtime. For cholesterol. allopurinol (ZYLOPRIM) 100 mg tablet Take 1 tablet by mouth once daily. atenolol (TENORMIN) 50 mg tablet Take 1 tablet by mouth once daily. ketoconazole (NIZORAL) 2 % shampoo Apply to affected area once daily as needed. triamcinolone acetonide (KENALOG) 0.1 % cream Apply to affected area twice daily. white petrolatum - mineral oil (EUCERIN CREAM) cream Apply to affected area as needed. blood sugar diagnostic (YummlyUCH ULTRA TEST) test strip Use to test blood sugars twice daily. Dx: 250.00 Lancets (YummlyUCH ULTRASOFT LANCETS) lancets Use as directed to check blood sugars 1-2 times daily nitroglycerin sublingual (NITROQUICK) 0.4 mg SL tablet Take 1 tablet by mouth as needed for Chest Pain. FOR CHEST PAIN. IF NO PAIN RELIEF, CALL 911 [place]-3 Fatty Acids-Vitamin E 1,000 mg cap Take 2 capsules by mouth once daily. Ascorbic Acid 1,000 mg tablet Take 1,000 mg by mouth once daily. ACETAMINOPHEN (TYLENOL ARTHRITIS ORAL) Take by mouth once daily. alcohol antiseptic pads(ALCOHOL PADS) Use as directed aspirin(ECOTRIN LOW STRENGTH 81 MG TAB) Take one(1) tablet daily. TUMS 500 MG CHEWABLE TAB as necessary No current facility-administered medications on file prior to visit. Social History Social History Tobacco Use Smoking status: Never Smokeless tobacco: Never Tobacco comments: never Vaping Use Vaping Use: Never used Substance Use Topics Alcohol use: No Comment: never Drug use: No EXAM: BP 132/80 (BP Site: Left Arm, BP Position: Sitting, BP Cuff Size: Regular Adult) Pulse 72 Resp 18 Wt 87.3 kg (192 lb 6.4 oz) BMI 28.41 kg/m General Appearance: Well appearing, alert, in no acute distress, well-hydrated, well nourished.. Skin: Age related bruising. Lungs: Lungs clear to auscultation. No wheezing, rhonchi, rales.. Heart: RRR without murmur, gallop, or rubs. No ectopy. Health Maintenance List BP Controlled (<130/80) Never done Shingrix Vaccine(1 of 2) Never done RSV Vaccine(1 - 1-dose 60+ series) Never done Influenza Vaccine(1) due on 06/21/2023 Covid-19 Vaccine(5 - 2022- season) due on 06/21/2023 Dilated Retinal Exam due on 09/18/2023 Advance Directive Discussion due on 10/21/2023 Depression Assessment due on 10/21/2023 Pneumococcal Vaccine: 65+(2 of 2 - PCV) due on 06/20/2024 Urine Albumin:Creatinine Ratio due on 02/05/2024 HbA1C due on 03/24/2024 DTaP,Tdap,Td Vaccine(3 - Td or Tdap) due on 06/02/2024 Diabetic Foot Exam due on 06/12/2024 Annual PCP Team Chronic Disease Visit due on 06/20/2024 LDL Cholesterol due on 12/22/2024 HPV Vaccine Aged Out Colorectal Cancer Screening Discontinued Data reviewed Appointment on 12/23/2023 Component Date Value Protein, Total 12/23/2023 7.3 Albumin 12/23/2023 4.3 Calcium, Total 12/23/2023 10.0 Bilirubin, Total 12/23/2023 0.8 Alkaline Phosphatase 12/23/2023 56 AST 12/23/2023 27 ALT 12/23/2023 27 Glucose 12/23/2023 196 (H) BUN 12/23/2023 18 Creatinine 12/23/2023 1.11 Sodium 12/23/2023 136 Potassium 12/23/2023 4.6 Chloride 12/23/2023 98 CO2 12/23/2023 27 Anion Gap 12/23/2023 11 Estimated Glomerular Denys* 12/23/2023 67 Cholesterol, Total 12/23/2023 165 Triglyceride 12/23/2023 205 (H) HDL Cholesterol 12/23/2023 30 (L) Non HDL Cholesterol 12/23/2023 135 (H) Fasting Time 12/23/2023 15 VLDL Cholesterol 12/23/2023 41 (H) TC:HDL Ratio 12/23/2023 5.50 (H) LDL Cholesterol 12/23/2023 94 LDL:HDL Ratio 12/23/2023 3.13 (H) Hemoglobin A1C 12/23/2023 9.0 (H) Estimated Average Glucose 12/23/2023 212 Uric Acid 12/23/2023 4.6 Vitamin D 25 Hydroxy 12/23/2023 36.9 Office Visit on 11/21/2023 Component Date Value SARS-CoV-2 (Agent of COV* 11/21/2023 Detected (A) Influenza A PCR 11/21/2023 Not detected Influenza B PCR 11/21/2023 Not detected RSV PCR 11/21/2023 Not detected ASSESSMENT/PLAN: 1. Type 2 diabetes mellitus without complication, without long-term current use of insulin (HCC) - ICD9: 250.00, ICD10: E11.9 (primary diagnosis) - Increase, may be related due to recent illness - Continue current medications, can reduce Metformin to TID - Start Jardiance 25 - GLIMEPIRIDE 4 MG TABLET 2. Hypertension, unspecified type - ICD9: 401.9, ICD10: I10 - Controlled - Continue current medications - Recommend home blood pressure monitoring, to bring results to next visit - Encouraged sodium restriction, DASH or Mediterranean diet - Recommend regular aerobic exercise 3. Hyperlipidemia, unspecified hyperlipidemia type - ICD9: 272.4, ICD10: E78.5 - Controlled - Continue current medications - Counseled on healthy diet and regular exercise 4. Coronary artery disease involving elem coronary artery of elem heart without angina pectoris - ICD9: 414.01, ICD10: I25.10 Stable 5. Gastroesophageal reflux disease, unspecified whether esophagitis present - ICD9: 530.81, ICD10: K21.9 6. Gout, unspecified cause, unspecified chronicity, unspecified site - ICD9: 274.9, ICD10: M10.9 - Continue current medication regimen. 7. Kidney stones - ICD9: 592.0, ICD10: N20.0 - carpometacarpal 8. Follicular lymphoma, unspecified follicular lymphoma type, unspecified body region (HCC) - ICD9: 202.00, ICD10: C82.90 - Cont f/u Hem/Onc 9. Vitamin D deficiency - ICD9: 268.9, ICD10: E55.9 - Continue current medication regimen. 10. Diarrhea, unspecified type - ICD9: 787.91, ICD10: R19.7 - Reduce Metformin 11. Bruising - ICD9: 924.9, ICD10: T14.8XXA - Age related 12. Screening for prostate cancer - ICD9: V76.44, ICD10: Z12.5 - check PSA 3 mo f/u with labs I agree with the Chief Complaint, ROS, and Past Histories independently gathered by the clinical technical support technician and the remaining scribed note accurately describes my personal service to the patient. Medical Decision Making: Problems: Moderate: 1+ chronic illnesses with change and 2+ stable chronic illnesses Data: Unique test result(s) reviewed: 3+ Unique test(s) ordered: 3+ Risk: Moderate: Drug management Medical Decision Making Level: 4 - Moderate Alisha Gee MD The documentation for this note was completed by Isabel Carrion Ma acting as scribe for Alisha Gee MD. December 26, 2023 4:12 PM. Isabel Carrion Ma documented in this encounter [facility] 12-19-2023 Miscellaneous Notes Notified pt. PSA ordered Alisha Gee MD Patient calls and states that he would like PSA lab order placed to go along with other labs. Patient states that he wants to get this done but only if medicare will cover it. Patient asking if medicare will cover this? Advised patient to call medicare and ask, patient states that someone should know here whether this would be covered. Patient had it done last year and it was covered. Please review and advise, Ramya Zimmerman RN documented in this encounter [facility] 11-29-2023 Miscellaneous Notes Faxed. Paula Baeza Ma Form done Alisha Gee MD Type of letter/form/fax request - order for DM Supplies Form received from fax on 1 floor and placed on desk (Dr. Gee) for completion. Completed form needs to be faxed to Pharmacy Services at [phone]. Route to ID when form completed for processing documented in this encounter [facility] 11-21-2023 Instructions Lucia Pierce APRN.[facility] - 11/21/2023 7:18 PM EST Fact Sheet for Patients And Caregivers Emergency Use Authorization (EUA) Of LAGEVRIO (molnupiravir) capsules For Coronavirus Disease 2019 (COVID-19) What is the most important information I should know about LAGEVRIO? LAGEVRIO may cause serious side effects, including: LAGEVRIO may cause harm to your unborn baby. It is not known if LAGEVRIO will harm your baby if you take LAGEVRIO during . LAGEVRIO is not recommended for use in . LAGEVRIO has not been studied in . LAGEVRIO was studied in animals only. When LAGEVRIO was given to animals, LAGEVRIO caused harm to their unborn babies. You and your healthcare provider may decide that you should take LAGEVRIO during if there are no other COVID-19 treatment options approved or authorized by the FDA that are accessible or clinically appropriate for you. If you and your healthcare provider decide that you should take LAGEVRIO during , you and your healthcare provider should discuss the known and potential benefits and the potential risks of taking LAGEVRIO during . For individuals who are able to become : You should use a reliable method of control (contraception) consistently and correctly during treatment with LAGEVRIO and for 4 days after the last dose of LAGEVRIO. Talk to your healthcare provider about reliable control methods. Before starting treatment with LAGEVRIO your healthcare provider may do a test to see if you are before starting treatment with LAGEVRIO. Tell your healthcare provider right away if you become or think you may be during treatment with LAGEVRIO. Registry: There is a registry for individuals who take LAGEVRIO during . The purpose of this program is to collect information about the health of you and your baby. If you are or become during treatment with LAGEVRIO, you are encouraged to report your use of LAGEVRIO during to this registry at https://covid-pr.Eyefreight.[employer] or . For individuals who are sexually active with partners who are able to become : It is not known if LAGEVRIO can affect sperm. While the risk is regarded as low, animal studies to fully assess the potential for LAGEVRIO to affect the babies of males treated with LAGEVRIO have not been completed. A reliable method of control (contraception) should be used consistently and correctly during treatment with LAGEVRIO and for at least 3 months after the last dose. The risk to sperm beyond 3 months is not known. Studies to understand the risk to sperm beyond 3 months are ongoing. Talk to your healthcare provider about reliable control methods. Talk to your healthcare provider if you have questions or concerns about how LAGEVRIO may affect sperm. You are being given this fact sheet because your healthcare provider believes it is necessary to provide you with LAGEVRIO for the treatment of adults with a current diagnosis of mild-tomoderate coronavirus disease 2019 (COVID-19) who are at high risk for progression to severe COVID-19, including hospitalization or , and for whom other COVID-19 treatment options approved or authorized by the FDA are not accessible or clinically appropriate. The U.S. Food and Drug Administration (FDA) has issued an Emergency Use Authorization (EUA) to make LAGEVRIO available during the COVID-19 pandemic (for more details about an EUA please see What is an Emergency Use Authorization? at the end of this document). LAGEVRIO is not an FDA-approved medicine in the [place]. Read this Fact Sheet for information about LAGEVRIO. Talk to your healthcare provider about your options if you have any questions. It is your choice to take LAGEVRIO. What is COVID-19? COVID-19 is caused by a virus called a coronavirus. You can get COVID-19 through close contact with another person who has the virus. COVID-19 illnesses have ranged from very nopc-xu-bwnvph, including illness resulting in . While information so far suggests that most COVID-19 illness is mild, serious illness can happen and may cause some of your other medical conditions to become worse. Older people and people of all ages with severe, long lasting (chronic) medical conditions like heart disease, lung disease and diabetes, for example seem to be at higher risk of being hospitalized for COVID-19. What is LAGEVRIO? LAGEVRIO is an investigational medicine used to treat adults with a current diagnosis of mild to moderate COVID-19: who are at high risk for progression to severe COVID-19 including hospitalization or , and for whom other COVID-19 treatment options approved or authorized by the FDA are not accessible or clinically appropriate. The FDA has authorized the emergency use of LAGEVRIO for the treatment of mild-tomoderate COVID-19 in adults under an EUA. For more information on EUA, see the What is an Emergency Use Authorization (EUA)? section at the end of this Fact Sheet. LAGEVRIO is not authorized: for use in people less than 18 years of age. for prevention of COVID-19. for people needing hospitalization for COVID-19. for use for longer than 5 consecutive days. What should I tell my healthcare provider before I take LAGEVRIO? Tell your healthcare provider if you: have any allergies are or plan to breastfeed have any serious illnesses Take any medicines including prescription, zjnf-sbc-uxtgndn medicines, vitamins, and herbal products. How do I take LAGEVRIO? Take LAGEVRIO exactly as your healthcare provider tells you to take it. Take 4 capsules of LAGEVRIO every 12 hours (for example, at 8 am and at 8 pm) Take LAGEVRIO for 5 days. It is important that you complete the full 5 days of treatment with LAGEVRIO. Do not stop taking LAGEVRIO before you complete the full 5 days of treatment, even if you feel better. Take LAGEVRIO with or without food. You should stay in isolation for as long as your healthcare provider tells you to. Talk to your healthcare provider if you are not sure about how to properly isolate while you have COVID-19. Swallow LAGEVRIO capsules whole. Do not open, break, or crush the capsules. If you cannot swallow capsules whole, tell your healthcare provider. If your healthcare provider prescribes LAGEVRIO and tells you to take or give a dose through a nasogastric (NG) or orogastric (OG) tube, follow the instructions below: How to take or give a dose of LAGEVRIO through a nasogastric (NG) or orogastric (OG) feeding tube. You must have an NG or OG that is size 12 Bulgarian (FR) or larger. If you miss a dose of LAGEVRIO: If it has been less than 10 hours since the missed dose, take it as soon as you remember. If it has been more than 10 hours since the missed dose, skip the missed dose and take your dose at the next scheduled time. Do not double the dose of LAGEVRIO to make up for a missed dose. How to take or give a dose of LAGEVRIO through a nasogastric (NG) or orogastric (OG) feeding tube: Wash your hands well with soap and water. Gather the supplies you will need to take or give the prescribed dose of LAGEVRIO. 4 LAGEVRIO capsules 1 liquid measuring cup with mL markings to measure 40 mL of room temperature water 1 clean container with a lid 1 catheter tip syringe. Your healthcare provider should tell you what size catheter tip syringe you will need to take or give a dose of LAGEVRIO. Place the needed supplies on a clean work surface. Follow your healthcare provider s instructions on how to flush the NG or OG feeding tube. Flush the NG or OG feeding tube with 5 mL of water before taking or giving a dose of LAGEVRIO. Carefully open 4 LAGEVRIO capsules, one at a time, and empty the contents into a clean container. Use the liquid measuring cup to measure 40 mL of room temperature water and add to the container containing the capsule contents. Place the lid on the container. Shake to mix the capsule contents and water well for 3 minutes. The capsule contents may not dissolve completely. Remove the lid from the container and draw up all the LAGEVRIO and water mixture into a catheter tip syringe. Give all of the mixture right away through the NG or OG feeding tube. Do not keep the mixture for future use. If any capsule contents are left in the container: Add 10 mL of water to the container, and mix to loosen any capsule contents that are left in the container. Use the catheter tip syringe to draw up all of the mixture in the container. Give the mixture through the NG or OG feeding tube. Repeat this process as needed until you no longer see any capsule contents left in the container or catheter tip syringe. Use the same catheter tip syringe to flush the NG or OG feeding tube 2 times with 5 mL of water (10mL total). Rinse the container, lid and catheter tip syringe well with clean water after use. Place on a clean paper towel until next use. What are the important possible side effects of LAGEVRIO? See, What is the most important information I should know about LAGEVRIO? Allergic Reactions. Allergic reactions can happen in people taking LAGEVRIO, even after only 1 dose. Stop taking LAGEVRIO and call your healthcare provider right away if you get any of the following symptoms of an allergic reaction: hives rapid heartbeat trouble swallowing or breathing swelling of the mouth, lips, or face throat tightness hoarseness skin rash The most common side effects of LAGEVRIO are: diarrhea nausea dizziness These are not all the possible side effects of LAGEVRIO. Not many people have taken LAGEVRIO. Serious and unexpected side effects may happen. This medicine is still being studied, so it is possible that all of the risks are not known at this time. What other treatment choices are there? Veklury (remdesivir) is FDA-approved as an intravenous (IV) infusion for the treatment of mildto-moderate COVID-19 in certain adults and children. Talk with your doctor to see if Veklury is appropriate for you. Like LAGEVRIO, FDA may also allow for the emergency use of other medicines to treat people with COVID-19. Go to https://www.fda.gov/emergency-prepared dies-jfc-psfmoeig/mcm-legalregulatory- mkl-eegyrz-jaqidurag/mhojjpytr-osv-qog horization for more information. It is your choice to be treated or not to be treated with LAGEVRIO. Should you decide not to take it, it will not change your standard medical care. What if I am ? is not recommended during treatment with LAGEVRIO and for 4 days after the last dose of LAGEVRIO. If you are or plan to breastfeed, talk to your healthcare provider about your options and specific situation before taking LAGEVRIO. How do I report side effects with LAGEVRIO? Contact your healthcare provider if you have any side effects that bother you or do not go away. Report side effects to FDA MedWatch at www.fda.gov/medwatch or call 1-800-fda-1088 (1521.462.3132). How should I store LAGEVRIO? Store LAGEVRIO capsules at room temperature between 68 F to 77 F (20 C to 25 C). Keep LAGEVRIO and all medicines out of the reach of children. How can I learn more about COVID-19? Ask your healthcare provider. Visit www.cdc.gov/COVID19 Contact your local or state public health department. Call [employer] at (toll free in the [place] Visit www.Cardiac Dimensions What Is an Emergency Use Authorization (EUA)? The [place] FDA has made LAGEVRIO available under an emergency access mechanism called an Emergency Use Authorization (EUA) The EUA is supported by a [employer] of Health and Human Service ([facility]) declaration that circumstances exist to justify emergency use of drugs and biological products during the COVID-19 pandemic. LAGEVRIO for the treatment of adults with a current diagnosis of phpt-li-ojhkkkya COVID-19 who are at high risk for progression to severe COVID-19, including hospitalization or , and for whom alternative COVID-19 treatment options approved or authorized by FDA are not accessible or clinically appropriate, has not undergone the same type of review as an FDAapproved product. In issuing an EUA under the COVID-19 public health emergency, the FDA has determined, among other things, that based on the total amount of scientific evidence available including data from adequate and well-controlled clinical trials, if available, it is reasonable to believe that the product may be effective for diagnosing, treating, or preventing COVID-19, or a serious or life-threatening disease or condition caused by COVID-19; that the known and potential benefits of the product, when used to diagnose, treat, or prevent such disease or condition, outweigh the known and potential risks of such product; and that there are no adequate, approved, and available alternatives. All of these criteria must be met to allow for the product to be used in the treatment of patients during the COVID-19 pandemic. The EUA for LAGEVRIO is in effect for the duration of the COVID-19 declaration justifying emergency use of LAGEVRIO, unless terminated or revoked (after which LAGEVRIO may no longer be used under the EUA). El. for: [employer] [place] [address], [facility] For patent information: www.Equiphon/research/patent Copyright [employer] [place], [place], [place] and its affiliates. All rights reserved. [id number] Revised: November 2022 documented in this encounter [facility] 11-21-2023 Miscellaneous Notes Molnupiravir Eligibility and Patient Discussion [facility] Formulary Restriction Criteria: Adult outpatients 18 years and older with ALL of the following: [x] Patient has symptoms for 5 days or less [x] Not requiring hospitalization at any time for management of COVID-19 [x] Not requiring supplemental oxygen or a change in baseline supplemental oxygen [x] Not utilized for pre-exposure or post-exposure prophylaxis for prevention of COVID-19 [x] Patient is not or lactating [x] Meeting at least one of the criteria for high risk of progression to severe COVID-19: [x] Age over 65 years [] Cancer [] Chronic kidney disease [] Chronic liver disease [] Chronic lung diseases, including cystic fibrosis [] Dementia or other neurological conditions [] Diabetes (type 1 or type 2) [] Disabilities, including Down syndrome and neurodevelopmental disorders [] Heart conditions [] HIV infection [] Immunocompromised state [] Mental health conditions [] Medical related technological dependence (tracheostomy, gastrostomy, or positive pressure ventilation (not related to COVID) [] Overweight and obesity (BMI greater or equal to 25 for adults) [] Physical inactivity [] Sickle cell disease or thalassemia [] Smoking, current or former [] Solid organ or blood stem cell transplant [] Stroke or cerebrovascular disease [] Substance use disorders [] Tuberculosis [] People from racial and ethnic minority groups Criteria above are met: Yes Date of Symptom Onset: 11/21/2023 Patient received COVID vaccine: Yes / status reviewed: Females: [x] Patient is not currently and there is no possibility the patient could be (select one of the following): [] test does not need to be confirmed in patients who have undergone permanent sterilization, are currently using an intrauterine system or contraceptive implant, or in whom is not possible. [] Patients not meeting conditions above: assess whether the patient is based on the first day of the last menstrual period in individuals who have regular menstrual cycles, is using reliable method of contraception correctly and consistently or have had a negative test [] A test is recommended if the individual has irregular menstrual cycles, is unsure of the first day of the last menstrual period or is not using effective contraception correctly and consistently [] Patient is not currently . is not recommended during treatment and for four days after final dose of molnupiravir. [] Females have been advised to use a reliable method of contraception correctly and consistently for the duration of treatment and for four days after the last dose of molnupiravir Males: [] Sexually active male with partner(s) of childbearing potential has been advised to use a reliable method of contraception correctly and consistently for intercourse for the duration of treatment and for three months after the last dose of molnupiravir I have discussed the use of the investigational therapeutic, molnupiravir, for the treatment of mild to moderate COVID-19 and its use under Emergency Use Authorization with the patient. The patient was informed that molnupiravir is not an FDA approved drug and that it is authorized for use under this Emergency Use Authorization. The patient was also informed of the significant known benefits and potential risks of molnupiravir, and the extent to which such potential risks and benefits are unknown. The patient was informed that there is mandatory reporting of all medication errors and serious adverse events potentially related to molnupiravir treatment within 7 calendar days from the onset of the event and that events up to 28 days after completion of therapy need to be reported. The discussion included alternatives to receiving molnupiravir, including clinical trials, and potential the risks and benefits of those alternatives. The patient was provided electronically with the Fact Sheet for Patients, Parents and Caregivers. The patient was also instructed that in addition to the treatment with molnupiravir, he/she should continue to self-isolate and use infection control measures (e.g., wear mask, isolate, social distance, avoid sharing personal items, clean and disinfect high touch surfaces, and frequent handwashing) according to CDC guidelines. The patient stated understanding and gave verbal consent to proceeding with molnupiravir treatment. Lucia Pierce APRN.FAIZA November 21, 2023 7:18 PM documented in this encounter [facility] 11-21-2023 History of Present illness Narrative CC: Patient presents with: Fever: Body aches, chills, stuffy nose, cough, chills, sore throat,drainage clear x 2 days Covid + at home 78M presents with reports of sore throat, body aches, and general malaise since yesterday. Patient reports temperature at home this morning was 100.7F. Patient took at home COVID test that was positive but its a year old Patient has some pleuritic chest pain with a history of pneumonia as well. HPI: Tristin Flynn is a 78 year old male who presents to the office with complaint of head congestion, cough, nonproductive, sore throat, sinus symptoms, and fever for the past day. Symptoms are worsening Associated symptoms includes sore throat, nasal congestion, body aches, fever, cough, and fatigue. Denies ear pain, rash, wheezing, dyspnea, nausea, vomiting , and diarrhea. Treatments tried include nothing so far. with no relief of symptoms. Sick contacts: no. History of asthma, frequent episodes of bronchitis, chronic bronchitis, bronchiectasis or COPD: No Smoker: No Seasonal/environmental allergies: No The ROS is otherwise negative. The patient's pmh, medications, allergies, and past visits are reviewed. PHYSICAL EXAM: BP 133/80 Pulse 96 Temp 37.7 C (99.8 F) Resp 20 Wt 88 kg (194 lb) SpO2 97% BMI 28.65 kg/m General appearance: tired/ill appearing, alert, cooperative, pleasant, in no acute distress Head: Normocephalic Eyes: PERRLA, EOM's intact, conjunctiva pink and moist, no icterus, sclera white, non-injected Ears: Right ear: External ear/canal- Normal, TM - clear with good landmarks. Left ear: External ear/canal- Normal, TM - clear with good landmarks Nose: clear rhinorrhea. Oropharynx:moist without lesions, mild erythema, without exudates present Neck:supple and no adenopathy Heart: Negative. RRR without obvious murmur, gallop, or rubs. No ectopy. 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 pantoprazole DR (PROTONIX) 20 mg tablet Take 1 tablet by mouth once daily. Take as needed for heartburn/GI upset glimepiride (AMARYL) 4 mg tablet Take 2 tablets by mouth daily with breakfast. atorvastatin (LIPITOR) 20 mg tablet Take 1 tablet by mouth daily at bedtime. For cholesterol. allopurinol (ZYLOPRIM) 100 mg tablet Take 1 tablet by mouth once daily. atenolol (TENORMIN) 50 mg tablet Take 1 tablet by mouth once daily. ketoconazole (NIZORAL) 2 % shampoo Apply to affected area once daily as needed. triamcinolone acetonide (KENALOG) 0.1 % cream Apply to affected area twice daily. white petrolatum - mineral oil (EUCERIN CREAM) cream Apply to affected area as needed. blood sugar diagnostic (New KCBXTOUCH ULTRA TEST) test strip Use to test blood sugars twice daily. Dx: 250.00 Lancets (New KCBXTOUCH ULTRASOFT LANCETS) lancets Use as directed to check blood sugars 1-2 times daily nitroglycerin sublingual (NITROQUICK) 0.4 mg SL tablet Take 1 tablet by mouth as needed for Chest Pain. FOR CHEST PAIN. IF NO PAIN RELIEF, CALL 911 [place]-3 Fatty Acids-Vitamin E 1,000 mg cap Take 2 capsules by mouth once daily. Ascorbic Acid 1,000 mg tablet Take 1,000 mg by mouth once daily. ACETAMINOPHEN (TYLENOL ARTHRITIS ORAL) Take by mouth once daily. alcohol antiseptic pads(ALCOHOL PADS) Use as directed aspirin(ECOTRIN LOW STRENGTH 81 MG TAB) Take one(1) tablet daily. TUMS 500 MG CHEWABLE TAB as necessary FAMILY HISTORY Problem Relation Age of Onset Heart Father Diabetes Mother Heart Paternal Grandmother cardiomegaly Stroke Paternal Grandfather Hypertension Sister Diabetes Sister Social History Tobacco Use Smoking status: Never Smokeless tobacco: Never Tobacco comments: never Vaping Use Vaping Use: Never used Substance Use Topics Alcohol use: No Comment: never Drug use: No DATA REVIEWED: Most recent imaging ASSESSMENT/PLAN: 1. Acute cough - ICD9: 786.2, ICD10: R05.1 (primary diagnosis) - XR CHEST 2V FRONTAL/LAT - negative - COVID & INFLUENZA A/B & RSV NAAT, ROUTINE 2. URI, acute - ICD9: 465.9, ICD10: J06.9 - Discussed viral etiology and rationale for treatment. - Symptomatic treatment with prn analgesia - Supportive care with fluids and rest Prescription instructions reviewed with patient as applicable. Potential red flag symptoms discussed with the patient. Reviewed appropriate action plan to take if red flag symptoms occur. Patient agreeable to treatment plan. Sydney Thompson Will discuses antivirals if he is positive for covid Supervising provider was present and guided the care of the patient for the entire session on this date. All documentation was reviewed and agreed upon. Lucia Pierce APRN.FAIZA documented in this encounter [facility] 11-21-2023 History of Present illness Narrative Radiology Service Progress Note PATIENT NAME: Tristin Flynn DATE OF SERVICE: November 21, 2023 TIME: 10:20 AM PATIENT IDENTITY VERIFICATION COMPLETED USING TWO (2) IDENTIFIERS: Name and Date of confirmed by patient verbally. FALL SCREENING: Has the patient had 2 falls in the last year or 1 fall with injury or currently using an Ambulatory Assistive Device (Walker, Cane, Wheelchair, Crutches, etc.)? No PATIENT GENDER DATA: Male PATIENT RELEVANT IMPLANT DATA REVIEWED: Yes PATIENT PRESENTS WITH AN IMPLANTABLE OR ATTACHED COUNSELOR SUPERVISOR: No RADIOLOGY DEPARTMENT: General X-ray: Exam(s) Completed: Chest X-Ray PERIPHERAL IV DATA: Not applicable SIGNED BY: RT Adriana(R) November 21, 2023 10:20 AM documented in this encounter [facility] 08-09-2023 Miscellaneous Notes Form completed and faxed to information below. Isabel Carrion Ma Form done, note printed Alisha Gee MD Type of form: Form for Diabetic Shoes from [facility] [place] Form received via fax When form is completed, Fax form to [phone] Form has been forwarded to Physician Desk: Dr. Marlen Carrion Ma documented in this encounter [facility] 06-20-2023 Instructions Isabel Carrion Ma - 06/20/2023 4:25 PM EDT For Vitamin D3 deficiency okay to take 1,000 or 2,000 international unit(s) daily to help improve levels. documented in this encounter [facility] 06-20-2023 History of Present illness Narrative Chief Complaint Patient presents with: F/U 3 Month HPI Tristin Flynn is a 77 year old male who presents here today for 3 month follow up. Here today for a 3 month follow up. Here with his . [facility] his [facility]. No bowel, Gi, or urinary issues. Hx of kidney stones. Has seen Urology and Nephrology with OR. Has had 3 kidney stones this year alone. [facility] that he should increase dosage of Allopurinol and take it twice a day to help prevent kidney stones. His Uric Acid level has been controlled on labs, unsure why he would need to increase medication. GERD: sx stable with Protonix 20 mg prn and TUMS prn. Generally depends on what he eats. HTN: Taking Atenolol 50 mg daily. No chest pains, dizziness, or SOB. Does not check BP at home. DM: Checking BS 2 x a day with FBS 140-180, yesterday he had a 126. Denies any hypoglycemic episodes. He does have neuropathy in feet. Getting eye exams through OR and Dr. Jacome with [facility]. Taking Metformin xr 500 mg 2 pill BID (when he remembers) and Amaryl 4 mg, 2 pills once daily. Follows with Dr. Morel for routine foot exams. Lipid/CAD: Tries to watch diet, but admits to not doing the best. Admits to loving sweets. No exercise. States his knee is too bad and it needs fixed. Taking Lipitor 20 mg daily. Follicular lymphoma: Grade 1, follows with Hematology, [facility]. Has appt he believes in August. Taking Allopurinol 100 mg daily for uric acid and kidney stones. No issues at this time. Vit D - Deficient on most recent labs, 25.6. Notes that his energy level is pretty low, wondering if this could be a cause. HM - Denies having Adv Dir/Living Will. Discussed Shingrix vaccine through [facility]. Declines Pneumo vaccine at this time. Past medical history, appointments, medications, allergies reviewed. 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 RPR UMBILICAL HERNIA < 5 YRS REDUCIBLE Hernia repair, umbilical Family History FAMILY HISTORY Problem Relation Age of Onset Heart Father Diabetes Mother Heart Paternal Grandmother cardiomegaly Stroke Paternal Grandfather Hypertension Sister Diabetes Sister Patient Allergies ALLERGIES Allergen Reactions Ciprofloxacin Myalgia Keflex [Cephalexin] GI Upset Meperidine GI Upset Morphine GI Upset Vomiting and nausea within minutes Contrast Dye GI Upset Opioids-Meperidine * Intolerance arrythmia after surgery with Darvon/Darvocet Plavix [Clopidogrel* Hemorrhage Prednisone Other: See Comments anxiety Propoxyphene Intolerance arrythmia after surgery Current Medications Current Outpatient Medications on File Prior to Visit Medication Sig metFORMIN ER (GLUCOPHAGE XR) 500 mg 24 hr tablet Take 2 tablets by mouth twice daily with meals. pantoprazole DR (PROTONIX) 20 mg tablet Take 1 tablet by mouth once daily. Take as needed for heartburn/GI upset glimepiride (AMARYL) 4 mg tablet Take 2 tablets by mouth daily with breakfast. atorvastatin (LIPITOR) 20 mg tablet Take 1 tablet by mouth daily at bedtime. For cholesterol. allopurinol (ZYLOPRIM) 100 mg tablet Take 1 tablet by mouth once daily. atenolol (TENORMIN) 50 mg tablet Take 1 tablet by mouth once daily. ketoconazole (NIZORAL) 2 % shampoo Apply to affected area once daily as needed. triamcinolone acetonide (KENALOG) 0.1 % cream Apply to affected area twice daily. white petrolatum - mineral oil (EUCERIN CREAM) cream Apply to affected area as needed. blood sugar diagnostic (YummlyUCH ULTRA TEST) test strip Use to test blood sugars twice daily. Dx: 250.00 Lancets (YummlyUCH ULTRASOFT LANCETS) lancets Use as directed to check blood sugars 1-2 times daily nitroglycerin sublingual (NITROQUICK) 0.4 mg SL tablet Take 1 tablet by mouth as needed for Chest Pain. FOR CHEST PAIN. IF NO PAIN RELIEF, CALL 911 [place]-3 Fatty Acids-Vitamin E 1,000 mg cap Take 2 capsules by mouth once daily. Ascorbic Acid 1,000 mg tablet Take 1,000 mg by mouth once daily. ACETAMINOPHEN (TYLENOL ARTHRITIS ORAL) Take by mouth once daily. alcohol antiseptic pads(ALCOHOL PADS) Use as directed aspirin(ECOTRIN LOW STRENGTH 81 MG TAB) Take one(1) tablet daily. TUMS 500 MG CHEWABLE TAB as necessary No current facility-administered medications on file prior to visit. Social History Social History Tobacco Use Smoking status: Never Smokeless tobacco: Never Tobacco comments: never Vaping Use Vaping Use: Never used Substance Use Topics Alcohol use: No Comment: never Drug use: No EXAM: BP 118/64 (BP Site: Left Arm, BP Position: Sitting, BP Cuff Size: Regular Adult) Pulse 60 Resp 16 Wt 88.3 kg (194 lb 9.6 oz) BMI 28.74 kg/m General Appearance: Well appearing, alert, in no acute distress, well-hydrated, well nourished.. Lungs: Lungs clear to auscultation. No wheezing, rhonchi, rales.. Heart: RRR without murmur, gallop, or rubs. No ectopy. Health Maintenance List SHINGRIX VACCINE(1 of 2) Never done PNEUMOCOCCAL: 65+(2 - PCV) due on 08/02/2012 ADVANCE DIRECTIVE DISCUSSION due on 10/21/2022 DIABETIC FOOT EXAM due on 05/04/2023 HBA1C due on 05/06/2023 COVID-19 VACCINE(5 - Pfizer series) due on 02/08/2024 INFLUENZA(1) due on 06/21/2023 DILATED RETINAL EXAM due on 09/18/2023 URINE ALBUMIN:CREATININE RATIO due on 02/05/2024 LDL CHOLESTEROL due on 02/05/2024 ANNUAL PCP TEAM CHRONIC DISEASE VISIT due on 02/08/2024 BP CONTROLLED (<130/80) due on 02/08/2024 DTAP,TDAP,TD(3 - Td or Tdap) due on 06/02/2024 DEPRESSION ASSESSMENT Completed HPV VACCINE Aged Out COLORECTAL CANCER SCREENING Discontinued Data reviewed Appointment on 06/18/2023 Component Date Value Protein, Total 06/18/2023 7.4 Albumin 06/18/2023 4.7 Calcium, Total 06/18/2023 10.0 Bilirubin, Total 06/18/2023 0.8 Alkaline Phosphatase 06/18/2023 56 AST 06/18/2023 23 ALT 06/18/2023 16 Glucose 06/18/2023 156 (H) BUN 06/18/2023 23 Creatinine 06/18/2023 1.13 Sodium 06/18/2023 137 Potassium 06/18/2023 4.5 Chloride 06/18/2023 101 CO2 06/18/2023 23 Anion Gap 06/18/2023 13 Estimated Glomerular Denys* 06/18/2023 66 Hemoglobin A1C 06/18/2023 7.8 (H) Estimated Average Glucose 06/18/2023 177 Cholesterol, Total 06/18/2023 156 Triglyceride 06/18/2023 152 (H) HDL Cholesterol 06/18/2023 36 (L) Non HDL Cholesterol 06/18/2023 120 Fasting Time 06/18/2023 13 VLDL Cholesterol 06/18/2023 30 (H) TC:HDL Ratio 06/18/2023 4.33 LDL Cholesterol 06/18/2023 90 LDL:HDL Ratio 06/18/2023 2.50 Vitamin D 25 Hydroxy 06/18/2023 25.6 (L) Uric Acid 06/18/2023 6.1 ASSESSMENT/PLAN: 1. Type 2 diabetes mellitus with diabetic neuropathy, without long-term current use of insulin ([facility]) - ICD9: 250.60, 357.2, ICD10: E11.40 (primary diagnosis) - Improving control, would like below 7. - Continue current medications - Counseled on healthy diet and regular exercise 2. Hypertension, unspecified type - ICD9: 401.9, ICD10: I10 - Controlled - Continue current medications - Recommend home blood pressure monitoring, to bring results to next visit - Encouraged sodium restriction, DASH or Mediterranean diet - Recommend regular aerobic exercise 3. Hyperlipidemia, unspecified hyperlipidemia type - ICD9: 272.4, ICD10: E78.5 - Controlled - Continue current medications - Counseled on healthy diet and regular exercise 4. Coronary artery disease involving elem coronary artery of elem heart without angina pectoris - ICD9: 414.01, ICD10: I25.10 - Stable - Continue current medication regimen. 5. Gastroesophageal reflux disease, unspecified whether esophagitis present - ICD9: 530.81, ICD10: K21.9 - Stable with prn use of medication 6. Gout, unspecified cause, unspecified chronicity, unspecified site - ICD9: 274.9, ICD10: M10.9 - Stable - Continue current medication regimen. - Recheck labs in 6 months 7. Follicular lymphoma, unspecified follicular lymphoma type, unspecified body region (HCC) - ICD9: 202.00, ICD10: C82.90 - Cont f/u with [facility] 8. Kidney stones - ICD9: 592.0, ICD10: N20.0 - Stable - Cont f/u with Nephrology 9. Benign prostatic hyperplasia, unspecified whether lower urinary tract symptoms present - ICD9: 600.00, ICD10: N40.0 - Cont f/u with Urology at OR 10. Vitamin D deficiency - ICD9: 268.9, ICD10: E55.9 - Start taking 1,000-2,000 international unit(s) daily OTC - Recheck labs Follow up in 6 months with labs prior to visit. I agree with the Chief Complaint, ROS, and Past Histories independently gathered by the clinical technical support technician and the remaining scribed note accurately describes my personal service to the patient. Medical Decision Making: Problems: Moderate: 2+ stable chronic illnesses Data: Unique test result(s) reviewed: 3+ Unique test(s) ordered: 3+ Risk: Moderate: Drug management Medical Decision Making Level: 4 - Moderate Alisha Gee MD The documentation for this note was completed by Isabel Carrion Ma acting as scribe for Alisha Gee MD. June 20, 2023 3:58 PM. Isabel Carrion Ma documented in this encounter [facility] 06-12-2023 Instructions Shweta Morel - 06/12/2023 12:02 PM EDT Diabetes Foot Care Instructions When you have diabetes, proper foot care is very important. Poor foot care may lead to amputation of a foot or leg. As a person with diabetes, you are more vulnerable to foot problems, because diabetes can damage your nerves and reduce blood flow to your feet. Here are some diabetes foot care tips to follow: Wash and Dry Your Feet Daily Use mild soaps Use warm water Pat your skin dry; do not rub. Thoroughly dry your feet. After washing, use lotion on your feet to prevent cracking. Do not put lotion between your toes. Examine Your Feet Each Day Check the tops and bottoms of your feet. Have someone else look at your feet if you cannot see them. Check for dry, cracked skin. Look for blisters, cuts, scratches, or other sores. Check for redness, increased warmth, or tenderness when touching any area of your feet. Check for ingrown toenails, corns, and calluses. If you get a blister or sore from your shoes, do not pop it. Apply a bandage and wear a different pair of shoes. Take Care of Your Toenails Cut toenails after bathing, when they are soft. Cut toenails straight across and smooth with a nail file. Avoid cutting into the corners of toes. Do not cut cuticles. If you have neuropathy (or decreased sensation in your feet) a substation operator helper should always cut your toenails. Be Careful When Exercising Walk and exercise in comfortable shoes. Do not exercise when you have open sores on your feet. Protect Your Feet With Shoes and Socks Never go barefoot. Always protect your feet by wearing shoes or hard-soled slippers or footwear. Avoid shoes with high heels and pointed toes. Avoid shoes that expose your toes or heels (such as open-toed shoes or sandals). These types of shoes increase your risk for injury and potential infections. Try on new footwear with the type of socks you usually wear. Do not wear new shoes for more than an hour at a time. Change your socks daily. Look and feel inside your shoes before putting them on to make sure there are no foreign objects or rough areas. Avoid tight socks. Wear natural-fiber socks (cotton, wool, or a cotton-wool blend). Wear special shoes if your health care provider recommends them. Wear shoes/boots that will protect your feet from various weather conditions (cold, moisture, etc.). Make sure your shoes fit properly. If you have neuropathy (nerve damage), you may not notice that your shoes are too tight. Perform the footwear test described below. Footwear Test Use this simple test to see if your shoes fit correctly: Stand on a piece of paper. (Make sure you are standing and not sitting, because your foot changes shape when you stand.) Trace the outline of your foot. Trace the outline of your shoe. Compare the tracings: Is the shoe too narrow? Is your foot crammed into the shoe? The shoe should be at least 1/2 inch longer than your longest toe and as wide as your foot. Proper Shoe Choices The following types of shoes are best for people with diabetes Closed toes and heels Leather uppers without a seam inside At least 1/2 inch extra space at the end of your longest toe Inside of shoe should be soft with no rough areas Outer sole should be made of stiff material Shoes should be at least as wide as your feet Tips for Foot Care in Diabetes Don't wait to treat a minor foot problem if you have diabetes. Follow your health care provider's guidelines and first aid guidelines. Report foot injuries and infections to your health care provider immediately. Check water temperature with your elbow, not your foot. Do not use a heating pad on your feet. Do not cross your legs. Do not self-treat your corns, calluses, or other foot problems. Go to your health care provider or substation operator helper to treat these conditions. documented in this encounter [facility] 06-12-2023 History of Present illness Narrative Subjective: This 77 year old male presents to clinic for diabetic foot check. Patient admits to being diabetic for 10 years now. Patient +B/T/N in feet at this time. Patient -pain in legs when walking. No other pedal complaints at this time. No change in medications or medical history since last visit. PAIN EVALUATION No data found in the last 1 encounters. Hemoglobin A1C (%) Date Value 02/04/2023 8.2 09/24/2022 7.3 06/12/2022 7.9 01/24/2022 8.9 06/20/2020 8.0 08/04/2019 7.2 12/02/2018 8.3 08/25/2018 8.2 05/16/2018 7.6 HGB A1C (no units) Date Value 09/09/2020 7.0 PCP: Alisha Gee MD PAST MEDICAL HISTORY Diagnosis Date Ankle disorder 1995 right fracture, dislocation(screws implanted) Arrhythmia Brain tumor (benign) (HCC) 2003 CAD (coronary artery disease) Calculus of kidney Cataract ou Cholelithiasis 05/01/2010 Diaphragmatic hernia without mention of obstruction or gangrene DM w/o Complication Type II Esophageal reflux Follicular lymphoma (HCC) 10/2015 [facility] Generalized osteoarthrosis, unspecified site knees htn Hyperlipidemia Meningioma (HCC) PMH - PAST MEDICAL HISTORY OF bells palsy-resolved Pure hypercholesterolemia S/P angioplasty with stent 11/24/2012 Shoulder arthritis 2001 right and left shoulder rotator cuff(shoulder screws in place) Snoring Current Outpatient Medications Medication Sig metFORMIN ER (GLUCOPHAGE XR) 500 mg 24 hr tablet Take 2 tablets by mouth twice daily with meals. pantoprazole DR (PROTONIX) 20 mg tablet Take 1 tablet by mouth once daily. Take as needed for heartburn/GI upset glimepiride (AMARYL) 4 mg tablet Take 2 tablets by mouth daily with breakfast. atorvastatin (LIPITOR) 20 mg tablet Take 1 tablet by mouth daily at bedtime. For cholesterol. allopurinol (ZYLOPRIM) 100 mg tablet Take 1 tablet by mouth once daily. atenolol (TENORMIN) 50 mg tablet Take 1 tablet by mouth once daily. ketoconazole (NIZORAL) 2 % shampoo Apply to affected area once daily as needed. triamcinolone acetonide (KENALOG) 0.1 % cream Apply to affected area twice daily. white petrolatum - mineral oil (EUCERIN CREAM) cream Apply to affected area as needed. [place]-3 Fatty Acids-Vitamin E 1,000 mg cap Take 2 capsules by mouth once daily. Ascorbic Acid 1,000 mg tablet Take 1,000 mg by mouth once daily. ACETAMINOPHEN (TYLENOL ARTHRITIS ORAL) Take by mouth once daily. aspirin(ECOTRIN LOW STRENGTH 81 MG TAB) Take one(1) tablet daily. TUMS 500 MG CHEWABLE TAB as necessary blood sugar diagnostic (YummlyUCH ULTRA TEST) test strip Use to test blood sugars twice daily. Dx: 250.00 Lancets (New KCBXTOUCH ULTRASOFT LANCETS) lancets Use as directed to check blood sugars 1-2 times daily nitroglycerin sublingual (NITROQUICK) 0.4 mg SL tablet Take 1 tablet by mouth as needed for Chest Pain. FOR CHEST PAIN. IF NO PAIN RELIEF, CALL 911 alcohol antiseptic pads(ALCOHOL PADS) Use as directed No current facility-administered medications for this visit. ALLERGIES Allergen Reactions Ciprofloxacin Myalgia Keflex [Cephalexin] GI Upset Meperidine GI Upset Morphine GI Upset Vomiting and nausea within minutes Contrast Dye GI Upset Opioids-Meperidine * Intolerance arrythmia after surgery with Darvon/Darvocet Plavix [Clopidogrel* Hemorrhage Prednisone Other: See Comments anxiety Propoxyphene Intolerance arrythmia after surgery PAST SURGICAL HISTORY Procedure Laterality Date APPENDECTOMY and exploratory surgery ARTHRP KNE CONDYLE&PLATU MEDIAL&LAT COMPARTMENTS 02/2013. 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 RPR UMBILICAL HERNIA < 5 YRS REDUCIBLE Hernia repair, umbilical FAMILY HISTORY Problem Relation Age of Onset Heart Father Diabetes Mother Heart Paternal Grandmother cardiomegaly Stroke Paternal Grandfather Hypertension Sister Diabetes Sister Social History Tobacco Use Smoking status: Never Smokeless tobacco: Never Tobacco comments: never Vaping Use Vaping Use: Never used Substance Use Topics Alcohol use: No Comment: never Drug use: No REVIEW OF SYSTEMS GENERAL: Negative for Malaise, significant weight loss, fever RESPIRATORY: Negative for cough, wheezing and shortness of breath CARDIOVASCULAR: Negative for chest pain, leg swelling and palpitations GI: Negative for abdominal discomfort, blood in stools or black stools and change in bowel habits : Negative for dysuria, frequency and incontinence MUSCULOSKELETAL: Negative for joint pain or swelling, back pain, and muscle pain. SKIN: Negative for lesions, rash, and itching. HEMATOLOGY/LYMPHOLOGY Negative for prolonged bleeding, bruising easily, and swollen nodes. ENDOCRINE: Negative for cold or heat intolerance, polyuria, polydipsia and goiter. NEURO: negative The remainder of the review of systems is noncontributory. Objective: Patient presents to clinic ambulating in diabetic shoes Constitutional: Pt is a well developed 77 year old male who is alert, oriented, cooperative and in no apparent distress. Eyes: Following during examination. No redness or drainage. Respiratory: RR normal and nonlabored. Even breathing. No evidence of distress. Psychology: Patient is engaged during conversation. Normal affect and mood. Does not appear depressed or anxious. Vasc: DP and PT pulses are palpable bilateral. CFT is less than 5 seconds bilateral. Skin temperature is warm to warm proximal to distal bilateral. There is mild edema or varicosities noted. Hair growth present. Neuro: Protective sensation is intact to the foot and toes when tested with the 5.07 SWM bilateral. Vibratory sensation is decreased at the hallux bilateral. Mild Significant neurological defecits. Derm: Inspection and palpation performed. Nails 1-5 b/l are normal in length and thickness. Skin is of normal turgor and texture. Hyperkeratosis noted to not present. NO ulcerations, scars, verruca or other lesions noted. Ortho: Ankle joint DF is full with the knee extended and full with knee flexed. No pain or crepitus noted. STJ, MTJ ROM are full and free of pain or crepitus. Muscle strength is 5/5 for dorsiflexors, plantarflexors, inverters, everters. Digital deformities include small hallux valgus Assessment: (E11.49) Well controlled type 2 diabetes mellitus with neurological manifestations ([facility]) (primary encounter diagnosis) (M20.12) Hallux valgus of left foot (M20.11) Hallux valgus of right foot Plan: 1. Patient was seen and evaluated. 2. Patient was instructed on the continued importance of diabetic foot care along with proper diet and keeping their blood sugar under control to prevent complications. Instructions given both oral and written. 3. Diabetic shoes ordered. Patient with diabetes and small bunion deformity. He will benefit with the use of diabetic shoe Shweta Morel DPM AMB ROOMING INTAKE FLOWSHEET DATA Patient here today for yearly diabetic foot exam. Denies any pain or problems. documented in this encounter [facility] 03-26-2023 Miscellaneous Notes OK to refill as ordered Alisha Gee MD Patient has been identified by name and date of : Yes, Chandni Villarreal RN Date 03/26/2023 Time 3:32 pm Pharmacy phones for refill(s): Requested Prescriptions Pending Prescriptions Disp Refills metFORMIN ER (GLUCOPHAGE XR) 500 mg 24 hr tablet 360 tablet 3 Sig: Take 2 tablets by mouth twice daily with meals. Date of last office visit with pcp: 02/07/2023 Future appt: 05/10/2023 Last 2 Encounter Wt Readings: Date: Wt: 02/07/2023 89.5 kg (197 lb 6.4 oz) 10/24/2022 88 kg (194 lb) Previous labs/tests for medication: Diabetes: Hemoglobin A1C (%) Date Value 02/04/2023 8.2 09/24/2022 7.3 06/20/2020 8.0 08/04/2019 7.2 HGB A1C (no units) Date Value 09/09/2020 7.0 Blood Pressure: BUN (mg/dL) Date Value 02/04/2023 16 12/19/2020 20 Sodium (mmol/L) Date Value 02/04/2023 137 12/19/2020 142 Last 1 Encounter BP Readings: Date: BP: 02/07/2023 122/64 Liver Function: ALT (U/L) Date Value 02/04/2023 18 12/19/2020 18 AST (U/L) Date Value 02/04/2023 20 12/19/2020 21 Please advise. Thank you. Chandni Villarreal RN documented in this encounter [facility] 02-07-2023 Instructions Isabel Carrion Ma - 02/07/2023 3:50 PM EDT Take Vitamin D3 2,000 international unit(s) daily for low Vitamin D. No antibiotics needed for dental work. Continue watching diet to help control sugars. documented in this encounter [facility] 02-07-2023 History of Present illness Narrative Chief Complaint Patient presents with: F/U 3 Month HPI Tristin Flynn is a 77 year old male who presents here today for 3 month follow up. Pt here today for a 3 month follow up. Here today with his . Has multiple question regarding some recent testing through the OR. Pt is now receiving his medications through them. Follicular lymphoma: Grade 1, follows with Hematology, [facility] No bowel, Gi or urinary issues. Hx of kidney stones, currently dealing with this still. Passed 3 stones in December. Was seen in October and had US done that showed multiple kidney stones. Has questions regarding some recent work up by the OR Urology and Nephrology. Brought results from his 24 hour urine to review and have scanned into his chart. Nephrology is wanting to double up on his Allopurinol and start Potassium Citrate. He isn't sure if this is needed or if he should get another opinion. Also has questions about some of his other results, cause it's concerning him. Wondering if he should f/u with Urology/Nephrololgy through [facility]. Unsure if [facility] has these available. GERD: Sx doing well on Protonix 20 mg prn and Tums prn. Lipid/CAD: Taking Lipitor 20 mg daily. Tolerating well. Tries to watch diet, admits this could improve. DM: Has fluctuating blood sugars. Checking BS twice daily with FBS running 180-200. [facility] as [facility]. No hypoglycemic episodes. Does have some neuropathy sx. Taking Amaryl 4 mg, 2 pills once daily and Metformin xr 500 mg 2 pills BID. Admits he misses his evening dosage 50% of the time. If he really watches his diet his sugars are better controlled. Going to OR for eye exams and Dr. Jacome at [facility]. HTN: Denies any SOB, dizziness or chest pain. Reports feeling very tired. Has seen a insurance account representative and hard cardiac work up for the intermittent chest pains. Taking Atenolol 50 mg daily. Uric Acid/Kidney stones: Stable, no flare ups. Taking Allopurinol 100 mg daily. Questions about Asking about oral abx prior to dental procedures. HM - Declines wanting any further Covid vaccines. Declines feeling down, depressed or hopeless; reviewed neg depression screen. Believes he has Adv Dir/Living Will. Shingles vaccine through Pharmacy due to Medicare. Past medical history, appointments, medications, allergies reviewed. Previous Medical History PAST MEDICAL HISTORY Diagnosis Date Ankle disorder 1995 right fracture, dislocation(screws implanted) Arrhythmia Brain tumor (benign) (HCC) 2003 CAD (coronary artery disease) Calculus of kidney Cataract ou Cholelithiasis 05/01/2010 Diaphragmatic hernia without mention of obstruction or gangrene DM w/o Complication Type II Esophageal reflux Follicular lymphoma (HCC) 10/2015 [facility] Generalized osteoarthrosis, unspecified site knees htn Hyperlipidemia Meningioma (HCC) PMH - PAST MEDICAL HISTORY OF bells palsy-resolved Pure hypercholesterolemia S/P angioplasty with stent 11/24/2012 Shoulder arthritis 2002 right and left shoulder rotator cuff(shoulder screws in place) Snoring Previous Surgical History PAST SURGICAL HISTORY Procedure Laterality Date APPENDECTOMY and exploratory surgery ARTHRP KNE CONDYLE&PLATU MEDIAL&LAT COMPARTMENTS 02/2013. 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 RPR UMBILICAL HERNIA < 5 YRS REDUCIBLE Hernia repair, umbilical Family History FAMILY HISTORY Problem Relation Age of Onset Heart Father Diabetes Mother Heart Paternal Grandmother cardiomegaly Stroke Paternal Grandfather Hypertension Sister Diabetes Sister Patient Allergies ALLERGIES Allergen Reactions Keflex [Cephalexin] GI Upset Morphine GI Upset Vomiting and nausea within minutes Contrast Dye GI Upset Opioids-Meperidine * Intolerance arrythmia after surgery with Darvon/Darvocet Plavix [Clopidogrel* Hemorrhage Prednisone Other: See Comments anxiety Propoxyphene Intolerance arrythmia after surgery Current Medications Current Outpatient Medications on File Prior to Visit Medication Sig pantoprazole DR (PROTONIX) 20 mg tablet Take 1 tablet by mouth once daily. Take as needed for heartburn/GI upset glimepiride (AMARYL) 4 mg tablet Take 2 tablets by mouth daily with breakfast. metFORMIN ER (GLUCOPHAGE XR) 500 mg 24 hr tablet Take 2 tablets by mouth twice daily with meals. atorvastatin (LIPITOR) 20 mg tablet Take 1 tablet by mouth daily at bedtime. For cholesterol. allopurinol (ZYLOPRIM) 100 mg tablet Take 1 tablet by mouth once daily. atenolol (TENORMIN) 50 mg tablet Take 1 tablet by mouth once daily. ketoconazole (NIZORAL) 2 % shampoo Apply to affected area once daily as needed. triamcinolone acetonide (KENALOG) 0.1 % cream Apply to affected area twice daily. white petrolatum - mineral oil (EUCERIN CREAM) cream Apply to affected area as needed. blood sugar diagnostic (New KCBXTOUCH ULTRA TEST) test strip Use to test blood sugars twice daily. Dx: 250.00 Lancets (New KCBXTOUCH ULTRASOFT LANCETS) lancets Use as directed to check blood sugars 1-2 times daily nitroglycerin sublingual (NITROQUICK) 0.4 mg SL tablet Take 1 tablet by mouth as needed for Chest Pain. FOR CHEST PAIN. IF NO PAIN RELIEF, CALL 911 [place]-3 Fatty Acids-Vitamin E 1,000 mg cap Take 2 capsules by mouth once daily. Ascorbic Acid 1,000 mg tablet Take 1,000 mg by mouth once daily. ACETAMINOPHEN (TYLENOL ARTHRITIS ORAL) Take by mouth once daily. alcohol antiseptic pads(ALCOHOL PADS) Use as directed aspirin(ECOTRIN LOW STRENGTH 81 MG TAB) Take one(1) tablet daily. TUMS 500 MG CHEWABLE TAB as necessary No current facility-administered medications on file prior to visit. Social History Social History Tobacco Use Smoking status: Never Smokeless tobacco: Never Tobacco comments: never Vaping Use Vaping Use: Never used Substance Use Topics Alcohol use: No Comment: never Drug use: No EXAM: BP 122/64 (BP Site: Left Arm, BP Position: Sitting, BP Cuff Size: Regular Adult) Pulse 72 Resp 16 Wt 89.5 kg (197 lb 6.4 oz) BMI 29.15 kg/m General Appearance: Well appearing, alert, in no acute distress, well-hydrated, well nourished.. Lungs: Lungs clear to auscultation. No wheezing, rhonchi, rales.. Heart: RRR without murmur, gallop, or rubs. No ectopy. Health Maintenance List SHINGRIX VACCINE(1 of 2) Never done PNEUMOCOCCAL: 63+(2 - PCV) due on 08/02/2012 COVID-19 VACCINE(5 - Booster for Pfizer series) due on 11/30/2021 ADVANCE DIRECTIVE DISCUSSION due on 10/21/2022 DEPRESSION ASSESSMENT due on 10/21/2022 URINE ALBUMIN:CREATININE RATIO due on 01/24/2023 HBA1C due on 03/25/2023 DIABETIC FOOT EXAM due on 05/04/2023 INFLUENZA(Season Ended) due on 06/21/2023 DILATED RETINAL EXAM due on 09/18/2023 LDL CHOLESTEROL due on 09/24/2023 ANNUAL PCP TEAM CHRONIC DISEASE VISIT due on 10/24/2023 BP CONTROLLED (<130/80) due on 10/24/2023 DTAP,TDAP,TD(3 - Td or Tdap) due on 06/02/2024 Data reviewed Appointment on 02/04/2023 Component Date Value Cholesterol, Total 02/04/2023 141 Triglyceride 02/04/2023 114 HDL Cholesterol 02/04/2023 37 (A) Non HDL Cholesterol 02/04/2023 104 Fasting Time 02/04/2023 17 VLDL Cholesterol 02/04/2023 23 TC:HDL Ratio 02/04/2023 3.81 LDL Cholesterol 02/04/2023 81 LDL:HDL Ratio 02/04/2023 2.19 Protein, Total 02/04/2023 7.7 Albumin 02/04/2023 4.4 Calcium, Total 02/04/2023 9.5 Bilirubin, Total 02/04/2023 0.7 Alkaline Phosphatase 02/04/2023 63 AST 02/04/2023 20 ALT 02/04/2023 18 Glucose 02/04/2023 139 (A) BUN 02/04/2023 16 Creatinine 02/04/2023 1.19 Sodium 02/04/2023 137 Potassium 02/04/2023 4.5 Chloride 02/04/2023 102 CO2 02/04/2023 24 Anion Gap 02/04/2023 11 Estimated Glomerular Denys* 02/04/2023 62 Hemoglobin A1C 02/04/2023 8.2 (A) Estimated Average Glucose 02/04/2023 189 Creatinine, Ur Random (U* 02/04/2023 33.0 Albumin, Urine Random 02/04/2023 23.0 Albumin/Creat Ratio 02/04/2023 70 (A) Uric Acid 02/04/2023 5.2 PSA 02/04/2023 1.27 ASSESSMENT/PLAN: 1. Type 2 diabetes mellitus with hyperglycemia, without long-term current use of insulin (HCC) - ICD9: 250.00, 790.29, ICD10: E11.65 (primary diagnosis) - Worsening control - Continue current medications - Discussed using GLP or SGLT inhibitor if his A1c does not come down in 3 months 2. Hypertension, unspecified type - ICD9: 401.9, ICD10: I10 - good control - Continue current medication(s) - Recommended regular aerobic exercise. - Recommend home blood pressure monitoring, to bring results in on next visit - Goal of BP <130/80 3. Hyperlipidemia, unspecified hyperlipidemia type - ICD9: 272.4, ICD10: E78.5 - good control - Continue current medication. - Encouraged following a low fat, low cholesterol diet. - Discussed the benefits of regular aerobic exercise and weight loss. 4. Coronary artery disease involving elem coronary artery of elem heart without angina pectoris - ICD9: 414.01, ICD10: I25.10 - Stable - Continue current medication regimen. - Cont f/u with Cardiology 5. Gastroesophageal reflux disease, unspecified whether esophagitis present - ICD9: 530.81, ICD10: K21.9 - Stable with prn use of medication 6. Kidney stones - ICD9: 592.0, ICD10: N20.0 - Reviewed and discussed results.- 7. Vitamin D deficiency - ICD9: 268.9, ICD10: E55.9 - Take OTC Vit D3 2,000 international unit(s) daily. 8. Follicular lymphoma, unspecified follicular lymphoma type, unspecified body region (HCC) - ICD9: 202.00, ICD10: C82.90 - Cont f/u with Hem/Onc. Discussed do not need abx prior to dental procedure. 3 mo f/u with labs I agree with the Chief Complaint, ROS, and Past Histories independently gathered by the clinical technical support technician and the remaining scribed note accurately describes my personal service to the patient. Medical Decision Making: Problems: Moderate: 2+ stable chronic illnesses Data: Unique test result(s) reviewed: 3+ Unique test(s) ordered: 3+ Risk: Moderate: Drug management Medical Decision Making Level: 4 - Moderate' Alisha Gee MD The documentation for this note was completed by Isabel Carrion Ma acting as scribe for Alisha Gee MD. February 07, 2023 3:48 PM. Isabel Carrion Ma documented in this encounter [facility] 02-04-2023 Miscellaneous Notes Pt wants PSA added to blood work. Isabel Carrion Ma documented in this encounter [facility] 01-25-2023 History of Present illness Narrative After visit summary was printed and given to patient. Discharge instructions and follow up appointments reviewed with patient. Patient verbalized understanding. All questions answered. Patient and family encouraged to call with any additional questions. 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 He initially presented for evaluation of lymphadenopathy. He reports that since June, he has been experiencing intermittent bilateral lower quadrant pain. He had a CT scan in June 2015 which demonstrated lymphadenopathy. Repeat CT in July showed persistent LAD. He had a work up including a urologic evaluation and PSA, a colonoscopy and EGD which did not identify a cause for his pain or lymphadenopathy. He had a PET scan which showed that the lymph nodes were FDG avid and there was also a lesion at the vertex of the skull. He had a surgical biopsy and the pathology demonstrated follicular lymphoma, low grade. He has been followed by watchful observation since that time. Mr. Flynn returns for routine follow up. He is accompanied by his and daughter in law. He reports he is battling kidney stones right now. He was evaluated and prescribe potassium citrate to help with dissolving the kidney stones but he has not started taking this medication. He will discuss this with his PCP. He reports his BG has been elevated but he has forgot to take his evening dose of metformin. He also reports that he feels his legs are weak and that he has difficulty with ADLs. He denies falling, numbness or tingling. He will also discuss this with his PCP. In regards to lymphoma, He denies LAD, drenching night sweats, unintentional weight loss, fevers or chills. Review of Systems Review of Systems was conducted and is otherwise unremarkable except as further documented in the HPI Current Outpatient Medications Medication Sig Dispense Refill acetaminophen 325 MG tablet take 650 mg by mouth every 4 hours. For arthritis pain allopurinol 100 MG Tab take 50 mg by mouth daily. ascorbic acid 500 MG Tab take 500 mg by mouth daily. aspirin 81 MG Chew Tab take 81 mg by mouth daily. atenolol 25 MG Tab take 25 mg by mouth daily. atorvastatin 10 MG Tab take 10 mg by mouth daily. calcium carbonate 500 MG Chew Tab take 500 mg by mouth as needed. Cinnamon 500 MG Cap take 1,000 mg by mouth daily. gliMEPIride 2 MG Tab take 2 mg by mouth daily every morning. Glucose Blood (BLOOD GLUCOSE TEST STRIPS) Strip by Other route. metformin-XR 500 MG Tab SR 24 HR take 1,000 mg by mouth daily. Currently taking 3 tabs a day (12/01/15); working with team to adjust dose nitroGLYCERIN 0.[address] 1 tablet under tongue every 5 minutes as needed for Chest pain. max = 3 doses. If CP persists after 1st dose, call 911 25 tablet 0 [place]-3 Fatty Acids (FISH OIL) 1200 MG Cap take 1,200 mg by mouth daily. ONE TOUCH LANCETS Misc by Unknown route. Use to check blood sugars Pantoprazole Sodium (PROTONIX PO) Take by mouth. No current facility-administered medications for this visit. Allergies Allergen Reactions Contrast Dye [Ivp Dye, Iodine Containing] Nausea Only Darvon [Propoxyphene] Meperidine Nausea and Vomiting Demerol, Darvon Morphine And Related [Codeine And Related] Nausea and Vomiting Plavix [Clopidogrel] Bleeding Excessive bleeding Prednisone Anxiety Physical Examination Physical Examination: VITAL SIGNS: Blood pressure 149/68, pulse 53, temperature 98.2 F (36.8 C), temperature source Oral, height 1.753 m (5' 9), weight 90.7 kg (200 lb), SpO2 98 %.. Performance status is 1. GENERAL: Ambulatory, well appearing, and in no apparent distress. HEENT: PERRL, EOMI. No scleral icterus. No oral lesions or tonsillar enlargement. JM EXAM: I do not appreciate any anterior cervical, posterior cervical, supraclavicular, infraclavicular, axillary, or inguinal adenopathy. RESPIRATORY: Clear to auscultation bilaterally posteriorly without wheezes, rhonchi or rales. CARDIOVASCULAR: Regular rate and rhythm, without murmur, rub, or gallops. GASTROINTESTINAL: Abdomen soft, nontender, nondistended, without rebound or guarding. Normoactive bowel sounds. No masses or hepatosplenomegaly. EXTREMITIES: No cyanosis, clubbing, or edema. SKIN: Skin color, texture, turgor normal. No rashes or lesions. NEUROLOGICAL: Alert and oriented x3. Cranial nerves intact. Normal gait. Normal strength in upper and lower extremities. Laboratory / Diagnostic Studies WBC Count Date Value Ref Range Status 01/25/2023 4.11 3.73 - 10.10 K/uL Final Hemoglobin Date Value Ref Range Status 01/25/2023 13.7 13.4 - 16.8 g/dL Final Platelet Count Date Value Ref Range Status 01/25/2023 174 146 - 337 K/uL Final GRANS, ABSOLUTE Date Value Ref Range Status 03/30/2016 2.9 1.8 - 7.7 K/uL Final Segs + Bands Auto Date Value Ref Range Status 01/25/2023 55.1 % Final Sodium Date Value Ref Range Status 01/25/2023 137 135 - 145 mmol/L Final Potassium Date Value Ref Range Status 01/25/2023 4.4 3.5 - 5.0 mmol/L Final Chloride Date Value Ref Range Status 01/25/2023 104 98 - 108 mmol/L Final BUN Date Value Ref Range Status 01/25/2023 19 7 - 25 mg/dL Final Creatinine Date Value Ref Range Status 01/25/2023 1.26 0.70 - 1.30 mg/dL Final Calcium Date Value Ref Range Status 01/25/2023 9.2 8.6 - 10.5 mg/dL Final MAGNESIUM Date Value Ref Range Status 11/15/2015 1.9 1.6 - 2.6 mg/dL Final Bilirubin Total Date Value Ref Range Status 01/25/2023 0.7 <1.5 mg/dL Final ALP Date Value Ref Range Status 01/25/2023 59 32 - 126 U/L Final ALT Date Value Ref Range Status 01/25/2023 17 10 - 52 U/L Final AST Date Value Ref Range Status 01/25/2023 17 10 - 39 U/L Final LD Total Date Value Ref Range Status 01/25/2023 135 100 - 190 U/L Final Assessment and Plan In summary, Mr Flynn is a 77 y.o. gentleman with follicular grade 1-2/3 non-Hodgkin's lymphoma involving lymph nodes in the neck, chest and abdomen. He presented when the lymphadenopathy was found incidentally during a work up for abdominal pain. The lymph nodes had been present on prior imaging, but had progressed. He had not had a bone marrow biopsy to complete his staging. If his bone marrow is negative, then he had stage III disease; if involved, he has stage IV disease. The results of the bone marrow biopsy would not impact our treatment decision at that time and was deferred. On his initial PET, he was noted to have a lesion in the vertex of the skull. He reports a history of a benign process identified by biopsy at the [facility]. A MRI was completed on 03/22/2016 consistent with a meningoma. Upon history, labs and clinical evaluation, he does not show evidence of progression of lymphoma. He will return in [address] scans. MARIAH Maya Lymphoma Nurse Practitioner Hematology Oncology Department After visit summary was printed and given to patient. Discharge instructions and follow up appointments reviewed with patient. Patient verbalized understanding. All questions answered. Patient and family encouraged to call with any additional questions. documented in this encounter [facility] 01-25-2023 Instructions Shauna Reno RN - 01/25/2023 12:00 PM EDT Your Lymphoma Care Team MD Diya Heath, FAIZA Strickland RN Julia Duncan, RN, [facility] Contact Numbers: Clinic Phone & Appointment Changes: [phone] Clinic For Medication Refills: Please plan ahead for all medication refills and request them at your appointment with your physician. Please allow one week for prescription refills over the telephone, as they will be refilled when Dr. Broussard is in clinic on Wednesdays and Fridays. We will call them in to the pharmacy of your request or to the pharmacy listed in your chart if not specified differently. You will not be contacted about the refill except for any questions or concerns. Please call your pharmacy to verify when to mushroom picker. All Disability/FMLA Paperwork: Please allow up to 2 weeks for all disability, FMLA, etc. to be filled out. Please specify what your request is as to what and where we should send completed paperwork. (This is to inform us if we should send the completed papers to you or directly to your employer). The primary nurse is the one who will normally fill this paperwork out for you, and will only call to inform you the paperwork is completed and sent if requested. [facility] MY Chart: The medical information you will have access to within the My Chart program is only selected portions of your entire chart, such as basic laboratory results, summary medical history, visit history, and selected billing information. Please understand we do not place all results from labs, tests and procedures. To provide you with the best quality care available we need to be able to discuss these results with you personally. If you are unable to obtain the results of a test that you can't find within the My Chart please feel free to call us and we will get back to you with that information. When sending a message to the provider, please know that these messages will be received and answered by the primary nurse practitioner. The nurse practitioner will consult your physician when needed. Please call us with any questions or concerns that you may have. RESOURCES: National Cancer [employer]- www.cancer.gov [employer]- https://cancer.osu.edu CancerCare[employer] Inc- www.cancercare.org Leukemia and Lymphoma Society- LLS.org Peer support groups- www.cancer.os.edu/ERI or email [email or web address] Fall Prevention at Home Here are some tips to use in your home to help prevent falls. Throughout the home Remove throw rugs so you do not trip on them. Replace or remove carpet that is torn or has turned-up edges. Avoid thick carpet. Shoes may catch on these and cause you to stumble or fall. Move furniture or other things that may block pathways. Be sure you have good lighting throughout your home. Use night lights or leave some lights on in the house to help you see at night or when you come home in the evening. Use switches that glow in the dark, so they can be seen more easily. Keep electrical cords and small things out of your path. Use your cane or walker rather than using furniture to give you support when walking. Stairs Mount sturdy handrails to help with going up and down stairs. They should extend beyond the top and bottom stair. Improve the visibility on your stairs. Have good lighting on the stairs. Non-skid surfaces can be applied to wood stairs to prevent sliding. [place] a bright colored line on the edge of each step so they are more easily seen, especially if you have poor vision. In the bathroom Place non-skid decals or a mat in the tub or shower. Install grab bars around the toilet and in the shower or bathtub. Towel bars are to hold towels, and they will break if you use them as grab bars. Use a tub seat and an elevated toilet seat. Leave the bathroom door unlocked so it can be opened if you do fall. In the bedroom Avoid wearing long nightgowns or robes. These can cause you to trip. Avoid wearing loose shoes that cause you to scuff or shuffle your feet as you walk. Wear shoes or slippers that fit well and stay securely on your feet. In the kitchen Have commonly used items at counter level or within easy reach. Do not climb or reach to high shelves. If you use a step stool, use a stable step stool with a handrail. Other tips Be careful that you do not trip over your pet. Be aware of where you pet is when you are moving around. Use caution when sitting down. Before sitting down on a chair, make sure the backs of your legs are touching the seat of the chair behind you. Keep a telephone close by or consider carrying a portable phone. Take your time. Get in the habit of moving at speeds that are safe for your energy level and ability. Do not gregory to answer the phone or door. Ask for help when getting up from bed, a chair or the toilet if you feel at all shaky, weak, dizzy or lightheaded. Talk to your doctor or others on your health care team if you have questions. You may request more written information from the [employer] for [employer] Information at or email: [email or web address]. 2002 - November 16, 2015. The [facility]. This handout is for informational purposes only. Talk with your doctor or health care team if you have any questions about your care. Results for orders placed or performed in visit on 01/25/23 LACTATE DEHYDROGENASE Result Value Ref Range LD Total 135 100 - 190 U/L COMPREHENSIVE METABOLIC PANEL Result Value Ref Range Sodium 137 135 - 145 mmol/L Potassium 4.4 3.5 - 5.0 mmol/L Chloride 104 98 - 108 mmol/L BUN 19 7 - 25 mg/dL Creatinine 1.26 0.70 - 1.30 mg/dL Glucose 216 (H) 70 - 99 mg/dL Bilirubin Total 0.7 <1.5 mg/dL Albumin 4.3 3.5 - 5.0 g/dL Total Protein 7.2 6.4 - 8.3 g/dL AST 17 10 - 39 U/L ALP 59 32 - 126 U/L Calcium 9.2 8.6 - 10.5 mg/dL CO2 26 21 - 31 mmol/L ALT 17 10 - 52 U/L Bun/Crea Ratio 15 Osmolality (Calculated) 298 278 - 305 mOsm/kg Anion Gap 11 7 - 17 mmol/L eGFR, CKD-EPI, Male 58 (L) >=60 mL/min/1.73m2 CBC AND ELECTRONIC DIFF Result Value Ref Range WBC Count 4.11 3.73 - 10.10 K/uL RBC Count 4.61 4.38 - 5.83 M/uL Hemoglobin 13.7 13.4 - 16.8 g/dL Hematocrit 40.2 39.6 - 48.8 % Mean Cell Volume 87.2 79.0 - 94.5 fL Mean Cell Hgb 29.7 26.1 - 33.3 pg Mean Cell Hgb Conc 34.1 31.9 - 36.5 g/dL RBC Distribution 12.7 10.9 - 14.3 % Platelet Count 174 146 - 337 K/uL Mean Platelet Volume 10.8 8.7 - 12.3 fL DIFF STATUS Electronic Differential Segs + Bands Auto 55.1 % Immature Grans % 0.2 % Lymphocyte % Auto 32.1 % Monocyte % Auto 9.2 % Eosinophil % Auto 2.7 % Basophil % Auto 0.7 % Nucleated RBC 0.0 <=0.2 /100 WBC Segs + Bands,Absolute Auto 2.26 1.57 - 6.19 K/uL Immature Grans Absolute <0.04 <=0.07 K/uL Abs Lymph Auto 1.32 0.83 - 3.57 K/uL Abs [place] Auto 0.38 0.24 - 0.93 K/uL Abs Eos Auto 0.11 0.00 - 0.48 K/uL Abs Baso Auto <0.04 0.00 - 0.09 K/uL documented in this encounter [facility] 10-24-2022 History of Present illness Narrative Radiology Service Progress Note PATIENT NAME: Tristin Flynn DATE OF SERVICE: October 24, 2022 TIME: 1:42 PM PATIENT IDENTITY VERIFICATION COMPLETED USING TWO (2) IDENTIFIERS: Name and Date of confirmed by patient verbally. FALL SCREENING: Has the patient had 2 falls in the last year or 1 fall with injury or currently using an Ambulatory Assistive Device (Walker, Cane, Wheelchair, Crutches, etc.)? Yes, Patient High Risk for Falls What interventions were put in place to prevent falls during this visit? Increased Observations by Caregivers PATIENT GENDER DATA: Male PATIENT RELEVANT IMPLANT DATA REVIEWED: Not Applicable RADIOLOGY DEPARTMENT: Ultrasound PERIPHERAL IV DATA: Not applicable SIGNED BY: Malia Yung RDMS October 24, 2022 1:42 PM documented in this encounter [facility] 10-24-2022 Instructions Genie Moore APRN.CNP - 10/24/2022 11:55 AM EST Get labs and urine testing completed. Schedule appointment for ultrasound Red flag symptoms go to ER. May use Tylenol as needed for pain. Stay well hydrated. Follow up pending test results. May choose to scheduled a follow up with Dr. Pete (urology) documented in this encounter [facility] 10-24-2022 History of Present illness Narrative This is a 77 year old male who presents today with: Patient presents with: Acute Visit: Right flank pain HISTORY OF PRESENT ILLNESS: Tristin Flynn is a 77 year old male. Patient presents with: Acute Visit: Right flank pain Here in the office for right flank pain. Refers he fell in the snow the day after [place]. The day after incident started having right low back/flank pain. Pain is a constant ache. Pain changes with certain positions. Pain has improved mildly. Using tylenol as needed which is mildly helpful. Denies any urinary symptoms, numbness/tingling into legs, loss of bowel/bladder, or saddle anesthesia. No fever or chills. History of hematuria and kidney stones in the past, follows with Dr. Pete, Urology. Saw urologist once, then passed stone. Refers he has struggled with kidney stones several times throughout his life. Has been told that stones are made of uric acid. Taking allopurinol. Uric acid lab results have always been within normal limits. PAST MEDICAL HISTORY: PAST MEDICAL HISTORY Diagnosis Date Ankle disorder 1995 right fracture, dislocation(screws implanted) Arrhythmia Brain tumor (benign) (HCC) 2003 CAD (coronary artery disease) Calculus of kidney Cataract ou Cholelithiasis 05/01/2010 Diaphragmatic hernia without mention of obstruction or gangrene DM w/o Complication Type II Esophageal reflux Follicular lymphoma (HCC) 10/2015 [facility] Generalized osteoarthrosis, unspecified site knees htn Hyperlipidemia Meningioma (HCC) PMH - PAST MEDICAL HISTORY OF bells palsy-resolved Pure hypercholesterolemia S/P angioplasty with stent 11/24/2012 Shoulder arthritis 2001 right and left shoulder rotator cuff(shoulder screws in place) Snoring PAST SURGICAL HISTORY Procedure Laterality Date APPENDECTOMY and exploratory surgery ARTHRP KNE CONDYLE&PLATU MEDIAL&LAT COMPARTMENTS 02/2013. 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 Take as needed for heartburn/GI upset glimepiride (AMARYL) 4 mg tablet Take 2 tablets by mouth daily with breakfast. metFORMIN ER (GLUCOPHAGE XR) 500 mg 24 hr tablet Take 2 tablets by mouth twice daily with meals. atorvastatin (LIPITOR) 20 mg tablet Take 1 tablet by mouth daily at bedtime. For cholesterol. allopurinol (ZYLOPRIM) 100 mg tablet Take 1 tablet by mouth once daily. atenolol (TENORMIN) 50 mg tablet Take 1 tablet by mouth once daily. ketoconazole (NIZORAL) 2 % shampoo Apply to affected area once daily as needed. triamcinolone acetonide (KENALOG) 0.1 % cream Apply to affected area twice daily. white petrolatum - mineral oil (EUCERIN) cream Apply to affected area as needed. blood sugar diagnostic (New KCBXTOUCH ULTRA TEST) test strip Use to test blood sugars twice daily. Dx: 250.00 Lancets (New KCBXTOUCH ULTRASOFT LANCETS) lancets Use as directed to check blood sugars 1-2 times daily nitroglycerin sublingual (NITROQUICK) 0.4 mg SL tablet Take 1 tablet by mouth as needed for Chest Pain. FOR CHEST PAIN. IF NO PAIN RELIEF, CALL 911 [place]-3 Fatty Acids-Vitamin E (FISH OIL) 1,000 mg cap Take 2 capsules by mouth once daily. Ascorbic Acid (VITAMIN C) 1,000 mg tablet Take 1,000 mg by mouth once daily. ACETAMINOPHEN (TYLENOL ARTHRITIS ORAL) Take by mouth once daily. alcohol antiseptic pads(ALCOHOL PADS) Use as directed aspirin(ECOTRIN LOW STRENGTH 81 MG TAB) Take one(1) tablet daily. TUMS 500 MG CHEWABLE TAB as necessary No current facility-administered medications for this visit. FAMILY HISTORY Problem Relation Age of Onset Heart Father Diabetes Mother Heart Paternal Grandmother cardiomegaly Stroke Paternal Grandfather Hypertension Sister Diabetes Sister Social History Tobacco Use Smoking status: Never Smokeless tobacco: Never Tobacco comments: never Vaping Use Vaping Use: Never used Substance Use Topics Alcohol use: No Comment: never Drug use: No REVIEW OF SYSTEMS GENERAL: No weight loss, malaise or fevers/chills HEENT: Negative for frequent or significant headaches, No changes in hearing or vision. NECK: Negative for lumps, goiter, pain and significant neck swelling RESPIRATORY: Negative for cough, hemoptysis, wheezing, dyspnea or shortness of breath CARDIOVASCULAR: Negative for chest pain, leg swelling, orthopnea, or palpitations GI: + Right flank pain : No history of dysuria, frequency or incontinence MUSCULOSKELETAL: + Back Pain SKIN: Negative for lesions, rash, and itching ENDOCRINE: Negative for cold or heat intolerance, polyuria, polydipsia and goiter NEURO: No history of headaches, syncope, paralysis, seizures or tremors MOOD: Negative for depression, anxiety, or suicidal ideation. EXAM: BP 116/66 Pulse 62 Resp 16 Wt 88 kg (194 lb) SpO2 99% BMI 28.65 kg/m PHYSICAL EXAM: General Appearance: Well appearing, alert, in no acute distress, well-hydrated, well nourished. Skin: Skin color, texture, turgor normal, no suspicious rashes or lesions. Head: Normocephalic, no masses, lesions, tenderness or abnormalities. Eyes: Anicteric sclera. Extraocular movements are intact. Lungs: Lungs clear to auscultation. No wheezing, rhonchi, rales. Heart: RRR without murmur, gallop, or rubs. No ectopy. Abdomen: Abdomen soft, non-tender. Bowel sounds normal. No masses, organomegaly, Positive findings: RT CVA Tenderness. Extremities: No deformities, edema, skin discoloration, clubbing or cyanosis. Good capillary refill. Musculoskeletal: No joint swelling, deformity, or tenderness. Peripheral Pulses: Normal, Capillary refill <2secs, strong peripheral pulses, Pulses palpable. Neurologic: Gait normal. Reflexes normal and symmetric. Sensation grossly intact. ASSESSMENT/PLAN: 1. Right flank pain - ICD9: 789.09, ICD10: R10.9 - Based off history and exam concerned for possible kidney stone. - Get labs/urine testing and ultrasound completed. - Stay well hydrated - May continue with tylenol as needed. - Red flag symptoms go to ER. - Discussed possible need for follow up with urology. - CBC + DIFF - COMP METABOLIC PANEL - URINALYSIS, WITH MICROSCOPIC - URINE CULTURE - US KIDNEY/BLADDER Follow up pending test results or sooner as needed. Discussed treatment plan and patient voices understanding. Patient's questions answered appropriately. Medications and potential side effects were discussed and patient voices understanding. Genie Moore APRN.FAIZA This note was partially generated using [employer] voice recognition system. Note was reviewed for accuracy. There may be minor misspellings or grammar miscues with Dragon voice recognition. documented in this encounter [facility] 09-27-2022 History of Present illness Narrative Chief Complaint Patient presents with: F/U 3 Month HPI Tristin Flynn is a 77 year old male who presents here today for 3 month follow up. had her hip replaced by Dr. Fitzgerald recently. Follows with [facility]cher, Derm, and Opth through [facility]. Also follows with Negative Ret[facility] Dr. Morel. No bowel, Gi, or urine concerns. Hx of kidney stones. Follows with Dr. Pete, urologist. He admits to occ loose stools from the Metformin but nothing bothersome. GERD: Sx controlled with Protonix 20 mg prn and Tums prn. Gout: Stable with Allopurinol 100 mg daily. No recent flare ups. Skin: will be getting MOHs done to lesion on the left side face. He has had it done on the hands. He is following with Jimbo Craven. Also sees a Forestry Technical Officer at [facility]. DM: Has fluctuating blood sugars. Checking BS 1-3 x daily with FBS running 160-180 in the AM, 160-180 before supper, before bed readings are 200 or higher, has had it as high at 300. The sugars are better by morning. Depending on what he ate, the sugars fluctuate a lot. He has not been keeping a written log; reviewed his verbal reports of recent glucose readings. . He would like to continue checking his sugar 3 times daily, as this helps him control his diet better. No hypoglycemic episodes. Does have some neuropathy sx. Taking Amaryl 4 mg, 2 pills once daily and Metformin xr 500 mg 2 pills BID. Going to OR for eye exams. He saw her last Saturday who told her that his eyes looked good. Also follows Dr. Jacome at [facility]. May consider Jardiance, Farxiga, or Trulicity in the future, depending on the potential side effects. HTN: Denies any SOB or dizziness but does get intermittent chest pains that occur randomly. Has had cardiac workup in past and seen Cardio for this. Is on Atenolol 50 mg daily. Lipid/CAD: Taking Lipitor 20 mg daily. Tolerating well. Tries to watch diet. Follicular lymphoma: Grade 1, follows with Hematology, [facility]. OA: in knee and shoulder, has been dealing with this for a long time, seems to be getting worse over the past 6 months. He had rotator cuff surgery on the shoulder 15 years ago. He did see [facility] for an opinion on the shoulder, was told he needs shoulder replacement surgery. He was told he also needs to get a knee replacement. Past medical history, appointments, medications, allergies reviewed. Previous Medical History PAST MEDICAL HISTORY Diagnosis Date Ankle disorder 1995 right fracture, dislocation(screws implanted) Arrhythmia Brain tumor (benign) ([facility]) 2003 CAD (coronary artery disease) Calculus of kidney Cataract ou Cholelithiasis 05/01/2010 Diaphragmatic hernia without mention of obstruction or gangrene DM w/o Complication Type II Esophageal reflux Follicular lymphoma (HCC) 10/2015 [facility] Generalized osteoarthrosis, unspecified site knees htn Hyperlipidemia Meningioma (HCC) PMH - PAST MEDICAL HISTORY OF bells palsy-resolved Pure hypercholesterolemia S/P angioplasty with stent 11/24/2012 Shoulder arthritis 2001 right and left shoulder rotator cuff(shoulder screws in place) Snoring Previous Surgical History PAST SURGICAL HISTORY Procedure Laterality Date APPENDECTOMY and exploratory surgery ARTHRP KNE CONDYLE&PLATU MEDIAL&LAT COMPARTMENTS 02/2013. 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 RPR UMBILICAL HERNIA < 5 YRS REDUCIBLE Hernia repair, umbilical Family History FAMILY HISTORY Problem Relation Age of Onset Heart Father Diabetes Mother Heart Paternal Grandmother cardiomegaly Stroke Paternal Grandfather Hypertension Sister Diabetes Sister Patient Allergies ALLERGIES Allergen Reactions Keflex [Cephalexin] GI Upset Morphine GI Upset Vomiting and nausea within minutes Contrast Dye GI Upset Opioids-Meperidine * Intolerance arrythmia after surgery with Darvon/Darvocet Plavix [Clopidogrel* Hemorrhage Prednisone Other: See Comments anxiety Propoxyphene Intolerance arrythmia after surgery Current Medications Current Outpatient Medications on File Prior to Visit Medication Sig pantoprazole DR (PROTONIX) 20 mg tablet Take 1 tablet by mouth once daily. Take as needed for heartburn/GI upset glimepiride (AMARYL) 4 mg tablet Take 2 tablets by mouth daily with breakfast. metFORMIN ER (GLUCOPHAGE XR) 500 mg 24 hr tablet Take 2 tablets by mouth twice daily with meals. atorvastatin (LIPITOR) 20 mg tablet Take 1 tablet by mouth daily at bedtime. For cholesterol. allopurinol (ZYLOPRIM) 100 mg tablet Take 1 tablet by mouth once daily. atenolol (TENORMIN) 50 mg tablet Take 1 tablet by mouth once daily. ketoconazole (NIZORAL) 2 % shampoo Apply to affected area once daily as needed. triamcinolone acetonide (KENALOG) 0.1 % cream Apply to affected area twice daily. white petrolatum - mineral oil (EUCERIN) cream Apply to affected area as needed. blood sugar diagnostic (New KCBXTOUCH ULTRA TEST) test strip Use to test blood sugars twice daily. Dx: 250.00 Lancets (New KCBXTOUCH ULTRASOFT LANCETS) lancets Use as directed to check blood sugars 1-2 times daily nitroglycerin sublingual (NITROQUICK) 0.4 mg SL tablet Take 1 tablet by mouth as needed for Chest Pain. FOR CHEST PAIN. IF NO PAIN RELIEF, CALL 911 [place]-3 Fatty Acids-Vitamin E (FISH OIL) 1,000 mg cap Take 2 capsules by mouth once daily. Ascorbic Acid (VITAMIN C) 1,000 mg tablet Take 1,000 mg by mouth once daily. ACETAMINOPHEN (TYLENOL ARTHRITIS ORAL) Take by mouth once daily. alcohol antiseptic pads(ALCOHOL PADS) Use as directed aspirin(ECOTRIN LOW STRENGTH 81 MG TAB) Take one(1) tablet daily. TUMS 500 MG CHEWABLE TAB as necessary No current facility-administered medications on file prior to visit. Social History Social History Tobacco Use Smoking status: Never Smokeless tobacco: Never Tobacco comments: never Vaping Use Vaping Use: Never used Substance Use Topics Alcohol use: No Comment: never Drug use: No EXAM: BP 120/68 Pulse 62 Resp 16 Wt 87.8 kg (193 lb 9.6 oz) BMI 28.59 kg/m General Appearance: Well appearing, alert, in no acute distress, well-hydrated, well nourished. and Overweight. Lungs: Lungs clear to auscultation. No wheezing, rhonchi, rales.. Heart: RRR without murmur, gallop, or rubs. No ectopy. Health Maintenance List SHINGRIX VACCINE(1 of 2) Never done PNEUMOCOCCAL: 65+(2 - PCV) due on 08/02/2012 DILATED RETINAL EXAM due on 09/06/2021 DEPRESSION ASSESSMENT Never done COVID-19 VACCINE(5 - Booster for Pfizer series) due on 11/30/2021 INFLUENZA(1) due on 06/21/2022 HBA1C due on 12/13/2022 URINE ALBUMIN:CREATININE RATIO due on 01/24/2023 LDL CHOLESTEROL due on 01/24/2023 DIABETIC FOOT EXAM due on 05/04/2023 ANNUAL PCP TEAM CHRONIC DISEASE VISIT due on 06/14/2023 BP CONTROLLED (<130/80) due on 06/14/2023 DTAP,TDAP,TD(3 - Td or Tdap) due on 06/02/2024 ADVANCE DIRECTIVE DISCUSSION Completed Data reviewed Appointment on 09/24/2022 Component Date Value Protein, Total 09/24/2022 7.5 Albumin 09/24/2022 4.6 Calcium, Total 09/24/2022 9.7 Bilirubin, Total 09/24/2022 0.7 Alkaline Phosphatase 09/24/2022 60 AST 09/24/2022 21 ALT 09/24/2022 19 Glucose 09/24/2022 143 (A) BUN 09/24/2022 21 Creatinine 09/24/2022 1.16 Sodium 09/24/2022 136 Potassium 09/24/2022 4.4 Chloride 09/24/2022 98 CO2 09/24/2022 26 Anion Gap 09/24/2022 12 Estimated Glomerular Denys* 09/24/2022 64 Cholesterol, Total 09/24/2022 159 Triglyceride 09/24/2022 150 (A) HDL Cholesterol 09/24/2022 39 (A) Non HDL Cholesterol 09/24/2022 120 Fasting Time 09/24/2022 13 VLDL Cholesterol 09/24/2022 30 (A) TC:HDL Ratio 09/24/2022 4.08 LDL Cholesterol 09/24/2022 90 LDL:HDL Ratio 09/24/2022 2.31 Hemoglobin A1C 09/24/2022 7.3 (A) Estimated Average Glucose 09/24/2022 163 Uric Acid 09/24/2022 5.6 ASSESSMENT/PLAN: 1. Type 2 diabetes mellitus with hyperglycemia, without long-term current use of insulin (HCC) - ICD9: 250.00, 790.29, ICD10: E11.65 (primary diagnosis) Controlled. - Continue current medications; discussed adding Trulicity or Jardiance in the future - Blood glucose monitoring on a three times a day schedule due to fluctuating sugars - LIPID PANEL BASIC - COMP METABOLIC PANEL - HGB A1C - ALBUMIN/CREAT RATIO RND UR 2. Coronary artery disease involving elem coronary artery of elem heart without angina pectoris - ICD9: 414.01, ICD10: I25.10 Continue current medications. 3. Hyperlipidemia, unspecified hyperlipidemia type - ICD9: 272.4, ICD10: E78.5 - good control - Continue current medication. - Encouraged following a low fat, low cholesterol diet. - Discussed the benefits of regular aerobic exercise and weight loss. 4. Hypertension, unspecified type - ICD9: 401.9, ICD10: I10 - good control - Continue current medication(s) - Recommended regular aerobic exercise. - Recommend home blood pressure monitoring, to bring results in on next visit - Goal of BP <130/80 5. Gastroesophageal reflux disease, unspecified whether esophagitis present - ICD9: 530.81, ICD10: K21.9 Controlled Continue current medications. 6. Gout, unspecified cause, unspecified chronicity, unspecified site - ICD9: 274.9, ICD10: M10.9 Continue current medications. 7. Osteoarthritis of both knees, unspecified osteoarthritis type - ICD9: 715.96, ICD10: M17.0 Continue with [facility] Follow up in 3 months with fasting labs with urine test prior. I agree with the Chief Complaint, ROS, and Past Histories independently gathered by the clinical technical support technician and the remaining scribed note accurately describes my personal service to the patient. Medical Decision Making: Problems: Moderate: 2+ stable chronic illnesses Data: Unique test result(s) reviewed: 3+ Unique test(s) ordered: 3+ Risk: Moderate: Drug management Medical Decision Making Level: 4 - Moderate Alisha Gee MD The documentation for this note was completed by Paula Baeza Ma acting as scribe for Alisha Gee MD. September 27, 2022 3:40 PM. Paula Baeza Ma documented in this encounter [facility] 05-29-2022 Miscellaneous Notes Faxed. Paula Baeza Ma Form done Alisha Gee MD Type of letter/form/fax request - DM supply form Form received from fax on 1 floor and placed on MD desk (Dr. Gee) for completion. Completed form needs to be faxed to Pharmacy Services at [phone]. Route to ID when form completed for processing documented in this encounter [facility] 05-14-2022 Miscellaneous Notes Received forms from [facility] regarding pt's F2F encounter for DME - therapeutic shoes. Form completed and faxed back to [phone] Paula Baeza Ma documented in this encounter [facility] 05-11-2022 Instructions Gloria Dennis APRN.FIRE SPRINKLER INSTALLER - 05/11/2022 10:49 AM EDT ASSESSMENT/PLAN: 1. Sore throat - ICD9: 462, ICD10: J02.9 (primary diagnosis) - suspect viral - Alere Strep Test NEGATIVE, no culture pending - Discussed supportive care treatment with fluids, rest and analgesia. - STREP A MOLECULAR (POC) 2. Fatigue, unspecified type - ICD9: 780.79, ICD10: R53.83 - XR CHEST 2V FRONTAL/LAT - CBC + DIFF - COMP METABOLIC PANEL - Blood tests to be completed if COVID test is negative. 3. Suspected COVID-19 virus infection - ICD9: V01.79, ICD10: Z20.822 - COVID WITH FLUA+B, ROUTINE - Follow-up with your PCP in 3-5 days if symptoms have not improved or sooner if symptoms worsen - Discussed red flags and need for immediate medical evaluation if any occur. - Discussed supportive care treatment with fluids, rest and analgesia. - Discussed expected course of illness Gloria Dennis APRN.FIRE SPRINKLER INSTALLER documented in this encounter [facility] 05-11-2022 History of Present illness Narrative Subjective HPI Tristin Flynn is a 76 year old male who presents with sore throat x 1 week. He also complains of runny nose and fatigue. He denies any known sick contacts. He has not taken any medication at home for his symptoms. He has gargled with salt water which has not helped his sore throat. He denies fever or chills. No cough or shortness of breath. Review of Systems Constitutional: Positive for malaise/fatigue. Negative for chills and fever. HENT: Positive for sore throat. Negative for congestion (runny nose). Respiratory: Negative for cough and shortness of breath. Cardiovascular: Negative for chest pain, palpitations and leg swelling. Musculoskeletal: Negative for myalgias. BP 138/70 Pulse 69 Temp 36.3 C (97.3 F) Resp 20 Wt 85.8 kg (189 lb 3.2 oz) SpO2 96% BMI 27.94 kg/m PAST MEDICAL HISTORY Diagnosis Date Ankle disorder 1995 right fracture, dislocation(screws implanted) Arrhythmia Brain tumor (benign) (HCC) 2003 CAD (coronary artery disease) Calculus of kidney Cataract ou Cholelithiasis 05/01/2010 Diaphragmatic hernia without mention of obstruction or gangrene DM w/o Complication Type II Esophageal reflux Follicular lymphoma (HCC) 10/2015 [facility] Generalized osteoarthrosis, unspecified site knees htn Hyperlipidemia Meningioma (HCC) PMH - PAST MEDICAL HISTORY OF bells palsy-resolved Pure hypercholesterolemia S/P angioplasty with stent 11/24/2012 Shoulder arthritis 2001 right and left shoulder rotator cuff(shoulder screws in place) Snoring PAST SURGICAL HISTORY Procedure Laterality Date APPENDECTOMY and exploratory surgery ARTHRP KNE CONDYLE&PLATU MEDIAL&LAT COMPARTMENTS 02/2013. 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 Take as needed for heartburn/GI upset glimepiride (AMARYL) 4 mg tablet Take 2 tablets by mouth daily with breakfast. metFORMIN ER (GLUCOPHAGE XR) 500 mg 24 hr tablet Take 2 tablets by mouth twice daily with meals. atorvastatin (LIPITOR) 20 mg tablet Take 1 tablet by mouth daily at bedtime. For cholesterol. allopurinol (ZYLOPRIM) 100 mg tablet Take 1 tablet by mouth once daily. atenolol (TENORMIN) 50 mg tablet Take 1 tablet by mouth once daily. ketoconazole (NIZORAL) 2 % shampoo Apply to affected area once daily as needed. triamcinolone acetonide (KENALOG) 0.1 % cream Apply to affected area twice daily. white petrolatum - mineral oil (EUCERIN) cream Apply to affected area as needed. blood sugar diagnostic (New KCBXTOUCH ULTRA TEST) test strip Use to test blood sugars twice daily. Dx: 250.00 Lancets (New KCBXTOUCH ULTRASOFT LANCETS) lancets Use as directed to check blood sugars 1-2 times daily nitroglycerin sublingual (NITROQUICK) 0.4 mg SL tablet Take 1 tablet by mouth as needed for Chest Pain. FOR CHEST PAIN. IF NO PAIN RELIEF, CALL 911 [place]-3 Fatty Acids-Vitamin E (FISH OIL) 1,000 mg cap Take 2 capsules by mouth once daily. Ascorbic Acid (VITAMIN C) 1,000 mg tablet Take 1,000 mg by mouth once daily. ACETAMINOPHEN (TYLENOL ARTHRITIS ORAL) Take by mouth once daily. alcohol antiseptic pads(ALCOHOL PADS) Use as directed aspirin(ECOTRIN LOW STRENGTH 81 MG TAB) Take one(1) tablet daily. TUMS 500 MG CHEWABLE TAB as necessary FAMILY HISTORY Problem Relation Age of Onset Heart Father Diabetes Mother Heart Paternal Grandmother cardiomegaly Stroke Paternal Grandfather Hypertension Sister Diabetes Sister Social History Tobacco Use Smoking status: Never Smoker Smokeless tobacco: Never Used Tobacco comment: never Vaping Use Vaping Use: Never used Substance Use Topics Alcohol use: No Comment: never Drug use: No Objective Physical Exam Vitals and nursing note reviewed. Constitutional: Appearance: Normal appearance. HENT: Right Ear: Tympanic membrane, ear canal and external ear normal. Left Ear: Tympanic membrane, ear canal and external ear normal. Nose: Nose normal. Mouth/Throat: Mouth: Mucous membranes are moist. Pharynx: Uvula midline. Posterior oropharyngeal erythema (slight) present. No oropharyngeal exudate. Cardiovascular: Rate and Rhythm: Normal rate and regular rhythm. Heart sounds: Normal heart sounds. Pulmonary: Effort: Pulmonary effort is normal. No respiratory distress. Breath sounds: Normal breath sounds. No wheezing or rales. Musculoskeletal: Cervical back: Neck supple. Lymphadenopathy: Cervical: No cervical adenopathy. Skin: General: Skin is warm and dry. Findings: No erythema or rash. Neurological: Mental Status: He is alert. ASSESSMENT/PLAN: 1. Sore throat - ICD9: 462, ICD10: J02.9 (primary diagnosis) - suspect viral - Alere Strep Test NEGATIVE, no culture pending - Discussed supportive care treatment with fluids, rest and analgesia. - STREP A MOLECULAR (POC) 2. Fatigue, unspecified type - ICD9: 780.79, ICD10: R53.83 - XR CHEST 2V FRONTAL/LAT. My reading: negative. Radiologist IMPRESSION: No acute radiographic abnormality. Inspector And Adjuster [employer] Head: SARA Transcribe Date/Time: May 11 2022 10:44A Dictated by : ROBERT ALONZO MD - CBC + DIFF - COMP METABOLIC PANEL - Blood tests to be completed if COVID test is negative. 3. Suspected COVID-19 virus infection - ICD9: V01.79, ICD10: Z20.822 - COVID WITH FLUA+B, ROUTINE - Follow-up with your PCP in 3-5 days if symptoms have not improved or sooner if symptoms worsen - Discussed red flags and need for immediate medical evaluation if any occur. - Discussed supportive care treatment with fluids, rest and analgesia. - Discussed expected course of illness Gloria Dennis APRN.FIRE SPRINKLER INSTALLER documented in this encounter [facility] 05-11-2022 History of Present illness Narrative Radiology Service Progress Note PATIENT NAME: Tristin Flynn DATE OF SERVICE: May 11, 2022 TIME: 10:28 AM PATIENT IDENTITY VERIFICATION COMPLETED USING TWO (2) IDENTIFIERS: Name and Date of confirmed by patient verbally. FALL SCREENING: Has the patient had 2 falls in the last year or 1 fall with injury or currently using an Ambulatory Assistive Device (Walker, Cane, Wheelchair, Crutches, etc.)? No PATIENT GENDER DATA: Male PATIENT RELEVANT IMPLANT DATA REVIEWED: Yes RADIOLOGY DEPARTMENT: General X-ray: Exam(s) Completed: Chest X-Ray PERIPHERAL IV DATA: Not applicable SIGNED BY: RT Adriana(R) May 11, 2022 10:28 AM documented in this encounter [facility] 05-04-2022 History of Present illness Narrative Last saw Marlen: 01/31/22 Subjective: Patient presents to clinic c/o painful toenails. They state that the nails are especially painful with shoe gear and pressure. Patient states that nails 1-5 b/l are painful. Patient admits to being diabetic. No other pedal complaints at this time. Patient states no change in medications or medical history since last visit. Objective: Patient presents to clinic ambulating in [facility] Vasc: DP and PT pulses are faintly palpable bilateral. CFT is less than 5 seconds bilateral. Skin temperature is warm to cool proximal to distal bilateral. There is mild edema or varicosities noted. Neuro: Protective sensation is intact to the foot and toes when tested with the 5.07 SWM bilateral. Vibratory sensation is absent at the hallux IPJ bilateral. The hallux is downgoing bilateral. Derm: Nails 1-5 b/l are painful, discolored-yellow, thick, crumbly, dystrophic and with subungal debris. Skin is of normal turgor, texture and hair growth is decreased bilateral. There are no hyperkeratosis, ulcerations, scars, verruca or other lesions noted. Ortho: Muscle strength is 5/5 for all pedal groups tested. Ankle joint DF is full with the knee extended with no pain or crepitus noted. 1st MPJ ROM is full bilateral. Assessment: (E11.49) Well controlled type 2 diabetes mellitus with neurological manifestations ([facility]) (primary encounter diagnosis) (B35.1) Onychomycosis (M79.675) Pain in toe of left foot (M79.674) Pain in toe of right foot* (I73.9) PAD (peripheral artery disease) ([facility]) Plan: Patient was seen and evaluated. Nails 1-5 bilateral were debrided in length and thickness. Patient was instructed on the continued importance of diabetic foot care along with proper diet and keeping their blood sugar under control to prevent complications. Patient is to RTC in 3-4 months. Shweta Morel DPM AMB ROOMING INTAKE FLOWSHEET DATA Risk Screening Do you have concerns about personal safety or safety in the home?: No Patient presents with: Left Foot - Established Patient, Diabetic Foot Exam Right Foot - Established Patient, Diabetic Foot Exam documented in this encounter [facility] 05-04-2022 Instructions Shweta Morel - 05/04/2022 11:56 AM EDT Diabetes Foot Care Instructions When you have diabetes, proper foot care is very important. Poor foot care may lead to amputation of a foot or leg. As a person with diabetes, you are more vulnerable to foot problems, because diabetes can damage your nerves and reduce blood flow to your feet. Here are some diabetes foot care tips to follow: Wash and Dry Your Feet Daily Use mild soaps Use warm water Pat your skin dry; do not rub. Thoroughly dry your feet. After washing, use lotion on your feet to prevent cracking. Do not put lotion between your toes. Examine Your Feet Each Day Check the tops and bottoms of your feet. Have someone else look at your feet if you cannot see them. Check for dry, cracked skin. Look for blisters, cuts, scratches, or other sores. Check for redness, increased warmth, or tenderness when touching any area of your feet. Check for ingrown toenails, corns, and calluses. If you get a blister or sore from your shoes, do not pop it. Apply a bandage and wear a different pair of shoes. Take Care of Your Toenails Cut toenails after bathing, when they are soft. Cut toenails straight across and smooth with a nail file. Avoid cutting into the corners of toes. Do not cut cuticles. If you have neuropathy (or decreased sensation in your feet) a substation operator helper should always cut your toenails. Be Careful When Exercising Walk and exercise in comfortable shoes. Do not exercise when you have open sores on your feet. Protect Your Feet With Shoes and Socks Never go barefoot. Always protect your feet by wearing shoes or hard-soled slippers or footwear. Avoid shoes with high heels and pointed toes. Avoid shoes that expose your toes or heels (such as open-toed shoes or sandals). These types of shoes increase your risk for injury and potential infections. Try on new footwear with the type of socks you usually wear. Do not wear new shoes for more than an hour at a time. Change your socks daily. Look and feel inside your shoes before putting them on to make sure there are no foreign objects or rough areas. Avoid tight socks. Wear natural-fiber socks (cotton, wool, or a cotton-wool blend). Wear special shoes if your health care provider recommends them. Wear shoes/boots that will protect your feet from various weather conditions (cold, moisture, etc.). Make sure your shoes fit properly. If you have neuropathy (nerve damage), you may not notice that your shoes are too tight. Perform the footwear test described below. Footwear Test Use this simple test to see if your shoes fit correctly: Stand on a piece of paper. (Make sure you are standing and not sitting, because your foot changes shape when you stand.) Trace the outline of your foot. Trace the outline of your shoe. Compare the tracings: Is the shoe too narrow? Is your foot crammed into the shoe? The shoe should be at least 1/2 inch longer than your longest toe and as wide as your foot. Proper Shoe Choices The following types of shoes are best for people with diabetes Closed toes and heels Leather uppers without a seam inside At least 1/2 inch extra space at the end of your longest toe Inside of shoe should be soft with no rough areas Outer sole should be made of stiff material Shoes should be at least as wide as your feet Tips for Foot Care in Diabetes Don't wait to treat a minor foot problem if you have diabetes. Follow your health care provider's guidelines and first aid guidelines. Report foot injuries and infections to your health care provider immediately. Check water temperature with your elbow, not your foot. Do not use a heating pad on your feet. Do not cross your legs. Do not self-treat your corns, calluses, or other foot problems. Go to your health care provider or substation operator helper to treat these conditions. documented in this encounter [facility] 03-02-2022 Instructions Adams Carpio RN - 03/02/2022 2:49 PM EDT Your Lymphoma Care Team MD Diya Heath, FIRE SPRINKLER INSTALLER Kim Lyman, FIRE SPRINKLER INSTALLER Woody Carpio, RN Shauna Reno, RN Loly Mccoy, CHATO, [facility] Contact Numbers: Clinic Phone & Appointment Changes: [phone] Clinic For Medication Refills: Please plan ahead for all medication refills and request them at your appointment with your physician. Please allow one week for prescription refills over the telephone, as they will be refilled when Dr. Broussard is in clinic on Wednesdays and Fridays. We will call them in to the pharmacy of your request or to the pharmacy listed in your chart if not specified differently. You will not be contacted about the refill except for any questions or concerns. Please call your pharmacy to verify when to mushroom picker. All Disability/FMLA Paperwork: Please allow up to 2 weeks for all disability, FMLA, etc. to be filled out. Please specify what your request is as to what and where we should send completed paperwork. (This is to inform us if we should send the completed papers to you or directly to your employer). The primary nurse is the one who will normally fill this paperwork out for you, and will only call to inform you the paperwork is completed and sent if requested. [facility] MY Chart: The medical information you will have access to within the My Chart program is only selected portions of your entire chart, such as basic laboratory results, summary medical history, visit history, and selected billing information. Please understand we do not place all results from labs, tests and procedures. To provide you with the best quality care available we need to be able to discuss these results with you personally. If you are unable to obtain the results of a test that you can't find within the My Chart please feel free to call us and we will get back to you with that information. When sending a message to the provider, please know that these messages will be received and answered by the primary nurse practitioner. The nurse practitioner will consult your physician when needed. Please call us with any questions or concerns that you may have. RESOURCES: National Cancer [employer]- www.cancer.gov [facility]- https://cancer.[facility].edu Cancer[employer] Inc- www.cancercare.org Leukemia and Lymphoma Society- LLS.org Peer support groups- www.cancer.[facility].edu/ERI or email [email or web address] Prevention at Home Here are some tips to use in your home to help prevent falls. Throughout the home Remove throw rugs so you do not trip on them. Replace or remove carpet that is torn or has turned-up edges. Avoid thick carpet. Shoes may catch on these and cause you to stumble or fall. Move furniture or other things that may block pathways. Be sure you have good lighting throughout your home. Use night lights or leave some lights on in the house to help you see at night or when you come home in the evening. Use switches that glow in the dark, so they can be seen more easily. Keep electrical cords and small things out of your path. Use your cane or walker rather than using furniture to give you support when walking. Stairs Mount sturdy handrails to help with going up and down stairs. They should extend beyond the top and bottom stair. Improve the visibility on your stairs. Have good lighting on the stairs. Non-skid surfaces can be applied to wood stairs to prevent sliding. [place] a bright colored line on the edge of each step so they are more easily seen, especially if you have poor vision. In the bathroom Place non-skid decals or a mat in the tub or shower. Install grab bars around the toilet and in the shower or bathtub. Towel bars are to hold towels, and they will break if you use them as grab bars. Use a tub seat and an elevated toilet seat. Leave the bathroom door unlocked so it can be opened if you do fall. In the bedroom Avoid wearing long nightgowns or robes. These can cause you to trip. Avoid wearing loose shoes that cause you to scuff or shuffle your feet as you walk. Wear shoes or slippers that fit well and stay securely on your feet. In the kitchen Have commonly used items at counter level or within easy reach. Do not climb or reach to high shelves. If you use a step stool, use a stable step stool with a handrail. Other tips Be careful that you do not trip over your pet. Be aware of where you pet is when you are moving around. Use caution when sitting down. Before sitting down on a chair, make sure the backs of your legs are touching the seat of the chair behind you. Keep a telephone close by or consider carrying a portable phone. Take your time. Get in the habit of moving at speeds that are safe for your energy level and ability. Do not gregory to answer the phone or door. Ask for help when getting up from bed, a chair or the toilet if you feel at all shaky, weak, dizzy or lightheaded. Talk to your doctor or others on your health care team if you have questions. You may request more written information from the [employer] for [employer] Information at or email: [email or web address]. 2002 - November 16, 2015. The [facility]. This handout is for informational purposes only. Talk with your doctor or health care team if you have any questions about your care. Results for orders placed or performed in visit on 03/02/22 LACTATE DEHYDROGENASE Result Value Ref Range LD Total 135 100 - 190 U/L COMPREHENSIVE METABOLIC PANEL Result Value Ref Range Sodium 138 135 - 145 mmol/L Potassium 4.3 3.5 - 5.0 mmol/L Chloride 105 98 - 108 mmol/L BUN 21 7 - 25 mg/dL Creatinine 1.29 0.70 - 1.30 mg/dL Glucose 135 (H) 70 - 99 mg/dL Bilirubin Total 0.9 <1.5 mg/dL Albumin 4.6 3.5 - 5.0 g/dL Total Protein 7.5 6.4 - 8.3 g/dL AST 23 10 - 39 U/L ALP 55 32 - 126 U/L Calcium 9.3 8.6 - 10.5 mg/dL CO2 24 21 - 31 mmol/L ALT 21 10 - 52 U/L Bun/Crea Ratio 16 Osmolality (Calculated) 295 278 - 305 mOsm/kg Anion Gap 13 7 - 17 mmol/L eGFR, CKD-EPI, Male 57 (L) >=60 mL/min/1.73m2 CBC AND ELECTRONIC DIFF Result Value Ref Range WBC Count 4.45 3.73 - 10.10 K/uL RBC Count 4.76 4.38 - 5.83 M/uL Hemoglobin 14.2 13.4 - 16.8 g/dL Hematocrit 41.8 39.6 - 48.8 % Mean Cell Volume 87.8 79.0 - 94.5 fL Mean Cell Hgb 29.8 26.1 - 33.3 pg Mean Cell Hgb Conc 34.0 31.9 - 36.5 g/dL RBC Distribution 12.7 10.9 - 14.3 % Platelet Count 183 146 - 337 K/uL Mean Platelet Volume 10.5 8.7 - 12.3 fL DIFF STATUS Electronic Differential Segs + Bands Auto 57.6 % Immature Grans % 0.2 % Lymphocyte % Auto 27.4 % Monocyte % Auto 10.1 % Eosinophil % Auto 4.0 % Basophil % Auto 0.7 % Nucleated RBC 0.0 <=0.2 /100 WBC Segs + Bands,Absolute Auto 2.56 1.57 - 6.19 K/uL Immature Grans Absolute <0.04 <=0.08 K/uL Abs Lymph Auto 1.22 0.83 - 3.57 K/uL Abs [place] Auto 0.45 0.24 - 0.93 K/uL Abs Eos Auto 0.18 0.00 - 0.48 K/uL Abs Baso Auto <0.04 0.00 - 0.09 K/uL documented in this encounter [facility] 03-02-2022 History of Present illness Narrative After visit summary was printed and given to patient. Discharge instructions and follow up appointments reviewed with patient. Patient verbalized understanding. All questions answered. Patient and family encouraged to call with any additional questions. 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 He initially presented for evaluation of lymphadenopathy. He reports that since June, he has been experiencing intermittent bilateral lower quadrant pain. He had a CT scan in June 2015 which demonstrated lymphadenopathy. Repeat CT in July showed persistent LAD. He had a work up including a urologic evaluation and PSA, a colonoscopy and EGD which did not identify a cause for his pain or lymphadenopathy. He had a PET scan which showed that the lymph nodes were FDG avid and there was also a lesion at the vertex of the skull. He had a surgical biopsy and the pathology demonstrated follicular lymphoma, low grade. He has been followed by watchful observation since that time. He presents today for follow up. He continues to have fatigue and states that this is stable, varies by the day. He denies any recent hospitalizations. He denies fevers/chills, night sweats, or new lymphadenopathy. He has recently had several teeth pulled and will be getting implants. Since his last visit, he passed a kidney stone. He reports that his glucose levels are improved since his metformin was increased but he had noted some GI upset. He reports right should pain and is considering following up with Orthopedic surgery. He has had a prior surgery. He denies CP or SOB Review of Systems Constitutional: Negative for chills, weight loss. Positive for fatigue. Skin: Negative for itching. Eyes: Negative for double vision. Cardiovascular: Negative for chest pain and dyspnea on exertion. Respiratory: Negative for cough. Gastrointestinal: Negative for nausea, vomiting, abdominal pain, constipation and diarrhea. Genitourinary: Negative for dysuria. Musculoskeletal: Negative for joint pain. Neurological: Negative for dizziness, sensory change, focal weakness and headaches. Current Outpatient Medications Medication Sig Dispense Refill acetaminophen 325 MG tablet take 650 mg by mouth every 4 hours. For arthritis pain allopurinol 100 MG Tab take 50 mg by mouth daily. ascorbic acid 500 MG Tab take 500 mg by mouth daily. aspirin 81 MG Chew Tab take 81 mg by mouth daily. atenolol 25 MG Tab take 25 mg by mouth daily. atorvastatin 10 MG Tab take 10 mg by mouth daily. calcium carbonate 500 MG Chew Tab take 500 mg by mouth as needed. Cinnamon 500 MG Cap take 1,000 mg by mouth daily. gliMEPIride 2 MG Tab take 2 mg by mouth daily every morning. Glucose Blood (BLOOD GLUCOSE TEST STRIPS) Strip by Other route. metformin-XR 500 MG Tab SR 24 HR take 1,000 mg by mouth daily. Currently taking 3 tabs a day (12/01/15); working with team to adjust dose nitroGLYCERIN 0.[address] 1 tablet under tongue every 5 minutes as needed for Chest pain. max = 3 doses. If CP persists after 1st dose, call 911 25 tablet 0 [place]-3 Fatty Acids (FISH OIL) 1200 MG Cap take 1,200 mg by mouth daily. ONE TOUCH LANCETS Misc by Unknown route. Use to check blood sugars Pantoprazole Sodium (PROTONIX PO) Take by mouth. No current facility-administered medications for this visit. Allergies Allergen Reactions Contrast Dye [Ivp Dye, Iodine Containing] Nausea Only Darvon [Propoxyphene] Meperidine Nausea and Vomiting Demerol, Darvon Morphine And Related [Codeine And Related] Nausea and Vomiting Plavix [Clopidogrel] Bleeding Excessive bleeding Prednisone Anxiety Physical Examination Physical Examination: VITAL SIGNS: Blood pressure 121/64, pulse 54, temperature 98.6 F (37 C), temperature source Oral, resp. rate 16, height 1.778 m (5' 10), weight 90.9 kg (200 lb 4.8 oz), SpO2 96 %.. Performance status is 1. GENERAL: Ambulatory, well appearing, and in no apparent distress. HEENT: PERRL, EOMI. No scleral icterus. No oral lesions or tonsillar enlargement. JM EXAM: I do not appreciate any anterior cervical, posterior cervical, supraclavicular, infraclavicular, axillary, or inguinal adenopathy. RESPIRATORY: Clear to auscultation bilaterally posteriorly without wheezes, rhonchi or rales. CARDIOVASCULAR: Regular rate and rhythm, without murmur, rub, or gallops. GASTROINTESTINAL: Abdomen soft, nontender, nondistended, without rebound or guarding. Normoactive bowel sounds. No masses or hepatosplenomegaly. EXTREMITIES: No cyanosis, clubbing, or edema. SKIN: Skin color, texture, turgor normal. No rashes or lesions. NEUROLOGICAL: Alert and oriented x3. Cranial nerves intact. Normal gait. Normal strength in upper and lower extremities. Laboratory / Diagnostic Studies WBC Count Date Value Ref Range Status 03/02/2022 4.45 3.73 - 10.10 K/uL Final Hemoglobin Date Value Ref Range Status 03/02/2022 14.2 13.4 - 16.8 g/dL Final Platelet Count Date Value Ref Range Status 03/02/2022 183 146 - 337 K/uL Final GRANS, ABSOLUTE Date Value Ref Range Status 03/30/2016 2.9 1.8 - 7.7 K/uL Final Segs + Bands Auto Date Value Ref Range Status 03/02/2022 57.6 % Final Sodium Date Value Ref Range Status 03/02/2022 138 135 - 145 mmol/L Final Potassium Date Value Ref Range Status 03/02/2022 4.3 3.5 - 5.0 mmol/L Final Chloride Date Value Ref Range Status 03/02/2022 105 98 - 108 mmol/L Final BUN Date Value Ref Range Status 03/02/2022 21 7 - 25 mg/dL Final Creatinine Date Value Ref Range Status 03/02/2022 1.29 0.70 - 1.30 mg/dL Final Calcium Date Value Ref Range Status 03/02/2022 9.3 8.6 - 10.5 mg/dL Final MAGNESIUM Date Value Ref Range Status 11/15/2015 1.9 1.6 - 2.6 mg/dL Final Bilirubin Total Date Value Ref Range Status 03/02/2022 0.9 <1.5 mg/dL Final ALP Date Value Ref Range Status 03/02/2022 55 32 - 126 U/L Final ALT Date Value Ref Range Status 03/02/2022 21 10 - 52 U/L Final AST Date Value Ref Range Status 03/02/2022 23 10 - 39 U/L Final LD Total Date Value Ref Range Status 03/02/2022 135 100 - 190 U/L Final Assessment and Plan In summary, Mr Flynn is a 76 y.o. gentleman with follicular grade 1-2/3 non-Hodgkin's lymphoma involving lymph nodes in the neck, chest and abdomen. He presented when the lymphadenopathy was found incidentally during a work up for abdominal pain. The lymph nodes had been present on prior imaging, but had progressed. He had not had a bone marrow biopsy to complete his staging. If his bone marrow is negative, then he had stage III disease; if involved, he has stage IV disease. The results of the bone marrow biopsy would not impact our treatment decision at that time and was deferred. On his initial PET, he was noted to have a lesion in the vertex of the skull. He reports a history of a benign process identified by biopsy at the [facility]. A MRI was completed on 03/22/2016 consistent with a meningoma. On clinical examination and labs today he has no evidence of progression. His CT scans are pending and we will contact him with the results. . We will continue to monitor with watchful observation. He will RTC in 6 months documented in this encounter [facility] 01-31-2022 History of Present illness Narrative Chief Complaint Patient presents with: Recheck HPI Tristin Flynn is a 76 year old male who presents here today for a routine follow up. Last OV with me was Sep 2020. Pt here today for a routine follow up for his routine issues. Pt follows with the OR routinely for Derm, Podiatry, Opth. Denies any bowel, Gi, or urinary issues. Recently passed a kidney stone; followed with Dr Pete. GERD: Sx controlled on Protonix 20 mg daily as needed. HTN/CAD: Denies checking BP at home, no chest pains, dizziness, or SOB. Is taking Atenolol 50 mg daily. Stents in 2005. Saw [facility] last year; all testing was OK . Lipid: Tries to watch diet and taking Lipitor 20 mg daily. Gout: Controlled with Allopurinol 100 mg daily. Dana any flare ups. No recent Uric Acid level drawn. DM: Checks blood sugars at home daily, often times twice daily, notes that his sugars have been high. Discuss medication changes. No issues with low blood sugars. Some neuropathy in both feet which is controlled with Gabapentin. Current regimen of Amaryl 4 mg 2 tablets once daily and Metformin XR 500 mg 2 pills in AM, 1 pill in PM. Follows with Dr. Morel, Podiatry. Gets testing supplies through [facility], will have them contact our office. Dx of follicular lymphoma, which may cause his tiredness and weakness. Follows with [facility]. Pt brought life screening results to be scanned into his chart. HM - Declines Hep C screening. Past medical history, appointments, medications, allergies reviewed. Previous Medical History PAST MEDICAL HISTORY Diagnosis Date Ankle disorder 1995 right fracture, dislocation(screws implanted) Arrhythmia Brain tumor (benign) (HCC) 2003 CAD (coronary artery disease) Calculus of kidney Cataract ou Cholelithiasis 05/01/2010 Diaphragmatic hernia without mention of obstruction or gangrene DM w/o Complication Type II Esophageal reflux Follicular lymphoma (HCC) 10/2015 [facility] Generalized osteoarthrosis, unspecified site knees htn Hyperlipidemia Meningioma (HCC) PMH - PAST MEDICAL HISTORY OF bells palsy-resolved Pure hypercholesterolemia S/P angioplasty with stent 11/24/2012 Shoulder arthritis 2001 right and left shoulder rotator cuff(shoulder screws in place) Snoring Previous Surgical History PAST SURGICAL HISTORY Procedure Laterality Date APPENDECTOMY and exploratory surgery COLONOSCOP W/ OR W/O [facility] SPEC 10/03/15 Colonoscopy EGD W/O OR W/BRUSH/WASH 10/03/15 EGD EGD W/O OR W/BRUSH/WASH 02/02/2019 EGD LAPAROSCOPIC CHOLEYCYSTECTOMY 05/02/2010 PAST SURGICAL HISTORY OF ORIF Right ankle fracture PAST SURGICAL HISTORY OF Heart cath with 3 stents PAST SURGICAL HISTORY OF 2003 brain tumor biopsy-benign PAST SURGICAL HISTORY OF 2007 nasal surgery for bleeding PAST SURGICAL HISTORY OF Left 11/27/2018 MOHS - 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 left knee Family History FAMILY HISTORY Problem Relation Age of Onset Heart Father Diabetes Mother Heart Paternal Grandmother cardiomegaly Stroke Paternal Grandfather Hypertension Sister Diabetes Sister Patient Allergies ALLERGIES Allergen Reactions Keflex [Cephalexin] GI Upset Morphine GI Upset Vomiting and nausea within minutes Contrast Dye GI Upset Opioids-Meperidine * Intolerance arrythmia after surgery with Darvon/Darvocet Plavix [Clopidogrel* Hemorrhage Prednisone Other: See Comments anxiety Propoxyphene Intolerance arrythmia after surgery Current Medications Current Outpatient Medications on File Prior to Visit Medication Sig benzonatate (TESSALON PERLE) 100 mg capsule Take 1-2 capsules tid prn, no more than 6 in 24 hours. atenolol (TENORMIN) 50 mg tablet Take 1 tablet by mouth once daily. allopurinol (ZYLOPRIM) 100 mg tablet Take 1 tablet by mouth once daily. atorvastatin (LIPITOR) 20 mg tablet Take 1 tablet by mouth daily at bedtime. For cholesterol. metFORMIN ER (GLUCOPHAGE XR) 500 mg 24 hr tablet Take two pills in AM, one pill in PM glimepiride (AMARYL) 4 mg tablet Take 2 tablets by mouth daily with breakfast. bifidobacteri bifid.and longum (FLORAJEN BIFIDOBLEND) 460 mg (9-1 bill.cell) cap Take 1 capsule by mouth once daily. ketoconazole (NIZORAL) 2 % shampoo Apply to affected area once daily as needed. triamcinolone acetonide (KENALOG) 0.1 % cream Apply to affected area twice daily. white petrolatum - mineral oil (EUCERIN) cream Apply to affected area as needed. flash glucose sensor (FREESTYLE KAMALJIT 14 DAY SENSOR) kit Use as directed for 14 days to check blood sugar levels pantoprazole DR (PROTONIX) 20 mg tablet Take 1 tablet by mouth once daily. blood sugar diagnostic (New KCBXTOUCH ULTRA TEST) test strip Use to test blood sugars twice daily. Dx: 250.00 Lancets (New KCBXTOUCH ULTRASOFT LANCETS) lancets Use as directed to check blood sugars 1-2 times daily nitroglycerin sublingual (NITROQUICK) 0.4 mg SL tablet Take 1 tablet by mouth as needed for Chest Pain. FOR CHEST PAIN. IF NO PAIN RELIEF, CALL 911 [place]-3 Fatty Acids-Vitamin E (FISH OIL) 1,000 mg cap Take 2 capsules by mouth once daily. Ascorbic Acid (VITAMIN C) 1,000 mg tablet Take 1,000 mg by mouth once daily. ACETAMINOPHEN (TYLENOL ARTHRITIS ORAL) Take by mouth once daily. alcohol antiseptic pads(ALCOHOL PADS) Use as directed aspirin(ECOTRIN LOW STRENGTH 81 MG TAB) Take one(1) tablet daily. TUMS 500 MG CHEWABLE TAB as necessary No current facility-administered medications on file prior to visit. Social History Social History Tobacco Use Smoking status: Never Smoker Smokeless tobacco: Never Used Tobacco comment: never Vaping Use Vaping Use: Never used Substance Use Topics Alcohol use: No Comment: never Drug use: No EXAM: BP 110/64 (BP Site: Left Arm, BP Position: Sitting, BP Cuff Size: Regular Adult) Pulse 60 Resp 16 Wt 91.7 kg (202 lb 1.6 oz) BMI 29.84 kg/m General Appearance: Well appearing, alert, in no acute distress, well-hydrated, well nourished.. Lungs: Lungs clear to auscultation. No wheezing, rhonchi, rales.. Heart: RRR without murmur, gallop, or rubs. No ectopy. Health Maintenance List HEPATITIS C SCREENING Never done BP CONTROLLED (<130/80) Never done SHINGRIX VACCINE(1 of 2) Never done DEPRESSION SCREENING due on 12/03/2019 DIABETIC FOOT EXAM due on 06/16/2021 URINE ALBUMIN:CREATININE RATIO due on 06/20/2021 LDL CHOLESTEROL due on 06/20/2021 DILATED RETINAL EXAM due on 09/06/2021 ADVANCE DIRECTIVE DISCUSSION Never done ANNUAL PCP TEAM CHRONIC DISEASE VISIT due on 12/19/2021 HBA1C due on 03/08/2022 INFLUENZA(Season Ended) due on 06/21/2022 DTAP,TDAP,TD(3 - Td or Tdap) due on 06/02/2024 COVID-19 VACCINE Completed PNEUMOVAX AGE 65 AND OVER WITH 5YR LOOKBACK Addressed MENINGOCOCCAL CONJUGATE Aged Out Data reviewed Telephone on 01/24/2022 Component Date Value GLUCOSE UA (POCT) 01/24/2022 Negative BILIRUBIN UA (POCT) 01/24/2022 Negative KETONE UA (POCT) 01/24/2022 Negative SPECIFIC GRAVITY UA (POC* 01/24/2022 1.025 HEMOGLOBIN/BLOOD UA (PO* 01/24/2022 Large (A) PH UA (POCT) 01/24/2022 5.5 PROTEIN UA (POCT) 01/24/2022 Trace (A) UROBILINOGEN UA (POCT) 01/24/2022 0.2 NITRITE UA (POCT) 01/24/2022 Negative LEUKOCYTES UA (POCT) 01/24/2022 Negative COLOR UA (POCT) 01/24/2022 Yellow CLARITY UA (POCT) 01/24/2022 Clear Appointment on 01/24/2022 Component Date Value Hemoglobin A1C 01/24/2022 8.9 (A) Estimated Average Glucose 01/24/2022 209 Creatinine, Ur Random (U* 01/24/2022 108.5 Albumin, Urine Random 01/24/2022 45.5 Albumin/Creat Ratio 01/24/2022 42 (A) Cholesterol, Total 01/24/2022 156 Triglyceride 01/24/2022 192 (A) HDL Cholesterol 01/24/2022 37 (A) Non HDL Cholesterol 01/24/2022 119 Fasting Time 01/24/2022 14 VLDL Cholesterol 01/24/2022 38 (A) TC:HDL Ratio 01/24/2022 4.22 LDL Cholesterol 01/24/2022 81 LDL:HDL Ratio 01/24/2022 2.19 PSA 01/24/2022 1.25 Protein, Total 01/24/2022 7.6 Albumin 01/24/2022 4.7 Calcium, Total 01/24/2022 9.6 Bilirubin, Total 01/24/2022 1.3 Alkaline Phosphatase 01/24/2022 64 AST 01/24/2022 35 ALT 01/24/2022 25 Glucose 01/24/2022 178 (A) BUN 01/24/2022 19 Creatinine 01/24/2022 1.13 Sodium 01/24/2022 135 (A) Potassium 01/24/2022 Chloride 01/24/2022 97 CO2 01/24/2022 23 Anion Gap 01/24/2022 15 Estimated Glomerular Denys* 01/24/2022 67 Color 01/24/2022 Light Yellow Clarity 01/24/2022 Slightly Cloudy (A) Glucose, Urine 01/24/2022 Negative Bilirubin, Urine 01/24/2022 Negative Ketones, Urine 01/24/2022 Trace (A) Specific [place], Ur 01/24/2022 1.014 Hemoglobin/Blood,Ur 01/24/2022 3+ (A) pH, Urine 01/24/2022 5.0 Protein, Urine 01/24/2022 1+ (A) Urobilinogen 01/24/2022 Negative Nitrites 01/24/2022 Negative Leuk Esterase 01/24/2022 Negative WBC, Urine 01/24/2022 0-5 /HPF RBC, Urine 01/24/2022 >25 /HPF (A) Squamous Epithelial Cells 01/24/2022 Few Non-Squamous Epithelial * 01/24/2022 Few (A) Culture, Urine 01/24/2022 No growth (<1,000 CFU/ml) ASSESSMENT/PLAN: 1. Type 2 diabetes mellitus with diabetic neuropathy, without long-term current use of insulin ([facility]) - ICD9: 250.60, 357.2, ICD10: E11.40 (primary diagnosis) worsening control - Increase metformin (Glucophage) to 4/day -Watch diet - METFORMIN ER 500 MG TABLET,EXTENDED RELEASE 24 HR - BASIC METABOLIC PNL - HGB A1C 2. Esophageal dysphagia - ICD9: 787.29, ICD10: R13.19 - PANTOPRAZOLE 20 MG TABLET,DELAYED RELEASE 3. Type 2 diabetes mellitus without complication, without long-term current use of insulin (HCC) - ICD9: 250.00, ICD10: E11.9 - GLIMEPIRIDE 4 MG TABLET - BASIC METABOLIC PNL - HGB A1C 4. Hyperlipidemia, unspecified hyperlipidemia type - ICD9: 272.4, ICD10: E78.5 - ATORVASTATIN 20 MG TABLET 5. Gout, unspecified cause, unspecified chronicity, unspecified site - ICD9: 274.9, ICD10: M10.9 - ALLOPURINOL 100 MG TABLET - URIC ACID BLOOD 6. Hypertension, unspecified type - ICD9: 401.9, ICD10: I10 - ATENOLOL 50 MG TABLET 7. 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 Charleen Sterling LPN Can you call the patient and let him know that I reviewed his urine results. No bacterial growth was noted. However the urine does show blood and protein. I would recommend that he continue to follow-up with urology for further evaluation. Please let me know if he has any questions. Thank you. Urology consult has been placed. Genie Moore APRN.FAIZA documented in this encounter [facility] 01-25-2022 History of Present illness Narrative CMP re-ordered Alisha Gee MD documented in this encounter [facility] 08-18-2020 History of Present illness Narrative Radiology Service Progress Note PATIENT NAME: Tristin Flynn DATE OF SERVICE: August 18, 2020 TIME: 2:09 PM PATIENT IDENTITY VERIFICATION COMPLETED USING TWO (2) IDENTIFIERS: Name and Date of confirmed by patient verbally. FALL SCREENING: Has the patient had 2 falls in the last year or 1 fall with injury or currently using an Ambulatory Assistive Device (Walker, Cane, Wheelchair, Crutches, etc.)? No PATIENT GENDER DATA: Male PATIENT RELEVANT IMPLANT DATA REVIEWED: Not Applicable RADIOLOGY DEPARTMENT: TMJ PERIPHERAL IV DATA: Not applicable SIGNED BY: Nancy Gonzales August 18, 2020 2:09 PM documented in this encounter [facility] 07-09-2013 History of Past i llness Narrative Problem Noted Date Resolved Date Other psoriasis 07/09/2013 05/23/2018 Actinic Keratoses (Premalignant AK's) 08/31/2012 05/23/2018 Seborrheic Keratoses 08/31/2012 05/23/2018 Xerosis cutis 08/31/2012 05/23/2018 Solar Lentigines 08/31/2012 05/23/2018 Actinic skin damage 08/31/2012 05/23/2018 Scars 08/31/2012 05/23/2018 Actinic Damage///Sun-Damaged Skin 05/18/2011 04/29/2012 Seborrheic Keratoses 05/18/2011 04/29/2012 Solar Lentigines 05/18/2011 04/29/2012 SEBORRHEIC DERMATITIS NOS 05/18/20112011 Xerosis cutis 05/18/2011 04/29/2012 Other psoriasis 05/18/2011 04/29/2012 Unspecified pruritic disorder 05/18/2011 Actinic Keratoses (Premalignant AK's) 05/16/2011 04/29/2012 Actinic Keratoses (Premalignant AK's) 03/29/2010 01/31/2011 Viral warts, unspecified 03/29/2010 011 Irritated//Inflamed Seborrheic Keratosis 010 01/31/2011 Neurodermatitis 03/29/2010 01/31/2011 Eczematous dermatitis 03/29/2010 01/31/2011 Xerosis cutis 03/29/2010 01/31/2011 Actinic Damage///Sun-Damaged Skin 03/29/2010 01/31/2011 [place] ANGIOMAS//NEVUS, NON-NEOPLASTIC 9 03/02/2010 Seborrheic dermatitis, unspecified 05/03/2008 03/02/2010 Unspecified pruritic disorder 05/03/2008 Enthesopathy of unspecified site 09/23/2007 01/31/2011 Other psoriasis 12/17/2006 01/31/2011 Contact dermatitis and other eczema, due to unspecified cause 12/17/2006 03/02/2010 Unspecified cardiovascular disease 09/30/2006 05/23/2018 Overview: Was on Plavix x 14 months, stopped due to hemorrhage, ( nose bleed) Chest pain, unspecified 09/09/2006 03/02/20 10 Open wound(s) (multiple) of unspecified site(s), without mention of complication 08/29/2006 03/02/2010 Essential hypertension, benign 08/14/2006 0 11/21/2015 Other chronic 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 07/18/2006 03/02/2010 Neoplasm of uncertain behavior of skin 6 03/02/2010 Scar condition and fibrosis of skin 07/18/2006 03/02/2010 Personal history of other malignant neoplasm of skin 07/18/2006 03/02/2010 Other seborrheic keratosis 07/18/200603/02 SOLAR LENTGINES 07/18/2006 03/02/2010 Actinic Keratoses: Premalignant AK's 07/18/2006 03/02/2010 Type 2 diabetes mellitus wit hout complication, without long-term current use of insulin 09/26/2020 Shoulder arthritis 05/23/2018 Overview: right and left shoulder rotator cuff Ankle disorder 05/23/2018 Overview: right fracture, dislocation(screws implanted) documented as of this encounter (statuses as of 01/25/2022) [facility] History of Past illness Narrative* Problem Noted Date Resolved Date Other psoriasis 07/09/2013 05/23/2018 Actinic Keratoses (Premalignant AK's) 08/31/2012 05/23/2018 Seborrheic Keratoses 08/31/2012 05/23/2018 Xerosis cutis 08/31/2012 05/23/2018 Solar Lentigines 08/31/2012 05/23/2018 Actinic skin damage 08/31/2012 05/23/2018 Scars 08/31/2012 05/23/2018 Actinic Damage///Sun-Damaged Skin 05/18/2011 04/29/2012 Seborrheic Keratoses 05/18/2011 04/29/2012 Solar Lentigines 05/18/2011 04/29/2012 SEBORRHEIC DERMATITIS NOS 05/18/20112011 Xerosis cutis 05/18/2011 04/29/2012 Other psoriasis 05/18/2011 04/29/2012 Unspecified pruritic disorder 05/18/2011 Actinic Keratoses (Premalignant AK's) 05/16/2011 04/29/2012 Actinic Keratoses (Premalignant AK's) 03/29/2010 01/31/2011 Viral warts, unspecified 03/29/2010 011 Irritated//Inflamed Seborrheic Keratosis 010 01/31/2011 Neurodermatitis 03/29/2010 01/31/2011 Eczematous dermatitis 03/29/2010 01/31/2011 Xerosis cutis 03/29/2010 01/31/2011 Actinic Damage///Sun-Damaged Skin 03/29/2010 01/31/2011 [place] ANGIOMAS//NEVUS, NON-NEOPLASTIC 9 03/02/2010 Seborrheic dermatitis, unspecified 05/03/2008 03/02/2010 Unspecified pruritic disorder 05/03/2008 Enthesopathy of unspecified site 09/23/2007 01/31/2011 Other psoriasis 12/17/2006 01/31/2011 Contact dermatitis and other eczema, due to unspecified cause 12/17/2006 03/02/2010 Unspecified cardiovascular disease 09/30/2006 05/23/2018 Overview: Was on Plavix x 14 months, stopped due to hemorrhage, ( nose bleed) Chest pain, unspecified 09/09/2006 03/02/20 10 Open wound(s) (multiple) of unspecified site(s), without mention of complication 08/29/2006 03/02/2010 Essential hypertension, benign 08/14/2006 0 11/21/2015 Other chronic 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 07/18/2006 03/02/2010 Neoplasm of uncertain behavior of skin 6 03/02/2010 Scar condition and fibrosis of skin 07/18/2006 03/02/2010 Personal history of other malignant neoplasm of skin 07/18/2006 03/02/2010 Other seborrheic keratosis 07/18/200603/02 SOLAR LENTGINES 07/18/2006 03/02/2010 Actinic Keratoses: Premalignant AK's 07/18/2006 03/02/2010 Type 2 diabetes mellitus wit hout complication, without long-term current use of insulin 09/26/2020 Shoulder arthritis 05/23/2018 Overview: right and left shoulder rotator cuff Ankle disorder 05/23/2018 Overview: right fracture, dislocation(screws implanted) documented as of this encounter (statuses as of 01/26/2022) [facility] History of Past illness Narrative* Problem Noted Date Resolved Date Other psoriasis 07/09/2013 05/23/2018 Actinic Keratoses (Premalignant AK's) 08/31/2012 05/23/2018 Seborrheic Keratoses 08/31/2012 05/23/2018 Xerosis cutis 08/31/2012 05/23/2018 Solar Lentigines 08/31/2012 05/23/2018 Actinic skin damage 08/31/2012 05/23/2018 Scars 08/31/2012 05/23/2018 Actinic Damage///Sun-Damaged Skin 05/18/2011 04/29/2012 Seborrheic Keratoses 05/18/2011 04/29/2012 Solar Lentigines 05/18/2011 04/29/2012 SEBORRHEIC DERMATITIS NOS 05/18/20112011 Xerosis cutis 05/18/2011 04/29/2012 Other psoriasis 05/18/2011 04/29/2012 Unspecified pruritic disorder 05/18/2011 Actinic Keratoses (Premalignant AK's) 05/16/2011 04/29/2012 Actinic Keratoses (Premalignant AK's) 03/29/2010 01/31/2011 Viral warts, unspecified 03/29/2010 011 Irritated//Inflamed Seborrheic Keratosis 010 01/31/2011 Neurodermatitis 03/29/2010 01/31/2011 Eczematous dermatitis 03/29/2010 01/31/2011 Xerosis cutis 03/29/2010 01/31/2011 Actinic Damage///Sun-Damaged Skin 03/29/2010 01/31/2011 [place]GIOM[place]//NEVUS, NON-NEOPLASTIC 9 03/02/2010 Seborrheic dermatitis, unspecified 05/03/2008 03/02/2010 Unspecified pruritic disorder 05/03/2008 Enthesopathy of unspecified site 09/23/2007 01/31/2011 Other psoriasis 12/17/2006 01/31/2011 Contact dermatitis and other eczema, due to unspecified cause 12/17/2006 03/02/2010 Unspecified cardiovascular disease 09/30/2006 05/23/2018 Overview: Was on Plavix x 14 months, stopped due to hemorrhage, ( nose bleed) Chest pain, unspecified 09/09/2006 03/02/20 10 Open wound(s) (multiple) of unspecified site(s), without mention of complication 08/29/2006 03/02/2010 Essential hypertension, benign 08/14/2006 0 11/21/2015 Other chronic 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 07/18/2006 03/02/2010 Neoplasm of uncertain behavior of skin 6 03/02/2010 Scar condition and fibrosis of skin 07/18/2006 03/02/2010 Personal history of other malignant neoplasm of skin 07/18/2006 03/02/2010 Other seborrheic keratosis 07/18/200603/02 SOLAR LENTGINES 07/18/2006 03/02/2010 Actinic Keratoses: Premalignant AK's 07/18/2006 03/02/2010 Type 2 diabetes mellitus wit hout complication, without long-term current use of insulin 09/26/2020 Shoulder arthritis 05/23/2018 Overview: right and left shoulder rotator cuff Ankle disorder 05/23/2018 Overview: right fracture, dislocation(screws implanted) documented as of this encounter (statuses as of 02/01/2022) [facility] History of Past illness Narrative* Problem Noted Date Resolved Date Other psoriasis 07/09/2013 05/23/2018 Actinic Keratoses (Premalignant AK's) 08/31/2012 05/23/2018 Seborrheic Keratoses 08/31/2012 05/23/2018 Xerosis cutis 08/31/2012 05/23/2018 Solar Lentigines 08/31/2012 05/23/2018 Actinic skin damage 08/31/2012 05/23/2018 Scars 08/31/2012 05/23/2018 Actinic Damage///Sun-Damaged Skin 05/18/2011 04/29/2012 Seborrheic Keratoses 05/18/2011 04/29/2012 Solar Lentigines 05/18/2011 04/29/2012 SEBORRHEIC DERMATITIS NOS 05/18/20112011 Xerosis cutis 05/18/2011 04/29/2012 Other psoriasis 05/18/2011 04/29/2012 Unspecified pruritic disorder 05/18/2011 Actinic Keratoses (Premalignant AK's) 05/16/2011 04/29/2012 Actinic Keratoses (Premalignant AK's) 03/29/2010 01/31/2011 Viral warts, unspecified 03/29/2010 011 Irritated//Inflamed Seborrheic Keratosis 010 01/31/2011 Neurodermatitis 03/29/2010 01/31/2011 Eczematous dermatitis 03/29/2010 01/31/2011 Xerosis cutis 03/29/2010 01/31/2011 Actinic Damage///Sun-Damaged Skin 03/29/2010 01/31/2011 [place]GIOM[place]//NEVUS, NON-NEOPLASTIC 9 03/02/2010 Seborrheic dermatitis, unspecified 05/03/2008 03/02/2010 Unspecified pruritic disorder 05/03/2008 Enthesopathy of unspecified site 09/23/2007 01/31/2011 Other psoriasis 12/17/2006 01/31/2011 Contact dermatitis and other eczema, due to unspecified cause 12/17/2006 03/02/2010 Unspecified cardiovascular disease 09/30/2006 05/23/2018 Overview: Was on Plavix x 14 months, stopped due to hemorrhage, ( nose bleed) Chest pain, unspecified 09/09/2006 03/02/20 10 Open wound(s) (multiple) of unspecified site(s), without mention of complication 08/29/2006 03/02/2010 Essential hypertension, benign 08/14/2006 0 11/21/2015 Other chronic 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 07/18/2006 03/02/2010 Neoplasm of uncertain behavior of skin 6 03/02/2010 Scar condition and fibrosis of skin 07/18/2006 03/02/2010 Personal history of other malignant neoplasm of skin 07/18/2006 03/02/2010 Other seborrheic keratosis 07/18/200603/02 SOLAR LENTGINES 07/18/2006 03/02/2010 Actinic Keratoses: Premalignant AK's 07/18/2006 03/02/2010 Type 2 diabetes mellitus wit hout complication, without long-term current use of insulin 09/26/2020 Shoulder arthritis 05/23/2018 Overview: right and left shoulder rotator cuff Ankle disorder 05/23/2018 Overview: right fracture, dislocation(screws implanted) documented as of this encounter (statuses as of 05/04/2022) [facility] History of Past illness Narrative* Problem Noted Date Resolved Date Other psoriasis 07/09/2013 05/23/2018 Actinic Keratoses (Premalignant AK's) 08/31/2012 05/23/2018 Seborrheic Keratoses 08/31/2012 05/23/2018 Xerosis cutis 08/31/2012 05/23/2018 Solar Lentigines 08/31/2012 05/23/2018 Actinic skin damage 08/31/2012 05/23/2018 Scars 08/31/2012 05/23/2018 Actinic Damage///Sun-Damaged Skin 05/18/2011 04/29/2012 Seborrheic Keratoses 05/18/2011 04/29/2012 Solar Lentigines 05/18/2011 04/29/2012 SEBORRHEIC DERMATITIS NOS 05/18/20112011 Xerosis cutis 05/18/2011 04/29/2012 Other psoriasis 05/18/2011 04/29/2012 Unspecified pruritic disorder 05/18/2011 Actinic Keratoses (Premalignant AK's) 05/16/2011 04/29/2012 Actinic Keratoses (Premalignant AK's) 03/29/2010 01/31/2011 Viral warts, unspecified 03/29/2010 011 Irritated//Inflamed Seborrheic Keratosis 010 01/31/2011 Neurodermatitis 03/29/2010 01/31/2011 Eczematous dermatitis 03/29/2010 01/31/2011 Xerosis cutis 03/29/2010 01/31/2011 Actinic Damage///Sun-Damaged Skin 03/29/2010 01/31/2011 [place]GIOM[place]//NEVUS, NON-NEOPLASTIC 9 03/02/2010 Seborrheic dermatitis, unspecified 05/03/2008 03/02/2010 Unspecified pruritic disorder 05/03/2008 Enthesopathy of unspecified site 09/23/2007 01/31/2011 Other psoriasis 12/17/2006 01/31/2011 Contact dermatitis and other eczema, due to unspecified cause 12/17/2006 03/02/2010 Unspecified cardiovascular disease 09/30/2006 05/23/2018 Overview: Was on Plavix x 14 months, stopped due to hemorrhage, ( nose bleed) Chest pain, unspecified 09/09/2006 03/02/20 10 Open wound(s) (multiple) of unspecified site(s), without mention of complication 08/29/2006 03/02/2010 Essential hypertension, benign 08/14/2006 0 11/21/2015 Other chronic 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 07/18/2006 03/02/2010 Neoplasm of uncertain behavior of skin 6 03/02/2010 Scar condition and fibrosis of skin 07/18/2006 03/02/2010 Personal history of other malignant neoplasm of skin 07/18/2006 03/02/2010 Other seborrheic keratosis 07/18/200603/02 SOLAR LENTGINES 07/18/2006 03/02/2010 Actinic Keratoses: Premalignant AK's 07/18/2006 03/02/2010 Type 2 diabetes mellitus wit hout complication, without long-term current use of insulin 09/26/2020 Shoulder arthritis 05/23/2018 Overview: right and left shoulder rotator cuff Ankle disorder 05/23/2018 Overview: right fracture, dislocation(screws implanted) documented as of this encounter (statuses as of 05/11/2022) [facility] History of Past illness Narrative* Problem Noted Date Resolved Date Other psoriasis 07/09/2013 05/23/2018 Actinic Keratoses (Premalignant AK's) 08/31/2012 05/23/2018 Seborrheic Keratoses 08/31/2012 05/23/2018 Xerosis cutis 08/31/2012 05/23/2018 Solar Lentigines 08/31/2012 05/23/2018 Actinic skin damage 08/31/2012 05/23/2018 Scars 08/31/2012 05/23/2018 Actinic Damage///Sun-Damaged Skin 05/18/2011 04/29/2012 Seborrheic Keratoses 05/18/2011 04/29/2012 Solar Lentigines 05/18/2011 04/29/2012 SEBORRHEIC DERMATITIS NOS 05/18/20112011 Xerosis cutis 05/18/2011 04/29/2012 Other psoriasis 05/18/2011 04/29/2012 Unspecified pruritic disorder 05/18/2011 Actinic Keratoses (Premalignant AK's) 05/16/2011 04/29/2012 Actinic Keratoses (Premalignant AK's) 03/29/2010 01/31/2011 Viral warts, unspecified 03/29/2010 011 Irritated//Inflamed Seborrheic Keratosis 010 01/31/2011 Neurodermatitis 03/29/2010 01/31/2011 Eczematous dermatitis 03/29/2010 01/31/2011 Xerosis cutis 03/29/2010 01/31/2011 Actinic Damage///Sun-Damaged Skin 03/29/2010 01/31/2011 [place]GIOM[place]//NEVUS, NON-NEOPLASTIC 9 03/02/2010 Seborrheic dermatitis, unspecified 05/03/2008 03/02/2010 Unspecified pruritic disorder 05/03/2008 Enthesopathy of unspecified site 09/23/2007 01/31/2011 Other psoriasis 12/17/2006 01/31/2011 Contact dermatitis and other eczema, due to unspecified cause 12/17/2006 03/02/2010 Unspecified cardiovascular disease 09/30/2006 05/23/2018 Overview: Was on Plavix x 14 months, stopped due to hemorrhage, ( nose bleed) Chest pain, unspecified 09/09/2006 03/02/20 10 Open wound(s) (multiple) of unspecified site(s), without mention of complication 08/29/2006 03/02/2010 Essential hypertension, benign 08/14/2006 0 11/21/2015 Other chronic 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 07/18/2006 03/02/2010 Neoplasm of uncertain behavior of skin 6 03/02/2010 Scar condition and fibrosis of skin 07/18/2006 03/02/2010 Personal history of other malignant neoplasm of skin 07/18/2006 03/02/2010 Other seborrheic keratosis 07/18/200603/02 SOLAR LENTGINES 07/18/2006 03/02/2010 Actinic Keratoses: Premalignant AK's 07/18/2006 03/02/2010 Type 2 diabetes mellitus wit hout complication, without long-term current use of insulin 09/26/2020 Shoulder arthritis 05/23/2018 Overview: right and left shoulder rotator cuff Ankle disorder 05/23/2018 Overview: right fracture, dislocation(screws implanted) documented as of this encounter (statuses as of 05/14/2022) [facility] History of Past illness Narrative* Problem Noted Date Resolved Date Other psoriasis 07/09/2013 05/23/2018 Actinic Keratoses (Premalignant AK's) 08/31/2012 05/23/2018 Seborrheic Keratoses 08/31/2012 05/23/2018 Xerosis cutis 08/31/2012 05/23/2018 Solar Lentigines 08/31/2012 05/23/2018 Actinic skin damage 08/31/2012 05/23/2018 Scars 08/31/2012 05/23/2018 Actinic Damage///Sun-Damaged Skin 05/18/2011 04/29/2012 Seborrheic Keratoses 05/18/2011 04/29/2012 Solar Lentigines 05/18/2011 04/29/2012 SEBORRHEIC DERMATITIS NOS 05/18/20112011 Xerosis cutis 05/18/2011 04/29/2012 Other psoriasis 05/18/2011 04/29/2012 Unspecified pruritic disorder 05/18/2011 Actinic Keratoses (Premalignant AK's) 05/16/2011 04/29/2012 Actinic Keratoses (Premalignant AK's) 03/29/2010 01/31/2011 Viral warts, unspecified 03/29/2010 011 Irritated//Inflamed Seborrheic Keratosis 010 01/31/2011 Neurodermatitis 03/29/2010 01/31/2011 Eczematous dermatitis 03/29/2010 01/31/2011 Xerosis cutis 03/29/2010 01/31/2011 Actinic Damage///Sun-Damaged Skin 03/29/2010 01/31/2011 [place] ANGIOMAS//NEVUS, NON-NEOPLASTIC 9 03/02/2010 Seborrheic dermatitis, unspecified 05/03/2008 03/02/2010 Unspecified pruritic disorder 05/03/2008 Enthesopathy of unspecified site 09/23/2007 01/31/2011 Other psoriasis 12/17/2006 01/31/2011 Contact dermatitis and other eczema, due to unspecified cause 12/17/2006 03/02/2010 Unspecified cardiovascular disease 09/30/2006 05/23/2018 Overview: Was on Plavix x 14 months, stopped due to hemorrhage, ( nose bleed) Chest pain, unspecified 09/09/2006 03/02/20 10 Open wound(s) (multiple) of unspecified site(s), without mention of complication 08/29/2006 03/02/2010 Essential hypertension, benign 08/14/2006 0 11/21/2015 Other chronic 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 07/18/2006 03/02/2010 Neoplasm of uncertain behavior of skin 6 03/02/2010 Scar condition and fibrosis of skin 07/18/2006 03/02/2010 Personal history of other malignant neoplasm of skin 07/18/2006 03/02/2010 Other seborrheic keratosis 07/18/200603/02 SOLAR LENTGINES 07/18/2006 03/02/2010 Actinic Keratoses: Premalignant AK's 07/18/2006 03/02/2010 Type 2 diabetes mellitus wit hout complication, without long-term current use of insulin 09/26/2020 Shoulder arthritis 05/23/2018 Overview: right and left shoulder rotator cuff Ankle disorder 05/23/2018 Overview: right fracture, dislocation(screws implanted) documented as of this encounter (statuses as of 05/29/2022) [facility] History of Past illness Narrative* Problem Noted Date Resolved Date Other psoriasis 07/09/2013 05/23/2018 Actinic Keratoses (Premalignant AK's) 08/31/2012 05/23/2018 Seborrheic Keratoses 08/31/2012 05/23/2018 Xerosis cutis 08/31/2012 05/23/2018 Solar Lentigines 08/31/2012 05/23/2018 Actinic skin damage 08/31/2012 05/23/2018 Scars 08/31/2012 05/23/2018 Actinic Damage///Sun-Damaged Skin 05/18/2011 04/29/2012 Seborrheic Keratoses 05/18/2011 04/29/2012 Solar Lentigines 05/18/2011 04/29/2012 SEBORRHEIC DERMATITIS NOS 05/18/20112011 Xerosis cutis 05/18/2011 04/29/2012 Other psoriasis 05/18/2011 04/29/2012 Unspecified pruritic disorder 05/18/2011 Actinic Keratoses (Premalignant AK's) 05/16/2011 04/29/2012 Actinic Keratoses (Premalignant AK's) 03/29/2010 01/31/2011 Viral warts, unspecified 03/29/2010 011 Irritated//Inflamed Seborrheic Keratosis 010 01/31/2011 Neurodermatitis 03/29/2010 01/31/2011 Eczematous dermatitis 03/29/2010 01/31/2011 Xerosis cutis 03/29/2010 01/31/2011 Actinic Damage///Sun-Damaged Skin 03/29/2010 01/31/2011 [place]GIOM[place]//NEVUS, NON-NEOPLASTIC 9 03/02/2010 Seborrheic dermatitis, unspecified 05/03/2008 03/02/2010 Unspecified pruritic disorder 05/03/2008 Enthesopathy of unspecified site 09/23/2007 01/31/2011 Other psoriasis 12/17/2006 01/31/2011 Contact dermatitis and other eczema, due to unspecified cause 12/17/2006 03/02/2010 Unspecified cardiovascular disease 09/30/2006 05/23/2018 Overview: Was on Plavix x 14 months, stopped due to hemorrhage, ( nose bleed) Chest pain, unspecified 09/09/2006 03/02/20 10 Open wound(s) (multiple) of unspecified site(s), without mention of complication 08/29/2006 03/02/2010 Essential hypertension, benign 08/14/2006 0 11/21/2015 Other chronic 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 07/18/2006 03/02/2010 Neoplasm of uncertain behavior of skin 6 03/02/2010 Scar condition and fibrosis of skin 07/18/2006 03/02/2010 Personal history of other malignant neoplasm of skin 07/18/2006 03/02/2010 Other seborrheic keratosis 07/18/200603/02 SOLAR LENTGINES 07/18/2006 03/02/2010 Actinic Keratoses: Premalignant AK's 07/18/2006 03/02/2010 Type 2 diabetes mellitus wit hout complication, without long-term current use of insulin 09/26/2020 Shoulder arthritis 05/23/2018 Overview: right and left shoulder rotator cuff Ankle disorder 05/23/2018 Overview: right fracture, dislocation(screws implanted) documented as of this encounter (statuses as of 09/27/2022) [facility]2013 History of Past illness Narrative* Problem Noted Date Resolved Date Other psoriasis 07/09/2013 05/23/2018 Actinic Keratoses (Premalignant AK's) 08/31/2012 05/23/2018 Seborrheic Keratoses 08/31/2012 05/23/2018 Xerosis cutis 08/31/2012 05/23/2018 Solar Lentigines 08/31/2012 05/23/2018 Actinic skin damage 08/31/2012 05/23/2018 Scars 08/31/2012 05/23/2018 Actinic Damage///Sun-Damaged Skin 05/18/2011 04/29/2012 Seborrheic Keratoses 05/18/2011 04/29/2012 Solar Lentigines 05/18/2011 04/29/2012 SEBORRHEIC DERMATITIS NOS 05/18/20112011 Xerosis cutis 05/18/2011 04/29/2012 Other psoriasis 05/18/2011 04/29/2012 Unspecified pruritic disorder 05/18/2011 Actinic Keratoses (Premalignant AK's) 05/16/2011 04/29/2012 Actinic Keratoses (Premalignant AK's) 03/29/2010 01/31/2011 Viral warts, unspecified 03/29/2010 011 Irritated//Inflamed Seborrheic Keratosis 010 01/31/2011 Neurodermatitis 03/29/2010 01/31/2011 Eczematous dermatitis 03/29/2010 01/31/2011 Xerosis cutis 03/29/2010 01/31/2011 Actinic Damage///Sun-Damaged Skin 03/29/2010 01/31/2011 [place] ANGIOMAS//NEVUS, NON-NEOPLASTIC 9 03/02/2010 Seborrheic dermatitis, unspecified 05/03/2008 03/02/2010 Unspecified pruritic disorder 05/03/2008 Enthesopathy of unspecified site 09/23/2007 01/31/2011 Other psoriasis 12/17/2006 01/31/2011 Contact dermatitis and other eczema, due to unspecified cause 12/17/2006 03/02/2010 Unspecified cardiovascular disease 09/30/2006 05/23/2018 Overview: Was on Plavix x 14 months, stopped due to hemorrhage, ( nose bleed) Chest pain, unspecified 09/09/2006 03/02/20 10 Open wound(s) (multiple) of unspecified site(s), without mention of complication 08/29/2006 03/02/2010 Essential hypertension, benign 08/14/2006 0 11/21/2015 Other chronic 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 07/18/2006 03/02/2010 Neoplasm of uncertain behavior of skin 6 03/02/2010 Scar condition and fibrosis of skin 07/18/2006 03/02/2010 Personal history of other malignant neoplasm of skin 07/18/2006 03/02/2010 Other seborrheic keratosis 07/18/200603/02 SOLAR LENTGINES 07/18/2006 03/02/2010 Actinic Keratoses: Premalignant AK's 07/18/2006 03/02/2010 Type 2 diabetes mellitus wit hout complication, without long-term current use of insulin 09/26/2020 Shoulder arthritis 05/23/2018 Overview: right and left shoulder rotator cuff Ankle disorder 05/23/2018 Overview: right fracture, dislocation(screws implanted) documented as of this encounter (statuses as of 10/26/2022) [facility] History of Past illness Narrative* Problem Noted Date Resolved Date Other psoriasis 07/09/2013 05/23/2018 Actinic Keratoses (Premalignant AK's) 08/31/2012 05/23/2018 Seborrheic Keratoses 08/31/2012 05/23/2018 Xerosis cutis 08/31/2012 05/23/2018 Solar Lentigines 08/31/2012 05/23/2018 Actinic skin damage 08/31/2012 05/23/2018 Scars 08/31/2012 05/23/2018 Actinic Damage///Sun-Damaged Skin 05/18/2011 04/29/2012 Seborrheic Keratoses 05/18/2011 04/29/2012 Solar Lentigines 05/18/2011 04/29/2012 SEBORRHEIC DERMATITIS NOS 05/18/20112011 Xerosis cutis 05/18/2011 04/29/2012 Other psoriasis 05/18/2011 04/29/2012 Unspecified pruritic disorder 05/18/2011 Actinic Keratoses (Premalignant AK's) 05/16/2011 04/29/2012 Actinic Keratoses (Premalignant AK's) 03/29/2010 01/31/2011 Viral warts, unspecified 03/29/2010 011 Irritated//Inflamed Seborrheic Keratosis 010 01/31/2011 Neurodermatitis 03/29/2010 01/31/2011 Eczematous dermatitis 03/29/2010 01/31/2011 Xerosis cutis 03/29/2010 01/31/2011 Actinic Damage///Sun-Damaged Skin 03/29/2010 01/31/2011 [place] ANGIOMAS//NEVUS, NON-NEOPLASTIC 9 03/02/2010 Seborrheic dermatitis, unspecified 05/03/2008 03/02/2010 Unspecified pruritic disorder 05/03/2008 Enthesopathy of unspecified site 09/23/2007 01/31/2011 Other psoriasis 12/17/2006 01/31/2011 Contact dermatitis and other eczema, due to unspecified cause 12/17/2006 03/02/2010 Unspecified cardiovascular disease 09/30/2006 05/23/2018 Overview: Was on Plavix x 14 months, stopped due to hemorrhage, ( nose bleed) Chest pain, unspecified 09/09/2006 03/02/20 10 Open wound(s) (multiple) of unspecified site(s), without mention of complication 08/29/2006 03/02/2010 Essential hypertension, benign 08/14/2006 0 11/21/2015 Other chronic 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 07/18/2006 03/02/2010 Neoplasm of uncertain behavior of skin 6 03/02/2010 Scar condition and fibrosis of skin 07/18/2006 03/02/2010 Personal history of other malignant neoplasm of skin 07/18/2006 03/02/2010 Other seborrheic keratosis 07/18/200603/02 SOLAR LENTGINES 07/18/2006 03/02/2010 Actinic Keratoses: Premalignant AK's 07/18/2006 03/02/2010 Type 2 diabetes mellitus wit hout complication, without long-term current use of insulin 09/26/2020 Shoulder arthritis 05/23/2018 Overview: right and left shoulder rotator cuff Ankle disorder 05/23/2018 Overview: right fracture, dislocation(screws implanted) documented as of this encounter (statuses as of 02/04/2023) [facility] History of Past illness Narrative* Problem Noted Date Resolved Date Other psoriasis 07/09/2013 05/23/2018 Actinic Keratoses (Premalignant AK's) 08/31/2012 05/23/2018 Seborrheic Keratoses 08/31/2012 05/23/2018 Xerosis cutis 08/31/2012 05/23/2018 Solar Lentigines 08/31/2012 05/23/2018 Actinic skin damage 08/31/2012 05/23/2018 Scars 08/31/2012 05/23/2018 Actinic Damage///Sun-Damaged Skin 05/18/2011 04/29/2012 Seborrheic Keratoses 05/18/2011 04/29/2012 Solar Lentigines 05/18/2011 04/29/2012 SEBORRHEIC DERMATITIS NOS 05/18/20112011 Xerosis cutis 05/18/2011 04/29/2012 Other psoriasis 05/18/2011 04/29/2012 Unspecified pruritic disorder 05/18/2011 Actinic Keratoses (Premalignant AK's) 05/16/2011 04/29/2012 Actinic Keratoses (Premalignant AK's) 03/29/2010 01/31/2011 Viral warts, unspecified 03/29/2010 011 Irritated//Inflamed Seborrheic Keratosis 010 01/31/2011 Neurodermatitis 03/29/2010 01/31/2011 Eczematous dermatitis 03/29/2010 01/31/2011 Xerosis cutis 03/29/2010 01/31/2011 Actinic Damage///Sun-Damaged Skin 03/29/2010 01/31/2011 [place]GIOM[place]//NEVUS, NON-NEOPLASTIC 9 03/02/2010 Seborrheic dermatitis, unspecified 05/03/2008 03/02/2010 Unspecified pruritic disorder 05/03/2008 Enthesopathy of unspecified site 09/23/2007 01/31/2011 Other psoriasis 12/17/2006 01/31/2011 Contact dermatitis and other eczema, due to unspecified cause 12/17/2006 03/02/2010 Unspecified cardiovascular disease 09/30/2006 05/23/2018 Overview: Was on Plavix x 14 months, stopped due to hemorrhage, ( nose bleed) Chest pain, unspecified 09/09/2006 03/02/20 10 Open wound(s) (multiple) of unspecified site(s), without mention of complication 08/29/2006 03/02/2010 Essential hypertension, benign 08/14/2006 0 11/21/2015 Other chronic 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 07/18/2006 03/02/2010 Neoplasm of uncertain behavior of skin 6 03/02/2010 Scar condition and fibrosis of skin 07/18/2006 03/02/2010 Personal history of other malignant neoplasm of skin 07/18/2006 03/02/2010 Other seborrheic keratosis 07/18/200603/02 SOLAR LENTGINES 07/18/2006 03/02/2010 Actinic Keratoses: Premalignant AK's 07/18/2006 03/02/2010 Type 2 diabetes mellitus wit hout complication, without long-term current use of insulin 09/26/2020 Shoulder arthritis 05/23/2018 Overview: right and left shoulder rotator cuff Ankle disorder 05/23/2018 Overview: right fracture, dislocation(screws implanted) documented as of this encounter (statuses as of 02/08/2023) [facility] History of Past illness Narrative* Problem Noted Date Resolved Date Other psoriasis 07/09/2013 05/23/2018 Actinic Keratoses (Premalignant AK's) 08/31/2012 05/23/2018 Seborrheic Keratoses 08/31/2012 05/23/2018 Xerosis cutis 08/31/2012 05/23/2018 Solar Lentigines 08/31/2012 05/23/2018 Actinic skin damage 08/31/2012 05/23/2018 Scars 08/31/2012 05/23/2018 Actinic Damage///Sun-Damaged Skin 05/18/2011 04/29/2012 Seborrheic Keratoses 05/18/2011 04/29/2012 Solar Lentigines 05/18/2011 04/29/2012 SEBORRHEIC DERMATITIS NOS 05/18/20112011 Xerosis cutis 05/18/2011 04/29/2012 Other psoriasis 05/18/2011 04/29/2012 Unspecified pruritic disorder 05/18/2011 Actinic Keratoses (Premalignant AK's) 05/16/2011 04/29/2012 Actinic Keratoses (Premalignant AK's) 03/29/2010 01/31/2011 Viral warts, unspecified 03/29/2010 011 Irritated//Inflamed Seborrheic Keratosis 010 01/31/2011 Neurodermatitis 03/29/2010 01/31/2011 Eczematous dermatitis 03/29/2010 01/31/2011 Xerosis cutis 03/29/2010 01/31/2011 Actinic Damage///Sun-Damaged Skin 03/29/2010 01/31/2011 [place]GIOM[place]//NEVUS, NON-NEOPLASTIC 9 03/02/2010 Seborrheic dermatitis, unspecified 05/03/2008 03/02/2010 Unspecified pruritic disorder 05/03/2008 Enthesopathy of unspecified site 09/23/2007 01/31/2011 Other psoriasis 12/17/2006 01/31/2011 Contact dermatitis and other eczema, due to unspecified cause 12/17/2006 03/02/2010 Unspecified cardiovascular disease 09/30/2006 05/23/2018 Overview: Was on Plavix x 14 months, stopped due to hemorrhage, ( nose bleed) Chest pain, unspecified 09/09/2006 03/02/20 10 Open wound(s) (multiple) of unspecified site(s), without mention of complication 08/29/2006 03/02/2010 Essential hypertension, benign 08/14/2006 0 11/21/2015 Other chronic 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 07/18/2006 03/02/2010 Neoplasm of uncertain behavior of skin 6 03/02/2010 Scar condition and fibrosis of skin 07/18/2006 03/02/2010 Personal history of other malignant neoplasm of skin 07/18/2006 03/02/2010 Other seborrheic keratosis 07/18/200603/02 SOLAR LENTGINES 07/18/2006 03/02/2010 Actinic Keratoses: Premalignant AK's 07/18/2006 03/02/2010 Type 2 diabetes mellitus wit hout complication, without long-term current use of insulin 09/26/2020 Shoulder arthritis 05/23/2018 Overview: right and left shoulder rotator cuff Ankle disorder 05/23/2018 Overview: right fracture, dislocation(screws implanted) documented as of this encounter (statuses as of 03/27/2023) [facility] History of Past illness Narrative* Problem Noted Date Diagnosed Date Resolved Date Other psoriasis 07/09/2013 05/23/2018 Actinic Keratoses (Premalignant AK's) 08/31/2012 05/23/2018 Seborrheic Keratoses 08/31/2012 018 Xerosis cutis 08/31/2012 05/23/2018 Solar Lentigines 08/31/2012 05/23/2018 Actinic skin damage 08/31/2012 05/23/20 18 Scars 08/31/2012 05/23/2018 Actinic Damage///Sun-Damaged Skin 05/18/2011 04/29/2012 Seborrheic Keratoses 05/18/2011 012 Solar Lentigines 05/18/2011 04/29/2012 SEBORRHEIC DERMATITIS NOS 05/18/2011 Xerosis cutis 05/18/2011 04/29/2012 Other psoriasis 05/18/2011 04/29/2012 Unspecified pruritic disorder 05/18/2011 04/29/2012 Actinic Keratoses (Premalignant AK's) 05/16/2011 04/29/2012 Actinic Keratoses (Premalignant AK's) 03/29/2010 01/31/2011 Viral warts, unspecified 03/29/2010 Irritated//Inflamed Seborrheic Keratosis 03/29/2010 01/31/2011 Neurodermatitis 03/29/2010 01/31/2011 Eczematous dermatitis 03/29/20102010 Xerosis cutis 03/29/2010 01/31/2011 Actinic Damage///Sun-Damaged Skin 03/29/2010 01/31/2011 [place]GIOM[place]//NEVUS, NON-NEOPLASTIC 04/29/2009 03/02/2010 Seborrheic dermatitis, unspecified 05/03/2008 03/02/2010 Unspecified pruritic disorder 05/03/2008 03/02/2010 Enthesopathy of unspecified site 09/23/2007 01/31/2011 Other psoriasis 12/17/2006 01/31/2011 Contact dermatitis and other eczema, due to unspecified cause 12/17/2006 03/02/2010 Unspecified cardiovascular disease 09/30/2006 05/23/2018 Overview: Was on Plavix x 14 months, stopped due to hemorrhage, ( nose bleed) Chest pain, unspecified 09/09/200602/18 Open wound(s) (multiple) of unspecified site(s), without mention of complication 08/29/2006 03/02/2010 Essential hypertension, benign 08/14/2006 11/21/2015 Other chronic 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 07/18/2006 03/02/2010 Neoplasm of uncertain behavior of skin 07/18/2006 03/02/2010 Scar condition and fibrosis of skin 07/18/2006 03/02/2010 Personal history of other ma lignant neoplasm of skin 07/18/2006 03/02/2010 Other seborrheic keratosis 07/18/2006 0 03/02/2010 SOLAR LENTGINES 07/18/2006 03/02/2010 Actinic Keratoses: Premalignant AK's 07/18/2006 03/02/2010 Type 2 diabetes mellitus wit hout complication, without long-term current use of insulin 09/26/2020 Shoulder arthritis 8 Overview: right and left shoulder rotator cuff Ankle disorder 05/23/2018 Overview: right fracture, dislocation(screws implanted) documented as of this encounter (statuses as of 06/13/2023) [facility] History of Past illness Narrative* Problem Noted Date Diagnosed Date Resolved Date Other psoriasis 07/09/2013 05/23/2018 Actinic Keratoses (Premalignant AK's) 08/31/2012 05/23/2018 Seborrheic Keratoses 08/31/2012 018 Xerosis cutis 08/31/2012 05/23/2018 Solar Lentigines 08/31/2012 05/23/2018 Actinic skin damage 08/31/2012 05/23/20 18 Scars 08/31/2012 05/23/2018 Actinic Damage///Sun-Damaged Skin 05/18/2011 04/29/2012 Seborrheic Keratoses 05/18/2011 012 Solar Lentigines 05/18/2011 04/29/2012 SEBORRHEIC DERMATITIS NOS 05/18/2011 Xerosis cutis 05/18/2011 04/29/2012 Other psoriasis 05/18/2011 04/29/2012 Unspecified pruritic disorder 05/18/2011 04/29/2012 Actinic Keratoses (Premalignant AK's) 05/16/2011 04/29/2012 Actinic Keratoses (Premalignant AK's) 03/29/2010 01/31/2011 Viral warts, unspecified 03/29/2010 Irritated//Inflamed Seborrheic Keratosis 03/29/2010 01/31/2011 Neurodermatitis 03/29/2010 01/31/2011 Eczematous dermatitis 03/29/20102010 Xerosis cutis 03/29/2010 01/31/2011 Actinic Damage///Sun-Damaged Skin 03/29/2010 01/31/2011 [place]GIOMAS//NEVUS, NON-NEOPLASTIC 04/29/2009 03/02/2010 Seborrheic dermatitis, unspecified 05/03/2008 03/02/2010 Unspecified pruritic disorder 05/03/2008 03/02/2010 Enthesopathy of unspecified site 09/23/2007 01/31/2011 Other psoriasis 12/17/2006 01/31/2011 Contact dermatitis and other eczema, due to unspecified cause 12/17/2006 03/02/2010 Unspecified cardiovascular disease 09/30/2006 05/23/2018 Overview: Was on Plavix x 14 months, stopped due to hemorrhage, ( nose bleed) Chest pain, unspecified 09/09/200602/18 Open wound(s) (multiple) of unspecified site(s), without mention of complication 08/29/2006 03/02/2010 Essential hypertension, benign 08/14/2006 11/21/2015 Other chronic 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 07/18/2006 03/02/2010 Neoplasm of uncertain behavior of skin 07/18/2006 03/02/2010 Scar condition and fibrosis of skin 07/18/2006 03/02/2010 Personal history of other ma lignant neoplasm of skin 07/18/2006 03/02/2010 Other seborrheic keratosis 07/18/2006 0 03/02/2010 SOLAR LENTGINES 07/18/2006 03/02/2010 Actinic Keratoses: Premalignant AK's 07/18/2006 03/02/2010 Type 2 diabetes mellitus wit hout complication, without long-term current use of insulin 09/26/2020 Shoulder arthritis 8 Overview: right and left shoulder rotator cuff Ankle disorder 05/23/2018 Overview: right fracture, dislocation(screws implanted) documented as of this encounter (statuses as of 06/21/2023) [facility] History of Past illness Narrative* Problem Noted Date Diagnosed Date Resolved Date Other psoriasis 07/09/2013 05/23/2018 Actinic Keratoses (Premalignant AK's) 08/31/2012 05/23/2018 Seborrheic Keratoses 08/31/2012 018 Xerosis cutis 08/31/2012 05/23/2018 Solar Lentigines 08/31/2012 05/23/2018 Actinic skin damage 08/31/2012 05/23/20 18 Scars 08/31/2012 05/23/2018 Actinic Damage///Sun-Damaged Skin 05/18/2011 04/29/2012 Seborrheic Keratoses 05/18/2011 012 Solar Lentigines 05/18/2011 04/29/2012 SEBORRHEIC DERMATITIS NOS 05/18/2011 Xerosis cutis 05/18/2011 04/29/2012 Other psoriasis 05/18/2011 04/29/2012 Unspecified pruritic disorder 05/18/2011 04/29/2012 Actinic Keratoses (Premalignant AK's) 05/16/2011 04/29/2012 Actinic Keratoses (Premalignant AK's) 03/29/2010 01/31/2011 Viral warts, unspecified 03/29/2010 Irritated//Inflamed Seborrheic Keratosis 03/29/2010 01/31/2011 Neurodermatitis 03/29/2010 01/31/2011 Eczematous dermatitis 03/29/20102010 Xerosis cutis 03/29/2010 01/31/2011 Actinic Damage///Sun-Damaged Skin 03/29/2010 01/31/2011 [place] ANGIOMAS//NEVUS, NON-NEOPLASTIC 04/29/2009 03/02/2010 Seborrheic dermatitis, unspecified 05/03/2008 03/02/2010 Unspecified pruritic disorder 05/03/2008 03/02/2010 Enthesopathy of unspecified site 09/23/2007 01/31/2011 Other psoriasis 12/17/2006 01/31/2011 Contact dermatitis and other eczema, due to unspecified cause 12/17/2006 03/02/2010 Unspecified cardiovascular disease 09/30/2006 05/23/2018 Overview: Was on Plavix x 14 months, stopped due to hemorrhage, ( nose bleed) Chest pain, unspecified 09/09/200602/18 Open wound(s) (multiple) of unspecified site(s), without mention of complication 08/29/2006 03/02/2010 Essential hypertension, benign 08/14/2006 11/21/2015 Other chronic 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 07/18/2006 03/02/2010 Neoplasm of uncertain behavior of skin 07/18/2006 03/02/2010 Scar condition and fibrosis of skin 07/18/2006 03/02/2010 Personal history of other ma lignant neoplasm of skin 07/18/2006 03/02/2010 Other seborrheic keratosis 07/18/2006 0 03/02/2010 SOLAR LENTGINES 07/18/2006 03/02/2010 Actinic Keratoses: Premalignant AK's 07/18/2006 03/02/2010 Type 2 diabetes mellitus wit hout complication, without long-term current use of insulin 09/26/2020 Shoulder arthritis 8 Overview: right and left shoulder rotator cuff Ankle disorder 05/23/2018 Overview: right fracture, dislocation(screws implanted) documented as of this encounter (statuses as of 08/09/2023) [facility] History of Past illness Narrative* Problem Noted Date Diagnosed Date Resolved Date Other psoriasis 07/09/2013 05/23/2018 Actinic Keratoses (Premalignant AK's) 08/31/2012 05/23/2018 Seborrheic Keratoses 08/31/2012 018 Xerosis cutis 08/31/2012 05/23/2018 Solar Lentigines 08/31/2012 05/23/2018 Actinic skin damage 08/31/2012 05/23/20 18 Scars 08/31/2012 05/23/2018 Actinic Damage///Sun-Damaged Skin 05/18/2011 04/29/2012 Seborrheic Keratoses 05/18/2011 012 Solar Lentigines 05/18/2011 04/29/2012 SEBORRHEIC DERMATITIS NOS 05/18/2011 Xerosis cutis 05/18/2011 04/29/2012 Other psoriasis 05/18/2011 04/29/2012 Unspecified pruritic disorder 05/18/2011 04/29/2012 Actinic Keratoses (Premalignant AK's) 05/16/2011 04/29/2012 Actinic Keratoses (Premalignant AK's) 03/29/2010 01/31/2011 Viral warts, unspecified 03/29/2010 Irritated//Inflamed Seborrheic Keratosis 03/29/2010 01/31/2011 Neurodermatitis 03/29/2010 01/31/2011 Eczematous dermatitis 03/29/20102010 Xerosis cutis 03/29/2010 01/31/2011 Actinic Damage///Sun-Damaged Skin 03/29/2010 01/31/2011 [place]GIOMAS//NEVUS, NON-NEOPLASTIC 04/29/2009 03/02/2010 Seborrheic dermatitis, unspecified 05/03/2008 03/02/2010 Unspecified pruritic disorder 05/03/2008 03/02/2010 Enthesopathy of unspecified site 09/23/2007 01/31/2011 Other psoriasis 12/17/2006 01/31/2011 Contact dermatitis and other eczema, due to unspecified cause 12/17/2006 03/02/2010 Unspecified cardiovascular disease 09/30/2006 05/23/2018 Overview: Was on Plavix x 14 months, stopped due to hemorrhage, ( nose bleed) Chest pain, unspecified 09/09/200602/18 Open wound(s) (multiple) of unspecified site(s), without mention of complication 08/29/2006 03/02/2010 Essential hypertension, benign 08/14/2006 11/21/2015 Other chronic 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 07/18/2006 03/02/2010 Neoplasm of uncertain behavior of skin 07/18/2006 03/02/2010 Scar condition and fibrosis of skin 07/18/2006 03/02/2010 Personal history of other ma lignant neoplasm of skin 07/18/2006 03/02/2010 Other seborrheic keratosis 07/18/2006 0 03/02/2010 SOLAR LENTGINES 07/18/2006 03/02/2010 Actinic Keratoses: Premalignant AK's 07/18/2006 03/02/2010 Type 2 diabetes mellitus wit hout complication, without long-term current use of insulin 09/26/2020 Shoulder arthritis 8 Overview: right and left shoulder rotator cuff Ankle disorder 05/23/2018 Overview: right fracture, dislocation(screws implanted) documented as of this encounter (statuses as of 08/24/2023) [facility] History of Past illness Narrative* Problem Noted Date Diagnosed Date Resolved Date Other psoriasis 07/09/2013 05/23/2018 Actinic Keratoses (Premalignant AK's) 08/31/2012 05/23/2018 Seborrheic Keratoses 08/31/2012 018 Xerosis cutis 08/31/2012 05/23/2018 Solar Lentigines 08/31/2012 05/23/2018 Actinic skin damage 08/31/2012 05/23/20 18 Scars 08/31/2012 05/23/2018 Actinic Damage///Sun-Damaged Skin 05/18/2011 04/29/2012 Seborrheic Keratoses 05/18/2011 012 Solar Lentigines 05/18/2011 04/29/2012 SEBORRHEIC DERMATITIS NOS 05/18/2011 Xerosis cutis 05/18/2011 04/29/2012 Other psoriasis 05/18/2011 04/29/2012 Unspecified pruritic disorder 05/18/2011 04/29/2012 Actinic Keratoses (Premalignant AK's) 05/16/2011 04/29/2012 Actinic Keratoses (Premalignant AK's) 03/29/2010 01/31/2011 Viral warts, unspecified 03/29/2010 Irritated//Inflamed Seborrheic Keratosis 03/29/2010 01/31/2011 Neurodermatitis 03/29/2010 01/31/2011 Eczematous dermatitis 03/29/20102010 Xerosis cutis 03/29/2010 01/31/2011 Actinic Damage///Sun-Damaged Skin 03/29/2010 01/31/2011 [place]GIOM[place]//NEVUS, NON-NEOPLASTIC 04/29/2009 03/02/2010 Seborrheic dermatitis, unspecified 05/03/2008 03/02/2010 Unspecified pruritic disorder 05/03/2008 03/02/2010 Enthesopathy of unspecified site 09/23/2007 01/31/2011 Other psoriasis 12/17/2006 01/31/2011 Contact dermatitis and other eczema, due to unspecified cause 12/17/2006 03/02/2010 Unspecified cardiovascular disease 09/30/2006 05/23/2018 Overview: Was on Plavix x 14 months, stopped due to hemorrhage, ( nose bleed) Chest pain, unspecified 09/09/200602/18 Open wound(s) (multiple) of unspecified site(s), without mention of complication 08/29/2006 03/02/2010 Essential hypertension, benign 08/14/2006 11/21/2015 Other chronic 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 07/18/2006 03/02/2010 Neoplasm of uncertain behavior of skin 07/18/2006 03/02/2010 Scar condition and fibrosis of skin 07/18/2006 03/02/2010 Personal history of other ma lignant neoplasm of skin 07/18/2006 03/02/2010 Other seborrheic keratosis 07/18/2006 0 03/02/2010 SOLAR LENTGINES 07/18/2006 03/02/2010 Actinic Keratoses: Premalignant AK's 07/18/2006 03/02/2010 Type 2 diabetes mellitus wit hout complication, without long-term current use of insulin 09/26/2020 Shoulder arthritis 8 Overview: right and left shoulder rotator cuff Ankle disorder 05/23/2018 Overview: right fracture, dislocation(screws implanted) documented as of this encounter (statuses as of 11/21/2023) [facility] History of Past illness Narrative* Problem Noted Date Diagnosed Date Resolved Date Other psoriasis 07/09/2013 05/23/2018 Actinic Keratoses (Premalignant AK's) 08/31/2012 05/23/2018 Seborrheic Keratoses 08/31/2012 018 Xerosis cutis 08/31/2012 05/23/2018 Solar Lentigines 08/31/2012 05/23/2018 Actinic skin damage 08/31/2012 05/23/20 18 Scars 08/31/2012 05/23/2018 Actinic Damage///Sun-Damaged Skin 05/18/2011 04/29/2012 Seborrheic Keratoses 05/18/2011 012 Solar Lentigines 05/18/2011 04/29/2012 SEBORRHEIC DERMATITIS NOS 05/18/2011 Xerosis cutis 05/18/2011 04/29/2012 Other psoriasis 05/18/2011 04/29/2012 Unspecified pruritic disorder 05/18/2011 04/29/2012 Actinic Keratoses (Premalignant AK's) 05/16/2011 04/29/2012 Actinic Keratoses (Premalignant AK's) 03/29/2010 01/31/2011 Viral warts, unspecified 03/29/2010 Irritated//Inflamed Seborrheic Keratosis 03/29/2010 01/31/2011 Neurodermatitis 03/29/2010 01/31/2011 Eczematous dermatitis 03/29/20102010 Xerosis cutis 03/29/2010 01/31/2011 Actinic Damage///Sun-Damaged Skin 03/29/2010 01/31/2011 [place] ANGIOMAS//NEVUS, NON-NEOPLASTIC 04/29/2009 03/02/2010 Seborrheic dermatitis, unspecified 05/03/2008 03/02/2010 Unspecified pruritic disorder 05/03/2008 03/02/2010 Enthesopathy of unspecified site 09/23/2007 01/31/2011 Other psoriasis 12/17/2006 01/31/2011 Contact dermatitis and other eczema, due to unspecified cause 12/17/2006 03/02/2010 Unspecified cardiovascular disease 09/30/2006 05/23/2018 Overview: Was on Plavix x 14 months, stopped due to hemorrhage, ( nose bleed) Chest pain, unspecified 09/09/200602/18 Open wound(s) (multiple) of unspecified site(s), without mention of complication 08/29/2006 03/02/2010 Essential hypertension, benign 08/14/2006 11/21/2015 Other chronic 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 07/18/2006 03/02/2010 Neoplasm of uncertain behavior of skin 07/18/2006 03/02/2010 Scar condition and fibrosis of skin 07/18/2006 03/02/2010 Personal history of other ma lignant neoplasm of skin 07/18/2006 03/02/2010 Other seborrheic keratosis 07/18/2006 0 03/02/2010 SOLAR LENTGINES 07/18/2006 03/02/2010 Actinic Keratoses: Premalignant AK's 07/18/2006 03/02/2010 Type 2 diabetes mellitus wit hout complication, without long-term current use of insulin 09/26/2020 Shoulder arthritis 8 Overview: right and left shoulder rotator cuff Ankle disorder 05/23/2018 Overview: right fracture, dislocation(screws implanted) documented as of this encounter (statuses as of 11/22/2023) [facility] History of Past illness Narrative* Problem Noted Date Diagnosed Date Resolved Date Other psoriasis 07/09/2013 05/23/2018 Actinic Keratoses (Premalignant AK's) 08/31/2012 05/23/2018 Seborrheic Keratoses 08/31/2012 018 Xerosis cutis 08/31/2012 05/23/2018 Solar Lentigines 08/31/2012 05/23/2018 Actinic skin damage 08/31/2012 05/23/20 18 Scars 08/31/2012 05/23/2018 Actinic Damage///Sun-Damaged Skin 05/18/2011 04/29/2012 Seborrheic Keratoses 05/18/2011 012 Solar Lentigines 05/18/2011 04/29/2012 SEBORRHEIC DERMATITIS NOS 05/18/2011 Xerosis cutis 05/18/2011 04/29/2012 Other psoriasis 05/18/2011 04/29/2012 Unspecified pruritic disorder 05/18/2011 04/29/2012 Actinic Keratoses (Premalignant AK's) 05/16/2011 04/29/2012 Actinic Keratoses (Premalignant AK's) 03/29/2010 01/31/2011 Viral warts, unspecified 03/29/2010 Irritated//Inflamed Seborrheic Keratosis 03/29/2010 01/31/2011 Neurodermatitis 03/29/2010 01/31/2011 Eczematous dermatitis 03/29/20102010 Xerosis cutis 03/29/2010 01/31/2011 Actinic Damage///Sun-Damaged Skin 03/29/2010 01/31/2011 [place] ANGIOMAS//NEVUS, NON-NEOPLASTIC 04/29/2009 03/02/2010 Seborrheic dermatitis, unspecified 05/03/2008 03/02/2010 Unspecified pruritic disorder 05/03/2008 03/02/2010 Enthesopathy of unspecified site 09/23/2007 01/31/2011 Other psoriasis 12/17/2006 01/31/2011 Contact dermatitis and other eczema, due to unspecified cause 12/17/2006 03/02/2010 Unspecified cardiovascular disease 09/30/2006 05/23/2018 Overview: Was on Plavix x 14 months, stopped due to hemorrhage, ( nose bleed) Chest pain, unspecified 09/09/200602/18 Open wound(s) (multiple) of unspecified site(s), without mention of complication 08/29/2006 03/02/2010 Essential hypertension, benign 08/14/2006 11/21/2015 Other chronic 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 07/18/2006 03/02/2010 Neoplasm of uncertain behavior of skin 07/18/2006 03/02/2010 Scar condition and fibrosis of skin 07/18/2006 03/02/2010 Personal history of other ma lignant neoplasm of skin 07/18/2006 03/02/2010 Other seborrheic keratosis 07/18/2006 0 03/02/2010 SOLAR LENTGINES 07/18/2006 03/02/2010 Actinic Keratoses: Premalignant AK's 07/18/2006 03/02/2010 Type 2 diabetes mellitus wit hout complication, without long-term current use of insulin 09/26/2020 Shoulder arthritis 8 Overview: right and left shoulder rotator cuff Ankle disorder 05/23/2018 Overview: right fracture, dislocation(screws implanted) documented as of this encounter (statuses as of 11/29/2023) [facility] History of Past illness Narrative* Problem Noted Date Diagnosed Date Resolved Date Other psoriasis 07/09/2013 05/23/2018 Actinic Keratoses (Premalignant AK's) 08/31/2012 05/23/2018 Seborrheic Keratoses 08/31/2012 018 Xerosis cutis 08/31/2012 05/23/2018 Solar Lentigines 08/31/2012 05/23/2018 Actinic skin damage 08/31/2012 05/23/20 18 Scars 08/31/2012 05/23/2018 Actinic Damage///Sun-Damaged Skin 05/18/2011 04/29/2012 Seborrheic Keratoses 05/18/2011 012 Solar Lentigines 05/18/2011 04/29/2012 SEBORRHEIC DERMATITIS NOS 05/18/2011 Xerosis cutis 05/18/2011 04/29/2012 Other psoriasis 05/18/2011 04/29/2012 Unspecified pruritic disorder 05/18/2011 04/29/2012 Actinic Keratoses (Premalignant AK's) 05/16/2011 04/29/2012 Actinic Keratoses (Premalignant AK's) 03/29/2010 01/31/2011 Viral warts, unspecified 03/29/2010 Irritated//Inflamed Seborrheic Keratosis 03/29/2010 01/31/2011 Neurodermatitis 03/29/2010 01/31/2011 Eczematous dermatitis 03/29/20102010 Xerosis cutis 03/29/2010 01/31/2011 Actinic Damage///Sun-Damaged Skin 03/29/2010 01/31/2011 [place] ANGIOMAS//NEVUS, NON-NEOPLASTIC 04/29/2009 03/02/2010 Seborrheic dermatitis, unspecified 05/03/2008 03/02/2010 Unspecified pruritic disorder 05/03/2008 03/02/2010 Enthesopathy of unspecified site 09/23/2007 01/31/2011 Other psoriasis 12/17/2006 01/31/2011 Contact dermatitis and other eczema, due to unspecified cause 12/17/2006 03/02/2010 Unspecified cardiovascular disease 09/30/2006 05/23/2018 Overview: Was on Plavix x 14 months, stopped due to hemorrhage, ( nose bleed) Chest pain, unspecified 09/09/200602/18 Open wound(s) (multiple) of unspecified site(s), without mention of complication 08/29/2006 03/02/2010 Essential hypertension, benign 08/14/2006 11/21/2015 Other chronic 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 07/18/2006 03/02/2010 Neoplasm of uncertain behavior of skin 07/18/2006 03/02/2010 Scar condition and fibrosis of skin 07/18/2006 03/02/2010 Personal history of other ma lignant neoplasm of skin 07/18/2006 03/02/2010 Other seborrheic keratosis 07/18/2006 0 03/02/2010 SOLAR LENTGINES 07/18/2006 03/02/2010 Actinic Keratoses: Premalignant AK's 07/18/2006 03/02/2010 Type 2 diabetes mellitus wit hout complication, without long-term current use of insulin 09/26/2020 Shoulder arthritis 8 Overview: right and left shoulder rotator cuff Ankle disorder 05/23/2018 Overview: right fracture, dislocation(screws implanted) documented as of this encounter (statuses as of 12/20/2023) [facility] History of Past illness Narrative* Problem Noted Date Diagnosed Date Resolved Date Other psoriasis 07/09/2013 05/23/2018 Actinic Keratoses (Premalignant AK's) 08/31/2012 05/23/2018 Seborrheic Keratoses 08/31/2012 018 Xerosis cutis 08/31/2012 05/23/2018 Solar Lentigines 08/31/2012 05/23/2018 Actinic skin damage 08/31/2012 05/23/20 18 Scars 08/31/2012 05/23/2018 Actinic Damage///Sun-Damaged Skin 05/18/2011 04/29/2012 Seborrheic Keratoses 05/18/2011 012 Solar Lentigines 05/18/2011 04/29/2012 SEBORRHEIC DERMATITIS NOS 05/18/2011 Xerosis cutis 05/18/2011 04/29/2012 Other psoriasis 05/18/2011 04/29/2012 Unspecified pruritic disorder 05/18/2011 04/29/2012 Actinic Keratoses (Premalignant AK's) 05/16/2011 04/29/2012 Actinic Keratoses (Premalignant AK's) 03/29/2010 01/31/2011 Viral warts, unspecified 03/29/2010 Irritated//Inflamed Seborrheic Keratosis 03/29/2010 01/31/2011 Neurodermatitis 03/29/2010 01/31/2011 Eczematous dermatitis 03/29/20102010 Xerosis cutis 03/29/2010 01/31/2011 Actinic Damage///Sun-Damaged Skin 03/29/2010 01/31/2011 [place] ANGIOMAS//NEVUS, NON-NEOPLASTIC 04/29/2009 03/02/2010 Seborrheic dermatitis, unspecified 05/03/2008 03/02/2010 Unspecified pruritic disorder 05/03/2008 03/02/2010 Enthesopathy of unspecified site 09/23/2007 01/31/2011 Other psoriasis 12/17/2006 01/31/2011 Contact dermatitis and other eczema, due to unspecified cause 12/17/2006 03/02/2010 Unspecified cardiovascular disease 09/30/2006 05/23/2018 Overview: Was on Plavix x 14 months, stopped due to hemorrhage, ( nose bleed) Chest pain, unspecified 09/09/200602/18 Open wound(s) (multiple) of unspecified site(s), without mention of complication 08/29/2006 03/02/2010 Essential hypertension, benign 08/14/2006 11/21/2015 Malignant neoplasm of cerebral meninges 08/14/2006 12/26/2023 Other chronic 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 07/18/2006 03/02/2010 Neoplasm of uncertain behavior of skin 07/18/2006 03/02/2010 Scar condition and fibrosis of skin 07/18/2006 03/02/2010 Personal history of other ma lignant neoplasm of skin 07/18/2006 03/02/2010 Other seborrheic keratosis 07/18/2006 0 03/02/2010 SOLAR LENTGINES 07/18/2006 03/02/2010 Actinic Keratoses: Premalignant AK's 07/18/2006 03/02/2010 Type 2 diabetes mellitus wit hout complication, without long-term current use of insulin 09/26/2020 Shoulder arthritis 8 Overview: right and left shoulder rotator cuff Ankle disorder 05/23/2018 Overview: right fracture, dislocation(screws implanted) documented as of this encounter (statuses as of 12/26/2023) [facility] History of Past illness Narrative* Problem Noted Date Diagnosed Date Resolved Date Other psoriasis 07/09/2013 05/23/2018 Actinic Keratoses (Premalignant AK's) 08/31/2012 05/23/2018 Seborrheic Keratoses 08/31/2012 018 Xerosis cutis 08/31/2012 05/23/2018 Solar Lentigines 08/31/2012 05/23/2018 Actinic skin damage 08/31/2012 05/23/20 18 Scars 08/31/2012 05/23/2018 Actinic Damage///Sun-Damaged Skin 05/18/2011 04/29/2012 Seborrheic Keratoses 05/18/2011 012 Solar Lentigines 05/18/2011 04/29/2012 SEBORRHEIC DERMATITIS NOS 05/18/2011 Xerosis cutis 05/18/2011 04/29/2012 Other psoriasis 05/18/2011 04/29/2012 Unspecified pruritic disorder 05/18/2011 04/29/2012 Actinic Keratoses (Premalignant AK's) 05/16/2011 04/29/2012 Actinic Keratoses (Premalignant AK's) 03/29/2010 01/31/2011 Viral warts, unspecified 03/29/2010 Irritated//Inflamed Seborrheic Keratosis 03/29/2010 01/31/2011 Neurodermatitis 03/29/2010 01/31/2011 Eczematous dermatitis 03/29/20102010 Xerosis cutis 03/29/2010 01/31/2011 Actinic Damage///Sun-Damaged Skin 03/29/2010 01/31/2011 [place] ANGIOMAS//NEVUS, NON-NEOPLASTIC 04/29/2009 03/02/2010 Seborrheic dermatitis, unspecified 05/03/2008 03/02/2010 Unspecified pruritic disorder 05/03/2008 03/02/2010 Enthesopathy of unspecified site 09/23/2007 01/31/2011 Other psoriasis 12/17/2006 01/31/2011 Contact dermatitis and other eczema, due to unspecified cause 12/17/2006 03/02/2010 Unspecified cardiovascular disease 09/30/2006 05/23/2018 Overview: Was on Plavix x 14 months, stopped due to hemorrhage, ( nose bleed) Chest pain, unspecified 09/09/200602/18 Open wound(s) (multiple) of unspecified site(s), without mention of complication 08/29/2006 03/02/2010 Essential hypertension, benign 08/14/2006 11/21/2015 Malignant neoplasm of cerebral meninges 08/14/2006 12/26/2023 Other chronic 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 07/18/2006 03/02/2010 Neoplasm of uncertain behavior of skin 07/18/2006 03/02/2010 Scar condition and fibrosis of skin 07/18/2006 03/02/2010 Personal history of other ma lignant neoplasm of skin 07/18/2006 03/02/2010 Other seborrheic keratosis 07/18/2006 0 03/02/2010 SOLAR LENTGINES 07/18/2006 03/02/2010 Actinic Keratoses: Premalignant AK's 07/18/2006 03/02/2010 Type 2 diabetes mellitus wit hout complication, without long-term current use of insulin 09/26/2020 Shoulder arthritis 8 Overview: right and left shoulder rotator cuff Ankle disorder 05/23/2018 Overview: right fracture, dislocation(screws implanted) documented as of this encounter (statuses as of 01/08/2024) [facility]12-[facility]2006 Evaluation note* Diagnosis Onset Date Resolution Status Atherosclerotic heart diseas e of elem coronary artery without angina pectoris chronic Essential hypertension chron ic Presence of stent in coronary artery September, chronic Pure hypercholesterolemia [facility] Work Phone: Evaluation note* Diagnosis Hypertension, unspecified type- Primary [facility] Diagnosis Microscopic hematuria- Primary documented in this encounter [facility] note* Diagnosis Type 2 diabetes mellitus with diabetic neuropathy, without long-term current use of insulin (HCC)- Primary Esophageal dysphagia Dysphagia, pharyngoesophageal phase Type 2 diabetes mellitus without complication, without long-term current use of insulin (HCC) Hyperlipidemia, unspecified hyperlipidemia type Gout, unspecified cause, unspecified chronicity, unspecified site Hypertension, unspecified type 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) [facility]* Diagnosis 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 [facility] Diagnosis 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 [facility]* Diagnosis 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 [facility]* Diagnosis Well controlled type 2 diabetes mellitus with neurological manifestations (HCC)- Primary Type II or unspecified type diabetes mellitus with neurological manifestations, not stated as uncontrolled Onychomycosis Dermatophytosis of nail Pain in toe of left foot Pain in limb Pain in toe of right foot Pain in limb PAD (peripheral artery disease) (HCC) Peripheral vascular disease, unspecified [facility] Diagnosis Sore throat- Primary Acute pharyngitis Fatigue, unspecified type Suspected COVID-19 virus infection [facility]* Diagnosis Type 2 diabetes mellitus with hyperglycemia, without long-term current use of insulin (HCC)- Primary Coronary artery disease involving elem coronary artery of elem heart without angina pectoris Hyperlipidemia, unspecified hyperlipidemia type Hypertension, unspecified type Gastroesophageal reflux disease, unspecified whether esophagitis present Gout, unspecified cause, unspecified chronicity, unspecified site Osteoarthritis of both knees, unspecified osteoarthritis type documented in this encounter [facility] note* Diagnosis Right flank pain- Primary Abdominal pain, unspecified site [facility]* Diagnosis 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 [facility] Benign prostatic hyperplasia, unspecified whether lower urinary tract symptoms present- Primary documented in this encounter [facility] note* Diagnosis Type 2 diabetes mellitus with hyperglycemia, without long-term current use of insulin ([facility])- Primary Hypertension, unspecified type Hyperlipidemia, unspecified hyperlipidemia type Coronary artery disease involving elem coronary artery of elem heart without angina pectoris Gastroesophageal reflux disease, unspecified whether esophagitis present Kidney stones Calculus of kidney Vitamin D deficiency Unspecified vitamin D deficiency Follicular lymphoma, unspecified follicular lymphoma type, unspecified body region ([facility]) documented in this encounter [facility] note* Diagnosis Type 2 diabetes mellitus with diabetic neuropathy, without long-term current use of insulin ([facility]) documented in this encounter [facility] note* Diagnosis Well controlled type 2 diabetes mellitus with neurological manifestations ([facility])- Primary Type II or unspecified type diabetes mellitus with neurological manifestations, not stated as uncontrolled Hallux valgus of left foot Hallux valgus of right foot documented in this encounter [facility] note* Diagnosis Type 2 diabetes mellitus with diabetic neuropathy, without long-term current use of insulin ([facility])- Primary Hypertension, unspecified type Hyperlipidemia, unspecified hyperlipidemia type Coronary artery disease involving elem coronary artery of elem heart without angina pectoris Gastroesophageal reflux disease, unspecified whether esophagitis present Gout, unspecified cause, unspecified chronicity, unspecified site Follicular lymphoma, unspecified follicular lymphoma type, unspecified body region (HCC) Kidney stones Calculus of kidney Benign prostatic hyperplasia, unspecified whether lower urinary tract symptoms present Vitamin D deficiency Unspecified vitamin D deficiency PAD (peripheral artery disease) ([facility]) Peripheral vascular disease, unspecified 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 ([facility]) documented in this encounter [facility] note* Diagnosis Right flank pain Abdominal pain, unspecified site documented in this encounter [facility] note* Diagnosis Acute cough- Primary URI, acute Acute upper respiratory infections of unspecified site documented in this encounter [facility] note* Diagnosis Benign prostatic hyperplasia, unspecified whether lower urinary tract symptoms present- Primary documented in this encounter [facility] note* Diagnosis Type 2 diabetes mellitus without complication, without long-term current use of insulin ([facility])- Primary Hypertension, unspecified type Hyperlipidemia, unspecified hyperlipidemia type Coronary artery disease involving elem coronary artery of elem heart without angina pectoris Gastroesophageal reflux disease, unspecified whether esophagitis present Gout, unspecified cause, unspecified chronicity, unspecified site Kidney stones Calculus of kidney Follicular lymphoma, unspecified follicular lymphoma type, unspecified body region (HCC) Vitamin D deficiency Unspecified vitamin D deficiency Diarrhea, unspecified type Bruising Contusion of unspecified site Screening for prostate cancer Special screening for malignant neoplasm of prostate Benign prostatic hyperplasia, unspecified whether lower urinary tract symptoms present Type 2 diabetes mellitus with diabetic neuropathy, without long-term current use of insulin (HCC) PAD (peripheral artery disease) (HCC) Peripheral vascular disease, unspecified 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 ([facility]) documented in this encounter [facility] note* Diagnosis 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- Primary documented in this encounter [facility] note* Diagnosis 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 documented in this encounter [facility] note* Diagnosis Type 2 diabetes mellitus with diabetic neuropathy, without long-term current use of insulin ([facility]) documented in this encounter [facility] note* Diagnosis Well controlled type 2 diabetes mellitus with neurological manifestations ([facility])- Primary Type II or unspecified type diabetes mellitus with neurological manifestations, not stated as uncontrolled Diminished pulses in lower extremity Other symptoms involving cardiovascular system Hallux valgus of left foot Hallux valgus of right foot documented in this encounter [facility] note* Diagnosis Acute cough documented in this encounter [facility] note* Diagnosis Fatigue, unspecified type documented in this encounter [facility] note* Diagnosis Jaw pain documented in this encounter [facility] note* Diagnosis Stage 3 chronic kidney disease, unspecified whether stage 3a or 3b CKD- Primary 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 documented in this encounter [facility] note* Diagnosis Type 2 diabetes mellitus without complication, without long-term current use of insulin ([facility])- Primary Function kidney decreased Unspecified disorder of kidney and ureter [facility]* Diagnosis Type 2 diabetes mellitus with diabetic neuropathy, without long-term current use of insulin ([facility]) documented in this encounter [facility] note* Diagnosis Type 2 diabetes mellitus with diabetic neuropathy, without long-term current use of insulin (HCC)- Primary Hypertension, unspecified type Hyperlipidemia, unspecified hyperlipidemia type Coronary artery disease involving elem coronary artery of elem heart without angina pectoris Gastroesophageal reflux disease, unspecified whether esophagitis present Gout, unspecified cause, unspecified chronicity, unspecified site Vitamin D deficiency Unspecified vitamin D deficiency Kidney stones Calculus of kidney Follicular lymphoma, unspecified follicular lymphoma type, unspecified body region (HCC) [facility] 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- Primary [facility] Diagnosis 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- Primary Hyperlipidemia, unspecified hyperlipidemia type Hypertension, unspecified type Mixed hyperlipidemia Type 2 diabetes mellitus with diabetic peripheral angiopathy without gangrene, without long-term current use of insulin (HCC) Gout, unspecified cause, unspecified chronicity, unspecified site Vitamin D deficiency Unspecified vitamin D deficiency documented in this encounter [facility] for referral (narrative)* Diagnostic Procedure Only (Urgent) - Closed Specialty Diagnoses / Procedures Referred By Contac t Referred To Contact US IMAGING Diagnoses Right flank pain Procedures US KIDNEY/BLADDER US RETROPERITONEAL REAL TIME W/IMAGE COMPLETE Genie Moore APRN.[employer] [address] [place] [address] Us Imaging Referral ID Status Reason Start Date Expiration Date V isits Requested Visits Authorized [id number] Closed Auto-Generate d Referral 10/24/2022 11/23/2023 1 1 [facility] for referral (narrative)* Diagnostic Procedure Only (Urgent) - Closed Specialty Diagnoses / Procedures Referred By Contac t Referred To Contact US IMAGING Diagnoses Right flank pain Procedures US KIDNEY/BLADDER US RETROPERITONEAL REAL TIME W/IMAGE COMPLETE Genie Moore APRN.CNP [address] [place] [address] [place] [address] Referral ID Status Reason Start Date Expiration Date V isits Requested Visits Authorized [id number] Closed Auto-Generate d Referral 10/24/2022 11/23/2023 1 1 [facility] for referral (narrative)* Outpatient Procedure (Routine) - Authorized Specialty Diagnoses / Procedures Referred By Joyce farr Referred To Contact [facility] [place] Diagnoses Well controlled type 2 diabetes mellitus with neurological manifestations (HCC) Diminished pulses in lower extremity Hallux valgus of left foot Hallux valgus of right foot Procedures PVR ANK PRESS DARIO [facility] NON-INVAS PHYSIOLOGIC STD EXTREMITY ART 2 LEVEL Shweta Morel [address] [place] [address] [facility] [address] [place] [address] Referral ID Status Reason Start Date Expiration Date Visits Requested Visits Authorized [id number] Authorized Auto-Generat ed Referral 06/18/2024 06/18/2025 1 1 [facility] for referral (narrative)* Consultation (Routine) - New Request Specialty Diagnoses / Procedures Referred By Joyce farr Referred To Contact Diagnoses Stage 3 chronic kidney disease, unspecified whether stage 3a or 3b CKD Kim Lyman APRN-CNP [address] [place] [address] Referral ID Status Reason Start Date Expiration Date V isits Requested Visits Authorized [id number] New Request 08/07/2024 09/01/2025 1 1 * MRI/CAT Scan (Routine) - New Request Specialty Diagnoses / Procedures Referred By Joyce farr Referred To Contact Diagnoses 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 Procedures CT ABDOMEN/PELVIS WITH CONTRAST CHG CT ABDOMEN & PELVIS W/CONTRAST MATERIAL Kim Lyman APRN-CNP [address] [place] [address] Referral ID Status Reason Start Date Expiration Date V isits Requested Visits Authorized [id number] New Request 08/07/2024 09/01/2025 1 1 * MRI/CAT Scan (Routine) - New Request Specialty Diagnoses / Procedures Referred By Joyce farr Referred To Contact Diagnoses 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 Procedures CT CHEST WITH CONTRAST CHG DIAGNOSTIC COMPUTED TOMOGRAPHY THORAX W/CONTRAST iKm Lyman APRN-CNP [address] [place] [address] Referral ID Status Reason Start Date Expiration Date V isits Requested Visits Authorized [id number] New Request 08/07/2024 09/01/2025 1 1 [facility] for visit Narrative* MRI/CAT Scan (Routine) - New Request Specialty Diagnoses / Procedures Referred By Joyce farr Referred To Contact Diagnoses 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 Procedures CT ABDOMEN/PELVIS WITHOUT CONTRAST CHG CT ABDOMEN & PELVIS W/O CONTRAST MATERIAL Kim Lyman APRN-CNP [address] [place] [address] Phone: tel: fax: Referral ID Status Reason Start Date Expiration Date V isits Requested Visits Authorized [id number] New Request 08/07/2024 09/01/2025 1 1 [facility] for visit Narrative* MRI/CAT Scan (Routine) - New Request Specialty Diagnoses / Procedures Referred By Joyce farr Referred To Contact Diagnoses 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 Procedures CT CHEST WITHOUT CONTRAST CHG DIAGNOSTIC COMPUTED TOMOGRAPHY THORAX W/O CNTRST Kim Lyman APRN-[employer] INST[employer]ER [address] [place] [address] Phone: tel: fax: Referral ID Status Reason Start Date Expiration Date V isits Requested Visits Authorized [id number] New Request 08/07/2024 09/01/2025 1 1 [facility] Summary Purpose Family History No Family History Records Found Relationship Condition Age at Onset Recorded Date/T julissa father Cardiac disease Unknown mother Diabetes mellitus Unknown grandmother Cardiac disease Unknown grandfather Cerebrovascular accident (CVA) Unknown sister Hypertension Unknown Diabetes mellitus Unknown Advance Directives No Advanced Directives Records Found Advance Directive Response Recorded Date/ Time Living Will No January 23, 2022 5:20pm Power of Research Scholar No January 23 5:20pm Documents on File Type Date Recorded Patient Book Canvasser Expl anation Advance Directive(s) 02/02/2019 7:58 AM Documents on File Type Date Recorded Patient Book Canvasser Expl anation Advance Directive(s) 02/02/2019 7:58 AM Documents on File Type Date Recorded Patient Book Canvasser Expl anation HealthCare Power of Research Scholar 03/29/2015 12:00 AM Latest Code Status on File Code Status Date Activated Date Inactivated Comments Full Code-Unverified 11/14/2015 12:22 PM 11/15/2015 3:41 PM Documents on File Type Date Recorded Patient Book Canvasser Expl anation HealthCare Power of Research Scholar 03/29/2015 12:00 AM Latest Code Status on File Code Status Date Activated Date Inactivated Comments Full Code-Unverified 11/14/2015 12:22 PM 11/15/2015 3:41 PM Latest Code Status on File Code Status Date Activated Date Inactivated Comments Full Code-Unverified 11/14/2015 12:22 PM 11/15/2015 3:41 PM Latest Code Status on File Code Status Date Activated Date Inactivated Comments Full Code-Unverified 11/14/2015 12:22 PM 11/15/2015 3:41 PM Date Activated Date Inactivated Comments 11/14/2015 12:22 PM 11/15/2015 3:41 PM Date Activated Date Inactivated Comments 11/14/2015 12:22 PM 11/15/2015 3:41 PM Chief Complaint and Reason for Visit Chief Complaint 3 M FU Reason for Visit 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 Essential hypertension Presence of stent in coronary artery Pure hypercholesterolemia Reason for Referral Specialty Diagnoses / Procedures Referred By Joyce farr Referred To Contact Urology Diagnoses Microscopic hematuria Procedures CONSULT TO UROLOGY OFFICE/OUTPATIENT NEW HIGH MDM 60-74 MINUTES Genie Moore, EVENTS SOLUTIONS CONSULTANT.[employer] [address] [place] [address] Referral ID Status Reason Start Date Expiration Date Visits Requested Visits Authorized [id number] Authorized PCP Requested Referral 01/26/2022 01/26/2023 1 1 Specialty Diagnoses / Procedures Referred By Joyce farr Referred To Contact Diagnoses 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 Procedures CT CHEST WITHOUT CONTRAST CT CHEST WITH CONTRAST CHG DIAGNOSTIC COMPUTED TOMOGRAPHY THORAX W/CONTRAST CHG DIAGNOSTIC COMPUTED TOMOGRAPHY THORAX W/O CNTRST Kim Lyman EVENTS SOLUTIONS CONSULTANT-[employer] SPRINK[employer]ER INSTALLER [address] [place] [id number] Referral ID Status Reason Start Date Expiration Date V isits Requested Visits Authorized [id number] New Request 09/08/2021 10/03/2022 1 1 Specialty Diagnoses / Procedures Referred By Contac t Referred To Contact Diagnoses 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 Procedures CT ABDOMEN/PELVIS WITHOUT CONTRAST CT ABDOMEN/PELVIS WITH CONTRAST CHG CT SCAN,ABDOMENT AND PELVIS,W CONTRAST CHG CT SCAN,ABDOMENT AND PELVIS,W/O CONTRAST Kim Lyman EVENTS SOLUTIONS CONSULTANT-[employer] SPRINKL[employer] INSTALLER [address] [place] [address] Referral ID Status Reason Start Date Expiration Date V isits Requested Visits Authorized [id number] New Request 09/08/2021 10/03/2022 1 1 Specialty Diagnoses / Procedures Referred By Contac t Referred To Contact Diagnoses 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 Procedures CT ABDOMEN/PELVIS WITH CONTRAST CHG CT SCAN,ABDOMENT AND PELVIS,W CONTRAST Kim Lyman, EVENTS SOLUTIONS CONSULTANT-[employer] SPRINK[employer] INST[employer]ER [address] [place] [id number] Referral ID Status Reason Start Date Expiration Date V isits Requested Visits Authorized [id number] New Request 01/25/2023 02/19/2024 1 1 Specialty Diagnoses / Procedures Referred By Contac t Referred To Contact Diagnoses 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 Procedures CT CHEST WITH CONTRAST CHG DIAGNOSTIC COMPUTED TOMOGRAPHY THORAX W/CONTRAST Kim Lyman, EVENTS SOLUTIONS CONSULTANT-[employer] SPRINK[employer] INSTALLER [address] [place] [address] Referral ID Status Reason Start Date Expiration Date V isits Requested Visits Authorized [id number] New Request 01/25/2023 02/19/2024 1 1 Specialty Diagnoses / Procedures Referred By Contac t Referred To Contact Nephrology Diagnoses Function kidney decreased Procedures CONSULT TO NEPHROLOGY OFFICE/OUTPATIENT NEW HIGH MDM 60 MINUTES Genie Moore APRN.[employer] INST[employer]ER [address] [place] [address] Referral ID Status Reason Start Date Expiration Date Visits Requested Visits Authorized [id number] Authorized PCP Requested Referral 08/12/2025 1 1 Health Concerns Infection Onset Date Last Indicated Resolved Time COVID-19 Rule-Out 05/11/2022 05/11/2022 Infection Onset Date Last Indicated Resolved Time COVID-19 Rule-Out 11/21/2023 11/21/2023 11/21/2023 7:03 PM EST Infection Onset Date Last Indicated Resolved Time COVID-19 Rule-Out 11/21/2023 11/21/2023 11/21/2023 7:03 PM EST COVID-19 Confirmed 11/21/2023 11/21/2023 Infection Onset Date Last Indicated Resolved Time COVID-19 Confirmed 11/21/2023 11/21/2023 Additional Source Comments (unrecognized sect ion and content) No Status Records FoundNo Status Records FoundNo Status Records FoundNo Status Records FoundNo Status Records Found INFORMATION SOURCE (unrecogn ized section and content) DATE CREATED AUTHOR 10/23/2019 [facility] ([place]) DATE CREATED AUTHOR AUTHOR'S ORGANIZ ATION 11/03/2024 [facility] DATE CREATED AUTHOR AUTHOR'S ORGANIZ ATION 02/12/2025 [facility] DATE CREATED AUTHOR AUTHOR'S ORGANIZ ATION 02/26/2025 [facility] DATE CREATED AUTHOR AUTHOR'S ORGANIZ ATION 03/19/2025 [facility] Goals (unrecognized section and content) Goals may be documented in a n alternate section Source Comments (unrecognize d section and content) In the event this informatio n is protected by the Federal Confidentiality of Alcohol and Drug Abuse Patient Records regulations: The Federal rules restrict any use of the information to criminally investigate or prosecute any alcohol or drug abuse patient.[facility] the event this information is protected by the Federal Confidentiality of Alcohol and Drug Abuse Patient Records regulations: The Federal rules restrict any use of the information to criminally investigate or prosecute any alcohol or drug abuse patient.[facility] HospitalIn the event this information is protected by the Federal Confidentiality of Alcohol and Drug Abuse Patient Records regulations: The Federal rules restrict any use of the information to criminally investigate or prosecute any alcohol or drug abuse patient.[facility] the event this information is protected by the Federal Confidentiality of Alcohol and Drug Abuse Patient Records regulations: The Federal rules restrict any use of the information to criminally investigate or prosecute any alcohol or drug abuse patient.[facility] HospitalIn the event this information is protected by the Federal Confidentiality of Alcohol and Drug Abuse Patient Records regulations: The Federal rules restrict any use of the information to criminally investigate or prosecute any alcohol or drug abuse patient.[facility] HospitalIn the event this information is protected by the Federal Confidentiality of Alcohol and Drug Abuse Patient Records regulations: The Federal rules restrict any use of the information to criminally investigate or prosecute any alcohol or drug abuse patient.[facility] HospitalIn the event this information is protected by the Federal Confidentiality of Alcohol and Drug Abuse Patient Records regulations: The Federal rules restrict any use of the information to criminally investigate or prosecute any alcohol or drug abuse patient.[facility] HospitalIn the event this information is protected by the Federal Confidentiality of Alcohol and Drug Abuse Patient Records regulations: The Federal rules restrict any use of the information to criminally investigate or prosecute any alcohol or drug abuse patient.[facility] HospitalIn the event this information is protected by the Federal Confidentiality of Alcohol and Drug Abuse Patient Records regulations: The Federal rules restrict any use of the information to criminally investigate or prosecute any alcohol or drug abuse patient.[facility] HospitalIn the event this information is protected by the Federal Confidentiality of Alcohol and Drug Abuse Patient Records regulations: The Federal rules restrict any use of the information to criminally investigate or prosecute any alcohol or drug abuse patient.[facility] HospitalIn the event this information is protected by the Federal Confidentiality of Alcohol and Drug Abuse Patient Records regulations: The Federal rules restrict any use of the information to criminally investigate or prosecute any alcohol or drug abuse patient.[facility] HospitalIn the event this information is protected by the Federal Confidentiality of Alcohol and Drug Abuse Patient Records regulations: The Federal rules restrict any use of the information to criminally investigate or prosecute any alcohol or drug abuse patient.[facility] HospitalIn the event this information is protected by the Federal Confidentiality of Alcohol and Drug Abuse Patient Records regulations: The Federal rules restrict any use of the information to criminally investigate or prosecute any alcohol or drug abuse patient.[facility] HospitalIn the event this information is protected by the Federal Confidentiality of Alcohol and Drug Abuse Patient Records regulations: The Federal rules restrict any use of the information to criminally investigate or prosecute any alcohol or drug abuse patient.[facility] HospitalIn the event this information is protected by the Federal Confidentiality of Alcohol and Drug Abuse Patient Records regulations: The Federal rules restrict any use of the information to criminally investigate or prosecute any alcohol or drug abuse patient.[facility] HospitalIn the event this information is protected by the Federal Confidentiality of Alcohol and Drug Abuse Patient Records regulations: The Federal rules restrict any use of the information to criminally investigate or prosecute any alcohol or drug abuse patient.[facility] HospitalIn the event this information is protected by the Federal Confidentiality of Alcohol and Drug Abuse Patient Records regulations: The Federal rules restrict any use of the information to criminally investigate or prosecute any alcohol or drug abuse patient.[facility] HospitalIn the event this information is protected by the Federal Confidentiality of Alcohol and Drug Abuse Patient Records regulations: The Federal rules restrict any use of the information to criminally investigate or prosecute any alcohol or drug abuse patient.[facility] HospitalIn the event this information is protected by the Federal Confidentiality of Alcohol and Drug Abuse Patient Records regulations: The Federal rules restrict any use of the information to criminally investigate or prosecute any alcohol or drug abuse patient.[facility] HospitalIn the event this information is protected by the Federal Confidentiality of Alcohol and Drug Abuse Patient Records regulations: The Federal rules restrict any use of the information to criminally investigate or prosecute any alcohol or drug abuse patient.[facility] HospitalIn the event this information is protected by the Federal Confidentiality of Alcohol and Drug Abuse Patient Records regulations: The Federal rules restrict any use of the information to criminally investigate or prosecute any alcohol or drug abuse patient.[facility] HospitalIn the event this information is protected by the Federal Confidentiality of Alcohol and Drug Abuse Patient Records regulations: The Federal rules restrict any use of the information to criminally investigate or prosecute any alcohol or drug abuse patient.[facility] HospitalIn the event this information is protected by the Federal Confidentiality of Alcohol and Drug Abuse Patient Records regulations: The Federal rules restrict any use of the information to criminally investigate or prosecute any alcohol or drug abuse patient.[facility] HospitalIn the event this information is protected by the Federal Confidentiality of Alcohol and Drug Abuse Patient Records regulations: The Federal rules restrict any use of the information to criminally investigate or prosecute any alcohol or drug abuse patient.[facility] HospitalIn the event this information is protected by the Federal Confidentiality of Alcohol and Drug Abuse Patient Records regulations: The Federal rules restrict any use of the information to criminally investigate or prosecute any alcohol or drug abuse patient.[facility] HospitalIn the event this information is protected by the Federal Confidentiality of Alcohol and Drug Abuse Patient Records regulations: The Federal rules restrict any use of the information to criminally investigate or prosecute any alcohol or drug abuse patient.[facility] HospitalIn the event this information is protected by the Federal Confidentiality of Alcohol and Drug Abuse Patient Records regulations: The Federal rules restrict any use of the information to criminally investigate or prosecute any alcohol or drug abuse patient.[facility] HospitalIn the event this information is protected by the Federal Confidentiality of Alcohol and Drug Abuse Patient Records regulations: The Federal rules restrict any use of the information to criminally investigate or prosecute any alcohol or drug abuse patient.[facility] HospitalIn the event this information is protected by the Federal Confidentiality of Alcohol and Drug Abuse Patient Records regulations: The Federal rules restrict any use of the information to criminally investigate or prosecute any alcohol or drug abuse patient.[facility] HospitalIn the event this information is protected by the Federal Confidentiality of Alcohol and Drug Abuse Patient Records regulations: The Federal rules restrict any use of the information to criminally investigate or prosecute any alcohol or drug abuse patient.[facility] HospitalIn the event this information is protected by the Federal Confidentiality of Alcohol and Drug Abuse Patient Records regulations: The Federal rules restrict any use of the information to criminally investigate or prosecute any alcohol or drug abuse patient.[facility] HospitalIn the event this information is protected by the Federal Confidentiality of Alcohol and Drug Abuse Patient Records regulations: The Federal rules restrict any use of the information to criminally investigate or prosecute any alcohol or drug abuse patient.[facility] HospitalIn the event this information is protected by the [facility] [place][Note 2] Confidentiality of Alcohol and Drug Abuse Patient Records regulations: The Federal rules restrict any use of the information to criminally investigate or prosecute any alcohol or drug abuse patient.[facility] HospitalIn the event this information is protected by the Federal Confidentiality of Alcohol and Drug Abuse Patient Records regulations: The Federal rules restrict any use of the information to criminally investigate or prosecute any alcohol or drug abuse patient.[facility] Care Teams (unrecognized sec tion and content) Insurance Plan Specialist Relationship Specialty Start Date End Date Alisha Gee MD [address] [place], [place] [id number] PCP - General Family Practice 01/03/16 Insurance Plan Specialist Relationship Specialty Start Date End Date Alisha Gee MD [address] [place], [place] [id number] PCP - General Family Practice 01/03/16 Insurance Plan Specialist Relationship Specialty Start Date End Date Alisha Gee MD [address] [place], [place] [id number] PCP - General Family Practice 01/03/16 Insurance Plan Specialist Relationship Specialty Start Date End Date Alisha Gee MD [address] [place] [phone] PCP - General Family Medicine 09/04/18 Cindy Miller, RN Registered Nurse 11/14/15 Suzanna Broussard MD [address] [place] [address] Hematology 11/17/15 Insurance Plan Specialist Relationship Specialty Start Date End Date Alisha Gee MD [address] [place] [phone] PCP - General Family Medicine 09/04/18 Cindy Miller, RN Registered Nurse 11/14/15 Suzanna Broussard MD [address] [place] [address] Hematology 11/17/15 Insurance Plan Specialist Relationship Specialty Start Date End Date Alisha Gee MD [address] [place] [phone] PCP - General Family Medicine 09/04/18 Cindy Miller, RN Registered Nurse 11/14/15 Suzanna Broussard MD [address] [place] [address] Hematology 11/17/15 Insurance Plan Specialist Relationship Specialty Start Date End Date Alisha Gee MD [address] [place], [place] [phone] PCP - General Family Practice 01/03/16 Insurance Plan Specialist Relationship Specialty Start Date End Date Alisha Gee MD [address] [place], [place] [id number] PCP - General Family Practice 01/03/16 Insurance Plan Specialist Relationship Specialty Start Date End Date Alisha Gee MD [address] [facility] [address] PCP - General Family Practice 01/03/16 Insurance Plan Specialist Relationship Specialty Start Date End Date Alisha Gee MD [address] [facility] [address] PCP - General Family Practice 01/03/16 Insurance Plan Specialist Relationship Specialty Start Date End Date Alisha Gee MD [address] [facility] [address] PCP - General Family Medicine 01/03/16 Insurance Plan Specialist Relationship Specialty Start Date End Date Alisha Gee MD [address] [facility] [address] PCP - General Family Medicine 01/03/16 Insurance Plan Specialist Relationship Specialty Start Date End Date Alisha Gee MD [address] [place] [phone] PCP - General Family Medicine 09/04/18 Cindy Miller, RN Registered Nurse 11/14/15 Suzanna Broussard MD [address] [place] [address] Hematology 11/17/15 Insurance Plan Specialist Relationship Specialty Start Date End Date Alisha Gee MD [address] [facility] [place] [address] PCP - General Family Medicine 01/03/16 Insurance Plan Specialist Relationship Specialty Start Date End Date Alisha Gee MD [address] [facility] [address] PCP - General Family Medicine 01/03/16 Insurance Plan Specialist Relationship Specialty Start Date End Date Alisha Gee MD [address] [facility] [address] PCP - General Family Medicine 01/03/16 Insurance Plan Specialist Relationship Specialty Start Date End Date Alisha Gee MD [address] [place] [address] PCP - General Family Medicine 01/03/16 Insurance Plan Specialist Relationship Specialty Start Date End Date Alisha Gee MD [address] [place] [address] PCP - General Family Medicine 01/03/16 Insurance Plan Specialist Relationship Specialty Start Date End Date Alisha Gee MD [address] [place] [phone] PCP - General Family Medicine 09/04/18 Cindy Miller, RN Registered Nurse 11/14/15 Suzanna Broussard MD [address] [place] [phone] Hematology 11/17/15 Insurance Plan Specialist Relationship Specialty Start Date End Date Alisha Gee MD [address] [place] [address] PCP - General Family Medicine 01/03/16 Insurance Plan Specialist Relationship Specialty Start Date End Date Alisha Gee MD [address] [place] [address] PCP - General Family Medicine 01/03/16 Insurance Plan Specialist Relationship Specialty Start Date End Date Alisha Gee MD [address] [place] [address] PCP - General Family Medicine 01/03/16 Insurance Plan Specialist Relationship Specialty Start Date End Date Alisha Gee MD [address] [place] [address] PCP - General Family Medicine 01/03/16 Insurance Plan Specialist Relationship Specialty Start Date End Date Alisha Gee MD [address] [place] [address] PCP - General Family Medicine 01/03/16 Insurance Plan Specialist Relationship Specialty Start Date End Date Alisha Gee MD [address] [place] [address] PCP - General Family Medicine 01/03/16 Insurance Plan Specialist Relationship Specialty Start Date End Date Alisha Gee MD [address] [place] [phone] PCP - General Family Medicine 09/04/18 Cindy Miller, RN Registered Nurse 11/14/15 Suzanna Broussard MD [address] [place] [address] Hematology 11/17/15 Insurance Plan Specialist Relationship Specialty Start Date End Date Alisha Gee MD [address] [place] [phone] PCP - General Family Medicine 09/04/18 Cindy Miller, RN Registered Nurse 11/14/15 Suzanna Broussard MD [address] [place] [address] Hematology 11/17/15 Insurance Plan Specialist Relationship Specialty Start Date End Date Alisha Gee MD [address] [place] [phone] PCP - General Family Medicine 09/04/18 Cindy Miller, RN Registered Nurse 11/14/15 Suzanna Broussard MD [address] [place] [address] Hematology 11/17/15 Insurance Plan Specialist Relationship Specialty Start Date End Date Alisha Gee MD [address] [place] [address] PCP - General Family Medicine 01/03/16 Insurance Plan Specialist Relationship Specialty Start Date End Date Alisha Gee MD [address] [place] [address] PCP - General Family Medicine 01/03/16 Insurance Plan Specialist Relationship Specialty Start Date End Date Alisha Gee MD [address] [place], [place] [id number] [phone] PCP - General Family Medicine 01/03/16 Insurance Plan Specialist Relationship Specialty Start Date End Date Alisha Gee MD [address] [place] [address] PCP - General Family Medicine 01/03/16 Insurance Plan Specialist Relationship Specialty Start Date End Date Alisha Gee MD [address] [place] [address] PCP - General Family Medicine 01/03/16 Insurance Plan Specialist Relationship Specialty Start Date End Date Alisha Gee MD [address] [place] [phone] PCP - General Family Medicine 09/04/18 Cindy Miller, RN Registered Nurse 11/14/15 Suzanna Broussard MD [address] [place] [address] Hematology 11/17/15 Mana Avelar, motorman/woman 08/07/24 Insurance Plan Specialist Relationship Specialty Start Date End Date Alisha Gee MD [address] [place] [address] PCP - General Family Medicine 01/03/16 Insurance Plan Specialist Relationship Specialty Start Date End Date Alisha Gee MD [address] [place] [address] PCP - General Family Medicine 01/03/16 Kim Lyman [employer]ER INST[employer]ER [address] [place] [address] Referring 09/24/24 Insurance Plan Specialist Relationship Specialty Start Date End Date Alisha Gee MD [address] [place] [address] PCP - General Family Medicine 01/03/16 Kim Lyman [employer] INST[employer]ER [address] [place] [address] Referring 09/24/24 Genie Moore APRN.[employer]ER INSTALLER [address] [place] [address] Roofing Applicator Family Medicine 09/27/24 Collin Monroy APRN.[employer]ER INSTALLER [address] [place] [address] Roofing Applicator Family Medicine 10/06/24 Insurance Plan Specialist Relationship Specialty Start Date End Date Alisha Gee MD [address] [place] [address] PCP - General Family Medicine 09/04/18 Cindy Miller, RN Registered Nurse 11/14/15 Suzanna Broussard MD [address] [place] [address] Hematology 11/17/15 Insurance Plan Specialist Relationship Specialty Start Date End Date Alisha Gee MD [address] [place] [phone] PCP - General Family Medicine 09/04/18 Cindy Miller, RN Registered Nurse 11/14/15 Suzanna Broussard MD [address] [place] [phone] Hematology 11/17/15 Insurance Plan Specialist Relationship Specialty Start Date End Date Alisha Gee MD [address] [place] [address] PCP - General Family Medicine 01/03/16 Kim Lyman [employer] INST[employer]ER [address] [place] [address] Referring 09/24/24 Genie Moore APRN.[employer] SPRINK[employer]ER INSTALLER [address] [place] [address] Roofing Applicator Family Medicine 09/27/24 Collin Monroy APRN.FI[employer] SPRINKLER INSTALLER [address] [place] [address] Roofing Applicator Family Medicine 10/06/24 Reason for Visit (unrecogniz ed section and content) Reason Comments Results Reason Comments Recheck Reason Comments Follow-up Specialty Diagnoses / Procedures Referred By Contac t Referred To Contact Diagnoses 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 Procedures CT CHEST WITHOUT CONTRAST CT CHEST WITH CONTRAST CHG DIAGNOSTIC COMPUTED TOMOGRAPHY THORAX W/CONTRAST CHG DIAGNOSTIC COMPUTED TOMOGRAPHY THORAX W/O CNTRST Kim Lyman, EVENTS SOLUTIONS CONSULTANT-[employer]RE SPRINK[employer]ER INSTALLER [address] [place], [place] [id number] Referral ID Status Reason Start Date Expiration Date V isits Requested Visits Authorized [id number] New Request 09/08/2021 10/03/2022 1 1 Specialty Diagnoses / Procedures Referred By Contac t Referred To Contact Diagnoses 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 Procedures CT ABDOMEN/PELVIS WITHOUT CONTRAST CT ABDOMEN/PELVIS WITH CONTRAST CHG CT SCAN,ABDOMENT AND PELVIS,W CONTRAST CHG CT SCAN,ABDOMENT AND PELVIS,W/O CONTRAST Kim Lyman, EV[employer] SOLUTIONS CONSULTANT-[employer] SPRINKLER INSTALLER [address] [place], [place] [id number] Referral ID Status Reason Start Date Expiration Date V isits Requested Visits Authorized [id number] New Request 09/08/2021 10/03/2022 1 1 Reason Comments Established Patient Diabetic Foot Exam Reason Comments Sore Throat fatigue, runny nose x5 days Reason Comments Forms Reason Comments Forms DM Supplies-A1 Pharm acy Reason Comments F/U 3 Month Reason Comments Acute Visit Right flank pain Reason Comments Follow-up Reason Comments Orders Reason Onset Date Comments Refill Request 03/26/2023 Reason Comments Established Patient Follow Up Specialty Diagnoses / Procedures Referred By Contac t Referred To Contact Diagnoses 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 Procedures CT ABDOMEN/PELVIS WITH CONTRAST CHG CT SCAN,ABDOMENT AND PELVIS,W CONTRAST Kim Lyman, EVENTS SOLUTIONS CONSULTANT-[employer] SPRINK[employer]ER INSTALLER [address] [place] [id number] Referral ID Status Reason Start Date Expiration Date V isits Requested Visits Authorized [id number] New Request 01/25/2023 02/19/2024 1 1 Reason Comments Radiology US Specialty Diagnoses / Procedures Referred By Contac t Referred To Contact US IMAGING Diagnoses Right flank pain Procedures US KIDNEY/BLADDER US RETROPERITONEAL REAL TIME W/IMAGE COMPLETE Genie Moore, EVENTS SOLUTIONS CONSULTANT.[employer]INKLER INSTALLER [address] [place] [address] [place] [address] Referral ID Status Reason Start Date Expiration Date V isits Requested Visits Authorized [id number] Closed Auto-Generate d Referral 10/24/2022 11/23/2023 1 1 Reason Comments Fever Body aches, chills, stuffy nose, cough, chills, sore throat,drainage clear x 2 daysCovid + at home Reason Comments Orders Results Reason Comments Forms A1 Pharmacy re: DM s upplies Reason Comments Lab Orders Reason Comments F/U 6 Month Reason Comments [facility] Referral ID Status Reason Start Date Expiration Date V isits Requested Visits Authorized [id number] New Request 01/25/2023 02/19/2024 1 1 Reason Onset Date Comments Refill Request 03/24/2024 Reason Comments Established Patient Follow Up Diabetic Foot Check Reason Comments Letter For diabetic shoes Reason Comments Radiology XR Reason Comments Follow-up Reason Comments Acute Visit kidney issues Reason Comments Results Labs Reason Onset Date Comments Refill Request 09/24/2024 Reason Comments Follow Up 3 month follow up FOR RECORDS PERTAINING TO PATIENTS WHO ARE OR HAVE BEEN ENROLLED IN A CHEMICAL DEPENDENCY/SUBSTANCEABUSE PROGRAM, SOME INFORMATION MAY BE OMITTED. This clinical summary was aggregated from multiple sources. Caution should be exercised in using it in the provision of clinical care. This summary normalizes information from multiple sources, and as a consequence, information in this document may materially change the coding, format and clinical context of patient data. In addition, data may be omitted in some cases. CLINICAL DECISIONS SHOULD BE BASED ON THE PRIMARY CLINICAL RECORDS. [employer] provides no warranty or guarantee of the accuracy or completeness of information in this document.
[2025-04-18] MEDS: Diphth,Pertuss(Acell),Tet Vac 0.5 ML Vial IM (17:31)
[2025-04-18] MEDS: Clindamycin 600 MG/50 ML BAG 100 MG IV (17:31)
--- NOTE | 2025-04-18 17:36 | CM.ED ---
Social Work Date of referral: 04/18/25 Reason for referral: Advanced Care Directives (ACD's) not on file Referred by: Social Work Identification Patient provided consent to social work visit. At patient's bedside was his . Continuity Writer requested a copy of ACD's during next visit or when out and about in the community which patient agreed to do. Leonor Mariscal, INSURANCE SALESMAN, SHIPPER/RECEIVER
--- NOTE | 2025-04-18 18:12 | RAD_ITS ---
PROCEDURE: SHOULDER MIN 2 VIEWS 04/18/2025 REASON FOR EXAM: INJURY/PAIN TECHNIQUE: SHOULDER MIN 2 VIEWS COMPARISON: None FINDINGS: Surgical anchors in the humeral head. No displaced fracture. High-riding humeral head. There are calcifications at the acromioclavicular joint which are likely degenerative. Joint space narrowing and osteophyte formation at the acromioclavicular and glenohumeral joints. Visualized lung is clear. RAD/Shoulder min 2 Views IMPRESSION: 1. No displaced fracture. 2. High-riding humeral head, suggestive of rotator cuff pathology. 3. Degenerative changes of the acromioclavicular and glenohumeral joints. Reading Location: [facility]
[2025-04-18 19:00] VITALS: BP 147/66; PULSE 61; RESP 18; O2SAT 100
[2025-04-18] MEDS: Lidocaine 1% (20 ml mdv) 20 ML Vial INFILT (19:08)
--- NOTE | 2025-04-18 20:10 | RAD_ITS ---
PROCEDURE: FINGER(S) MIN 2 VIEWS 04/18/2025 REASON FOR EXAM: INJURY/PAIN TECHNIQUE: FINGER(S) MIN 2 VIEWS COMPARISON: Earlier same-day left 4th finger radiographs FINDINGS: See below. RAD/Finger(s) Min 2 Views IMPRESSION: Interval relocation of the left 4th finger, now with appropriate alignment at t he proximal interphalangeal joint. No displaced fracture. Unchanged punctate radiodensity in the fingertip soft tissues, which could agai n represent a radiopaque foreign body. Reading Location: [facility]
[2025-04-18 20:32] VITALS: BP 147/66; PULSE 61; RESP 18; TEMP 37.1; O2SAT 100
== END 2025-04-18 20:33 | disposition home or self-care (01) ==
PROVIDERS: Emergency Provider Emergency Medicine; PCP Family Medicine; Referring Provider Emergency Medicine; Visit Provider Emergency Medicine
DX: S63.285A Dislocation of proximal interphalangeal joint of left ring finger, initial encounter (principal); E11.9 Type 2 diabetes mellitus without complications; I25.10 Atherosclerotic heart disease of native coronary artery without angina pectoris; I10 Essential (primary) hypertension; W19.XXXA Unspecified fall, initial encounter; Z95.5 Presence of coronary angioplasty implant and graft
CPT/HCPCS: 73030; 73140; 90715; 96365; 99284; A4216

== ENCOUNTER → 2025-06-10 | Outpatient (CLI) | payer MEDICARE, OTHER, SELFPAY ==
[2025-06-10 17:15] LABS: Free T3 2.7 pg/mL (2.18-3.98)
== END | disposition home or self-care (01) ==
LOC: LAB 15:45
PROVIDERS: PCP Family Medicine; Referring Provider Nurse Practitioner Gerontology; Visit Provider Nurse Practitioner Gerontology
DX: R53.83 Other fatigue (principal)
CPT/HCPCS: 36415; 84439; 84443; 84481